=== PATIENT | female | born 1935 | race Caucasian/White ===

== ENCOUNTER 2018-08-30 15:20 | Inpatient (IN) ==
[2018-08-30] MEDS ORDERED: SODIUM CHLORIDE 0.9% 500 ML IV SCH (16:30)
[2018-08-30 17:10] LABS: Basophils # (auto) 0.03 K/uL (0-0.2); Basophils % (auto) 0.3 %; Eosinophils # (auto) 0.06 K/uL (0-0.5); Eosinophils % (auto) 0.6 %; Hematocrit (blood only) 37.3 % (37-47); Hemoglobin 12.2 g/dL (12.0-16.0); Immature Granulocytes # (auto) 0.03 K/uL (0.00-0.02); Immature Granulocytes % (auto) 0.3 %; Lymphocytes # (auto) 1.61 K/uL (1.2-3.4); Lymphocytes % (auto) 16.1 %; Mean Corpuscular Hgb Conc 32.7 g/dL (32-36); Mean Corpuscular Volume 91.2 fL (80-100); Mean Platelet Volume 9.8 fL (7.4-10.4); Neutrophils % (auto) 76.7 %; Platelet Count 283 K/uL (130-400); RDW Coefficient of Variation 15.5 % (11.5-14.5); RDW Standard Deviation 51.9 fL (36.4-46.3); Red Blood Count 4.09 M/uL (4.2-5.4); White Blood Count 10.03 K/uL (4.8-10.8)
--- NOTE | 2018-08-30 17:10 | XRay Report ---
XR chest 1V portable CLINICAL HISTORY: Atypical chest pain COMPARISON STUDY: No previous studies for comparison. FINDINGS: The heart is enlarged. There is no failure. There is no lobar consolidation. Increased basi lar markings, likely related to technical factors with overlying chest wall tissue. There are no sign ificant pleural effusions.[ IMPRESSION: Somewhat difficult study to interpret given the patient's body habitus and AP portable te chnique. No active disease in the chest. Electronically signed by: Yifan Low M.D. 08/30/2018 5:08 PM
[2018-08-30 17:19] LABS: Prothrombin Time 10.3 Seconds (9.0-12.0)
[2018-08-30 17:59] LABS: Alanine Aminotransferase 16 U/L (12-78); Albumin Globulin Ratio 0.9 (0.9-2); Albumin Level 3.4 gm/dl (3.4-5.0); Alkaline Phosphatase 59 U/L (45-117); BUN Creatinine Ratio 19.4 (10-20); Bilirubin,Total 0.5 mg/dl (0.2-1); Blood Urea Nitrogen 23 mg/dl (7-18); Calcium 9.5 mg/dl (8.5-10.1); Carbon Dioxide 25 mmol/L (21-32); Chloride 106 mmol/L (98-107); Creatinine Clr Calc Pharmacy 44.3 ml/min; Est GFR (African American) 50.1; Est GFR (Non-African American) 43.2; Globulin 3.9 gm/dl (2.5-4.0); Glucose 113 mg/dl (70-99); Sodium 140 mmol/L (136-145); Total Protein 7.3 gm/dl (6.4-8.2); Troponin I < 0.015 ng/ml (0-0.045)
[2018-08-30 19:07] LABS: Potassium 4.3 mmol/L (3.5-5.1)
[2018-08-30] MEDS ORDERED: OPTIRAY 320 125ml IV PRN (20:20)
--- NOTE | 2018-08-30 20:43 | CT Scan Report ---
CT OF THE HEAD WITHOUT CONTRAST CLINICAL HISTORY: aphasia, poor balance COMPARISON STUDY: No previous studies for comparison. CT DOSE: 1104.58 mGy.cm TECHNIQUE: Helical axial images of the head were obtained without IV contrast. Automated exposure con trol was utilized for the study. A dose lowering technique was utilized adhering to the principles o f ALARA. FINDINGS: No acute intracranial hemorrhage, midline shift or mass effect is present. The ventricular system is unremarkable. The basilar cisterns are patent. No extra-axial collections are present. Ther e are no findings to suggest acute dural sinus thrombosis or acute territorial infarct. No significan t calvarial abnormalities are present. Visualized portions of the sinuses and mastoid air cells are c lear. White matter hypodensity suggests small vessel disease. There is moderate atrophy. IMPRESSION: No acute intracranial findings. Electronically signed by: Dre Duckworth M.D. 08/30/2018 8:42 PM
--- NOTE | 2018-08-30 20:51 | CT Scan Report ---
CT ANGIOGRAPHY OF THE NECK WITH CONTRAST CLINICAL HISTORY: aphasia, poor balance COMPARISON STUDY: No previous studies for comparison. Technique: CT angiography of the carotid and vertebral arteries was obtained using naaptolraSano 320 IV and 3D reconstruction on an independent workstation. NASCET criteria was utilized. Automated exposure c ontrol was utilized for the study. A dose lowering technique was utilized adhering to the principles of ALARA. Findings: The bilateral common carotid and cervical internal carotid arteries are patent. There is mi ld plaque within the proximal left internal carotid artery without stenosis. There is no dissection w ithin these vessels. The right vertebral artery is dominant and patent. Please note that the CTA of t he head will be reported separately. The left vertebral artery is diminutive. No flow is identified w ithin portions of the cervical portion of the left vertebral artery with distal reconstitution. There is no lymphadenopathy within neck. Lung apices are unremarkable. A few thyroid nodules measure up to 1.9 cm. IMPRESSION: 1. No stenosis within the bilateral common carotid and cervical internal carotid arteries. 2. Dominant, patent right vertebral artery. Diminutive hypoplastic left vertebral artery. No flow candis ntified within portions of the left vertebral artery which may be due to occlusion versus stenosis wi th distal reconstitution. Electronically signed by: Dre Duckworth M.D. 08/30/2018 8:49 PM
--- NOTE | 2018-08-30 20:54 | CT Scan Report ---
CTA ANGIOGRAPHY OF THE HEAD CLINICAL HISTORY: aphasia, poor balance COMPARISON STUDY: No previous studies for comparison. TECHNIQUE: Helical axial images of the head were obtained following uneventful intravenous administr ation of 116 cc of Optiray 320. Automated exposure control was utilized for the study. A dose lower ing technique was utilized adhering to the principles of ALARA. FINDINGS: Please note that the CTA of the neck will be reported separately. No acute intracranial hem orrhage, midline shift or mass effect is present. Moderate atrophy is noted. There are postoperative findings within the sinuses. The bilateral M1, M2, A1 and A2 segments are patent. There is no intracr anial aneurysm. No abrupt vessel cut off is identified. There is severe stenosis of the distal left v ertebral artery and mild stenosis of the distal right vertebral artery. The basilar artery is patent. There is mild stenosis within the basilar artery. The bilateral posterior cerebral arteries are ley nt. IMPRESSION: 1. No intracranial aneurysm or abrupt vessel cut off. 2. 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 Electronically signed by: Dre Duckworth M.D. 08/30/2018 8:52 PM
[2018-08-30 21:01] LABS: Appearance Urine Clear (Clear); Bilirubin Urine Negative (Negative); Blood Urine Negative (Negative); Color Urine Yellow; Glucose Urine UA Negative (Negative); Ketones Urine Negative (Negative); Leukocyte Esterase Urine Negative (Negative); Nitrite Urine Negative (Negative); Protein Urine Negative (Negative); Specific Gravity Urine 1.035 (1.000-1.030); Urobilinogen Urine Negative (Negative)
--- NOTE | 2018-08-30 21:38 | Emergency Department Note ---
Entered by Jordan Fernandes acting as a scribe for Michael Olivares MD History of Present Illness General Chief complaint: Vertigo Stated complaint: SLURED SPEECH, OFF BALLANCE Time Seen by Provider: 08/30/18 16:20 Source: patient and family History of Present Illness Onset (ago): day(s) (past few) Location: mouth (speech) Pain Consistency: + intermittent Quality: + other (two episodes of speech difficulty) Associated symptoms: + other ("I just can't walk right" for past 2 weeks) The patient is an 83 year old female who presents to the Emergency Room with complaints of intermittent speech difficulties over the past few days. The patient reports 3 days ago she experienced a 5-minute episode of speech problems, stating that she was attempting to talk but words werent coming out right. She states that yesterday she had another similar episode of speech difficulties that again resolved. Today during her wound clinic appointment it was recommended that she come to the ER for evaluation due to her two episodes of speech difficulties. Adopted daughter at bedside states that the patient recently received a cortisone injection in her left knee. Over the past couple of weeks she has been falling, which she does not attribute to pain. She states I just cant walk right. She reports that she recently finished a course of antibiotics for UTI. The patient lives alone. Home Medications Home Medications Medication Instructions Recorded Confirmed Type alprazolam 0.5 mg PO DAILY 08/30/18 08/30/18 History cholecalciferol (vitamin D3) 1,000 unit PO DAILY 08/30/18 08/30/18 History [Vitamin D3] coenzyme Q10 [CoQ-10] 100 mg PO DAILY 08/30/18 08/30/18 History escitalopram oxalate 10 mg PO DAILY 08/30/18 08/30/18 History leflunomide 10 mg PO DAILY 08/30/18 08/30/18 History metoprolol succinate 50 mg PO DAILY 08/30/18 08/30/18 History olmesartan 40 mg PO DAILY 08/30/18 08/30/18 History omeprazole 20 mg PO DAILY 08/30/18 08/30/18 History rosuvastatin 20 mg PO DAILY 08/30/18 08/30/18 History spironolactone 25 mg PO Q2D 07/01/19 07/01/19 History Allergies Allergy/AdvReac Type Severity Reaction Status Date / Time clopidogrel Allergy Unknown ITCHING Verified 08/30/18 17:44 aspirin AdvReac Unknown GI ISSUES Verified 08/30/18 17:44 Past Med/Surg History Medical History GERD (gastroesophageal reflux disease) History of hysterectomy Hypertension Surgical History History of appendectomy History of cataract surgery History of cholecystectomy History of total knee replacement x2 Family History Other Family history non-contributory Social History Preferred Language: Vietnamese Communication Ability: Effective Houseperson Required: No Beliefs That Will Affect Care: None Current Living Situation: Alone Other Information That Helps Us Care for You: No Feels Safe at Home: Yes Safety Concerns: Feels Safe At This Time Smoking Status: Never smoker Do You Dip or Chew Tobacco: No Second Hand Exposure: No Tobacco Cessation Education Requested by Patient: No Hx Alcohol Use: Yes Hx Substance Use: No Review of Systems See HPI for pertinent positives & negatives. and A total of 10 systems reviewed and were otherwise negative Physical Exam Vital Signs Vital Signs - 24 hr 08/30/18 15:25 08/30/18 16:20 08/30/18 18:58 Temperature 36.9 C Temperature Source Oral Sepsis Recent Fever Within 48 Hours No Sepsis Action Taken by Nursing No Action Required Pulse Rate 71 67 Pulse Rate [Apical] 70 Pulse Strength Normal Respiratory Rate 20 20 24 Respiratory Effort / Characteristics Non-Labored Non-Labored Spontaneous Respiratory Depth Normal Normal Blood Pressure 147/69 H Blood Pressure [Right Arm] 165/56 H Blood Pressure Mean 95 Blood Pressure Mean [Right Arm] 92 Pulse Oximetry 94 95 95 Oxygen Delivery Method Room Air Room Air Room Air 08/30/18 20:44 Temperature Temperature Source Sepsis Recent Fever Within 48 Hours Sepsis Action Taken by Nursing Pulse Rate Pulse Rate [Apical] 91 H Pulse Strength Respiratory Rate 18 Respiratory Effort / Characteristics Non-Labored Spontaneous Respiratory Depth Normal Blood Pressure Blood Pressure [Right Arm] 203/98 H Blood Pressure Mean Blood Pressure Mean [Right Arm] 133 Pulse Oximetry 96 Oxygen Delivery Method Room Air GENERAL: Awake, alert, fatigued-appearing, in no distress HENT: Normocephalic, atraumatic. Mucous membranes dry. EYES: Normal conjunctiva. Sclera non-icteric. EOMI. No nystamgus. PEARRL. NECK: Supple. No nuchal rigidity. FROM. No JVD. RESPIRATORY: Clear to auscultation bilaterally. CARDIAC: Regular rate, normal rhythm. Extremities warm and well perfused. Pulses equal. ABDOMEN: Soft, non-distended. No tenderness to palpation. No rebound or guarding. No masses. RECTAL: Deferred. MUSCULOSKELETAL: Chest examination reveals no tenderness. The back is symmetrical on inspection without obvious abnormality. There is no CVA tenderness to palpation. No joint edema. LOWER EXTREMITIES: Calves are equal size bilaterally and non-tender. No edema. No discoloration. NEURO: Normal sensorium. No sensory or motor deficits noted. 5/5 strength and SILT x4 extremities. Cerebellar function intact, including finger to nose, alternating palms, heel to steven. SKIN: No rash or jaundice noted. Course 163: The patient was evaluated in room C10. A complete history and physical examination were performed. 2119: I consulted Dr. Barron [facility] Hospitalist. The patient will be reevaluated for hospitalization. Administered Medications Discontinued Medications Sodium Chloride (Nss) 500 mls @ 999 mls/hr IV .Q31M SASHA Stop: 08/30/18 17:00 Last Infusion: 08/30/18 17:44 Dose: 0 mls/hr Documented by: [id number] Admin: 08/30/18 17:04 Dose: 999 mls/hr Documented by: [id number] Ioversol (Optiray 320 125ml) 116 ml IV ONCE PRN PRN Reason: Interaction Checking Stop: 09/03/18 20:19 Last Admin: 08/30/18 20:21 Dose: 116 ml Documented by: [id number] Medical Decision Making Differential Diagnosis Differential diagnosis includes: metabolic, infection, hypo/hyperglycemia, electrolyte abnormalities, cardiac sources, intracerebral event, toxicologic, neurologic, as well as others were entertained. Medical Records Attestation: I reviewed the patient's medical records. Home Medications Current Medication List: was personally reviewed by me Laboratory Data Attestation: I reviewed the patient's lab results. Result diagrams: 08/30/18 16:50 08/30/18 18:42 Lab Results 08/30/18 08/30/18 08/30/18 Range/Units 16:50 16:50 16:50 WBC 10.03 (4.8-10.8) K/uL RBC 4.09 L (4.2-5.4) M/uL Hgb 12.2 (12.0-16.0) g/dL Hct 37.3 (37-47) % MCV 91.2 (80-100) fL MCH 29.8 (25-34) pg MCHC 32.7 (32-36) g/dL RDW Std Deviation 51.9 H (36.4-46.3) fL RDW Coeff of Lizy 15.5 H (11.5-14.5) % Plt Count 283 (130-400) K/uL MPV 9.8 (7.4-10.4) fL Immature Gran % (Auto) 0.3 % Neut % (Auto) 76.7 % Lymph % (Auto) 16.1 % [place] % (Auto) 6.0 % Eos % (Auto) 0.6 % Baso % (Auto) 0.3 % Immature Gran # (Auto) 0.03 H (0.00-0.02) K/uL Neut # (Auto) 7.70 H (1.4-6.5) K/uL Lymph # (Auto) 1.61 (1.2-3.4) K/uL [place] # (Auto) 0.60 H (0.11-0.59) K/uL Eos # (Auto) 0.06 (0-0.5) K/uL Baso # (Auto) 0.03 (0-0.2) K/uL PT 10.3 (9.0-12.0) Seconds INR 1.0 (0.9-1.1) Sodium 140 (136-145) mmol/L Potassium (3.5-5.1) mmol/L Chloride 106 (98-107) mmol/L Carbon Dioxide 25 (21-32) mmol/L Anion Gap 9.0 (3-11) BUN 23 H (7-18) mg/dl Creatinine 1.16 (0.6-1.2) mg/dl Est Cr Clr Drug Dosing 44.3 ml/min Est GFR ( Amer) 50.1 Est GFR (Non-Af Amer) 43.2 BUN/Creatinine Ratio 19.4 (10-20) Glucose 113 H (70-99) mg/dl Calcium 9.5 (8.5-10.1) mg/dl Phosphorus 3.0 (2.5-4.9) mg/dl Magnesium (1.8-2.4) mg/dl Total Bilirubin 0.5 (0.2-1) mg/dl AST (15-37) U/L ALT 16 (12-78) U/L Alkaline Phosphatase 59 (45-117) U/L Troponin I < 0.015 (0-0.045) ng/ml Total Protein 7.3 (6.4-8.2) gm/dl Albumin 3.4 (3.4-5.0) gm/dl Globulin 3.9 (2.5-4.0) gm/dl Albumin/Globulin Ratio 0.9 (0.9-2) Lipase 154 (73-393) U/L TSH 0.979 (0.300-4.500) uIu/ml Urine Color Urine Appearance (Clear) Urine pH (4.5-7.5) Ur Specific [place] (1.000-1.030) Urine Protein (Negative) Urine Glucose (UA) (Negative) Urine Ketones (Negative) Urine Blood (Negative) Urine Nitrite (Negative) Urine Bilirubin (Negative) Urine Urobilinogen (Negative) Ur Leukocyte Esterase (Negative) 08/30/18 08/30/18 Range/Units 18:42 20:47 WBC (4.8-10.8) K/uL RBC (4.2-5.4) M/uL Hgb (12.0-16.0) g/dL Hct (37-47) % MCV (80-100) fL MCH (25-34) pg MCHC (32-36) g/dL RDW Std Deviation (36.4-46.3) fL RDW Coeff of Lizy (11.5-14.5) % Plt Count (130-400) K/uL MPV (7.4-10.4) fL Immature Gran % (Auto) % Neut % (Auto) % Lymph % (Auto) % [place] % (Auto) % Eos % (Auto) % Baso % (Auto) % Immature Gran # (Auto) (0.00-0.02) K/uL Neut # (Auto) (1.4-6.5) K/uL Lymph # (Auto) (1.2-3.4) K/uL [place] # (Auto) (0.11-0.59) K/uL Eos # (Auto) (0-0.5) K/uL Baso # (Auto) (0-0.2) K/uL PT (9.0-12.0) Seconds INR (0.9-1.1) Sodium (136-145) mmol/L Potassium 4.3 (3.5-5.1) mmol/L Chloride (98-107) mmol/L Carbon Dioxide (21-32) mmol/L Anion Gap (3-11) BUN (7-18) mg/dl Creatinine (0.6-1.2) mg/dl Est Cr Clr Drug Dosing ml/min Est GFR ( Amer) Est GFR (Non-Af Amer) BUN/Creatinine Ratio (10-20) Glucose (70-99) mg/dl Calcium (8.5-10.1) mg/dl Phosphorus (2.5-4.9) mg/dl Magnesium 2.0 (1.8-2.4) mg/dl Total Bilirubin (0.2-1) mg/dl AST 10 L (15-37) U/L ALT (12-78) U/L Alkaline Phosphatase (45-117) U/L Troponin I (0-0.045) ng/ml Total Protein (6.4-8.2) gm/dl Albumin (3.4-5.0) gm/dl Globulin (2.5-4.0) gm/dl Albumin/Globulin Ratio (0.9-2) Lipase (73-393) U/L TSH (0.300-4.500) uIu/ml Urine Color Yellow Urine Appearance Clear (Clear) Urine pH 5.0 (4.5-7.5) Ur Specific [place] 1.035 H (1.000-1.030) Urine Protein Negative (Negative) Urine Glucose (UA) Negative (Negative) Urine Ketones Negative (Negative) Urine Blood Negative (Negative) Urine Nitrite Negative (Negative) Urine Bilirubin Negative (Negative) Urine Urobilinogen Negative (Negative) Ur Leukocyte Esterase Negative (Negative) Imaging Data Radiologist's Impression: Radiology results as stated below per my review and the radiologist's interpretation: XR chest 1V portable CLINICAL HISTORY: Atypical chest pain COMPARISON STUDY: No previous studies for comparison. FINDINGS: The heart is enlarged. There is no failure. There is no lobar consolidation. Increased basilar markings, likely related to technical factors with overlying chest wall tissue. There are no significant pleural effusions. IMPRESSION: Somewhat difficult study to interpret given the patient's body habitus and AP portable technique. No active disease in the chest. Electronically signed by: Yifan Low M.D. 08/30/2018 5:[address] OF THE HEAD WITHOUT CONTRAST CLINICAL HISTORY: aphasia, poor balance COMPARISON STUDY: No previous studies for comparison. CT DOSE: 1104.58 mGy.cm TECHNIQUE: Helical axial images of the head were obtained without IV contrast. Automated exposure control was utilized for the study. A dose lowering technique was utilized adhering to the principles of ALARA. FINDINGS: No acute intracranial hemorrhage, midline shift or mass effect is present. The ventricular system is unremarkable. The basilar cisterns are patent. No extra-axial collections are present. There are no findings to suggest acute dural sinus thrombosis or acute territorial infarct. No significant calvarial abnormalities are present. Visualized portions of the sinuses and mastoid air cells are clear. White matter hypodensity suggests small vessel disease. There is moderate atrophy. IMPRESSION: No acute intracranial findings. Electronically signed by: Dre Duckworth M.D. 08/30/2018 8:42 PM CTA ANGIOGRAPHY OF THE HEAD CLINICAL HISTORY: aphasia, poor balance COMPARISON STUDY: No previous studies for comparison. TECHNIQUE: Helical axial images of the head were obtained following uneventful intravenous administration of 116 cc of Optiray 320. Automated exposure control was utilized for the study. A dose lowering technique was utilized adhering to the principles of ALARA. FINDINGS: Please note that the CTA of the neck will be reported separately. No acute intracranial hemorrhage, midline shift or mass effect is present. Moderate atrophy is noted. There are postoperative findings within the sinuses. The bilateral M1, M2, A1 and A2 segments are patent. There is no intracranial aneurysm. No abrupt vessel cut off is identified. There is severe stenosis of the distal left vertebral artery and mild stenosis of the distal right vertebral artery. The basilar artery is patent. There is mild stenosis within the basilar artery. The bilateral posterior cerebral arteries are patent. IMPRESSION: 1. No intracranial aneurysm or abrupt vessel cut off. 2. 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 Electronically signed by: Dre Duckworth M.D. 08/30/2018 8:[address] ANGIOGRAPHY OF THE NECK WITH CONTRAST CLINICAL HISTORY: aphasia, poor balance COMPARISON STUDY: No previous studies for comparison. Technique: CT angiography of the carotid and vertebral arteries was obtained using Optiray 320 IV and 3D reconstruction on an independent workstation. NASCET criteria was utilized. Automated exposure control was utilized for the study. A dose lowering technique was utilized adhering to the principles of ALARA. Findings: The bilateral common carotid and cervical internal carotid arteries are patent. There is mild plaque within the proximal left internal carotid arter y without stenosis. There is no dissection within these vessels. The right vertebral artery is dominant and patent. Please note that the CTA of the head will be reported separately. The left vertebral artery is diminutive. No flow is identified within portions of the cervical portion of the left vertebral artery with distal reconstitution. There is no lymphadenopathy within neck. Lung apices are unremarkable. A few thyroid nodules measure up to 1.9 cm. IMPRESSION: 1. No stenosis within the bilateral common carotid and cervical internal carotid arteries. 2. Dominant, patent right vertebral artery. Diminutive hypoplastic left vertebral artery. No flow identified within portions of the left vertebral artery which may be due to occlusion versus stenosis with distal reconstitution. Electronically signed by: Dre Duckworth M.D. 08/30/2018 8:49 PM ECG Data Attestation: I personally reviewed and interpreted this ECG as follows: Indication: other (speech difficulties) Rate (beats per minute): 68 Rhythm: normal sinus Findings: + other (normal axis); no ST depression and no ST elevation Blood Pressure Blood Pressure Findings: Elevated blood pressure Blood Pressure Disposition: further management by hospitalist JOIE Narrative The patient is a pleasant 83 y/o woman with a pmhx of HTN, HLD, GERD who presents to the emergency department with accompanied by daughter for evaluation of episode of aphasia that occurred yesterday as well as imbalance, which they report is new/worse for the patient per HPI. Given sx now resolved and onset yesterday no indication for Stroke alert. On arrival the patient is in NAD, AFVSS. Patient is neuro intact at this time including cerebellar function intact including [id number], alternating palms, [id number]. 5/5 strength and SILT x 4 extremities. EKG without evidence of acute ischemia. CXR negative. WBC, H/H, platelets wnl. Chemistry without acidosis. LFTs and electrolytes unremarkable. Troponin negative. UA negative. CTA of head and neck demonstrates severe stenosis of the distal left vertebral artery and mild stenosis of the distal right vertebral artery. Given patient's prior sx, reasonable to admit for further stroke evaluation including likely MRi. Case was discussed with Dr. Barron, [facility] hospitalist, who will evaluate the patient for admission. Impression & Plan Stroke-like symptoms Discharge Plan Visit Data *Final* Discharge Date/Time: 08/30/18 22:57 Chief Complaint: Vertigo Stated Complaint: SLURED SPEECH, OFF BALLANCE ED Provider: Michael Olivares Discharge Problem: Stroke-like symptoms Patient Disposition: Admitted As Inpatient Discharge Instructions Interventions: ED Discharge Assessment Last Done: 08/30/18 22:57 The scribe's documentation has been prepared under my direction and personally reviewed by me in its entirety. I confirm that the note above accurately r eflects all work, treatment, procedures, and medical decision making performed by me.
[2018-08-30] MEDS ORDERED: ACETAMINOPHEN 325 MG TAB PO PRN (23:06)
[2018-08-30] MEDS ORDERED: NITROGLYCERIN SL 0.4 MG/TAB TAB SL PRN (23:06)
[2018-08-30] MEDS ORDERED: LABETALOL HCL IV 5 MG/ML 20ML IV PRN (23:06)
[2018-08-30] MEDS ORDERED: PHARMACIST DISCHARGE MED REC CONSULT PRN (23:06)
[2018-08-30] MEDS ORDERED: ONDANSETRON INJ 2 MG/ML 2 ML VIAL IV PRN (23:06)
--- NOTE | 2018-08-31 02:00 | History and Physical Report ---
DATE OF ADMISSION: 08/30/2018 CHIEF COMPLAINT: Stroke-like symptoms. HISTORY OF PRESENT ILLNESS: This is an 83-year-old female with past medical history significant for rheumatoid arthritis, hypertension, hyperlipidemia, depression, anxiety, GERD, who presents with transient aphasia and imbalance. The patient says she had an episode of transient aphasia about a year ago for a few minutes and again it happened last Thursday for 4-5 minutes she was not able to speak and when she spoke, she was not making sense. Then again it happened on Thursday and today she was going to her wound clinic for a small wound on her right thigh which is healing. She was taken to the wound clinic and people advised to come to the ER. Currently, resting comfortably and hemodynamically stable. Speech is clear, alert and oriented x3. Adopted daughter in the room. She lives alone. She just had steroid shot to her knees today. She follows with orthopedics for her arthritis, but lately since last 1-2 months she is having some gait imbalance while she is ambulating. She uses a cane to ambulate. She has some headaches. Denies any blurred vision. No earache, no runny nose, no sore throat, no difficulty swallowing. No chest pain, no shortness of breath, no cough, no nausea, no abdominal pain. Normal bowel and bladder movements. No blood in the stool, no black stools, no hematuria, no burning micturition. No swelling in the legs. No rash. The patient says the blood pressure usually runs high at home, yesterday was 148/102, but it usually runs higher than that. Blood pressure has been high in the ER. ALLERGIES: ASPIRIN CAUSES GI UPSET AND PLAVIX CAUSES ITCHING. PAST MEDICAL HISTORY: As mentioned above. PAST SURGICAL HISTORY: Cataract surgery. MEDICATIONS: The patient is on alprazolam 0.5 mg p.o. daily, vitamin D 1000 units p.o. daily, Coenzyme Q10 100 mg p.o. daily, Lexapro 10 mg p.o. daily, leflunomide 10 mg p.o. daily, Toprol-XL 50 mg p.o. daily, olmesartan 40 mg p.o. daily, omeprazole 20 mg p.o. daily, lovastatin 20 mg p.o. daily, spironolactone 25 mg every other day. FAMILY HISTORY: Noncontributory. SOCIAL HISTORY: Denies any smoking. No alcohol, no drug use. REVIEW OF SYMPTOMS: As per HPI. Rest of the review of symptoms negative. PHYSICAL EXAMINATION: GENERAL: The patient is obese, not in acute distress. VITAL SIGNS: Temperature 36.9, pulse 91, respiratory rate 18, blood pressure 203/98, oxygen 96% on room air. HEENT: No pallor, no icterus. Pupils equal, round, and reactive to light. Extraocular muscles intact. NECK: No JVD, no neck masses, no carotid bruits. CARDIOVASCULAR: S1, S2 heard, regular rate and rhythm, no murmur, no gallop. RESPIRATORY SYSTEM: Normal AP diameter. No accessory muscle use. No wheezing, no crackles. ABDOMEN: Soft, bowel sounds present. Nontender. No distention. CENTRAL NERVOUS SYSTEM: Cranial nerves II-XII grossly intact. Nonfocal. Power 5/5 in all extremities. No pronator drift. Coordination of movements normal. Hktloy-fz-sblj test normal. Vqqu-jn-uvfl test normal. Sensation intact. Position sense intact. EXTREMITIES: No edema, no erythema. LABORATORY DATA: WBC 10, hemoglobin 12.2, hematocrit 37.3, platelets 283. PT 10.3, INR 1. Sodium 140, potassium 4.3, chloride 106, bicarbonate 25, BUN 23, creatinine 1.16, serum glucose 113, calcium 9.5, magnesium 3.2, total bilirubin 0.5, AST 10, ALT 16, alkaline phosphatase 59, troponin I less than 0.015. Lipase 154. TSH 0.97. Urinalysis negative. IMAGING DATA: CTA of the neck, no stenosis within bilateral common carotid and cervical internal carotid arteries. Dominant patent right vertebral artery. Diminutive hypoplastic left vertebral artery. No flow identified within a portion of the left vertebral artery which may be due to occlusion of versus stenosis with distal reconstitution. CTA of the head, no intracranial aneurysm or abrupt visual cutoff. 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 CT of the head, no acute intracranial findings. Chest x-ray, no acute disease in the chest. EKG: Normal sinus rhythm, rate of 68, no significant change from previous EKG. ASSESSMENT AND PLAN: This is an 83-year-old female who presents with stroke-like symptoms. 1. Stroke-like symptoms. Has some transient aphasia, some imbalance going on for last [address] of the head is unremarkable, but CTA of the head and neck shows severe stenosis of the right vertebral artery, distal left vertebral artery and mild stenosis of the distal right vertebral artery. Currently, patient is asymptomatic on exam, ambulating okay in the ER room. We will do a stroke protocol with MRI of the head, echocardiogram, carotid Doppler, speech evaluation, and neurology consult in a.m. PT and OT. The patient is already on statin. We will follow fasting lipid profile. Patient is to be monitored in tele floor. The patient states aspirin caused severe GI upset in the past and Plavix caused itching. So we will have neuro input regarding it and closely monitor in the tele floor. 2. Hypertension, on olmesartan and Toprol-XL. The patient's blood pressure runs high at home. Currently, systolic blood pressure in 200s. We will allow permissive hypertension. We will place on IV labetalol p.r.n. for systolic blood pressure in 190. 3. Hyperlipidemia. Continue lovastatin 20 mg daily. Follow fasting lipid profile. 4. Gastroesophageal reflux disease, continue omeprazole. 5. Depression. Continue Lexapro . 6. Deep venous thrombosis prophylaxis, sequential compression devices for now. 7. Disposition: Closely monitor in the tele floor. Level 1 full code. Code status DNR as per my discussion with the patient. PARASD
[2018-08-31 07:05] LABS: Basophils # (auto) 0.01 K/uL (0-0.2); Basophils % (auto) 0.1 %; Hematocrit (blood only) 40.8 % (37-47); Hemoglobin 13.3 g/dL (12.0-16.0); Immature Granulocytes # (auto) 0.03 K/uL (0.00-0.02); Immature Granulocytes % (auto) 0.3 %; Lymphocytes # (auto) 1.27 K/uL (1.2-3.4); Mean Corpuscular Hgb Conc 32.6 g/dL (32-36); Mean Corpuscular Volume 89.5 fL (80-100); Mean Platelet Volume 9.8 fL (7.4-10.4); Monocytes # (auto) 0.34 K/uL (0.11-0.59); Monocytes % (auto) 3.2 %; Neutrophils # (auto) 8.97 K/uL (1.4-6.5); Neutrophils % (auto) 84.4 %; Platelet Count 315 K/uL (130-400); RDW Coefficient of Variation 15.3 % (11.5-14.5); RDW Standard Deviation 49.7 fL (36.4-46.3); Red Blood Count 4.56 M/uL (4.2-5.4); White Blood Count 10.62 K/uL (4.8-10.8)
[2018-08-31 07:40] LABS: BUN Creatinine Ratio 20.3 (10-20); Calcium 9.4 mg/dl (8.5-10.1); Creatinine Clr Calc Pharmacy 46.2 ml/min; Est GFR (African American) 53.4; Est GFR (Non-African American) 46.1; Potassium 4.1 mmol/L (3.5-5.1)
[2018-08-31 07:47] LABS: Estimated Average Glucose 134 mg/dl; Hemoglobin A1C 6.3 % (4.5-5.6)
[2018-08-31] MEDS: ESCITALOPRAM OXALATE 10 MG TAB PO SCH (07:53)
[2018-08-31] MEDS: CHOLECALCIFEROL 1,000 UNITS TAB PO SCH (07:53)
[2018-08-31] MEDS: ROSUVASTATIN CALCIUM 20 MG TAB PO SCH (07:53)
[2018-08-31] MEDS: PANTOprazole 40 MG TAB PO SCH (07:53)
[2018-08-31] MEDS: OLMESARTAN MEDOXOMIL 40 MG TAB PO SCH (07:53)
[2018-08-31] MEDS: LEFLUNOMIDE 10 MG TAB PO SCH (07:53)
[2018-08-31] MEDS ORDERED: METOPROLOL SUCC 50MG EXT REL TAB PO STA (08:24)
[2018-08-31] MEDS: ALPRAZolam 0.5 MG TABLET PO SCH (08:38)
[2018-08-31] MEDS ORDERED: NON-FORMULARY MEDICATION (Coenzyme Q10 [Coq-10] 100 MG) PO SCH (09:00)
[2018-08-31] MEDS ORDERED: PERFLUTREN LIPID MICROSPHERE (DEFINITY) IV ONE (09:38)
--- NOTE | 2018-08-31 10:37 | Ultrasound Report ---
ULTRASOUND OF THE CAROTID ARTERIES CLINICAL HISTORY: Throat COMPARISON STUDY: None. TECHNIQUE: Real-time, grayscale, and color Doppler sonography of the carotid arteries was performed. Imaging reviewed in the transverse and longitudinal planes. NASCET criteria was utilized for stenosis calcification. FINDINGS: There is minimal atherosclerotic plaque present . The peak systolic velocity within the right internal carotid artery is 72 cm/sec. The systolic velocity ratio of right internal to common carotid artery is 0.8. The peak systolic velocity within the left internal carotid artery is 72 cm/sec. The systolic velocity ratio left internal to common carotid artery is 0.9. No flow was visualized within the left vertebral. The external carotid arteries are patent. IMPRESSION: 1. No evidence of hemodynamic significant carotid stenosis 2. Nonvisualization of the left vertebral artery Electronically signed by: iYfan Low M.D. 08/31/2018 10:35 AM
[2018-08-31] MEDS ORDERED: GADOBUTROL 65ML VIAL IV PRN (13:47)
--- NOTE | 2018-08-31 14:00 | Magnetic Resonance Report ---
MRI OF THE BRAIN WITHOUT AND WITH IV CONTRAST CLINICAL HISTORY: Stroke. Hypertension. Abnormal gait. Headaches. Dizziness. COMPARISON STUDY: Head CT dated 08/30/2018 TECHNIQUE: MRI of the brain was performed from the vertex to the skull base utilizing various T1 and T2 weighted sequences. Following the IV administration of 10.5 mL of Gadavist contrast, additional en hanced images were obtained. FINDINGS: Sagittal T1, axial diffusion, proton density and T2 weighted axial, coronal FLAIR, and pre and post a xial T1-weighted images were acquired. These were supplemented with post gadolinium coronal T1 weight ed images. No intra or extra-axial mass lesions are visualized. Axial diffusion-weighted images reveal no evidence of acute or subacute infarction. There is mild ventricular prominence, finding likely secondary to volume loss Proton density T2-weighted and FLAIR images reveal scattered foci of increased T2 signal within the w irina matter, likely on a small vessel basis. There is abnormal signal within the distal left vertebral artery consistent with slow flow or occlusi on. There is no evidence of pathologic enhancement. IMPRESSION: 1. Abnormal signal within the distal left vertebral artery consistent with slow flow or occlusion 2. No evidence of acute or subacute infarction 3. No evidence of intracranial mass Electronically signed by: Yifan Low M.D. 08/31/2018 1:59 PM
--- NOTE | 2018-08-31 15:42 | Neurology Consultation ---
Date of Consultation August 31, 2018 Assessment & Plan (1) Aphasia: A 83 year old woman with Hx of RA and HTN admitted with intermittent language difficulty which resolved prior to admission. Also noted to have some possible confusion. Blood pressure elevated on admission and since improved. No aphasia or dysarthria on examine. Patient currently at baseline. Evaluation included an MRI which showed chronic microvascular ischemic changes and CTA head showed an incidentally occluded left vertebral artery. Differential diagnosis certainly includes TIA Vs HTN encephalopathy. Recommend starting PLavix 75 mg daily and continue home Crestor 20 mg daily. Patient intolerant to ASA but denies AE from Plavix. Agree with gradual reduction in blood pressures with goal SBP <140 mm Hg, DBP<90 mm Hg. Recommend outpatient PT for her unsteady gait and follow up in Neurology clinic in 8-weeks. Plan to discharge tomorrow with observation of blood pressures overnight. Please call with any further questions or concerns. (2) Hypertension: (3) Occlusion of left vertebral artery: History of Present Illness Attending Physician: Danyel Hutchinson MD History of Present Illness An 83 year old woman yesterday for complaint of intermittent speech difficulty 2-3 days ago. Episode lasted about 5 min per patient. SHe has a history of HTN, HLD< and RA. She is not on ASA or Plavix. Reports intolerance to ASA. Denies problems with Plavix. Denies history of stroke or TIA. On Admission blood pressures were eleavted with SBP> 200. Blood pressure improved with adjustment of BP meds. Patient reports feeling fine now. Friend at bedside concerned with unsteady gait and headaches. Patient had RA and is on immunotherapy. Denies DM. Allergies Allergy/AdvReac Type Severity Reaction Status Date / Time clopidogrel Allergy Unknown ITCHING Verified 08/30/18 17:44 aspirin AdvReac Unknown GI ISSUES Verified 08/30/18 17:44 Home Medications Home Medications Medication Instructions Recorded Confirmed Type alprazolam 0.5 mg PO DAILY 08/30/18 08/30/18 History cholecalciferol (vitamin D3) 1,000 unit PO DAILY 08/30/18 08/30/18 History [Vitamin D3] coenzyme Q10 [CoQ-10] 100 mg PO DAILY 08/30/18 08/30/18 History escitalopram oxalate 10 mg PO DAILY 08/30/18 08/30/18 History leflunomide 10 mg PO DAILY 08/30/18 08/30/18 History metoprolol succinate 50 mg PO DAILY 08/30/18 08/30/18 History olmesartan 40 mg PO DAILY 08/30/18 08/30/18 History omeprazole 20 mg PO DAILY 08/30/18 08/30/18 History rosuvastatin 20 mg PO DAILY 08/30/18 08/30/18 History spironolactone 25 mg PO Q2D 08/30/18 08/30/18 History Patient History Medical History GERD (gastroesophageal reflux disease) History of hysterectomy Hypertension Surgical History History of appendectomy History of cataract surgery History of cholecystectomy History of total knee replacement x2 Family History Other Family history non-contributory Social History Preferred Language: Croatian Communication Ability: Effective 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: No Beliefs That Will Affect Care: None marital status: / Current Living Situation: Alone Other Information That Helps Us Care for You: No Feels Safe at Home: Yes Safety Concerns: Feels Safe At This Time Smoking Status: Never smoker Do You Dip or Chew Tobacco: No Second Hand Exposure: No Tobacco Cessation Education Requested by Patient: No Hx Alcohol Use: Yes Hx Substance Use: No Physical Exam Physical Exam: EXAM: Constitutional: appearance normally developed, well nourished and non-obese Head and Face: normocephalic and atraumatic Eyes: normal lids, normal conjunctiva Neck: supple Respiratory: normal effort Cardiovascular: normal pulses Abdomen: non distended Skin: no rashes, lesions, or ulcers noted Psychiatric: normal judgement and insight, normal mood and normal affect NEUROLOGIC EXAMINATION: Appearance: no acute distress Orientation: awake, alert and oriented x 3 Mental Status: alert Memory: Good Attention: normal Knowledge: appropriate Language: no aphasia Speech: no dysarthria Cranial Nerves: CN 2 - no visual defect on confrontation and pupils round, equal, reactive to light CN 3, 4, 6 - extra-ocular movements intact and no nystagmus CN 5 - facial sensation intact CN 7 - no facial asymmetry CN 8 - intact hearing CN 9, 10 - palate symmetric CN 11 - good shoulder shrug CN 12 - tongue midline Gait: wide based gait, able to stand without assistance Coordination: no ataxia with finger to nose testing Sensory: position sense is intact in the feet, intact to touch Muscle Tone: normal Muscle exam: 5/5 throughout Reflexes: 2+ at the knees, no clonus Results & Data Vital Signs (Past 12 Hours) Vital Signs Temp Pulse Pulse Resp BP BP Pulse Ox 08/31/18 11:42 36.5 C 83 20 164/79 H 97 08/31/18 08:11 36.7 C 87 20 173/72 H 97 08/31/18 07:27 96 H 08/31/18 04:00 36.5 C 88 20 169/71 H 96 Laboratory Results UA Negative Diagnostic Findings MRI Brain: 1. Abnormal signal within the distal left vertebral artery consistent with slow flow or occlusion 2. No evidence of acute or subacute infarction 3. No evidence of intracranial mass CTA Neck: . No stenosis within the bilateral common carotid and cervical internal carotid arteries. 2. Dominant, patent right vertebral artery. Diminutive hypoplastic left vertebral artery. No flow identified within portions of the left vertebral artery which may be due to occlusion versus stenosis with distal reconstitution. CTA Head: . No intracranial aneurysm or abrupt vessel cut off. 2. 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 TTE: Preserved EF. No cardiac source of embolism.
--- NOTE | 2018-08-31 16:26 | Hospitalist Progress Note ---
Date of Service August 31, 2018 Assessment & Plan (1) Hypertension: This is an 83-year-old female with past medical history significant for rheumatoid arthritis, hypertension, hyperlipidemia, depression, anxiety, GERD, who presents with transient aphasia and imbalance. The patient says she had an episode of transient aphasia about a year ago for a few minutes and again it happened last Thursday for 4-5 minutes she was not able to speak and when she spoke, she was not making sense. Then again it happened on Thursday and today she was going to her wound clinic for a small wound on her right thigh which is healing. She was taken to the wound clinic and people advised to come to the ER. Currently, resting comfortably and hemodynamically stable. Initial concerns for stroke-like symptoms possible TIA versus Hypertensive Hypertensive encephalopathy as reasons for episodes of speech dysfunction Hypertension -no actual observed symptoms during hospital stay and patient does not have focal neurological deficits on medical silver -admission blood pressure remarkable for being systolic 203/98 and general blood pressures above 160s -Imaging studies studies with no acute brain infarcts (08/30/[address]: No acute intracranial findings 08/30/18 Head CTA: No intracranial aneurysm or abrupt vessel cut off. 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 08/30/18 Neck CTA: . No stenosis within the bilateral common carotid and cervical internal carotid arteries. Dominant, patent right vertebral artery. Diminutive hypoplastic left vertebral artery. No flow identified within portions of the left vertebral artery which may be due to occlusion versus stenosis with distal reconstitution. 08/31/18 Carotid ultrasound: No evidence of hemodynamic significant carotid stenosis. Nonvisualization of the left vertebral artery 08/31/18 Echocardiogram: Normal LV Chamber size and wall thickness. Normal LV systolic function, EF 60- 65%. No segmental left ventricular wall motion abnormalities are noted. Grade 1 diastolic dysfunction. No significant valvular pathology 08/31/18: Brain MRI without and with IV contrast: Abnormal signal within the distal left vertebral artery consistent with slow flow or occlusion. No evidence of acute or subacute infarction. No evidence of intracranial mass) -sinus rhythm on telemetry -patient has been started on amlodipine 5 mg daily on 08/31/18 and as per neurology Dr. Trotter recommends starting clopidogrel 75 mg daily (no allergies to clopidogrel when neurology discussed with patient and patient agreeable to try) and keep patient inpatient for now and continue to monitor the patient as inpatient -continue home dose olmesartan 40mg and Toprol-XL 50 mg daily -resume spirolactone 25 mg every other day -will need neurology clinic follow up in 8 weeks Dyslipidemia -Continue lovastatin 20 mg daily Rheumatoid Arthritis -no acute flare at this time -continue leflunomide Gastroesophageal reflux disease -continue omeprazole. Mood stable -on Lexapro as outpatient, continue Deep venous thrombosis prophylaxis: sequential compression devices for now and encourage ambulation Patient's friend Sol [phone] notes that patient has already outpatient therapy referrals Physical Exam Constitutional: WD/WN, vitals as above Eyes: PERRL, conjunctivae normal, anicteric sclerae EOM intact bilaterally ENMT: external ear and nose normal, oropharynx normal Neck: trachea midline, no thyromegaly Respiratory: normal respiratory effort, lungs clear to auscultation Cardiovascular: RRR, no murmur, no edema Gastrointestinal (Abdomen): normal bowel sounds, soft, nontender, no hepatosplenomegaly Musculoskeletal: no cyanosis or clubbing, extremities motor strength 5/5 Head/Neck/Chest: normocephalic and head atraumatic Neurologic: PERRL, EOMI, accommodation nl, no face palsy, no dysarthria CN's II-XI intact bilaterally Psychiatric: A+Ox3, euthymic affect Results & Data Vital Signs (Past 12 Hours) Vital Signs Temp Pulse Pulse Resp BP BP Pulse Ox 08/31/18 15:51 66 20 159/70 H 96 08/31/18 11:42 36.5 C 83 20 164/79 H 97 08/31/18 08:11 36.7 C 87 20 173/72 H 97 08/31/18 07:27 96 H
[2018-08-31] MEDS: AMLODIPINE BESYLATE 5 MG TAB PO SCH (16:49)
[2018-08-31] MEDS ORDERED: CLOPIDOGREL BISULFATE 75 MG TAB PO ONE (16:50)
[2018-09-01 07:20] LABS: Basophils # (auto) 0.01 K/uL (0-0.2); Basophils % (auto) 0.1 %; Eosinophils # (auto) 0.01 K/uL (0-0.5); Eosinophils % (auto) 0.1 %; Hematocrit (blood only) 37.1 % (37-47); Hemoglobin 12.2 g/dL (12.0-16.0); Immature Granulocytes # (auto) 0.02 K/uL (0.00-0.02); Immature Granulocytes % (auto) 0.2 %; Lymphocytes # (auto) 1.76 K/uL (1.2-3.4); Lymphocytes % (auto) 20.3 %; Mean Corpuscular Hgb Conc 32.9 g/dL (32-36); Mean Corpuscular Volume 88.3 fL (80-100); Mean Platelet Volume 10.1 fL (7.4-10.4); Monocytes # (auto) 0.86 K/uL (0.11-0.59); Monocytes % (auto) 9.9 %; Neutrophils # (auto) 6.01 K/uL (1.4-6.5); Neutrophils % (auto) 69.4 %; Platelet Count 274 K/uL (130-400); RDW Coefficient of Variation 15.4 % (11.5-14.5); RDW Standard Deviation 49.6 fL (36.4-46.3); White Blood Count 8.67 K/uL (4.8-10.8)
[2018-09-01] MEDS: CHOLECALCIFEROL 1,000 UNITS TAB PO SCH (07:41)
[2018-09-01] MEDS: ROSUVASTATIN CALCIUM 20 MG TAB PO SCH (07:42)
[2018-09-01] MEDS: ESCITALOPRAM OXALATE 10 MG TAB PO SCH (07:42)
[2018-09-01] MEDS: LEFLUNOMIDE 10 MG TAB PO SCH (07:42)
[2018-09-01] MEDS: PANTOprazole 40 MG TAB PO SCH (07:42)
[2018-09-01] MEDS: OLMESARTAN MEDOXOMIL 40 MG TAB PO SCH (07:42)
[2018-09-01] MEDS: AMLODIPINE BESYLATE 5 MG TAB PO SCH (07:43)
[2018-09-01] MEDS: ALPRAZolam 0.5 MG TABLET PO SCH (07:45)
[2018-09-01 07:59] LABS: Calcium 9.3 mg/dl (8.5-10.1); Est GFR (African American) 56.5; Est GFR (Non-African American) 48.7; Potassium 4.1 mmol/L (3.5-5.1)
[2018-09-01] MEDS ORDERED: SPIRONOLACTONE 25 MG TAB PO SCH (09:00)
[2018-09-01] MEDS ORDERED: METOPROLOL SUCC 50MG EXT REL TAB PO SCH (09:00)
[2018-09-01] MEDS ORDERED: CLOPIDOGREL BISULFATE 75 MG TAB PO SCH (09:00)
--- NOTE | 2018-09-01 16:35 | Discharge Summary ---
Date of Service September 01, 2018 Admission HPI Per Admitting Provider HISTORY OF PRESENT ILLNESS: This is an 83-year-old female with past medical history significant for rheumatoid arthritis, hypertension, hyperlipidemia, depression, anxiety, GERD, who presents with transient aphasia and imbalance. The patient says she had an episode of transient aphasia about a year ago for a few minutes and again it happened last Thursday for 4-5 minutes she was not able to speak and when she spoke, she was not making sense. Then again it happened on Thursday and today she was going to her wound clinic for a small wound on her right thigh which is healing. She was taken to the wound clinic and people advised to come to the ER. Currently, resting comfortably and hemodynamically stable. Speech is clear, alert and oriented x3. Adopted daughter in the room. She lives alone. She just had steroid shot to her knees today. She follows with orthopedics for her arthritis, but lately since last 1-2 months she is having some gait imbalance while she is ambulating. She uses a cane to ambulate. She has some headaches. Denies any blurred vision. No earache, no runny nose, no sore throat, no difficulty swallowing. No chest pain, no shortness of breath, no cough, no nausea, no abdominal pain. Normal bowel and bladder movements. No blood in the stool, no black stools, no hematuria, no burning micturition. No swelling in the legs. No rash. The patient says the blood pressure usually runs high at home, yesterday was 148/102, but it usually runs higher than that. Blood pressure has been high in the ER. Admission Exam Per Admitting Provider PHYSICAL EXAMINATION: GENERAL: The patient is obese, not in acute distress. VITAL SIGNS: Temperature 36.9, pulse 91, respiratory rate 18, blood pressure 203/98, oxygen 96% on room air. HEENT: No pallor, no icterus. Pupils equal, round, and reactive to light. Extraocular muscles intact. NECK: No JVD, no neck masses, no carotid bruits. CARDIOVASCULAR: S1, S2 heard, regular rate and rhythm, no murmur, no gallop. RESPIRATORY SYSTEM: Normal AP diameter. No accessory muscle use. No wheezing, no crackles. ABDOMEN: Soft, bowel sounds present. Nontender. No distention. CENTRAL NERVOUS SYSTEM: Cranial nerves II-XII grossly intact. Nonfocal. Power 5/5 in all extremities. No pronator drift. Coordination of movements normal. [id number] test normal. Zrvn-gf-[id number] test normal. Sensation intact. Position sense intact. EXTREMITIES: No edema, no erythema. Principal Diagnosis TIA Hypertensive encephalopathy-resolved Discharge Data Allergies Allergy/AdvReac Type Severity Reaction Status Date / Time clopidogrel Allergy Unknown ITCHING Verified 08/30/18 17:44 aspirin AdvReac Unknown GI ISSUES Verified 08/30/18 17:44 Consultations 08/30/18 21:23 ED Decision to Admit Stat 08/30/18 23:06 Consult Case Management - Discharge Planning Routine Consult Case Management - Discharge Planning Routine 08/31/18 08:00 Consult Neurology Routine Ordered Studies 08/30/18 17:36 CT angio head w con Stat CT angio neck with con Stat CT head/brain wo con Stat 08/31/18 00:00 US carotid doppler BI Routine 08/31/18 00:36 MR brain wo/w con Urgent Hospital Course (1) Hypertensive encephalopathy: (2) TIA (transient ischemic attack): 83-year-old female with rheumatoid arthritis presented with transient a aphasia and imbalance. Although symptoms improved by the time she came to the ER they had recurred twice in the last week. On arrival to the ER blood pressure was elevated over [address] revealed no acute intracranial findings. 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 A neck CTA revealed no stenosis within the bilateral common carotid and cervical internal carotid arteries. There was a diminutive hypoplastic left vertebral artery noted with no flow identified within portions of the left vertebral artery. An echocardiogram re vealed normal LV systolic function with an EF 60 to 65% and no segmental left ventricular wall motion abnormalities noted. There was grade 1 diastolic dysfunction and no significant valvular pathology. A brain MRI with and without IV contrast revealed an abnormal signal within the distal left vertebral artery consistent with slow flow or occlusion but no evidence of acute or subacute infarction. There was also no evidence of intracranial mass. She remained in sinus rhythm on telemetry throughout her hospitalization. For blood pressure control she was started on amlodipine in addition to her home medications. Neurology was consulted and recommended starting clopidogrel 75 mg daily as the patient was intolerant to aspirin at baseline. It is uncertain whether her symptoms were related to TIA versus hypertensive encephalopathy, and close outpatient follow-up with [facility] neurology was recommended in 8 weeks. At time of discharge she had no focal neurologic deficits on physical exam and physical exam was otherwise unremarkable. She was oriented and ambulating at baseline. She was formally evaluated by see PT and OT and cleared for discharge home. She was tolerating p.o. and asymptomatic. She was hemodynamically stable and afebrile. She was discharged in stable condition with close primary care follow-up recommended. Total Time Total Time Spent Total Time Spent (In Minutes): 60 Total Time Includes: Examination of the Patient, Discharge Planning, Medication Reconciliation and Communication With Other Providers Discharge Plan Discharge Items Patient Disposition: Home - Self-Care Reason For Visit: TRANSIENT APHASIA,IMBALANCE Discharge Diagnosis: TIA Hypertensive encephalopathy-resolved Condition: Good Discharge Goals: Improve disease control Activity: Resume your previous activity Non-emergency contact: Primary Care Provider and Neurologist Call non-emergency contact if: you have any medication questions Follow-up/Referrals: Ronan Maher [Primary Care Provider] - Diet: Heart Healthy Diet Texture: Dental soft (bite-sized) Addtl Provider Instructions: Please take all medications as instructed on discharge list below. It is recommended that you follow-up with Dr. Maher within 1 week of discharge for reevaluation of your blood pressure and to ensure you are doing well on Plavix. Please follow-up with Dr. Donato Monroy at [facility] Neurology in 8 weeks time. It was a pleasure taking care of you! Please call if you have any questions or problems. You can reach a [facility] hospitalist on duty at [facility] 24 hours a day by calling [phone]. Take care of yourself. Loren Cardozo, DO [facility] Prescriptions: New clopidogrel 75 mg Tablet 75 mg PO QAM Qty: 30 RF: 1 amlodipine 10 mg tablet 10 mg PO DAILY Qty: 30 RF: 1 pantoprazole 40 mg Tablet,Delayed Release (Dr/Ec) 40 mg PO DAILY Qty: 30 RF: 1 Continued metoprolol succinate 50 mg tablet extended release 24 hr 50 mg PO DAILY RF: 0 leflunomide 10 mg tablet 10 mg PO DAILY RF: 0 spironolactone 25 mg tablet 25 mg PO Q2D RF: 0 alprazolam 0.5 mg tablet 0.5 mg PO DAILY RF: 0 olmesartan 40 mg tablet 40 mg PO DAILY RF: 0 escitalopram oxalate 10 mg tablet 10 mg PO DAILY RF: 0 coenzyme Q10 [CoQ-10] 100 mg Capsule 100 mg PO DAILY RF: 0 rosuvastatin 20 mg tablet 20 mg PO DAILY RF: 0 cholecalciferol (vitamin D3) [Vitamin D3] 1,000 unit tablet 1,000 unit PO DAILY RF: 0 Discontinued omeprazole 20 mg capsule,delayed release(DR/EC) 20 mg PO DAILY RF: 0 Stand-Alone Forms: [facility]/Other Patient Handouts: Prediabetes, Diabetes Meal Planning Discharge Orders: Discharge Order (Routine); Ordered 09/01/18 Ordered By: Loren Cardozo Admission Data Admit Date/Time: 08/30/18 22:05 Attending Provider: Loren Cardozo Admit Provider: Henok Barron Primary Care Provider: Ronan Maher Other Providers: Henok Barron ; Kristine Pritchett ; Edward Cobb ; Kristine Rea ; Donato Trotter Service: Telemetry Medical
[2018-09-01] MEDS ORDERED: PHARMACIST DISCHARGE MED REC CONSULT PRN (16:44)
--- NOTE | 2018-09-01 17:46 | Pharmacy Report ---
Pharmacist Stroke Counseling - Date of Service September 01, 2018 - Scope: Pharmacy has been consulted to provide medication discharge counseling for this patient admitted with transient ischemic attack as per the Pharmacist Discharge Counseling for Stroke Patients Protocol. - Medications on Discharge: Home Medications Medication Instructions Recorded Confirmed alprazolam 0.5 mg PO DAILY 08/30/18 08/30/18 cholecalciferol (vitamin D3) 1,000 unit PO DAILY 08/30/18 08/30/18 [Vitamin D3] coenzyme Q10 [CoQ-10] 100 mg PO DAILY 08/30/18 08/30/18 escitalopram oxalate 10 mg PO DAILY 08/30/18 08/30/18 leflunomide 10 mg PO DAILY 08/30/18 08/30/18 metoprolol succinate 50 mg PO DAILY 08/30/18 08/30/18 olmesartan 40 mg PO DAILY 08/30/18 08/30/18 rosuvastatin 20 mg PO DAILY 08/30/18 08/30/18 spironolactone 25 mg PO Q2D 08/30/18 08/30/18 New Rx's Medication Instructions Recorded amlodipine 10 mg PO DAILY #30 tab 09/01/18 clopidogrel 75 mg PO QAM #30 tab 09/01/18 pantoprazole 40 mg PO DAILY #30 tab 09/01/18 - Action: The above medications, specifically ones for stroke treatment/prophylaxis, have been reviewed in detail with the patient and patient community health program representative(s) prior to discharge. This includes indication, common adverse reactions, drug interactions, and medication administration. Medication counseling has been employed using the teach-back method to ensure understanding. - Outcome: The patient and/or patient community health program representative(s) have demonstrated understanding of the medications. Please note, they are aware that the pharmacist will call them within 72 hours post-discharge to confirm that the appropriate medications are being taken and answer any further medication related questions the patient might have at that time. Contact information Individual to be contacted: Suzette Phone number: (cell). OK to also call Best time to call: anytime on Thursday Additional comments: - Discussed discontinuation of omeprazole and initiation of pantoprazole 2nd avoidance of drug interaction with clopidogrel - Discussed initiation of clopidogrel for prevention of TIA/stroke. Counseled on bleeding risk. - Discussed initiation of amlodipine for possible hypertensive crisis contributing to admission symptoms. Counseled on adverse reaction of peripheral edema, which may be delayed/gradual in onset, and counseled to contact provider if she experiences symptoms. Thank you for allowing pharmacy to be involved in the care of this patient. Please call [phone] or [phone] with any additional questions
--- NOTE | 2018-09-03 10:29 | Pharmacy Report ---
Pharmacist Post D/C Phone Note - Phone Note: Date of phone call: September 03, 2018. Individual with whom pharmacist spoke to: LIZBETH B FOX The following questions were reviewed during the phone call with responses listed below each: Can you tell me the medications that you are currently taking as well as when and how you take each medication? -See Table Below (confirmed that patient stopped omeprazole) When have you missed any doses of your medications? - No missed doses What side effects are you having from your medications, specifically, the new medications you were started on? - When I asked about the Plavix allergy on her med list, she doesn't remember what happened before and reported no allergies to it when she was in the hospital. She reported her hands being a little itchy but this is nothing new and links it to "I'm on so many meds that it could be anything". I verified with her that I could remove the Plavix allergy from her profile. - No bruising/bleeding - Swelling in feet has gone down What questions do you have about your medications? - None What problems are you having obtaining your medications? - None, I verified each of her new Rx's by her reading the bottle label over the phone When is your next appointment with your primary care doctor? - Thursday with Dr. Maher As per the Pharmacist Discharge Counseling for Stroke Patients Protocol, this phone call has been completed within 72 hours of discharge. Thank you for allowing us to be involved in the care of this patient. - Home Medications: Home Medications Medication Instructions Recorded Confirmed alprazolam 0.5 mg PO DAILY 08/30/18 08/30/18 cholecalciferol (vitamin D3) 1,000 unit PO DAILY 08/30/18 08/30/18 [Vitamin D3] coenzyme Q10 [CoQ-10] 100 mg PO DAILY 08/30/18 08/30/18 escitalopram oxalate 10 mg PO DAILY 08/30/18 08/30/18 leflunomide 10 mg PO DAILY 08/30/18 08/30/18 metoprolol succinate 50 mg PO DAILY 08/30/18 08/30/18 olmesartan 40 mg PO DAILY 08/30/18 08/30/18 rosuvastatin 20 mg PO DAILY 08/30/18 08/30/18 spironolactone 25 mg PO Q2D 07/01/19 07/01/19 New Rx's Medication Instructions Recorded amlodipine 10 mg PO DAILY #30 tab 09/01/18 clopidogrel 75 mg PO QAM #30 tab 09/01/18 pantoprazole 40 mg PO DAILY #30 tab 09/01/18
== END 2018-09-01 19:10 | disposition home or self-care (01) | DRG 78 ==
LOC: ED 15:20 → 2W 22:05 → SUATTDRO 22:05 → 2W 22:57

== ENCOUNTER 2022-08-19 15:24 | Inpatient (IN) ==
[2022-08-19] MEDS ORDERED: oxyCODONE HCL IR 5 MG TAB (IMMEDIATE RELEASE) PO STA (15:35)
--- NOTE | 2022-08-19 15:45 | Emergency Department Note ---
Impression & Plan Bimalleolar fracture of right ankle ED Provider Note NAME: LIZBETH LANDAVERDE AGE: 86 SEX: F : 1935 ARRIVES VIA: Ambulance INFORMANT: Patient, EMS ED PROVIDER(S): Nicolas Larkin DO CHIEF COMPLAINT: Ankle pain HPI: The patient is an 86-year-old female who presented to the emergency department for an evaluation of injury to her right leg. The patient states that she has been having problems with dysesthesia of her right leg because of shingles over the last 2 weeks. She denies having any headache or weakness anywhere else in the body. She states it feels more like a numbness and tingling. She states that she went to put her left leg into the car and then she fell backward onto her numb leg. She injured the right ankle and could not bear weight. She denies having any head injury. She denies having any headache nausea or vomiting. She denies having any hip or back pain. She arrived via BLS. ROS: See above HPI for pertinent positives & negatives. A total of 10 systems reviewed and were otherwise negative. PAST MEDICAL HISTORY: See Below PAST SURGICAL HISTORY: See Below FAMILY HISTORY: See Below SOCIAL HISTORY: See Below HOME MEDICATIONS: See Below ALLERGIES: See Below VITALS: See Below PHYSICAL EXAMINATION: GENERAL: Patient is awake alert in no acute distress patient is resting comfortably and showing no signs of anxiety EYES: The conjunctivae are clear. The pupils are round and reactive. EARS, NOSE, MOUTH AND THROAT: The nose is without any evidence of any deformity. Mucous membranes are moist. NECK: The neck is nontender and supple. RESPIRATORY: Normal respiratory effort is noted there is no evidence of wheezing rhonchi or rales CARDIOVASCULAR: Regular rate and rhythm noted there no murmurs rubs or gallops normal S1 normal S2. GASTROINTESTINAL: The abdomen is soft. Abdomen is nontender. MUSCULOSKELETAL/EXTREMITIES: There is no evidence of gross deformity full range of motion is noted in the hips and shoulders. There is significant swelling and deformity noted to the right ankle. There is also pain over the proximal fibular head on the right. SKIN: There is no obvious evidence of any rash. Skin was warm and dry. Pulses are symmetric in both feet. NEUROLOGIC: Patient is awake alert and oriented x3 strength was symmetric. There was no facial droop. Speech was clear. Drift was absent. MEDICAL DECISION MAKING: The patient is an 86-year-old female who presented to the emergency department for an evaluation after an injury to her right leg. The patient had a bimalleolar equivalent fracture of the right lower extremity. The patient was placed into a splint. She was unable to tolerate ambulation with a walker. The patient's age and comorbidities make her very high risk. For this reason I discussed her condition with the emergency department watch caser. After they discussed the patient's condition with her and her family she was felt to be a better candidate for inpatient management and then referral to orthopedics as well as possible inpatient rehab. The patient was treated with pain medication the emergency department. She was reevaluated multiple times. Triage Nursing notes reviewed. Prior medical records reviewed Vital Signs: reviewed and remarkable for no significant abnormalities Differential diagnosis: Fracture, subluxation, dislocation, contusion, ligamentous injury, neurovascular, compartment syndrome, rhabdomyolysis, as well as other pathologies. ER treatment provided: See below Diagnostics interpreted by me: ECG: none Cardiac Monitoring: An order was placed for continuous cardiac monitoring. The monitor shows a rate of 58 bpm with sinus bradycardia. Laboratory studies: As stated above and show below. Imaging studies: See below. Radiographic imaging was reviewed by myself Consultation(s): I discussed this case with Marisa who is on-call for the [facility] hospitalist group. Past Med/Surg History Medical History CHF (congestive heart failure) GERD (gastroesophageal reflux disease) Hypertension Hypertension Occlusion of left vertebral artery Paroxysmal atrial fibrillation TIA (transient ischemic attack) Surgical History History of appendectomy History of cataract surgery History of cholecystectomy History of hysterectomy History of total knee replacement x2 Family History Other Cancer Social History Smoking Status: Unknown if ever smoked Second Hand Exposure: No; Do You Dip or Chew Tobacco: No; Hx Alcohol Use: Yes Hx Substance Use: No Preferred Language: Bulgarian Communication Ability: Effective Cotton Agent Required: No Beliefs That Will Affect Care: None marital status: / Current Living Situation: Alone Feels Safe at Home: Yes Assistive Devices: Glasses Allergies Allergies Allergy/AdvReac Type Severity Reaction Status Date / Time aspirin AdvReac Unknown GI ISSUES Verified 08/30/18 17:44 Home Meds Home Medications Medication Instructions Recorded Confirmed alprazolam 0.5 mg tablet 0.5 mg PO BID PRN Anxiety 08/30/18 08/19/22 cholecalciferol (vitamin D3) 25 1,000 unit PO DAILY 08/30/18 08/19/22 mcg (1,000 unit) tablet (Vitamin D3) coenzyme Q10 100 mg capsule 100 mg PO DAILY 08/30/18 08/19/22 (CoQ-10) metoprolol succinate 50 mg 50 mg PO DAILY 08/30/18 08/19/22 tablet,extended release 24 hr rosuvastatin 20 mg tablet 20 mg PO DAILY 08/30/18 08/19/22 apixaban 5 mg tablet (Eliquis) 5 mg PO BID 08/19/22 08/19/22 aspirin 81 mg capsule 81 mg PO DAILY 08/19/22 08/19/22 dorzolamide 2 % eye drops 1 drp ophthalmic (eye) BID 08/19/22 08/19/22 furosemide 40 mg tablet 40 mg PO Q2D 08/19/22 08/19/22 omeprazole 20 mg capsule,delayed 20 mg PO DAILY 08/19/22 08/19/22 release Results & Data (ED) Vital Signs Vital Signs - 24 hr 08/19/22 15:15 08/19/22 15:44 08/19/22 16:32 Temperature 37.0 C Temperature Source Oral Pulse Rate 70 Pulse Rate [Apical] 80 68 Respiratory Rate 20 22 20 Blood Pressure 152/110 H Blood Pressure [Right Arm] 167/86 H Blood Pressure Mean 124 Blood Pressure Mean [Right Arm] 113 Pulse Oximetry 98 99 Oxygen Delivery Method Room Air Room Air Sepsis Recent Fever Within 48 Hours No Sepsis New/Unexplained Change in Mental Status N/A Sepsis Action Taken by Nursing No Action Required 08/19/22 18:02 Temperature Temperature Source Pulse Rate Pulse Rate [Apical] Respiratory Rate Blood Pressure Blood Pressure [Right Arm] Blood Pressure Mean Blood Pressure Mean [Right Arm] Pulse Oximetry 98 Oxygen Delivery Method Room Air Sepsis Recent Fever Within 48 Hours Sepsis New/Unexplained Change in Mental Status Sepsis Action Taken by Retirement Medications Current Medication List: was personally reviewed by me Laboratory Data Attestation: I reviewed the patient's lab results. 08/19/22 18:04 08/19/22 18:04 Lab Results 08/19/22 08/19/22 08/19/22 Range/Units 18:00 18:04 18:04 WBC 12.48 H (4.8-10.8) K/ul RBC 4.27 (4.20-5.40) M/uL Hgb 12.7 (12.0-16.0) g/dl Hct 38.6 (37.0-47.0) % MCV 90.4 (80.0-100.0) fL MCH 29.7 (25.0-34.0) pg MCHC 32.9 (32.0-36.0) g/dL RDW Std Deviation 48.8 H (36.4-46.3) fL RDW Coeff of Lizy 15.1 H (11.5-14.5) % Plt Count 310 (130-400) K/uL MPV 9.5 (9.4-12.4) fL Immature Gran % (Auto) 0.4 % Neut % (Auto) 74.0 % Lymph % (Auto) 17.7 % [place] % (Auto) 7.2 % Eos % (Auto) 0.4 % Baso % (Auto) 0.3 % Neut # (Auto) 9.23 H (1.40-6.50) K/uL Lymph # (Auto) 2.21 (1.2-3.4) K/uL [place] # (Auto) 0.90 H (0.11-0.59) K/uL Eos # (Auto) 0.05 (0-0.50) K/uL Baso # (Auto) 0.04 (0-0.2) K/uL Immature Gran # (Auto) 0.05 (0.01-0.20) K/uL Sodium 137 (136-145) mmol/L Potassium 3.5 (3.5-5.1) mmol/L Chloride 102 (98-107) mmol/L Carbon Dioxide 28 (21-32) mmol/L Anion Gap 7 (3-11) BUN 18 (6-23) mg/dl Creatinine 1.07 (0.6-1.2) mg/dl Est Cr Clr Drug Dosing Not Reportable Est GFR ( Amer) 54.1 ml/min Est GFR (Non-Af Amer) 46.6 ml/min BUN/Creatinine Ratio 16.8 (10-20) Glucose 134 H (70-99(Fasting)) mg/dl Calcium 9.4 (8.6-10.3) mg/dl Total Bilirubin 0.9 (0.2-1.0) mg/dl AST 12 L (13-39) U/L ALT 10 (7-52) U/L Alkaline Phosphatase 45 (34-104) U/L Total Protein 6.6 (6.0-8.3) gm/dl Albumin 3.8 (3.4-5.0) gm/dl Globulin 2.8 (2.5-4.0) gm/dl Albumin/Globulin Ratio 1.4 (0.9-2) Lipase 25 (11-82) U/L SARS-CoV-2, RNA, NAAT NEGATIVE (NEGATIVE) Administered Medications Acetaminophen (Acetaminophen 500 Mg Tab) 1,000 mg PO Q8H [facility] Stop: 09/18/22 20:15 Last Admin: 08/19/22 21:00 Dose: 1,000 mg Documented By: TREY Alprazolam (Alprazolam 0.5 Mg Tablet) 0.5 mg PO BID PRN PRN Reason: Anxiety Stop: 09/18/22 18:28 Last Admin: 08/19/22 21:22 Dose: 0.5 mg Documented By: TREY Dorzolamide HCl (Dorzolamide Hcl 2% Oph Soln 10 Ml Btl) 1 drops OP BID SASHA Stop: 09/18/22 20:59 Last Admin: 08/19/22 21:01 Dose: 1 drops Documented By: TREY Heparin Sodium/Dextrose (Heparin Sodium/Dextrose) 25,000 units in 500 mls @ 18 mls/hr IV .Q24H SASHA; Protocol Stop: 09/18/22 20:59 Last Admin: 08/19/22 21:16 Dose: 900 units/hr, 18 mls/hr Documented By: TREY Co-signed By: RADHA Discontinued Medications Heparin Sodium (Porcine) 4,000 (units/ Syringe) 4 mls @ 10 mls/min IV NOW ONE Stop: 08/19/22 21:01 Last Admin: 08/19/22 21:15 Dose: 10 mls/min Documented By: TREY Co-signed By: SLB Oxycodone HCl (Oxycodone Hcl Ir 5 Mg Tab (Immediate Release)) 5 mg PO NOW STA Stop: 08/19/22 15:36 Last Admin: 08/19/22 15:47 Dose: 5 mg Documented By: Imaging Data Attestation: I personally reviewed and interpreted this imaging study as follows: My Impression: X-ray of the right tib-fib and right ankle were obtained in the emergency department. My interpretation is distal fibular fracture with widening of the medial malleolus. This could be consistent with a bimalleolar equivalent fracture. Final report below. Radiologist's Impression: Ankle X-Ray 08/19/22 15:35 XR ankle RT min 3V routine CLINICAL HISTORY: Right ankle pain following fall. COMPARISON: None FINDINGS: Tibial component of the right knee arthroplasty is partially imaged on this exam. There is no acute distal right tibial fracture. Note is made of an acute oblique mildly displaced fracture of the distal diaphysis of the right fibula. This fracture is displaced 4 mm. There is mild medial ankle mortise widening. Ankle soft tissue swelling is present. There is moderate plantar calcaneal spurring. IMPRESSION: 1. Acute oblique mildly displaced distal diaphyseal fracture of the right fibula. 2. Mild medial ankle mortise widening. 3. Ankle soft tissue swelling. ACT 112: Negative or not required by law. Electronically signed by: Dre Duckworth M.D. 08/19/2022 4:02 PM Tibia/Fibula X-Ray 08/19/22 15:35 RIGHT TIBIA AND FIBULA 2 VIEWS CLINICAL HISTORY: Fall. Right leg injury. FINDINGS: AP and lateral views of the right tibia and fibula are correlated with radiographs of the right knee dated 08/11/2008. The skeletal structures are osteopenic. There is a mildly displaced spiral fracture of the distal fibular shaft. The fragments are offset by up to 5 mm. Overlying soft tissue edema is noted. There is an age-indeterminate reverse Segond avulsion injury along the medial tibial plateau. No additional findings are suspicious for acute tibial or fibular fracture. A right knee arthroplasty is in near anatomic alignment. No periprosthetic lucency is seen. There is mild widening of the medial joint space at the ankle. There is a large plantar heel spur. IMPRESSION: 1. Mildly displaced spiral fracture of the distal fibula with overlying soft tissue edema. 2. There is widening of the medial joint space of the ankle. 3. Age indeterminant reverse Segond avulsion injury along the medial tibial plateau Electronically signed by: Pablito Greenberg M.D. 08/19/2022 4:07 PM Discharge Plan Visit Data Chief Complaint: Fall ED Provider: Nicolas Larkin Discharge Problem: Bimalleolar fracture of right ankle Patient Disposition: Admitted As Inpatient Discharge Instructions Interventions: ED Discharge Assessment Last Done: 08/19/22 19:34
--- NOTE | 2022-08-19 16:03 | XRay Report ---
XR ankle RT min 3V routine CLINICAL HISTORY: Right ankle pain following fall. COMPARISON: None FINDINGS: Tibial component of the right knee arthroplasty is partially imaged on this exam. There is no acute distal right tibial fracture. Note is made of an acute oblique mildly displaced fracture of the distal diaphysis of the right fibula. This fracture is displaced 4 mm. There is mild medial ankl e mortise widening. Ankle soft tissue swelling is present. There is moderate plantar calcaneal spurri ng. IMPRESSION: 1. Acute oblique mildly displaced distal diaphyseal fracture of the right fibula. 2. Mild medial ankle mortise widening. 3. Ankle soft tissue swelling. ACT 112: Negative or not required by law. Electronically signed by: Dre Duckworth M.D. 08/19/2022 4:02 PM
--- NOTE | 2022-08-19 16:08 | XRay Report ---
RIGHT TIBIA AND FIBULA 2 VIEWS CLINICAL HISTORY: Fall. Right leg injury. FINDINGS: AP and lateral views of the right tibia and fibula are correlated with radiographs of the r ight knee dated 08/11/2008. The skeletal structures are osteopenic. There is a mildly displaced spiral fracture of the distal fibular shaft. The fragments are offset by up to 5 mm. Overlying soft tissue edema is noted. There is an age-indeterminate reverse Segond avulsion injury along the medial tibial plateau. No additional findings are suspicious for acute tibial or fibular fracture. A right knee art hroplasty is in near anatomic alignment. No periprosthetic lucency is seen. There is mild widening of the medial joint space at the ankle. There is a large plantar heel spur. IMPRESSION: 1. Mildly displaced spiral fracture of the distal fibula with overlying soft tissue edema. 2. There is widening of the medial joint space of the ankle. 3. Age indeterminant reverse Segond avulsion injury along the medial tibial plateau Electronically signed by: Pablito Greenberg M.D. 08/19/2022 4:07 PM
--- NOTE | 2022-08-19 18:04 | History & Physical Report ---
Date of Service August 19, 2022 Assessment & Plan (1) Closed right ankle fracture: (2) Fall: (3) Paroxysmal atrial fibrillation: (4) CHF (congestive heart failure): (5) Hypertension: (6) Anxiety: Plan This is an 86yo F with a PMH of paroxysmal atrial fibrillation, hypertension, hyperlipidemia, depression, anxiety, GERD, who presents with ankle pain after a fall and found to have ankle fracture. 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 Mild medial ankle mortise widening. Ankle soft tissue swelling Ortho surgery consulted to evaluate for possible surgical intervention. Pain control, NPO after midnight, fall precautions Obtaining ECG, chest XR and 2D echo for pre-operative evaluation Patient with h/o a fib on eliquis and CHF although unsure when most recent echo was Will hold Eliquis and bridge with IV heparin given patient was in A fib during exam NPO after midnight Likely to need short term rehab as patient lives alone Paroxysmal atrial fibrillation Unsure of access director but he comes to [place]. Continue Toprol, holding Eliquis as above Currently in rate controlled a fib CHF Examines euvolemic, CXR and 2D echo pending. Holding AM dose of Lasix in case of OR Anxiety Home alprazolam PRN DVT Ppx: IV heparin Code status: DNR/DNI as confirmed with patient PCP: Jc Del Rio PA-C Dispo: Admit to [facility] Patient seen in collaboration with Dr. Orozco. Please see addendum. I spent a total of 75 minutes coordinating, documenting, and providing care for this patient excluding time spent in the performance of separately billed services. History of Present Illness Chief Complaint: fall Primary Care Provider: Jc Del Rio This is an 86yo F with a PMH of paroxysmal atrial fibrillation, hypertension, hyperlipidemia, depression, anxiety, GERD, who presents with ankle pain after a fall. Was getting into car to go to an appointment when she lost her balance and fell backwards onto right leg before falling. History of recent shingles and has been having numbness and tingling for 2 weeks after completing antiviral treatment. History of R knee replacement. Patient lives alone and neighbors provide assistance. Was brought into ED by EMS. Denies any fever, chills, lightheadedness, chest pain, shortness of breath, nausea, vomiting, abdominal pain, dysuria, diarrhea or constipation. Does have history of atrial fibrillation and is on Eliquis. States she has been told she has heart failure, but is unclear of when she would have last had an echocardiogram or what her EF would be. Lives in [place]. Allergies Allergy/AdvReac Type Severity Reaction Status Date / Time aspirin AdvReac Unknown GI ISSUES Verified 08/30/18 17:44 Home Medications Medication Instructions Recorded Confirmed Type alprazolam 0.5 mg tablet 0.5 mg PO BID PRN Anxiety 08/30/18 08/19/22 History cholecalciferol (vitamin D3) 25 1,000 unit PO DAILY 08/30/18 08/19/22 History mcg (1,000 unit) tablet (Vitamin D3) coenzyme Q10 100 mg capsule 100 mg PO DAILY 08/30/18 08/19/22 History (CoQ-10) metoprolol succinate 50 mg 50 mg PO DAILY 08/30/18 08/19/22 History tablet,extended release 24 hr rosuvastatin 20 mg tablet 20 mg PO DAILY 08/30/18 08/19/22 History apixaban 5 mg tablet (Eliquis) 5 mg PO BID 08/19/22 08/19/22 History aspirin 81 mg capsule 81 mg PO DAILY 08/19/22 08/19/22 History dorzolamide 2 % eye drops 1 drp ophthalmic (eye) BID 08/19/22 08/19/22 History furosemide 40 mg tablet 40 mg PO Q2D 08/19/22 08/19/22 History omeprazole 20 mg capsule,delayed 20 mg PO DAILY 08/19/22 08/19/22 History release Past Med/Surg History Medical History CHF (congestive heart failure) GERD (gastroesophageal reflux disease) Hypertension Hypertension Occlusion of left vertebral artery Paroxysmal atrial fibrillation TIA (transient ischemic attack) Surgical History History of appendectomy History of cataract surgery History of cholecystectomy History of hysterectomy History of total knee replacement x2 Family History Other Cancer Social History Smoking Status: Unknown if ever smoked Second Hand Exposure: No; Do You Dip or Chew Tobacco: No; Hx Alcohol Use: Yes Hx Substance Use: No Preferred Language: Macedonian Communication Ability: Effective Senior Business Analyst Required: No Beliefs That Will Affect Care: None marital status: / Current Living Situation: Alone Feels Safe at Home: Yes Assistive Devices: Glasses Review of Systems Review of Systems: At least ten systems reviewed and negative except as noted in the HPI. Physical Exam Physical Exam: Please see Dr. Orozco's addendum for physical exam. Results & Data Results & Data Vital Signs (Past 12 Hours) Vital Signs Temp Pulse Pulse Resp BP BP Pulse Ox 08/19/22 18:02 98 08/19/22 16:32 68 20 167/86 H 99 08/19/22 15:44 80 22 08/19/22 15:15 37.0 C 70 20 152/110 H 98 O2 Del Method 08/19/22 18:02 Room Air 08/19/22 16:32 Room Air 08/19/22 15:44 08/19/22 15:15 Room Air Laboratory Results Short CBC 08/19/22 Range/Units 18:04 WBC 12.48 H (4.8-10.8) K/ul Hgb 12.7 (12.0-16.0) g/dl Hct 38.6 (37.0-47.0) % Plt Count 310 (130-400) K/uL BMP 08/19/22 18:04 Sodium 137 Potassium 3.5 Chloride 102 Carbon Dioxide 28 BUN 18 Creatinine 1.07 Glucose 134 H Calcium 9.4 Liver Function 08/19/22 Range/Units 18:04 Total Bilirubin 0.9 (0.2-1.0) mg/dl AST 12 L (13-39) U/L ALT 10 (7-52) U/L Alkaline Phosphatase 45 (34-104) U/L Albumin 3.8 (3.4-5.0) gm/dl Diagnostic Findings Ankle X-Ray 08/19/22 15:35 XR ankle RT min 3V routine CLINICAL HISTORY: Right ankle pain following fall. COMPARISON: None FINDINGS: Tibial component of the right knee arthroplasty is partially imaged on this exam. There is no acute distal right tibial fracture. Note is made of an acute oblique mildly displaced fracture of the distal diaphysis of the right fibula. This fracture is displaced 4 mm. There is mild medial ankle mortise widening. Ankle soft tissue swelling is present. There is moderate plantar calcaneal spurring. IMPRESSION: 1. Acute oblique mildly displaced distal diaphyseal fracture of the right fibula. 2. Mild medial ankle mortise widening. 3. Ankle soft tissue swelling. ACT 112: Negative or not required by law. Electronically signed by: Dre Duckworth M.D. 08/19/2022 4:02 PM Tibia/Fibula X-Ray 08/19/22 15:35 RIGHT TIBIA AND FIBULA 2 VIEWS CLINICAL HISTORY: Fall. Right leg injury. FINDINGS: AP and lateral views of the right tibia and fibula are correlated with radiographs of the right knee dated 08/11/2008. The skeletal structures are osteopenic. There is a mildly displaced spiral fracture of the distal fibular shaft. The fragments are offset by up to 5 mm. Overlying soft tissue edema is noted. There is an age-indeterminate reverse Segond avulsion injury along the medial tibial plateau. No additional findings are suspicious for acute tibial or fibular fracture. A right knee arthroplasty is in near anatomic alignment. No periprosthetic lucency is seen. There is mild widening of the medial joint space at the ankle. There is a large plantar heel spur. IMPRESSION: 1. Mildly displaced spiral fracture of the distal fibula with overlying soft tissue edema. 2. There is widening of the medial joint space of the ankle. 3. Age indeterminant reverse Segond avulsion injury along the medial tibial plateau Electronically signed by: Pablito Greenberg M.D. 08/19/2022 4:07 PM Supervising Physician Co-Signing Physician Notes Pt is a 86 y/o F with hx of CHF (unknown EF), Afib on eliquis, HTN, RA on Trusopt, HLD, TIA, GERD, recent R leg shingles (treated) admitted for R distal fibula fracture (traumatic). PE: NAD, well developed Lungs: CTA, no wheezing or crackles Cardiac: in afib, no murmur Abd: ND, soft and NT MSK: no LE edema, R leg is wrapped in bandage, shingles lesions on the R distal thigh and leg healing well Psych: AAOx3, normal affect A/P: Fall complicated with R distal fibula fracture: -Xray: Mildly displaced spiral fracture of the distal fibula with overlying soft tissue edema and Age indeterminant reverse Segond avulsion injury along the medial tibial plateau - hgb and Cr wnl -VSS except slight increase in BP - due to hx of CHF and Afib will get EKG and echo - pt appeared euvolemic on exam - tolerated general anesthesia in the past - Revised cardiac index of 2 --- pts chronic conditions are appeared to be stable --- pt is acceptable risk for surgery -NPO after MN -hold eliquis and start low dose heparin drip ----stop 6 hrs prior to surgery -ortho consult Other chronic conditions: plan as above Agree with A/P by Marisa Dumont PA-C
[2022-08-19 18:28] LABS: Basophils # (auto) 0.04 K/uL (0-0.2); Basophils % (auto) 0.3 %; Eosinophils # (auto) 0.05 K/uL (0-0.50); Eosinophils % (auto) 0.4 %; Hematocrit (blood only) 38.6 % (37.0-47.0); Hemoglobin 12.7 g/dl (12.0-16.0); Immature Granulocytes # (auto) 0.05 K/uL (0.01-0.20); Immature Granulocytes % (auto) 0.4 %; Lymphocytes # (auto) 2.21 K/uL (1.2-3.4); Lymphocytes % (auto) 17.7 %; Mean Corpuscular Hemoglobin 29.7 pg (25.0-34.0); Mean Corpuscular Hgb Conc 32.9 g/dL (32.0-36.0); Mean Corpuscular Volume 90.4 fL (80.0-100.0); Mean Platelet Volume 9.5 fL (9.4-12.4); Monocytes % (auto) 7.2 %; Neutrophils # (auto) 9.23 K/uL (1.40-6.50); Platelet Count 310 K/uL (130-400); RDW Coefficient of Variation 15.1 % (11.5-14.5); RDW Standard Deviation 48.8 fL (36.4-46.3); Red Blood Count 4.27 M/uL (4.20-5.40); White Blood Count 12.48 K/ul (4.8-10.8)
[2022-08-19 18:37] LABS: Alanine Aminotransferase 10 U/L (7-52); Albumin Globulin Ratio 1.4 (0.9-2); Albumin Level 3.8 gm/dl (3.4-5.0); Alkaline Phosphatase 45 U/L (34-104); Anion Gap 7 (3-11); Aspartate Aminotransferase 12 U/L (13-39); BUN Creatinine Ratio 16.8 (10-20); Bilirubin,Total 0.9 mg/dl (0.2-1.0); Blood Urea Nitrogen 18 mg/dl (6-23); Calcium 9.4 mg/dl (8.6-10.3); Carbon Dioxide 28 mmol/L (21-32); Chloride 102 mmol/L (98-107); Est GFR (African American) 54.1 ml/min; Est GFR (Non-African American) 46.6 ml/min; Globulin 2.8 gm/dl (2.5-4.0); Glucose 134 mg/dl (70-99(Fasting)); Lipase 25 U/L (11-82); Potassium 3.5 mmol/L (3.5-5.1); Sodium 137 mmol/L (136-145); Total Protein 6.6 gm/dl (6.0-8.3)
[2022-08-19] MEDS ORDERED: ONDANSETRON INJ 2 MG/ML 2 ML VIAL IV PRN (20:16)
[2022-08-19] MEDS ORDERED: POLYETHYLENE (MIRALAX) 17 GM PACK PO PRN (20:16)
[2022-08-19] MEDS: ACETAMINOPHEN 500 MG TAB PO SCH (21:00)
[2022-08-19] MEDS ORDERED: HEPARIN IV BOLUS 4,000 UNITS in SYRINGE 0 ML IV ONE (21:00)
[2022-08-19] MEDS ORDERED: Heparin IV Adult Wt-Based Low-Dose *NO* Bolus Protocol IV SCH (21:00)
[2022-08-19] MEDS: DORZOLAMIDE HCL 2% OPH SOLN 10 ML BTL OP SCH (21:01)
[2022-08-19] MEDS: Heparin Adult LOW DOSE Wt-Based Dextrose 5% 25,000 units/500 mL IV SCH (21:16)
[2022-08-19] MEDS: ALPRAZolam 0.5 MG TABLET PO PRN (21:22)
[2022-08-20 03:20] LABS: Hematocrit (blood only) 36.3 % (37.0-47.0); Hemoglobin 12.1 g/dl (12.0-16.0); Mean Corpuscular Hemoglobin 29.9 pg (25.0-34.0); Mean Corpuscular Hgb Conc 33.3 g/dL (32.0-36.0); Mean Corpuscular Volume 89.6 fL (80.0-100.0); Mean Platelet Volume 9.5 fL (9.4-12.4); Platelet Count 251 K/uL (130-400); RDW Standard Deviation 47.9 fL (36.4-46.3); Red Blood Count 4.05 M/uL (4.20-5.40); White Blood Count 12.25 K/ul (4.8-10.8)
[2022-08-20 03:36] LABS: BUN Creatinine Ratio 16.4 (10-20); Calcium 9.1 mg/dl (8.6-10.3); Creatinine Clr Calc Pharmacy 41.2 ml/min; Est GFR (African American) 52.3 ml/min; Est GFR (Non-African American) 45.1 ml/min; Potassium 3.4 mmol/L (3.5-5.1)
[2022-08-20 03:43] LABS: Appearance Urine Cloudy (Clear); Bacteria Urine Automated 1+ (Negative); Bilirubin Urine Negative (Negative); Blood Urine Negative (Negative); Color Urine Dark Yellow; Epithelial Cell Urine Auto >30 /lpf (0-5); Glucose Urine UA Negative (Negative); Ketones Urine Trace (Negative); Leukocyte Esterase Urine Negative (Negative); Nitrite Urine Negative (Negative); Protein Urine Trace (Negative); Specific Gravity Urine 1.034 (1.000-1.030); Urobilinogen Urine Negative (Negative); pH Urine 5.5 (4.5-7.5)
[2022-08-20 03:59] LABS: Partial Thromboplastin Ratio 1.9
[2022-08-20 04:00] LABS: Partial Thromboplastin Time 52.7 Seconds (21.0-31.0)
[2022-08-20 04:02] LABS: RBC Urine Automated 0-4 /hpf (0-4)
[2022-08-20 04:03] LABS: Mucus Urine Present (None Prsent)
[2022-08-20] MEDS: ACETAMINOPHEN 500 MG TAB PO SCH ×3 (05:03→21:14)
--- NOTE | 2022-08-20 07:41 | XRay Report ---
XR chest 1V portable HISTORY: 86 years-old Female admission acute shortness of breath COMPARISON: 08/30/2018 TECHNIQUE: AP view of the chest FINDINGS: Cardiac silhouette is enlarged. Right lower costophrenic angle is excluded from the [id number]. No pneumothorax, pleural effusion, airspace consolidation or overt pulmonary edema. Degenerative change s of the shoulders and spine. Chronic interstitial coarsening of the lung bases. IMPRESSION: Cardiomegaly without acute process. ACT 112: Negative or not required by law. The above report was generated using voice recognition software. It may contain grammatical, syntax o r spelling errors. Electronically signed by: Saqib Shore M.D. 08/20/2022 7:40 AM
[2022-08-20] MEDS: MoRPHine SULFATE 2 MG/ML CARP IV PRN ×2 (07:58→13:08)
[2022-08-20] MEDS: CHOLECALCIFEROL 1,000 UNITS 25 MCG TAB PO SCH (09:00)
[2022-08-20] MEDS: METOPROLOL SUCC 50MG EXT REL TAB PO SCH (09:00)
[2022-08-20] MEDS: ASPIRIN 81 MG ECTAB PO SCH (09:00)
[2022-08-20] MEDS: PANTOprazole 40 MG TAB PO SCH (09:00)
[2022-08-20] MEDS: ROSUVASTATIN CALCIUM 20 MG TAB PO SCH (09:01)
[2022-08-20] MEDS: FUROSEMIDE 40 MG TAB PO SCH (09:01)
[2022-08-20] MEDS: DORZOLAMIDE HCL 2% OPH SOLN 10 ML BTL OP SCH ×2 (09:05→21:13)
[2022-08-20] MEDS: cefTRIAXone SODIUM 2,000 MG in DEXTROSE 5% AD-VAN 50 ML IV SCH (10:41)
--- NOTE | 2022-08-20 13:32 | Hospitalist Progress Note ---
Date of Service August 20, 2022 Assessment & Plan (1) Closed right ankle fracture: (2) UTI (urinary tract infection): (3) Fall: (4) Paroxysmal atrial fibrillation: (5) CHF (congestive heart failure): (6) Hypertension: (7) Anxiety: (8) Hypokalemia: Plan This is an 86yo F with a PMH of paroxysmal atrial fibrillation, hypertension, hyperlipidemia, depression, anxiety, GERD, who presents with ankle pain after a fall and found to have right ankle fracture. Xray right tibia/fibula 1. Mildly displaced spiral fracture of the distal fibula with overlying soft tissue edema. 2. There is widening of the medial joint space of the ankle. 3. 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 We will keep n.p.o. after midnight -Continue pain management, bowel regimen -Reviewed prior echocardiogram, EKG and labs UTI-continue ceftriaxone D1 pending urine culture results. Patient complains of dysuria. Paroxysmal atrial fibrillation-rate controlled, continue Toprol. holding Eliquis until after surgery-heparin drip in the meantime Chronic CHF- euvolemic, hold lasix tomorrow am for surgery. Resume as appropriated Anxiety- On home alprazolam PRN DVT ppx: IV heparin Disposition: Pending OR tomorrow. Will need PT OT evaluation and rehab afterwards Admission and Anticipated Discharge Date Admission Date: August 19, 2022 Subjective Patient was seen and examined at bedside. She is complaining of pain-pain medicines have not been helping much. No fever, chills, chest pain, shortness of breath, nausea or vomiting. Discussed that surgery cannot be on until tomorrow because of her home Eliquis. Review of Systems Review of Systems: All systems reviewed & are unremarkable except as noted in Subjective Physical Exam Physical Exam: General: Lying comfortably in bed, not in distress, on room air HEENT: EOMI, ISIDRA, MMM Chest: Clear breath sounds bilaterally, no wheezes or crackles CVS: Irregular, normal heart sounds, no murmur Abdomen: Soft, non tender, not distended, normal bowel sounds Neuro: Awake, alert, oriented, conversing well, non focal Extremities: No cyanosis, clubbing or edema MSK: Right lower extremity covered with dressing. Rash noted above the dressing-pictures also reviewed on her phone-does not look like shingles. Results & Data Results & Data Vital Signs (Past 12 Hours) Vital Signs Temp Pulse Pulse Resp BP BP Pulse Ox 08/20/22 11:11 37.1 C 67 16 133/62 95 08/20/22 07:39 58 L 08/20/22 07:13 37.0 C 64 18 158/74 H 95 08/20/22 03:23 37.0 C 68 18 154/70 H 95 O2 Del Method 08/20/22 11:11 Room Air 08/20/22 07:39 08/20/22 07:13 Room Air 08/20/22 03:23 Room Air Laboratory Results Short CBC 08/19/22 08/20/22 Range/Units 18:04 02:56 WBC 12.48 H 12.25 H (4.8-10.8) K/ul Hgb 12.7 12.1 (12.0-16.0) g/dl Hct 38.6 36.3 L (37.0-47.0) % Plt Count 310 251 (130-400) K/uL [facility] 08/19/22 08/20/22 18:04 02:56 Sodium 137 137 Potassium 3.5 3.4 L Chloride 102 102 Carbon Dioxide 28 27 BUN 18 18 Creatinine 1.07 1.10 Glucose 134 H 110 H Calcium 9.4 9.1 Liver Function 08/19/22 Range/Units 18:04 Total Bilirubin 0.9 (0.2-1.0) mg/dl AST 12 L (13-39) U/L ALT 10 (7-52) U/L Alkaline Phosphatase 45 (34-104) U/L Albumin 3.8 (3.4-5.0) gm/dl Urine 08/20/22 Range/Units 03:30 Urine Color Dark Yellow Urine Appearance Cloudy A (Clear) Urine pH 5.5 (4.5-7.5) Ur Specific [place] 1.034 H (1.000-1.030) Urine Protein Trace H (Negative) Urine Glucose (UA) Negative (Negative) Diagnostic Findings Chest X-Ray 08/19/22 18:27 XR chest 1V portable HISTORY: 86 years-old Female admission acute shortness of breath COMPARISON: 08/30/2018 TECHNIQUE: AP view of the chest FINDINGS: Cardiac silhouette is enlarged. Right lower costophrenic angle is excluded from the [id number]. No pneumothorax, pleural effusion, airspace consolidation or overt pulmonary edema. Degenerative changes of the shoulders and spine. Chronic interstitial coarsening of the lung bases. IMPRESSION: Cardiomegaly without acute process. ACT 112: Negative or not required by law. The above report was generated using voice recognition software. It may contain grammatical, syntax or spelling errors. Electronically signed by: Saqib Shore M.D. 08/20/2022 7:40 AM Medications Administered Current Inpatient Medications Acetaminophen (Acetaminophen 500 Mg Tab) 1,000 mg PO Q8H [facility]HA Stop: 09/18/22 20:15 Last Admin: 08/20/22 05:03 Dose: 1,000 mg Alprazolam (Alprazolam 0.5 Mg Tablet) 0.5 mg PO BID PRN PRN Reason: Anxiety Stop: 09/18/22 18:28 Last Admin: 08/19/22 21:22 Dose: 0.5 mg Aspirin (Aspirin 81 Mg Ectab) 81 mg PO DAILY [facility]HA Stop: 09/19/22 08:59 Last Admin: 08/20/22 09:00 Dose: 81 mg Dorzolamide HCl (Dorzolamide Hcl 2% Oph Soln 10 Ml Btl) 1 drops OP BID [facility]HA Stop: 09/18/22 20:59 Last Admin: 08/20/22 09:05 Dose: 1 drops Furosemide (Furosemide 40 Mg Tab) 40 mg PO Q2D [facility] Stop: 09/19/22 08:59 Last Admin: 08/20/22 09:01 Dose: Not Given Heparin Sodium/Dextrose (Heparin Sodium/Dextrose) 25,000 units in 500 mls @ 18 mls/hr IV .Q24H [facility]; Protocol Stop: 09/18/22 20:59 Last Titration: 08/20/22 06:56 Dose: 900 units/hr, 18 mls/hr Ceftriaxone Sodium 2,000 mg/ (Dextrose) 70 mls @ 100 mls/hr IV Q24H [facility]; Protocol Stop: 08/25/22 07:29 Last Infusion: 08/20/22 11:34 Dose: Infused Metoprolol Succinate (Metoprolol Succ 50mg Ext Rel Tab) 50 mg PO DAILY [facility]HA Stop: 09/19/22 08:59 Last Admin: 08/20/22 09:00 Dose: 50 mg Morphine Sulfate (Morphine Sulfate 2 Mg/Ml Carp) 2 mg IV Q4H PRN PRN Reason: sev pain Stop: 09/03/22 07:39 Last Admin: 08/20/22 13:08 Dose: 2 mg Ondansetron HCl (Ondansetron Inj 2 Mg/Ml 2 Ml Vial) 4 mg IV Q6H PRN PRN Reason: Nausea Stop: 09/18/22 20:15 Pantoprazole Sodium (Pantoprazole 40 Mg Tab) 40 mg PO DAILY [facility]HA Stop: 09/19/22 08:59 Last Admin: 08/20/22 09:00 Dose: 40 mg Polyethylene Glycol (Polyethylene (Miralax) 17 Gm Pack) 17 gm PO DAILY PRN PRN Reason: Constipation Stop: 09/18/22 20:15 Rosuvastatin Calcium (Rosuvastatin Calcium 20 Mg Tab) 20 mg PO DAILY [facility]HA Stop: 09/19/22 08:59 Last Admin: 08/20/22 09:01 Dose: 20 mg Vitamin D (Cholecalciferol 1,000 Units 25 Mcg Tab) 1,000 units PO DAILY [facility]HA Stop: 09/19/22 08:59 Last Admin: 08/20/22 09:00 Dose: 1,000 units
--- NOTE | 2022-08-20 13:58 | Orthopedic Consultation ---
Agree with below, plan for ankle ORIF w/ syndesmotic repair 08/21 PM. Date of Consultation August 20, 2022 Assessment & Plan (1) Closed right ankle fracture: Right displaced distal fibular fracture with ankle mortise widening I have discussed this case with Dr. Hines. Patient will require ORIF of the right distal fibula. Patient was currently on Eliquis prior to admission and will need to be at least 24 hours off of her Eliquis before surgery can be done. Eliquis has been discontinued and she is currently on heparin drip which will need to be stopped around 10 AM tomorrow morning. We will plan for ORIF of right distal fibular fracture around 4 PM tomorrow. History of Present Illness Reason for Consultation: Right distal fibular fracture Attending Physician: Anastacio Florentino MD History of Present Illness This is an 86yo F with a PMH of paroxysmal atrial fibrillation, hypertension, hyperlipidemia, depression, anxiety, GERD,was brought to the emergency room last night after a fall. Patient states that she was on her way to he assisted living care facility to look at their apartments. She states that she was selling her home soon and wanted to move in to one of their apartments. The patient states that she ended up getting into the car. She was able to get her left leg into the car but as she was leaning back to put to her leg in, her right leg gave way and she ended up falling in the parking lot next to the car. She states that the leg went underneath her. She had immediate pain in her right ankle and was unable to ambulate on it. She was brought to the emergency room and seen by the staff. X-rays were taken and was found that she had a displaced right fibular fracture with widening of the ankle mortise. Patient lives alone and was unable to ambulate and was admitted for further care. We have been asked to see her for her right fibular fracture. Currently she is awake and alert and eating her lunch. She states that she has been having her knee buckle from time to time which she feels may have been part of the cause of her injury. She also states that she was questionably diagnosed with shingles over the right knee on the medial aspect. She states that this was been going on for about 3 weeks and was seen by the physician in the [place] [facility] who did not feel it was shingles. She saw her primary care physician who felt it was shingles. She states that she has had numbness in her foot since the start of the question of shingles. No other complaints at this time. Allergies Allergy/AdvReac Type Severity Reaction Status Date / Time aspirin AdvReac Unknown GI ISSUES Verified 08/30/18 17:44 Home Medications Medication Instructions Recorded Confirmed Type alprazolam 0.5 mg tablet 0.5 mg PO BID PRN Anxiety 08/30/18 08/19/22 History cholecalciferol (vitamin D3) 25 1,000 unit PO DAILY 08/30/18 08/19/22 History mcg (1,000 unit) tablet (Vitamin D3) coenzyme Q10 100 mg capsule 100 mg PO DAILY 08/30/18 08/19/22 History (CoQ-10) metoprolol succinate 50 mg 50 mg PO DAILY 08/30/18 08/19/22 History tablet,extended release 24 hr rosuvastatin 20 mg tablet 20 mg PO DAILY 08/30/18 08/19/22 History apixaban 5 mg tablet (Eliquis) 5 mg PO BID 08/19/22 08/19/22 History aspirin 81 mg capsule 81 mg PO DAILY 08/19/22 08/19/22 History dorzolamide 2 % eye drops 1 drp ophthalmic (eye) BID 08/19/22 08/19/22 History furosemide 40 mg tablet 40 mg PO Q2D 08/19/22 08/19/22 History omeprazole 20 mg capsule,delayed 20 mg PO DAILY 08/19/22 08/19/22 History release Patient History Medical History CHF (congestive heart failure) GERD (gastroesophageal reflux disease) Hypertension Hypertension Occlusion of left vertebral artery Paroxysmal atrial fibrillation TIA (transient ischemic attack) Surgical History History of appendectomy History of cataract surgery History of cholecystectomy History of hysterectomy History of total knee replacement x2 Family History Other Cancer Social History Smoking Status: Never smoker Second Hand Exposure: No; Do You Dip or Chew Tobacco: No; Hx Alcohol Use: No Hx Substance Use: No Preferred Language: Korean Communication Ability: Effective Signal Worker Helper Required: No Beliefs That Will Affect Care: None marital status: / Current Living Situation: Alone Current Living Situation Comment: Lives alone w/ family friend that performs chores/runs errands Other Information That Helps Us Care for You: No Feels Safe at Home: Yes Safety Concerns: Feels Safe At This Time Assistive Devices: Cane and Wheelchair Assistive Devices Comment: Pt. walker at bedside Physical Exam Physical Exam: Patient is an 86-year-old obese white female who appears her stated age. She is alert and oriented x3. No acute distress. Pleasant cooperative. On examination of her right lower extremity, she has a splint on the foot and ankle which is posterior and medial lateral gutter splint. Toes are pink and warm and she is moving them well. She states that they are numb on palpation which is noted has been going on since 3 weeks prior to admission. Splint is left on at this time. She has a well-healed scar of her right knee from previous TKA and also revision surgery. She states Dr. Sifuentes was the physician who did her right knee revision surgery. She does have a noted mild rash over the medial aspect of her distal thigh which she states is tender. She states that has been looking better he denies any injury to the left lower extremity at this time is nontender at the left hip, knee, and ankle. She does states that she does have some pain in the left knee secondary to osteoarthritis. This has not worsened. She denies any upper extremity injury at this time and is nontender at the shoulders, elbows, and wrist. She denies any new cervical, thoracic, low back pain at this time. Other than patient noting decrease sensation in her right foot x3 weeks secondary to onset of shingles rash, she has no other gross motor or sensory loss seen at this time. Results & Data Vital Signs (Past 12 Hours) Vital Signs Temp Pulse Pulse Resp BP BP Pulse Ox 08/20/22 11:11 37.1 C 67 16 133/62 95 08/20/22 07:39 58 L 08/20/22 07:13 37.0 C 64 18 158/74 H 95 08/20/22 03:23 37.0 C 68 18 154/70 H 95 O2 Del Method 08/20/22 11:11 Room Air 08/20/22 07:39 08/20/22 07:13 Room Air 08/20/22 03:23 Room Air Laboratory Results Laboratory Results WBC 12.25 K/ul (4.8-10.8) H 08/20/22 02:56 RBC 4.05 M/uL (4.20-5.40) L 08/20/22 02:56 Hgb 12.1 g/dl (12.0-16.0) 08/20/22 02:56 Hct 36.3 % (37.0-47.0) L 08/20/22 02:56 MCV 89.6 fL (80.0-100.0) 08/20/22 02:56 MCH 29.9 pg (25.0-34.0) 08/20/22 02:56 MCHC 33.3 g/dL (32.0-36.0) 08/20/22 02:56 RDW Std Deviation 47.9 fL (36.4-46.3) H 08/20/22 02:56 RDW Coeff of Lizy 15.0 % (11.5-14.5) H 08/20/22 02:56 Plt Count 251 K/uL (130-400) 08/20/22 02:56 MPV 9.5 fL (9.4-12.4) 08/20/22 02:56 Immature Gran % (Auto) 0.4 % 08/19/22 18:04 Neut % (Auto) 74.0 % 08/19/22 18:04 Lymph % (Auto) 17.7 % 08/19/22 18:04 [place] % (Auto) 7.2 % 08/19/22 18:04 Eos % (Auto) 0.4 % 08/19/22 18:04 Baso % (Auto) 0.3 % 08/19/22 18:04 Neut # (Auto) 9.23 K/uL (1.40-6.50) H 08/19/22 18:04 Lymph # (Auto) 2.21 K/uL (1.2-3.4) 08/19/22 18:04 [place] # (Auto) 0.90 K/uL (0.11-0.59) H 08/19/22 18:04 Eos # (Auto) 0.05 K/uL (0-0.50) 08/19/22 18:04 Baso # (Auto) 0.04 K/uL (0-0.2) 08/19/22 18:04 Immature Gran # (Auto) 0.05 K/uL (0.01-0.20) 08/19/22 18:04 APTT 52.7 Seconds (21.0-31.0) H* 08/20/22 02:56 PTT Ratio 1.9 08/20/22 02:56 Sodium 137 mmol/L (136-145) 08/20/22 02:56 Potassium 3.4 mmol/L (3.5-5.1) L 08/20/22 02:56 Chloride 102 mmol/L (98-107) 08/20/22 02:56 Carbon Dioxide 27 mmol/L (21-32) 08/20/22 02:56 Anion Gap 8 (3-11) 08/20/22 02:56 BUN 18 mg/dl (6-23) 08/20/22 02:56 Creatinine 1.10 mg/dl (0.6-1.2) 08/20/22 02:56 Est Cr Clr Drug Dosing 41.2 ml/min 08/20/22 02:56 Est GFR ( Amer) 52.3 ml/min 08/20/22 02:56 Est GFR (Non-Af Amer) 45.1 ml/min 08/20/22 02:56 BUN/Creatinine Ratio 16.4 (10-20) 08/20/22 02:56 Glucose 110 mg/dl (70-99(Fasting)) H 08/20/22 02:56 Calcium 9.1 mg/dl (8.6-10.3) 08/20/22 02:56 Total Bilirubin 0.9 mg/dl (0.2-1.0) 08/19/22 18:04 AST 12 U/L (13-39) L 08/19/22 18:04 ALT 10 U/L (7-52) 08/19/22 18:04 Alkaline Phosphatase 45 U/L (34-104) 08/19/22 18:04 Total Protein 6.6 gm/dl (6.0-8.3) 08/19/22 18:04 Albumin 3.8 gm/dl (3.4-5.0) 08/19/22 18:04 Globulin 2.8 gm/dl (2.5-4.0) 08/19/22 18:04 Albumin/Globulin Ratio 1.4 (0.9-2) 08/19/22 18:04 Lipase 25 U/L (11-82) 08/19/22 18:04 Urine Color Dark Yellow 08/20/22 03:30 Urine Appearance Cloudy (Clear) A 08/20/22 03:30 Urine pH 5.5 (4.5-7.5) 08/20/22 03:30 Ur Specific [place] 1.034 (1.000-1.030) H 08/20/22 03:30 Urine Protein Trace (Negative) H 08/20/22 03:30 Urine Glucose (UA) Negative (Negative) 08/20/22 03:30 Urine Ketones Trace (Negative) H 08/20/22 03:30 Urine Blood Negative (Negative) 08/20/22 03:30 Urine Nitrite Negative (Negative) 08/20/22 03:30 Urine Bilirubin Negative (Negative) 08/20/22 03:30 Urine Urobilinogen Negative (Negative) 08/20/22 03:30 Ur Leukocyte Esterase Negative (Negative) 08/20/22 03:30 Urine WBC (Auto) 10-30 /hpf (0-5) H 08/20/22 03:30 Urine RBC (Auto) 0-4 /hpf (0-4) 08/20/22 03:30 U Hyaline Cast (Auto) 1-5 /lpf (0-5) 08/20/22 03:30 U Epithel Cells (Auto) >30 /lpf (0-5) H 08/20/22 03:30 Urine Bacteria (Auto) 1+ (Negative) H 08/20/22 03:30 Ur Renal Epithelial Cell Not Reportable 08/20/22 03:30 Urine Mucus Present (None Prsent) A 08/20/22 03:30 SARS-CoV-2, RNA, NAAT NEGATIVE (NEGATIVE) 08/19/22 18:00 Impressions Ankle X-Ray 08/19/22 15:35 XR ankle RT min 3V routine CLINICAL HISTORY: Right ankle pain following fall. COMPARISON: None FINDINGS: Tibial component of the right knee arthroplasty is partially imaged on this exam. There is no acute distal right tibial fracture. Note is made of an acute oblique mildly displaced fracture of the distal diaphysis of the right fibula. This fracture is displaced 4 mm. There is mild medial ankle mortise widening. Ankle soft tissue swelling is present. There is moderate plantar calcaneal spurring. IMPRESSION: 1. Acute oblique mildly displaced distal diaphyseal fracture of the right fibula. 2. Mild medial ankle mortise widening. 3. Ankle soft tissue swelling. ACT 112: Negative or not required by law. Electronically signed by: Dre Duckworth M.D. 08/19/2022 4:02 PM Tibia/Fibula X-Ray 08/19/22 15:35 RIGHT TIBIA AND FIBULA 2 VIEWS CLINICAL HISTORY: Fall. Right leg injury. FINDINGS: AP and lateral views of the right tibia and fibula are correlated with radiographs of the right knee dated 08/11/2008. The skeletal structures are osteopenic. There is a mildly displaced spiral fracture of the distal fibular shaft. The fragments are offset by up to 5 mm. Overlying soft tissue edema is noted. There is an age-indeterminate reverse Segond avulsion injury along the medial tibial plateau. No additional findings are suspicious for acute tibial or fibular fracture. A right knee arthroplasty is in near anatomic alignment. No periprosthetic lucency is seen. There is mild widening of the medial joint space at the ankle. There is a large plantar heel spur. IMPRESSION: 1. Mildly displaced spiral fracture of the distal fibula with overlying soft tissue edema. 2. There is widening of the medial joint space of the ankle. 3. Age indeterminant reverse Segond avulsion injury along the medial tibial plateau Electronically signed by: Pablito Greenberg M.D. 08/19/2022 4:07 PM
[2022-08-20] MEDS: DOCUSATE SODIUM/SENNA 50/8.6MG TAB PO SCH (15:43)
--- NOTE | 2022-08-20 15:53 | Electrocardiogram Report ---
Test Reason : Blood Pressure : / mmHG Vent. Rate : 068 BPM Atrial Rate : 068 BPM P-R Int : 164 ms QRS Dur : 086 ms QT Int : 390 ms P-R-T Axes : 065 039 -35 degrees QTc Int : 414 ms Normal sinus rhythm Poor R wave progression, consider anterior NM vs. lead placement vs. LVH Abnormal ECG When compared with ECG of 30-AUG-2018 16:31, Nonspecific T wave abnormality now evident in Lateral leads Confirmed by Nicolas Erazo ([id number]) on 08/20/2022 3:53:17 PM Referred By: REFERRED SELF Confirmed By:Nicolas Erazo
[2022-08-20] MEDS ORDERED: POTASSIUM CHLORIDE CRTAB 20 MEQ TABCR PO ONE (17:34)
[2022-08-20] MEDS: oxyCODONE HCL IR 5 MG TAB (IMMEDIATE RELEASE) PO PRN (18:58)
[2022-08-20] MEDS: Heparin Adult LOW DOSE Wt-Based Dextrose 5% 25,000 units/500 mL IV SCH (21:41)
[2022-08-21] MEDS: ACETAMINOPHEN 500 MG TAB PO SCH ×3 (06:00→21:00)
[2022-08-21 06:42] LABS: Hematocrit (blood only) 33.1 % (37.0-47.0); Hemoglobin 10.9 g/dl (12.0-16.0); Mean Corpuscular Hemoglobin 29.8 pg (25.0-34.0); Mean Corpuscular Hgb Conc 32.9 g/dL (32.0-36.0); Mean Corpuscular Volume 90.4 fL (80.0-100.0); Mean Platelet Volume 9.9 fL (9.4-12.4); Platelet Count 246 K/uL (130-400); RDW Coefficient of Variation 14.9 % (11.5-14.5); RDW Standard Deviation 48.7 fL (36.4-46.3); Red Blood Count 3.66 M/uL (4.20-5.40); White Blood Count 11.35 K/ul (4.8-10.8)
[2022-08-21 06:55] LABS: BUN Creatinine Ratio 14.5 (10-20); Calcium 8.7 mg/dl (8.6-10.3); Creatinine Clr Calc Pharmacy 41.6 ml/min; Est GFR (African American) 52.3 ml/min; Est GFR (Non-African American) 45.1 ml/min; Magnesium 1.8 mg/dl (1.7-2.4); Potassium 3.5 mmol/L (3.5-5.1)
[2022-08-21 07:15] LABS: Partial Thromboplastin Ratio 1.7
[2022-08-21 07:21] LABS: Partial Thromboplastin Time 49.2 Seconds (21.0-31.0)
[2022-08-21] MEDS: PANTOprazole 40 MG TAB PO SCH (08:29)
[2022-08-21] MEDS: CHOLECALCIFEROL 1,000 UNITS 25 MCG TAB PO SCH (08:29)
[2022-08-21] MEDS: ASPIRIN 81 MG ECTAB PO SCH (08:29)
[2022-08-21] MEDS: ROSUVASTATIN CALCIUM 20 MG TAB PO SCH (08:29)
[2022-08-21] MEDS: cefTRIAXone SODIUM 2,000 MG in DEXTROSE 5% AD-VAN 50 ML IV SCH (08:30)
[2022-08-21] MEDS: DORZOLAMIDE HCL 2% OPH SOLN 10 ML BTL OP SCH ×2 (08:30→20:59)
[2022-08-21] MEDS: METOPROLOL SUCC 50MG EXT REL TAB PO SCH (08:30)
[2022-08-21] MEDS: DOCUSATE SODIUM/SENNA 50/8.6MG TAB PO SCH (08:30)
[2022-08-21] MEDS ORDERED: [UNRECOGNIZED DRUG - REMARK] ONE (09:00)
--- NOTE | 2022-08-21 13:10 | Hospitalist Progress Note ---
Date of Service August 21, 2022 Assessment & Plan (1) Closed right ankle fracture: (2) UTI (urinary tract infection): (3) Fall: (4) Paroxysmal atrial fibrillation: (5) CHF (congestive heart failure): (6) Hypertension: (7) Anxiety: (8) Hypokalemia: Plan This is an 86yo F with a PMH of paroxysmal atrial fibrillation, hypertension, hyperlipidemia, depression, anxiety, GERD, who presents with ankle pain after a fall and found to have right ankle fracture. Xray right tibia/fibula 1. Mildly displaced spiral fracture of the distal fibula with overlying soft tissue edema. 2. There is widening of the medial joint space of the ankle. 3. Age indeterminant reverse Segond avulsion injury along the medial tibial plateau Right ankle fracture 2/2 fall -Fell backwards getting into her car, h/o neuropathy in R leg following recent rash -R Ankle xray reviewed personally -Plan for surgery today after 4 PM per orthopedics, awaiting washout of home Eliquis. N.p.o. for the same. Heparin drip discontinued this morning -Continue pain management, bowel regimen -Reviewed prior echocardiogram, EKG and labs UTI-urine culture not definitive, however will complete ceftriaxone course given dysuria on presentation. Continue ceftriaxone D2/3. Paroxysmal atrial fibrillation-rate controlled, continue Toprol. holding Eliquis until after surgery-heparin drip in the meantime Chronic CHF- euvolemic, hold Lasix for surgery. Resume as appropriate Anxiety- On home alprazolam PRN DVT ppx: On hold for surgery today, resume home Eliquis likely from tomorrow Disposition: Pending OR today. Will need PT OT evaluation and rehab afterwards Admission and Anticipated Discharge Date Admission Date: August 19, 2022 Subjective Patient was seen and examined at bedside. Still with pain at fracture site. Continues with some numbness in foot for past 3 weeks after the rash in right leg. No fever, chills, chest pain or shortness of breath nausea or vomiting. She is looking forward to the surgery today. Review of Systems Review of Systems: All systems reviewed & are unremarkable except as noted in Subjective Physical Exam Physical Exam: General: Lying comfortably in bed, not in distress, on room air HEENT: EOMI, ISIDRA, MMM Chest: Clear breath sounds bilaterally, no wheezes or crackles CVS: Irregular, normal heart sounds, no murmur Abdomen: Soft, non tender, not distended, normal bowel sounds Neuro: Awake, alert, oriented, conversing well, non focal Extremities: No cyanosis, clubbing or edema MSK: Right lower extremity covered with dressing. some rash noted above the dressing Results & Data Results & Data Vital Signs (Past 12 Hours) Vital Signs Temp Pulse Pulse Resp BP BP Pulse Ox 08/21/22 10:54 36.8 C 68 18 150/80 H 96 08/21/22 07:48 72 08/21/22 07:18 37.2 C 59 L 1 L 120/77 95 08/21/22 03:50 36.8 C 66 16 162/79 H 96 O2 Del Method 08/21/22 10:54 Room Air 08/21/22 07:48 08/21/22 07:18 Room Air 08/21/22 03:50 Room Air Laboratory Results Short CBC 08/21/22 Range/Units 05:53 WBC 11.35 H (4.8-10.8) K/ul Hgb 10.9 L (12.0-16.0) g/dl Hct 33.1 L (37.0-47.0) % Plt Count 246 (130-400) K/uL BMP 08/21/22 05:53 Sodium 134 L Potassium 3.5 Chloride 101 Carbon Dioxide 25 BUN 16 Creatinine 1.10 Glucose 119 H Calcium 8.7 Medications Administered Current Inpatient Medications Acetaminophen (Acetaminophen 500 Mg Tab) 1,000 mg PO Q8H SASHA Stop: 09/18/22 20:15 Last Admin: 08/21/22 06:00 Dose: 1,000 mg Alprazolam (Alprazolam 0.5 Mg Tablet) 0.5 mg PO BID PRN PRN Reason: Anxiety Stop: 09/18/22 18:28 Last Admin: 08/19/22 21:22 Dose: 0.5 mg Aspirin (Aspirin 81 Mg Ectab) 81 mg PO DAILY SASHA Stop: 09/19/22 08:59 Last Admin: 08/21/22 08:29 Dose: 81 mg Dorzolamide HCl (Dorzolamide Hcl 2% Oph Soln 10 Ml Btl) 1 drops OP BID [facility]HA Stop: 09/18/22 20:59 Last Admin: 08/21/22 08:30 Dose: 1 drops Furosemide (Furosemide 40 Mg Tab) 40 mg PO Q2D [facility] Stop: 09/19/22 08:59 Last Admin: 08/20/22 09:01 Dose: Not Given Heparin Sodium/Dextrose (Heparin Sodium/Dextrose) 25,000 units in 500 mls @ 0 mls/hr IV .Q0M [facility]; Protocol Stop: 09/18/22 20:59 Last Titration: 08/21/22 09:38 Dose: 0 units/hr, 0 mls/hr Ceftriaxone Sodium 2,000 mg/ (Dextrose) 70 mls @ 100 mls/hr IV Q24H [facility]; Protocol Stop: 08/25/22 07:29 Last Infusion: 08/21/22 09:31 Dose: Infused Metoprolol Succinate (Metoprolol Succ 50mg Ext Rel Tab) 50 mg PO DAILY [facility] Stop: 09/19/22 08:59 Last Admin: 08/21/22 08:30 Dose: 50 mg Morphine Sulfate (Morphine Sulfate 2 Mg/Ml Carp) 3 mg IV Q4H PRN PRN Reason: severe pain Stop: 09/03/22 07:39 Ondansetron HCl (Ondansetron Inj 2 Mg/Ml 2 Ml Vial) 4 mg IV Q6H PRN PRN Reason: Nausea Stop: 09/18/22 20:15 Oxycodone HCl (Oxycodone Hcl Ir 5 Mg Tab (Immediate Release)) 5 mg PO Q4H PRN PRN Reason: Mod-Sev Pain (Scale 4-10) Stop: 09/03/22 13:29 Last Admin: 08/20/22 18:58 Dose: 5 mg Pantoprazole Sodium (Pantoprazole 40 Mg Tab) 40 mg PO DAILY [facility] Stop: 09/19/22 08:59 Last Admin: 08/21/22 08:29 Dose: 40 mg Polyethylene Glycol (Polyethylene (Miralax) 17 Gm Pack) 17 gm PO DAILY PRN PRN Reason: Constipation Stop: 09/18/22 20:15 Rosuvastatin Calcium (Rosuvastatin Calcium 20 Mg Tab) 20 mg PO DAILY [facility] Stop: 09/19/22 08:59 Last Admin: 08/21/22 08:29 Dose: 20 mg Senna/Docusate Sodium (Docusate Sodium/Senna 50/8.6mg Tab) 1 tab PO QAM [facility] Stop: 09/19/22 13:59 Last Admin: 08/21/22 08:30 Dose: 1 tab Vitamin D (Cholecalciferol 1,000 Units 25 Mcg Tab) 1,000 units PO DAILY [facility] Stop: 09/19/22 08:59 Last Admin: 08/21/22 08:29 Dose: 1,000 units
--- NOTE | 2022-08-21 13:39 | Anesthesiology Consultation ---
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 initiated History Surgery Operation Date: 08/21/22 07:00 Proposed Procedures p Right Ankle Open Reduction Internal Fixation Distal Fibula, Possible Syndesmotic Screw - Saqib Hines DO Height/Weight Height: 5 ft 5 in Weight: 97.3 kg Allergies Allergy/AdvReac Type Severity Reaction Status Date / Time aspirin AdvReac Unknown GI ISSUES Verified 08/30/18 17:44 Medications Home Medications Medication Instructions Recorded Confirmed Last Taken alprazolam 0.5 mg tablet 0.5 mg PO BID PRN Anxiety 08/30/18 08/19/22 08/29/18 cholecalciferol (vitamin D3) 25 1,000 unit PO DAILY 08/30/18 08/19/22 08/29/18 mcg (1,000 unit) tablet (Vitamin D3) coenzyme Q10 100 mg capsule 100 mg PO DAILY 08/30/18 08/19/22 08/29/18 (CoQ-10) metoprolol succinate 50 mg 50 mg PO DAILY 08/30/18 08/19/22 08/30/18 tablet,extended release 24 hr rosuvastatin 20 mg tablet 20 mg PO DAILY 08/30/18 08/19/22 08/29/18 apixaban 5 mg tablet (Eliquis) 5 mg PO BID 08/19/22 08/19/22 Unknown aspirin 81 mg capsule 81 mg PO DAILY 08/19/22 08/19/22 Unknown dorzolamide 2 % eye drops 1 drp ophthalmic (eye) BID 08/19/22 08/19/22 Unknown furosemide 40 mg tablet 40 mg PO Q2D 08/19/22 08/19/22 Unknown omeprazole 20 mg capsule,delayed 20 mg PO DAILY 08/19/22 08/19/22 Unknown release Active Medications Generic Name Dose Route Start Last Admin Trade Name Freq PRN Reason Stop Dose Admin Acetaminophen 1,000 mg 08/19/22 22:00 08/21/22 13:20 Acetaminophen 500 Mg Tab PO 09/18/22 20:15 Not Given Q8H SASHA Alprazolam 0.5 mg 08/19/22 18:29 08/19/22 21:22 Alprazolam 0.5 Mg Tablet PO 09/18/22 18:28 0.5 mg BID PRN Administration Anxiety Aspirin 81 mg 08/20/22 09:00 08/21/22 08:29 Aspirin 81 Mg Ectab PO 09/19/22 08:59 81 mg DAILY SASHA Administration Dorzolamide HCl 1 drops 08/19/22 21:00 08/21/22 08:30 Dorzolamide Hcl 2% Oph Soln 10 Ml Btl OP 09/18/22 20:59 1 drops BID SASHA Administration Furosemide 40 mg 08/20/22 09:00 08/20/22 09:01 Furosemide 40 Mg Tab PO 09/19/22 08:59 Not Given Q2D SASHA Heparin Sodium/Dextrose 25,000 units in 500 mls @ 0 mls/hr 08/19/22 21:00 08/21/22 09:38 Heparin Sodium/Dextrose IV 09/18/22 20:59 0 units/hr .Q0M SASHA 0 mls/hr Titration Protocol 0 UNITS/HR Ceftriaxone Sodium 2,000 mg/ 70 mls @ 100 mls/hr 08/20/22 09:00 08/21/22 09:31 Dextrose IV 08/25/22 07:29 Infused Q24H [facility] Infusion Protocol Metoprolol Succinate 50 mg 08/20/22 09:00 08/21/22 08:30 Metoprolol Succ 50mg Ext Rel Tab PO 09/19/22 08:59 50 mg DAILY SASHA Administration Oxycodone HCl 5 mg 08/20/22 13:30 08/20/22 18:58 Oxycodone Hcl Ir 5 Mg Tab (Immediate Release) PO 09/03/22 13:29 5 mg Q4H PRN Administration Mod-Sev Pain (Scale 4-10) Pantoprazole Sodium 40 mg 08/20/22 09:00 08/21/22 08:29 Pantoprazole 40 Mg Tab PO 09/19/22 08:59 40 mg DAILY SASHA Administration Rosuvastatin Calcium 20 mg 08/20/22 09:00 08/21/22 08:29 Rosuvastatin Calcium 20 Mg Tab PO 09/19/22 08:59 20 mg DAILY SASHA Administration Senna/Docusate Sodium 1 tab 08/20/22 14:00 08/21/22 08:30 Docusate Sodium/Senna 50/8.6mg Tab PO 09/19/22 13:59 1 tab QAM SASHA Administration Vitamin D 1,000 units 08/20/22 09:00 08/21/22 08:29 Cholecalciferol 1,000 Units 25 Mcg Tab PO 09/19/22 08:59 1,000 units DAILY SASHA Administration Past Medical History Medical History CHF (congestive heart failure) GERD (gastroesophageal reflux disease) Hypertension Hypertension Occlusion of left vertebral artery Paroxysmal atrial fibrillation TIA (transient ischemic attack) Past Family History Family History Other Cancer Past Surgical History Surgical History History of appendectomy History of cataract surgery History of cholecystectomy History of hysterectomy History of total knee replacement x2 Social History Smoking Status: Never smoker Do You Dip or Chew Tobacco: No Hx Alcohol Use: No alcohol intake frequency: holidays/special occasions only Hx Substance Use: No substance use type: does not use Physical Exam Vital Signs Last Vital Signs Temp 98.2 F 08/21/22 10:54 Pulse 68 08/21/22 10:54 Resp 18 08/21/22 10:54 BP 150/80 H 08/21/22 10:54 Pulse Ox 96 08/21/22 10:54 O2 Del Method Room Air 08/21/22 10:54 Testing Laboratory Results 08/21/22 05:53 08/21/22 05:53 APTT 49.2 Seconds (21.0-31.0) H* 08/21/22 05:53 Urine Color Dark Yellow 08/20/22 03:30 Urine Appearance Cloudy (Clear) A 08/20/22 03:30 Urine pH 5.5 (4.5-7.5) 08/20/22 03:30 Ur Specific [place] 1.034 (1.000-1.030) H 08/20/22 03:30 Urine Protein Trace (Negative) H 08/20/22 03:30 Urine Glucose (UA) Negative (Negative) 08/20/22 03:30 Urine Ketones Trace (Negative) H 08/20/22 03:30 Urine Nitrite Negative (Negative) 08/20/22 03:30 Ur Leukocyte Esterase Negative (Negative) 08/20/22 03:30 Urine WBC (Auto) 10-30 /hpf (0-5) H 08/20/22 03:30 Urine RBC (Auto) 0-4 /hpf (0-4) 08/20/22 03:30 U Hyaline Cast (Auto) 1-5 /lpf (0-5) 08/20/22 03:30 U Epithel Cells (Auto) >30 /lpf (0-5) H 08/20/22 03:30 Urine Bacteria (Auto) 1+ (Negative) H 08/20/22 03:30 08/20/22 03:30 Urine Culture - Final Urine,Clean Catch More than three types of organisms present, all high counts mixed probable skin deirdre - No further identifications or sensitivities to follow. Electrocardiogram Date: 08/20/22 Normal sinus rhythm, rate 68 bpm Poor R wave progression, consider anterior NC vs. lead placement vs. LVH Abnormal ECG When compared with ECG of 30-AUG-2018 16:31, Nonspecific T wave abnormality now evident in Lateral leads Confirmed by Nicolas Erazo ([id number]) on 08/20/2022 3:53:17 PM Chest X-Ray Date: 08/19/22 IMPRESSION: Cardiomegaly without acute process. Echocardiogram Date: 08/20/22 EF 65-70% There is mild concentric LVH Grade 1 diastolic dysfunction Poorly visualized valvular anatomy without significant stenosis or regurgitation
[2022-08-21] MEDS ORDERED: ePHEDrine sulfate 50 MG/ML AMP IV PRN (15:25)
[2022-08-21] MEDS ORDERED: fentaNYL citrate PF 100 MCG/2 ML VIAL IV PRN (15:25)
[2022-08-21] MEDS ORDERED: ATROPINE SULFATE 0.1 MG/ML 10ML SYR IV PRN (15:25)
[2022-08-21] MEDS ORDERED: ONDANSETRON INJ 2 MG/ML 2 ML VIAL IV PRN (15:25)
[2022-08-21] MEDS ORDERED: fentaNYL citrate PF 100 MCG/2 ML VIAL ONE ×2 (15:39→18:23)
[2022-08-21] MEDS ORDERED: ROPIVACAINE 0.5% 5 MG/ML 30 ML VIAL ONE (15:41)
[2022-08-21] MEDS ORDERED: ceFAZolin 330 MG/ML 1 GM VIAL IM STA (16:29)
[2022-08-21] MEDS ORDERED: ceFAZolin 2,000 MG/15 ML IV PUSH IV ONE (16:30)
--- NOTE | 2022-08-21 16:35 | History & Physical Bridge Note ---
Date of Service August 21, 2022 History & Physical Bridge Note I have examined the patient, reviewed the History & Physical and in the interval since the performance of the History & Physical I have noted the following changes of clinical significance: no changes noted.Had a lengthy discussion with the patient regarding risk benefits potential complications of her right ankle open reduction internal fixation. These include but are not limited to infection, neurovascular injury, DVT, nonunion, malunion, hardware failure and need for future surgery. After reviewing these she has elected to proceed with surgical intervention and written consent was obtained
[2022-08-21] MEDS ORDERED: ceFAZolin 2000MG 2,000 MG/15 ML SYR IV ONE (16:45)
[2022-08-21] MEDS ORDERED: BUPIVACAINE/EPINEPHRINE 0.25% 1:200,000 30 ML VIAL ONE (16:56)
[2022-08-21] MEDS ORDERED: PROPOFOL IV EMULSION 10 MG/ML 20 ML VIAL IV ONE ×2 (17:25→17:45)
--- NOTE | 2022-08-21 18:31 | Post Operative Brief Note ---
Immediate Post Op Note v1 Date of Surgery August 21, 2022 Pre & Post Diagnosis Operation Date: 08/21/22 07:00 Pre-Op Diagnosis: Closed right ankle fracture Post-Op Diagnosis: Closed right ankle fracture I identified the patient and participated in the time-out.: Yes Procedure Operation Date: 08/21/22 07:00 Actual Procedures p Right Ankle Open Reduction Internal Fixation Distal Fibula(Right) - Saqib Hines DO Surgeon Saqib Hines DO Field Marketing Team Leader none Estimated Blood Loss 5 Findings Consistent with Post-Op Diagnosis see dictation Complications none
[2022-08-21] MEDS ORDERED: NALOXONE HCL 0.4 MG/1 ML VIAL/CARP IV PRN (18:34)
--- NOTE | 2022-08-21 18:43 | Operative Report ---
Post Operative Report Pre & Post Diagnosis Operation Date: 08/21/22 07:00 Pre-Op Diagnosis: Closed right ankle fracture Post-Op Diagnosis: Closed right ankle fracture I identified the patient and participated in the time-out.: Yes Procedure Operation Date: 08/21/22 07:00 Actual Procedures p Right Ankle Open Reduction Internal Fixation Distal Fibula(Right) - Saqib Hines DO Surgeon Saqib Hines DO Hearing Aid Repair Technician none Estimated Blood Loss 5 Findings Consistent with Post-Op Diagnosis See dictation Specimens none Complications none Indications 86-year-old female presenting after sustaining a fall with a chief complaint of right ankle pain and deformity. Radiographs were obtained in the emergency department demonstrating a displaced right distal fibula fracture with syndesmotic widening. Patient was admitted to medical service and orthopedics was consulted for operative management. I met with the patient preoperatively and we had a lengthy discussion regarding risk benefits potential complications of right ankle open reduction internal fixation. After reviewing these she elected to proceed with surgical intervention and written consent was obtained. Description of Procedure Implants: Synthes one third tubular plate 8 hole, 3.5 mm cortical screw (3), 3.5 mm cancellous screw (3). Arthrex syndesmotic tight rope XP Patient was appropriately marked and identified in the preoperative holding area. She was then taken back to the operative suite where she received regional anesthesia. She received antibiotics per protocol. Nonsterile right thigh tourniquet was placed. Patient was then prepped and draped in the standard orthopedic fashion and timeout was then performed. Esmarch was used to exsanguinate the right lower extremity and the tourniquet was inflated to 250 mmHg. A 6 cm incision overlying the lateral aspect of the distal fibula was then made with a scalpel. Dissection was carried out down to the lateral aspect of the fibula. Retractors were then placed any residual fracture hematoma was then removed using a curette and was copiously irrigated. The tenaculum was used to reduce the fracture and an 8 hole plate was then selected. This was a drill was then used to drill bicortically proximal to the fracture and a single bicortical screw was placed. Attention was then turned to the distal aspect of the plate and a single cancellous screw was then placed. 2 more cancellous screws were then placed distally followed by 2 cortical screws proximally. This provided excellent reduction of the fracture. Patient plate was assessed on AP and lateral radiographs. Attention was then turned to syndesmotic fixation. Arthrex tight rope was then placed. Drilled and placed Quadra cortically. Was then tensioned down to the lateral distal tibial plate. Provided excellent reduction of the syndesmosis. Suture tails were then cut. Wound was then copiously irrigated and final radiographs were obtained demonstrating excellent reduction of the fracture and position of the syndesmotic tight rope. Wounds were then copiously irrigated and 2-0 Vicryl was used to close subcutaneous tissues followed by 3-0 nylon in a running horizontal mattress fashion as well as several vertical mattress sutures were used to close the skin. A sterile dressing of Xeroform 4 x 4 gauze web roll was then applied. Patient a well- padded 3 sided splint was then applied followed by an Jason wrap and molded into position. Tourniquet was then deflated. The patient tolerated the procedure well and was taken the recovery room in hemodynamically stable condition. I attest to the content of the Intraoperative Record and any orders documented therein. Any exceptions are noted below.
--- NOTE | 2022-08-21 19:04 | Anesthesiology Progress Note ---
Date of Service August 21, 2022 Anesthesia Post Procedure Vital Signs Vital Signs: Temp Pulse Pulse Pulse Pulse Resp BP 08/21/22 19:00 98.4 F 75 17 08/21/22 18:51 78 14 08/21/22 18:41 66 12 08/21/22 18:31 97.3 F L 75 21 08/21/22 15:58 99.0 F 74 20 08/21/22 15:01 98.8 F 60 18 08/21/22 15:27 63 08/21/22 10:54 98.2 F 68 18 150/80 H 08/21/22 07:48 72 08/21/22 07:18 99.0 F 59 L 18 08/21/22 03:50 98.2 F 66 16 162/79 H 08/20/22 23:05 98.8 F 72 16 136/82 08/20/22 22:46 77 08/20/22 19:07 98.8 F 79 18 133/71 BP Pulse Ox O2 Del Method O2 Flow Rate 08/21/22 19:00 150/59 H 94 Room Air 08/21/22 18:51 141/57 H 93 Room Air 08/21/22 18:41 164/61 H 98 Oxymask 5 08/21/22 18:31 162/68 H 97 Oxymask 5 08/21/22 15:58 182/58 H 95 Room Air 08/21/22 15:01 148/77 H 95 Room Air 08/21/22 15:27 08/21/22 10:54 96 Room Air 08/21/22 07:48 08/21/22 07:18 120/77 95 Room Air 08/21/22 03:50 96 Room Air 08/20/22 23:05 93 Room Air 08/20/22 22:46 08/20/22 19:07 95 Room Air Pain Intensity Right Ankle: Pain Intensity: 3 Transfer of Care Handoff Completed per policy Notes Mental Status: alert / awake / arousable and participated in evaluation Patient Amnestic to Procedure: Yes Nausea / Vomiting: adequately controlled Pain: adequately controlled Airway Patency, RR, SpO2: stable & adequate BP & HR: stable & adequate Hydration State: stable & adequate Anesthetic Complications: no major complications apparent and Pt Satisfied with anesthetic care
--- NOTE | 2022-08-21 19:09 | Fluoroscopy Report ---
FL ankle RT min 3V RTN CLINICAL HISTORY: RT ORIF DISTAL TECHNIQUE: 4 views were obtained with the C-arm in the OR with the above procedure. Total fluoroscopy time was 11.0 seconds. Radiation dose was 0.29 mGy. Comparison: Comparison is made to ankle radiograph 08/19/2022 FINDINGS/IMPRESSION: Intraoperative images were obtained of right ankle plate and screw fixation. Please correlate with intraoperative fluoroscopy and operative report. ACT 112: Negative or not required by law. Electronically signed by: Ricki Leonard M.D. 08/21/2022 7:08 PM
[2022-08-21] MEDS: SODIUM CHLORIDE 0.9% 1000ML 1,000 ML IV SCH (19:58)
[2022-08-22] MEDS: ceFAZolin 2000MG 2,000 MG/15 ML SYR IV SCH ×2 (01:04→08:18)
[2022-08-22] MEDS: SODIUM CHLORIDE 0.9% 1000ML 1,000 ML IV SCH (05:59)
[2022-08-22] MEDS: oxyCODONE HCL IR 5 MG TAB (IMMEDIATE RELEASE) PO PRN (06:13)
[2022-08-22 06:30] LABS: Basophils # (auto) 0.03 K/uL (0-0.2); Basophils % (auto) 0.3 %; Eosinophils # (auto) 0.09 K/uL (0-0.50); Hematocrit (blood only) 30.2 % (37.0-47.0); Hemoglobin 10.1 g/dl (12.0-16.0); Immature Granulocytes # (auto) 0.04 K/uL (0.01-0.20); Immature Granulocytes % (auto) 0.4 %; Lymphocytes # (auto) 1.73 K/uL (1.2-3.4); Lymphocytes % (auto) 19.1 %; Mean Corpuscular Hemoglobin 29.7 pg (25.0-34.0); Mean Corpuscular Hgb Conc 33.4 g/dL (32.0-36.0); Mean Corpuscular Volume 88.8 fL (80.0-100.0); Mean Platelet Volume 9.8 fL (9.4-12.4); Monocytes # (auto) 0.97 K/uL (0.11-0.59); Monocytes % (auto) 10.7 %; Neutrophils % (auto) 68.5 %; Platelet Count 222 K/uL (130-400); RDW Standard Deviation 48.3 fL (36.4-46.3); White Blood Count 9.06 K/ul (4.8-10.8)
[2022-08-22] MEDS: ACETAMINOPHEN 500 MG TAB PO SCH ×3 (06:33→20:10)
[2022-08-22 06:57] LABS: BUN Creatinine Ratio 15.8 (10-20); Calcium 8.3 mg/dl (8.6-10.3); Creatinine Clr Calc Pharmacy 47.2 ml/min; Est GFR (Non-African American) 53.5 ml/min; Potassium 3.6 mmol/L (3.5-5.1)
[2022-08-22] MEDS: cefTRIAXone SODIUM 2,000 MG in DEXTROSE 5% AD-VAN 50 ML IV SCH (08:18)
[2022-08-22] MEDS: MULTIVITAMIN TAB PO SCH (08:24)
[2022-08-22] MEDS: DOCUSATE SODIUM/SENNA 50/8.6MG TAB PO SCH (08:25)
[2022-08-22] MEDS: CHOLECALCIFEROL 1,000 UNITS 25 MCG TAB PO SCH (08:25)
[2022-08-22] MEDS: FUROSEMIDE 40 MG TAB PO SCH (08:26)
[2022-08-22] MEDS: PANTOprazole 40 MG TAB PO SCH (08:26)
[2022-08-22] MEDS: ROSUVASTATIN CALCIUM 20 MG TAB PO SCH (08:26)
[2022-08-22] MEDS: METOPROLOL SUCC 50MG EXT REL TAB PO SCH (08:26)
[2022-08-22] MEDS: ASPIRIN 81 MG ECTAB PO SCH (08:27)
[2022-08-22] MEDS: DORZOLAMIDE HCL 2% OPH SOLN 10 ML BTL OP SCH ×2 (08:27→20:09)
--- NOTE | 2022-08-22 09:32 | Orthopedic Progress Note ---
Date of Service August 22, 2022 Assessment & Plan (1) Closed right ankle fracture: Plan: postop day 1 status post ORIF right distal fibula PT/OT protocols. Nonweightbearing right lower extremity. DVT prophylaxis-heparin drip is on hold. Okay to restart Eliquis with tonight's dose versus tomorrow morning. As per medicine service. Pain management as written. Continue splint for the next 2 weeks until seen in the office. Orthopedics will sign off at this time. Discharge instructions placed in the DC section. Please call with any questions. Admission and Anticipated Discharge Date Admission Date: August 19, 2022 Subjective Postop day 1 Patient is sitting up in her bed awake and alert. No complaints this morning. Overall feeling well. Physical Exam Physical Exam: Right lower extremity splint/dressing is clean, dry, and intact. toes are mobile. She has decreased sensation of which she has had for the last 3 to 4 weeks secondary to her likely shingles on her distal right thigh. Denies any low back pain at this time Results & Data Vital Signs (Past 12 Hours) Vital Signs Temp Pulse Pulse Resp BP Pulse Ox O2 Del Method 08/22/22 06:00 36.8 C 73 18 148/76 H 95 Room Air 08/22/22 07:05 73 08/22/22 02:00 37.4 C 77 18 158/73 H 96 Room Air 08/22/22 00:13 68 08/21/22 22:29 36.8 C 69 18 115/66 96 Room Air
--- NOTE | 2022-08-22 15:52 | Hospitalist Progress Note ---
Date of Service August 22, 2022 Assessment & Plan (1) Closed right ankle fracture: (2) UTI (urinary tract infection): (3) Fall: (4) Paroxysmal atrial fibrillation: (5) CHF (congestive heart failure): (6) Hypertension: (7) Anxiety: (8) Hypokalemia: Plan This is an 86yo F with a PMH of paroxysmal atrial fibrillation, hypertension, hyperlipidemia, depression, anxiety, GERD, who presents with ankle pain after a fall and found to have right ankle fracture. Xray right tibia/fibula 1. Mildly displaced spiral fracture of the distal fibula with overlying soft tissue edema. 2. There is widening of the medial joint space of the ankle. 3. 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 -S/p ORIF distal fibula by Dr Hines on 08/21- ok to start eliquis from [employer]. Discharge instructions provided by ortho. -Continue pain management, bowel regimen, PT/OT, eliquis UTI-urine culture not definitive, however will complete ceftriaxone course given dysuria on presentation. Continue ceftriaxone D3/3. Paroxysmal atrial fibrillation- on NSR since admission on tele. Continue Toprol. Resume eliquis Chronic CHF- euvolemic, resume home Lasix q2d. Anxiety- On home alprazolam PRN RLE rash with neuropathy- for past 3 weeks. Stated to be shingles per PCP. ? consider trial of gabapentin if persistent neuropathy. DVT ppx: Eliquis Disposition: Needs rehab per PT OT but unable to complete today due to dizziness and PT will see again tomorrow. Has a bed ready at [facility] whenever medically ready, can discharge anytime over the weekend. CM to arrange transportation. Admission and Anticipated Discharge Date Admission Date: August 19, 2022 Subjective Patient was seen and examined at bedside. No new issues. Still continues with numbness in bilateral toes, the same, for the past 3 weeks. Pain controlled. She did not do well with physical therapy today. Her biggest concern is if the numbness will go away. No fever, chills, chest pain, shortness of breath, nausea or vomiting. Review of Systems Review of Systems: All systems reviewed & are unremarkable except as noted in Subjective Physical Exam Physical Exam: General: Lying comfortably in bed, not in distress, on room air HEENT: EOMI, ISAEL, MMM Chest: Clear breath sounds bilaterally, no wheezes or crackles CVS: Regular, normal heart sounds, no murmur Abdomen: Soft, non tender, not distended, normal bowel sounds Neuro: Awake, alert, oriented, conversing well, non focal Extremities: No cyanosis, clubbing or edema MSK: Right lower extremity covered with dressing. some rash noted above the dressing Results & Data Results & Data Vital Signs (Past 12 Hours) Vital Signs Temp Pulse Pulse Resp BP Pulse Ox O2 Del Method 08/22/22 15:40 74 08/22/22 14:00 37.0 C 72 18 169/84 H 97 Room Air 08/22/22 10:00 37.0 C 73 18 134/72 96 Room Air 08/22/22 06:00 36.8 C 73 18 148/76 H 95 Room Air 08/22/22 07:05 73 Laboratory Results Short CBC 08/22/22 Range/Units 05:45 WBC 9.06 (4.8-10.8) K/ul Hgb 10.1 L (12.0-16.0) g/dl Hct 30.2 L (37.0-47.0) % Plt Count 222 (130-400) K/uL BMP 08/22/22 05:45 Sodium 137 Potassium 3.6 Chloride 105 Carbon Dioxide 24 BUN 15 Creatinine 0.95 Glucose 110 H Calcium 8.3 L Medications Administered Current Inpatient Medications Acetaminophen (Acetaminophen 500 Mg Tab) 1,000 mg PO Q8H SASHA Stop: 09/18/22 20:15 Last Admin: 08/22/22 15:29 Dose: Not Given Alprazolam (Alprazolam 0.5 Mg Tablet) 0.5 mg PO BID PRN PRN Reason: Anxiety Stop: 09/18/22 18:28 Last Admin: 08/19/22 21:22 Dose: 0.5 mg Apixaban (Apixaban 5 Mg Tablet) 5 mg PO BID SASHA Stop: 09/21/22 20:59 Aspirin (Aspirin 81 Mg Ectab) 81 mg PO DAILY SASHA Stop: 09/19/22 08:59 Last Admin: 08/22/22 08:27 Dose: 81 mg Dorzolamide HCl (Dorzolamide Hcl 2% Oph Soln 10 Ml Btl) 1 drops OP BID [facility] Stop: 09/18/22 20:59 Last Admin: 08/22/22 08:27 Dose: 1 drops Furosemide (Furosemide 40 Mg Tab) 40 mg PO Q2D [facility] Stop: 09/19/22 08:59 Last Admin: 08/22/22 08:26 Dose: 40 mg Ceftriaxone Sodium 2,000 mg/ (Dextrose) 70 mls @ 100 mls/hr IV Q24H [facility]; Protocol Stop: 08/25/22 07:29 Last Infusion: 08/22/22 09:01 Dose: Infused Metoprolol Succinate (Metoprolol Succ 50mg Ext Rel Tab) 50 mg PO DAILY [facility] Stop: 09/19/22 08:59 Last Admin: 08/22/22 08:26 Dose: 50 mg Morphine Sulfate (Morphine Sulfate 2 Mg/Ml Carp) 3 mg IV Q4H PRN PRN Reason: severe pain Stop: 09/03/22 07:39 Multivitamins (Multivitamin Tab) 1 tab PO QAM [facility] Stop: 09/21/22 08:59 Last Admin: 08/22/22 08:24 Dose: 1 tab Naloxone HCl (Naloxone Hcl 0.4 Mg/1 Ml Vial/Carp) 0.1 mg IV Q5M PRN PRN Reason: Oversedation/Resp Depression Stop: 09/20/22 18:33 Ondansetron HCl (Ondansetron Inj 2 Mg/Ml 2 Ml Vial) 4 mg IV Q6H PRN PRN Reason: Nausea Stop: 09/18/22 20:15 Oxycodone HCl (Oxycodone Hcl Ir 5 Mg Tab (Immediate Release)) 5 mg PO Q4H PRN PRN Reason: Mod-Sev Pain (Scale 4-10) Stop: 09/03/22 13:29 Last Admin: 08/22/22 06:13 Dose: 5 mg Pantoprazole Sodium (Pantoprazole 40 Mg Tab) 40 mg PO DAILY [facility] Stop: 09/19/22 08:59 Last Admin: 08/22/22 08:26 Dose: 40 mg Polyethylene Glycol (Polyethylene (Miralax) 17 Gm Pack) 17 gm PO DAILY PRN PRN Reason: Constipation Stop: 09/18/22 20:15 Rosuvastatin Calcium (Rosuvastatin Calcium 20 Mg Tab) 20 mg PO DAILY [facility] Stop: 09/19/22 08:59 Last Admin: 08/22/22 08:26 Dose: 20 mg Senna/Docusate Sodium (Docusate Sodium/Senna 50/8.6mg Tab) 1 tab PO QAM [facility] Stop: 09/19/22 13:59 Last Admin: 08/22/22 08:25 Dose: 1 tab Vitamin D (Cholecalciferol 1,000 Units 25 Mcg Tab) 1,000 units PO DAILY [facility] Stop: 09/19/22 08:59 Last Admin: 08/22/22 08:25 Dose: 1,000 units
[2022-08-22] MEDS: APIXABAN 5 MG TABLET PO SCH (20:09)
[2022-08-22] MEDS: ALPRAZolam 0.5 MG TABLET PO PRN (20:09)
[2022-08-23 07:39] LABS: Hematocrit (blood only) 30.8 % (37.0-47.0); Hemoglobin 10.2 g/dl (12.0-16.0); Mean Corpuscular Hemoglobin 29.8 pg (25.0-34.0); Mean Corpuscular Hgb Conc 33.1 g/dL (32.0-36.0); Mean Corpuscular Volume 90.1 fL (80.0-100.0); Mean Platelet Volume 9.7 fL (9.4-12.4); Platelet Count 241 K/uL (130-400); RDW Coefficient of Variation 14.9 % (11.5-14.5); RDW Standard Deviation 48.2 fL (36.4-46.3); Red Blood Count 3.42 M/uL (4.20-5.40); White Blood Count 8.78 K/ul (4.8-10.8)
[2022-08-23 07:49] LABS: BUN Creatinine Ratio 16.3 (10-20); Calcium 8.6 mg/dl (8.6-10.3); Creatinine Clr Calc Pharmacy 46.2 ml/min; Est GFR (African American) 59.7 ml/min; Est GFR (Non-African American) 51.5 ml/min; Magnesium 1.8 mg/dl (1.7-2.4); Phosphorus 2.7 mg/dl (2.5-4.9); Potassium 3.4 mmol/L (3.5-5.1)
[2022-08-23] MEDS: APIXABAN 5 MG TABLET PO SCH ×2 (07:49→20:21)
[2022-08-23] MEDS: ACETAMINOPHEN 500 MG TAB PO PRN ×2 (07:50→22:59)
[2022-08-23] MEDS: PANTOprazole 40 MG TAB PO SCH (07:53)
[2022-08-23] MEDS: ROSUVASTATIN CALCIUM 20 MG TAB PO SCH (07:53)
[2022-08-23] MEDS: CHOLECALCIFEROL 1,000 UNITS 25 MCG TAB PO SCH (07:53)
[2022-08-23] MEDS: METOPROLOL SUCC 50MG EXT REL TAB PO SCH (07:53)
[2022-08-23] MEDS: ASPIRIN 81 MG ECTAB PO SCH (07:53)
[2022-08-23] MEDS: DOCUSATE SODIUM/SENNA 50/8.6MG TAB PO SCH (07:53)
[2022-08-23] MEDS: MULTIVITAMIN TAB PO SCH (07:55)
[2022-08-23] MEDS: DORZOLAMIDE HCL 2% OPH SOLN 10 ML BTL OP SCH ×2 (07:55→20:21)
[2022-08-23] MEDS: cefTRIAXone SODIUM 2,000 MG in DEXTROSE 5% AD-VAN 50 ML IV SCH (07:56)
[2022-08-23] MEDS ORDERED: MAGNESIUM HYDROXIDE SUSP 30 ML UDC PO ONE (10:20)
[2022-08-23] MEDS: oxyCODONE HCL IR 5 MG TAB (IMMEDIATE RELEASE) PO PRN (11:16)
[2022-08-23] MEDS: POLYETHYLENE (MIRALAX) 17 GM PACK PO SCH (11:40)
--- NOTE | 2022-08-23 12:24 | Hospitalist Progress Note ---
Date of Service August 23, 2022 Assessment & Plan (1) Closed right ankle fracture: (2) UTI (urinary tract infection): (3) Fall: (4) Paroxysmal atrial fibrillation: (5) CHF (congestive heart failure): (6) Hypertension: (7) Anxiety: (8) Hypokalemia: Plan This is an 86yo F with a PMH of paroxysmal atrial fibrillation, hypertension, hyperlipidemia, depression, anxiety, GERD, who presents with ankle pain after a fall and found to have right ankle fracture. Xray right tibia/fibula 1. Mildly displaced spiral fracture of the distal fibula with overlying soft tissue edema. 2. There is widening of the medial joint space of the ankle. 3. 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 -S/p ORIF distal fibula by Dr Hines on 08/21 Discharge instructions provided by ortho. -Continue pain management, bowel regimen, PT/OT, eliquis UTI-urine culture not definitive, however will complete ceftriaxone course given dysuria on presentation. Continue ceftriaxone D4/5. Paroxysmal atrial fibrillation- on NSR since admission on tele. Continue Toprol. Resume eliquis Chronic CHF- euvolemic, resume home Lasix q2d. Anxiety- On home alprazolam PRN RLE rash with neuropathy- for past 3 weeks. Stated to be shingles per PCP. ? consider trial of gabapentin if persistent neuropathy. DVT ppx: Eliquis Disposition: Needs rehab per PT OT but unable to complete yesterday due to dizziness and PT will see again today. Has a bed ready at [facility] medically ready. CM to arrange transportation. Admission and Anticipated Discharge Date Admission Date: August 19, 2022 Subjective Patient seen and examined at bedside. She is lying in the bed comfortably; denies pain or discomfort. Reports that she has not had a bowel movement yet. Review of Systems Review of Systems: All systems reviewed & are unremarkable except as noted in Subjective Physical Exam Physical Exam: General: Lying comfortably in bed, not in distress, on room air HEENT: EOMI, ISAEL, MMM Chest: Clear breath sounds bilaterally, no wheezes or crackles CVS: Regular, normal heart sounds, no murmur Abdomen: Soft, non tender, not distended, normal bowel sounds Neuro: Awake, alert, oriented, conversing well, non focal Extremities: No cyanosis, clubbing or edema MSK: Right lower extremity covered with dressing. some rash noted above the dressing Results & Data Results & Data Vital Signs (Past 12 Hours) Vital Signs Temp Pulse Pulse Resp BP BP Pulse Ox 08/23/22 11:00 37.0 C 57 L 18 145/76 H 95 08/23/22 07:29 56 L 08/23/22 07:23 37.2 C 69 16 171/76 H 94 08/23/22 02:48 37.4 C 78 18 132/74 95 O2 Del Method 08/23/22 11:00 Room Air 08/23/22 07:29 08/23/22 07:23 Room Air 08/23/22 02:48 Room Air Laboratory Results Laboratory Results WBC 8.78 K/ul (4.8-10.8) 08/23/22 06:43 RBC 3.42 M/uL (4.20-5.40) L 08/23/22 06:43 Hgb 10.2 g/dl (12.0-16.0) L 08/23/22 06:43 Hct 30.8 % (37.0-47.0) L 08/23/22 06:43 MCV 90.1 fL (80.0-100.0) 08/23/22 06:43 MCH 29.8 pg (25.0-34.0) 08/23/22 06:43 MCHC 33.1 g/dL (32.0-36.0) 08/23/22 06:43 RDW Std Deviation 48.2 fL (36.4-46.3) H 08/23/22 06:43 RDW Coeff of Lizy 14.9 % (11.5-14.5) H 08/23/22 06:43 Plt Count 241 K/uL (130-400) 08/23/22 06:43 MPV 9.7 fL (9.4-12.4) 08/23/22 06:43 Immature Gran % (Auto) 0.4 % 08/22/22 05:45 Neut % (Auto) 68.5 % 08/22/22 05:45 Lymph % (Auto) 19.1 % 08/22/22 05:45 [place] % (Auto) 10.7 % 08/22/22 05:45 Eos % (Auto) 1.0 % 08/22/22 05:45 Baso % (Auto) 0.3 % 08/22/22 05:45 Neut # (Auto) 6.20 K/uL (1.40-6.50) 08/22/22 05:45 Lymph # (Auto) 1.73 K/uL (1.2-3.4) 08/22/22 05:45 [place] # (Auto) 0.97 K/uL (0.11-0.59) H 08/22/22 05:45 Eos # (Auto) 0.09 K/uL (0-0.50) 08/22/22 05:45 Baso # (Auto) 0.03 K/uL (0-0.2) 08/22/22 05:45 Immature Gran # (Auto) 0.04 K/uL (0.01-0.20) 08/22/22 05:45 APTT 49.2 Seconds (21.0-31.0) H* 08/21/22 05:53 PTT Ratio 1.7 08/21/22 05:53 Sodium 136 mmol/L (136-145) 08/23/22 06:43 Potassium 3.4 mmol/L (3.5-5.1) L 08/23/22 06:43 Chloride 102 mmol/L (98-107) 08/23/22 06:43 Carbon Dioxide 26 mmol/L (21-32) 08/23/22 06:43 Anion Gap 8 (3-11) 08/23/22 06:43 BUN 16 mg/dl (6-23) 08/23/22 06:43 Creatinine 0.98 mg/dl (0.6-1.2) 08/23/22 06:43 Est Cr Clr Drug Dosing 46.2 ml/min 08/23/22 06:43 Est GFR ( Amer) 59.7 ml/min 08/23/22 06:43 Est GFR (Non-Af Amer) 51.5 ml/min 08/23/22 06:43 BUN/Creatinine Ratio 16.3 (10-20) 08/23/22 06:43 Glucose 104 mg/dl (70-99(Fasting)) H 08/23/22 06:43 Calcium 8.6 mg/dl (8.6-10.3) 08/23/22 06:43 Phosphorus 2.7 mg/dl (2.5-4.9) 08/23/22 06:43 Magnesium 1.8 mg/dl (1.7-2.4) 08/23/22 06:43 Total Bilirubin 0.9 mg/dl (0.2-1.0) 08/19/22 18:04 AST 12 U/L (13-39) L 08/19/22 18:04 ALT 10 U/L (7-52) 08/19/22 18:04 Alkaline Phosphatase 45 U/L (34-104) 08/19/22 18:04 Total Protein 6.6 gm/dl (6.0-8.3) 08/19/22 18:04 Albumin 3.8 gm/dl (3.4-5.0) 08/19/22 18:04 Globulin 2.8 gm/dl (2.5-4.0) 08/19/22 18:04 Albumin/Globulin Ratio 1.4 (0.9-2) 08/19/22 18:04 Lipase 25 U/L (11-82) 08/19/22 18:04 Urine Color Dark Yellow 08/20/22 03:30 Urine Appearance Cloudy (Clear) A 08/20/22 03:30 Urine pH 5.5 (4.5-7.5) 08/20/22 03:30 Ur Specific [place] 1.034 (1.000-1.030) H 08/20/22 03:30 Urine Protein Trace (Negative) H 08/20/22 03:30 Urine Glucose (UA) Negative (Negative) 08/20/22 03:30 Urine Ketones Trace (Negative) H 08/20/22 03:30 Urine Blood Negative (Negative) 08/20/22 03:30 Urine Nitrite Negative (Negative) 08/20/22 03:30 Urine Bilirubin Negative (Negative) 08/20/22 03:30 Urine Urobilinogen Negative (Negative) 08/20/22 03:30 Ur Leukocyte Esterase Negative (Negative) 08/20/22 03:30 Urine WBC (Auto) 10-30 /hpf (0-5) H 08/20/22 03:30 Urine RBC (Auto) 0-4 /hpf (0-4) 08/20/22 03:30 U Hyaline Cast (Auto) 1-5 /lpf (0-5) 08/20/22 03:30 U Epithel Cells (Auto) >30 /lpf (0-5) H 08/20/22 03:30 Urine Bacteria (Auto) 1+ (Negative) H 08/20/22 03:30 Ur Renal Epithelial Cell Not Reportable 08/20/22 03:30 Urine Mucus Present (None Prsent) A 08/20/22 03:30 SARS-CoV-2, RNA, NAAT NEGATIVE (NEGATIVE) 08/19/22 18:00 Impressions Tibia/Fibula X-Ray 08/19/22 15:35 RIGHT TIBIA AND FIBULA 2 VIEWS CLINICAL HISTORY: Fall. Right leg injury. FINDINGS: AP and lateral views of the right tibia and fibula are correlated with radiographs of the right knee dated 08/11/2008. The skeletal structures are osteopenic. There is a mildly displaced spiral fracture of the distal fibular shaft. The fragments are offset by up to 5 mm. Overlying soft tissue edema is noted. There is an age-indeterminate reverse Segond avulsion injury along the medial tibial plateau. No additional findings are suspicious for acute tibial or fibular fracture. A right knee arthroplasty is in near anatomic alignment. No periprosthetic lucency is seen. There is mild widening of the medial joint space at the ankle. There is a large plantar heel spur. IMPRESSION: 1. Mildly displaced spiral fracture of the distal fibula with overlying soft tissue edema. 2. There is widening of the medial joint space of the ankle. 3. Age indeterminant reverse Segond avulsion injury along the medial tibial plateau Electronically signed by: Pablito Greenberg M.D. 08/19/2022 4:07 PM Chest X-Ray 08/19/22 18:27 XR chest 1V portable HISTORY: 86 years-old Female admission acute shortness of breath COMPARISON: 08/30/2018 TECHNIQUE: AP view of the chest FINDINGS: Cardiac silhouette is enlarged. Right lower costophrenic angle is excluded from the [id number]. No pneumothorax, pleural effusion, airspace consolidation or overt pulmonary edema. Degenerative changes of the shoulders and spine. Chronic interstitial coarsening of the lung bases. IMPRESSION: Cardiomegaly without acute process. ACT 112: Negative or not required by law. The above report was generated using voice recognition software. It may contain grammatical, syntax or spelling errors. Electronically signed by: Saqib Shore M.D. 08/20/2022 7:40 AM Ankle X-Ray 08/21/22 16:00 FL ankle RT min 3V RTN CLINICAL HISTORY: RT ORIF DISTAL TECHNIQUE: 4 views were obtained with the C-arm in the OR with the above procedure. Total fluoroscopy time was 11.0 seconds. Radiation dose was 0.29 mGy. Comparison: Comparison is made to ankle radiograph 08/19/2022 FINDINGS/IMPRESSION: Intraoperative images were obtained of right ankle plate and screw fixation. Please correlate with intraoperative fluoroscopy and operative report. ACT 112: Negative or not required by law. Electronically signed by: Ricki Leonard M.D. 08/21/2022 7:08 PM
[2022-08-23] MEDS ORDERED: MECLIZINE 12.5 MG TAB PO PRN (15:06)
[2022-08-23] MEDS: ALPRAZolam 0.5 MG TABLET PO PRN (20:23)
[2022-08-24 06:00] LABS: Basophils # (auto) 0.03 K/uL (0-0.2); Basophils % (auto) 0.4 %; Eosinophils # (auto) 0.16 K/uL (0-0.50); Eosinophils % (auto) 1.9 %; Hematocrit (blood only) 31.3 % (37.0-47.0); Hemoglobin 10.5 g/dl (12.0-16.0); Immature Granulocytes # (auto) 0.03 K/uL (0.01-0.20); Immature Granulocytes % (auto) 0.4 %; Lymphocytes # (auto) 2.16 K/uL (1.2-3.4); Lymphocytes % (auto) 25.4 %; Mean Corpuscular Hgb Conc 33.5 g/dL (32.0-36.0); Mean Corpuscular Volume 89.4 fL (80.0-100.0); Mean Platelet Volume 9.3 fL (9.4-12.4); Monocytes # (auto) 0.82 K/uL (0.11-0.59); Monocytes % (auto) 9.7 %; Neutrophils # (auto) 5.29 K/uL (1.40-6.50); Neutrophils % (auto) 62.2 %; Platelet Count 254 K/uL (130-400); RDW Coefficient of Variation 14.9 % (11.5-14.5); RDW Standard Deviation 48.3 fL (36.4-46.3); White Blood Count 8.49 K/ul (4.8-10.8)
[2022-08-24 06:33] LABS: BUN Creatinine Ratio 18.8 (10-20); Calcium 8.6 mg/dl (8.6-10.3); Creatinine Clr Calc Pharmacy 47.1 ml/min; Est GFR (African American) 61.2 ml/min; Est GFR (Non-African American) 52.8 ml/min; Magnesium 2.1 mg/dl (1.7-2.4); Potassium 3.9 mmol/L (3.5-5.1)
[2022-08-24] MEDS: DORZOLAMIDE HCL 2% OPH SOLN 10 ML BTL OP SCH ×2 (10:13→21:46)
[2022-08-24] MEDS: POLYETHYLENE (MIRALAX) 17 GM PACK PO SCH (10:13)
[2022-08-24] MEDS: oxyCODONE HCL IR 5 MG TAB (IMMEDIATE RELEASE) PO PRN (10:13)
[2022-08-24] MEDS: ROSUVASTATIN CALCIUM 20 MG TAB PO SCH (10:14)
[2022-08-24] MEDS: PANTOprazole 40 MG TAB PO SCH (10:14)
[2022-08-24] MEDS: METOPROLOL SUCC 50MG EXT REL TAB PO SCH (10:15)
[2022-08-24] MEDS: FUROSEMIDE 40 MG TAB PO SCH (10:15)
[2022-08-24] MEDS: MULTIVITAMIN TAB PO SCH (10:15)
[2022-08-24] MEDS: CHOLECALCIFEROL 1,000 UNITS 25 MCG TAB PO SCH (10:16)
[2022-08-24] MEDS: DOCUSATE SODIUM/SENNA 50/8.6MG TAB PO SCH (10:16)
[2022-08-24] MEDS: APIXABAN 5 MG TABLET PO SCH ×2 (10:17→21:45)
[2022-08-24] MEDS: ASPIRIN 81 MG ECTAB PO SCH (10:17)
[2022-08-24] MEDS: cefTRIAXone SODIUM 2,000 MG in DEXTROSE 5% AD-VAN 50 ML IV SCH (10:27)
--- NOTE | 2022-08-24 11:34 | Hospitalist Progress Note ---
Date of Service August 24, 2022 Assessment & Plan (1) Closed right ankle fracture: (2) UTI (urinary tract infection): (3) Fall: (4) Paroxysmal atrial fibrillation: (5) CHF (congestive heart failure): (6) Hypertension: (7) Anxiety: (8) Hypokalemia: Plan This is an 86yo F with a PMH of paroxysmal atrial fibrillation, hypertension, hyperlipidemia, depression, anxiety, GERD, who presents with ankle pain after a fall and found to have right ankle fracture. Xray right tibia/fibula 1. Mildly displaced spiral fracture of the distal fibula with overlying soft tissue edema. 2. There is widening of the medial joint space of the ankle. 3. 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 -S/p ORIF distal fibula by Dr Hines on 08/21 Discharge instructions provided by ortho. -Continue pain management, bowel regimen, PT/OT, eliquis Dizziness; patient reports dizziness on movement. We will start IV hydration with normal saline. Continue PT OT evaluation. UTI-urine culture not definitive, however will complete ceftriaxone course given dysuria on presentation. Continue ceftriaxone D455. Paroxysmal atrial fibrillation- on NSR since admission on tele. Continue Toprol. Resume eliquis Chronic CHF- euvolemic, resume home Lasix q2d. Anxiety- On home alprazolam PRN RLE rash with neuropathy- for past 3 weeks. Stated to be shingles per PCP. Rash resolved. DVT ppx: Eliquis Disposition: Needs rehab per PT OT but unable to work with PT OT due to dizziness. Has a bed ready at [facility] whenever medically ready. CM to arrange transportation. Admission and Anticipated Discharge Date Admission Date: August 19, 2022 Subjective Patient seen and examined at bedside. Reports feeling dizzy on movement. Reports that she had a bowel movement. Denies any fever, chills, chest pain or shortness of breath. Review of Systems Review of Systems: All systems reviewed & are unremarkable except as noted in Subjective Physical Exam Physical Exam: General: Lying comfortably in bed, not in distress, on room air HEENT: EOMI, ISAEL, MMM Chest: Clear breath sounds bilaterally, no wheezes or crackles CVS: Regular, normal heart sounds, no murmur Abdomen: Soft, non tender, not distended, normal bowel sounds Neuro: Awake, alert, oriented, conversing well, non focal Extremities: No cyanosis, clubbing or edema MSK: Right lower extremity covered with dressing. some rash noted above the dressing Results & Data Results & Data Vital Signs (Past 12 Hours) Vital Signs Temp Pulse Pulse Resp BP BP Pulse Ox 08/24/22 08:12 36.8 C 58 L 18 179/68 H 94 08/24/22 06:00 54 L 08/24/22 03:34 67 20 150/80 H 97 O2 Del Method 08/24/22 08:12 Room Air 08/24/22 06:00 08/24/22 03:34 Room Air Laboratory Results Laboratory Results WBC 8.49 K/ul (4.8-10.8) 08/24/22 05:37 RBC 3.50 M/uL (4.20-5.40) L 08/24/22 05:37 Hgb 10.5 g/dl (12.0-16.0) L 08/24/22 05:37 Hct 31.3 % (37.0-47.0) L 08/24/22 05:37 MCV 89.4 fL (80.0-100.0) 08/24/22 05:37 MCH 30.0 pg (25.0-34.0) 08/24/22 05:37 MCHC 33.5 g/dL (32.0-36.0) 08/24/22 05:37 RDW Std Deviation 48.3 fL (36.4-46.3) H 08/24/22 05:37 RDW Coeff of Lizy 14.9 % (11.5-14.5) H 08/24/22 05:37 Plt Count 254 K/uL (130-400) 08/24/22 05:37 MPV 9.3 fL (9.4-12.4) L 08/24/22 05:37 Immature Gran % (Auto) 0.4 % 08/24/22 05:37 Neut % (Auto) 62.2 % 08/24/22 05:37 Lymph % (Auto) 25.4 % 08/24/22 05:37 [place] % (Auto) 9.7 % 08/24/22 05:37 Eos % (Auto) 1.9 % 08/24/22 05:37 Baso % (Auto) 0.4 % 08/24/22 05:37 Neut # (Auto) 5.29 K/uL (1.40-6.50) 08/24/22 05:37 Lymph # (Auto) 2.16 K/uL (1.2-3.4) 08/24/22 05:37 [place] # (Auto) 0.82 K/uL (0.11-0.59) H 08/24/22 05:37 Eos # (Auto) 0.16 K/uL (0-0.50) 08/24/22 05:37 Baso # (Auto) 0.03 K/uL (0-0.2) 08/24/22 05:37 Immature Gran # (Auto) 0.03 K/uL (0.01-0.20) 08/24/22 05:37 APTT 49.2 Seconds (21.0-31.0) H* 08/21/22 05:53 PTT Ratio 1.7 08/21/22 05:53 Sodium 136 mmol/L (136-145) 08/24/22 05:37 Potassium 3.9 mmol/L (3.5-5.1) 08/24/22 05:37 Chloride 102 mmol/L (98-107) 08/24/22 05:37 Carbon Dioxide 27 mmol/L (21-32) 08/24/22 05:37 Anion Gap 7 (3-11) 08/24/22 05:37 BUN 18 mg/dl (6-23) 08/24/22 05:37 Creatinine 0.96 mg/dl (0.6-1.2) 08/24/22 05:37 Est Cr Clr Drug Dosing 47.1 ml/min 08/24/22 05:37 Est GFR ( Amer) 61.2 ml/min 08/24/22 05:37 Est GFR (Non-Af Amer) 52.8 ml/min 08/24/22 05:37 BUN/Creatinine Ratio 18.8 (10-20) 08/24/22 05:37 Glucose 107 mg/dl (70-99(Fasting)) H 08/24/22 05:37 Calcium 8.6 mg/dl (8.6-10.3) 08/24/22 05:37 Phosphorus 2.7 mg/dl (2.5-4.9) 08/23/22 06:43 Magnesium 2.1 mg/dl (1.7-2.4) 08/24/22 05:37 Total Bilirubin 0.9 mg/dl (0.2-1.0) 08/19/22 18:04 AST 12 U/L (13-39) L 08/19/22 18:04 ALT 10 U/L (7-52) 08/19/22 18:04 Alkaline Phosphatase 45 U/L (34-104) 08/19/22 18:04 Total Protein 6.6 gm/dl (6.0-8.3) 08/19/22 18:04 Albumin 3.8 gm/dl (3.4-5.0) 08/19/22 18:04 Globulin 2.8 gm/dl (2.5-4.0) 08/19/22 18:04 Albumin/Globulin Ratio 1.4 (0.9-2) 08/19/22 18:04 Lipase 25 U/L (11-82) 08/19/22 18:04 Urine Color Dark Yellow 08/20/22 03:30 Urine Appearance Cloudy (Clear) A 08/20/22 03:30 Urine pH 5.5 (4.5-7.5) 08/20/22 03:30 Ur Specific [place] 1.034 (1.000-1.030) H 08/20/22 03:30 Urine Protein Trace (Negative) H 08/20/22 03:30 Urine Glucose (UA) Negative (Negative) 08/20/22 03:30 Urine Ketones Trace (Negative) H 08/20/22 03:30 Urine Blood Negative (Negative) 08/20/22 03:30 Urine Nitrite Negative (Negative) 08/20/22 03:30 Urine Bilirubin Negative (Negative) 08/20/22 03:30 Urine Urobilinogen Negative (Negative) 08/20/22 03:30 Ur Leukocyte Esterase Negative (Negative) 08/20/22 03:30 Urine WBC (Auto) 10-30 /hpf (0-5) H 08/20/22 03:30 Urine RBC (Auto) 0-4 /hpf (0-4) 08/20/22 03:30 U Hyaline Cast (Auto) 1-5 /lpf (0-5) 08/20/22 03:30 U Epithel Cells (Auto) >30 /lpf (0-5) H 08/20/22 03:30 Urine Bacteria (Auto) 1+ (Negative) H 08/20/22 03:30 Ur Renal Epithelial Cell Not Reportable 08/20/22 03:30 Urine Mucus Present (None Prsent) A 08/20/22 03:30 SARS-CoV-2, RNA, NAAT NEGATIVE (NEGATIVE) 08/19/22 18:00 Impressions Tibia/Fibula X-Ray 08/19/22 15:35 RIGHT TIBIA AND FIBULA 2 VIEWS CLINICAL HISTORY: Fall. Right leg injury. FINDINGS: AP and lateral views of the right tibia and fibula are correlated with radiographs of the right knee dated 08/11/2008. The skeletal structures are osteopenic. There is a mildly displaced spiral fracture of the distal fibular shaft. The fragments are offset by up to 5 mm. Overlying soft tissue edema is noted. There is an age-indeterminate reverse Segond avulsion injury along the medial tibial plateau. No additional findings are suspicious for acute tibial or fibular fracture. A right knee arthroplasty is in near anatomic alignment. No periprosthetic lucency is seen. There is mild widening of the medial joint space at the ankle. There is a large plantar heel spur. IMPRESSION: 1. Mildly displaced spiral fracture of the distal fibula with overlying soft tissue edema. 2. There is widening of the medial joint space of the ankle. 3. Age indeterminant reverse Segond avulsion injury along the medial tibial plateau Electronically signed by: Pablito Greenberg M.D. 08/19/2022 4:07 PM Chest X-Ray 08/19/22 18:27 XR chest 1V portable HISTORY: 86 years-old Female admission acute shortness of breath COMPARISON: 08/30/2018 TECHNIQUE: AP view of the chest FINDINGS: Cardiac silhouette is enlarged. Right lower costophrenic angle is excluded from the [id number]. No pneumothorax, pleural effusion, airspace consolidation or overt pulmonary edema. Degenerative changes of the shoulders and spine. Chronic interstitial coarsening of the lung bases. IMPRESSION: Cardiomegaly without acute process. ACT 112: Negative or not required by law. The above report was generated using voice recognition software. It may contain grammatical, syntax or spelling errors. Electronically signed by: Saqib Shore M.D. 08/20/2022 7:40 AM Ankle X-Ray 08/21/22 16:00 FL ankle RT min 3V RTN CLINICAL HISTORY: RT ORIF DISTAL TECHNIQUE: 4 views were obtained with the C-arm in the OR with the above procedure. Total fluoroscopy time was 11.0 seconds. Radiation dose was 0.29 mGy. Comparison: Comparison is made to ankle radiograph 08/19/2022 FINDINGS/IMPRESSION: Intraoperative images were obtained of right ankle plate and screw fixation. Please correlate with intraoperative fluoroscopy and operative report. ACT 112: Negative or not required by law. Electronically signed by: Ricki Leonard M.D. 08/21/2022 7:08 PM
[2022-08-24] MEDS: MoRPHine SULFATE 2 MG/ML CARP IV PRN ×3 (11:35→21:45)
[2022-08-24] MEDS: LACTATED RINGER'S 1,000 ML IV SCH ×2 (11:35→23:37)
[2022-08-24] MEDS: ALPRAZolam 0.5 MG TABLET PO PRN (21:57)
[2022-08-25 06:55] LABS: Basophils # (auto) 0.04 K/uL (0-0.2); Basophils % (auto) 0.5 %; Eosinophils # (auto) 0.21 K/uL (0-0.50); Eosinophils % (auto) 2.7 %; Hematocrit (blood only) 30.9 % (37.0-47.0); Hemoglobin 10.2 g/dl (12.0-16.0); Immature Granulocytes # (auto) 0.03 K/uL (0.01-0.20); Immature Granulocytes % (auto) 0.4 %; Lymphocytes % (auto) 28.2 %; Mean Corpuscular Hemoglobin 30.1 pg (25.0-34.0); Mean Corpuscular Volume 91.2 fL (80.0-100.0); Mean Platelet Volume 9.2 fL (9.4-12.4); Monocytes # (auto) 0.79 K/uL (0.11-0.59); Monocytes % (auto) 10.1 %; Neutrophils # (auto) 4.52 K/uL (1.40-6.50); Neutrophils % (auto) 58.1 %; Platelet Count 274 K/uL (130-400); RDW Coefficient of Variation 15.1 % (11.5-14.5); RDW Standard Deviation 49.8 fL (36.4-46.3); Red Blood Count 3.39 M/uL (4.20-5.40); White Blood Count 7.79 K/ul (4.8-10.8)
[2022-08-25 07:13] LABS: Albumin Globulin Ratio 1.1 (0.9-2); Albumin Level 3.1 gm/dl (3.4-5.0); BUN Creatinine Ratio 16.5 (10-20); Bilirubin,Total 0.6 mg/dl (0.2-1.0); Calcium 8.4 mg/dl (8.6-10.3); Creatinine Clr Calc Pharmacy 44.8 ml/min; Est GFR (African American) 56.2 ml/min; Est GFR (Non-African American) 48.5 ml/min; Globulin 2.9 gm/dl (2.5-4.0)
[2022-08-25] MEDS: APIXABAN 5 MG TABLET PO SCH (08:03)
[2022-08-25] MEDS: CHOLECALCIFEROL 1,000 UNITS 25 MCG TAB PO SCH (08:04)
[2022-08-25] MEDS: DOCUSATE SODIUM/SENNA 50/8.6MG TAB PO SCH (08:04)
[2022-08-25] MEDS: ASPIRIN 81 MG ECTAB PO SCH (08:04)
[2022-08-25] MEDS: METOPROLOL SUCC 50MG EXT REL TAB PO SCH (08:05)
[2022-08-25] MEDS: MULTIVITAMIN TAB PO SCH (08:05)
[2022-08-25] MEDS: POLYETHYLENE (MIRALAX) 17 GM PACK PO SCH (08:06)
[2022-08-25] MEDS: ROSUVASTATIN CALCIUM 20 MG TAB PO SCH (08:06)
[2022-08-25] MEDS: PANTOprazole 40 MG TAB PO SCH (08:06)
[2022-08-25] MEDS: MoRPHine SULFATE 2 MG/ML CARP IV PRN (08:17)
[2022-08-25] MEDS: DORZOLAMIDE HCL 2% OPH SOLN 10 ML BTL OP SCH (08:28)
[2022-08-25] MEDS: LACTATED RINGER'S 1,000 ML IV SCH (12:13)
--- NOTE | 2022-08-25 12:37 | Discharge Summary ---
Date of Service August 25, 2022 Admission HPI Per Admitting Provider This is an 86yo F with a PMH of paroxysmal atrial fibrillation, hypertension, hyperlipidemia, depression, anxiety, GERD, who presents with ankle pain after a fall. Was getting into car to go to an appointment when she lost her balance and fell backwards onto right leg before falling. History of recent shingles and has been having numbness and tingling for 2 weeks after completing antiviral treatment. History of R knee replacement. Patient lives alone and neighbors provide assistance. Was brought into ED by EMS. Denies any fever, chills, lightheadedness, chest pain, shortness of breath, nausea, vomiting, abdominal pain, dysuria, diarrhea or constipation. Does have history of atrial fibrillation and is on Eliquis. States she has been told she has heart failure, but is unclear of when she would have last had an echocardiogram or what her EF would be. Lives in [place]. Admission Exam Per Admitting Provider NAD, well developed Lungs: CTA, no wheezing or crackles Cardiac: in afib, no murmur Abd: ND, soft and NT MSK: no LE edema, R leg is wrapped in bandage, shingles lesions on the R distal thigh and leg healing well Psych: AAOx3, normal affect Principal Diagnosis Right ankle fracture s/p ORIF 08/21 Discharge Exam General: Lying comfortably in bed, not in distress, on room air HEENT: EOMI, ISAEL, MMM Chest: Clear breath sounds bilaterally, no wheezes or crackles CVS: Regular, normal heart sounds, no murmur Abdomen: Soft, non tender, not distended, normal bowel sounds Neuro: Awake, alert, oriented, conversing well, non focal Extremities: No cyanosis, clubbing or edema MSK: Right lower extremity covered with dressing. some rash noted above the dressing Discharge Data Allergies Allergy/AdvReac Type Severity Reaction Status Date / Time aspirin AdvReac Unknown GI ISSUES Verified 08/30/18 17:44 Consultations 08/19/22 17:50 ED Decision to Admit Stat 08/19/22 18:18 Consult Orthopedic Surgery Routine Procedures Performed Operation Date: 08/21/22 07:00 Actual Procedures p Right Ankle Open Reduction Internal Fixation Distal Fibula(Right) - Saqib Hines DO Ordered Studies 08/21/22 15:32 US - OR guided needle placemen Routine 08/21/22 16:00 FL ankle RT min 3V RTN Routine Hospital Course (1) Closed right ankle fracture: (2) UTI (urinary tract infection): (3) Fall: (4) Paroxysmal atrial fibrillation: (5) CHF (congestive heart failure): (6) Hypertension: (7) Anxiety: (8) Hypokalemia: Plan This is an 86yo F with a PMH of paroxysmal atrial fibrillation, hypertension, hyperlipidemia, depression, anxiety, GERD, who presents with ankle pain after a fall and found to have right ankle fracture. Xray right tibia/fibula 1. Mildly displaced spiral fracture of the distal fibula with overlying soft tissue edema. 2. There is widening of the medial joint space of the ankle. 3. 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 -S/p ORIF distal fibula by Dr Hines on 08/21 Discharge instructions provided by ortho. PT OT evaluation was done; patient was recommended to go to rehab. Patient was discharged to SNF Dizziness; reported dizziness after surgery. Received IV hydration and meclizine. UTI-urine culture not definitive, however will completed ceftriaxone course Paroxysmal atrial fibrillation- on NSR since admission on tele. Continue Toprol. Resume eliquis Chronic CHF- euvolemic, resume home Lasix q2d. Anxiety- On home alprazolam PRN RLE rash with neuropathy- for past 3 weeks. Stated to be shingles per PCP. Rash resolved. Total Time Total Time Spent Total Time Spent (In Minutes): 40 Total Time Includes: Examination of the Patient, Discharge Planning, Medication Reconciliation, Communication With Other Providers and Other Discharge Plan Discharge Items Patient Disposition: Transfer [facility] Reason For Visit: FALL, ANKLE FX Discharge Diagnosis: Right displaced distal fibular fracture Activity: Resume your previous activity Weightbearing: Right non-weightbearing Weightbearing Comment: Use walker for ambulation Non-emergency contact: Surgeon Call non-emergency contact if: you have any medication questions, your pain is not controlled, your temperature is above 101.5, your wound has increased redness and your wound has increased drainage Follow-up/Referrals: Jc Del Rio, MICHAEL [Primary Care Provider] - Saqib Hines DO [Surgeon] - ( follow-up with Dr. Hines in 2 weeks from the day of your surgery for your first postoperative visit.) Diet: Regular Addtl Attending Provider Instructions: You were admitted to the hospital with right ankle fracture for which you underwent surgery on August 21, 2022. Please follow-up with Dr. Hines in 2 weeks as instructed below. Addtl Broom Stitcher Provider Instructions: ACTIVITY RECOMMENDATIONS: * You are to be non weightbearing on your right lower extremity at this time. SPECIAL CARE INSTRUCTIONS: * Some drainage onto the dressing is normal and is no cause for alarm. * Some swelling is natural especially after walking. When resting, keep your foot elevated above the level of your heart. * Call the doctor's office at if you notice increased drainage, fever over 101 degrees F. or severe constant pain. BANDAGE: * Leave bandage/cast in place unless otherwise directed. * Keep bandage/cast dry at all times. FOLLOW UP VISIT: If appointment is not already scheduled: Please call [facility] ( Dr Hines) to make a follow-up appointment in 2 weeks from the day of your surgery at . Pending Studies at Discharge: No Stand-Alone Forms: My [facility] Skilled Items Patient informed of condition?: Yes DNR: Yes Discharge Level of Care: Skilled Communicable Disease: No Discharge Prognosis: Stable Lines: None Urinary Catheter: No Medications and DC Order Prescriptions: New acetaminophen [Tylenol Extra Strength] 500 mg Tablet 1,000 mg PO Q8H PRN (Reason: fever or pain) Qty: 90 0RF meclizine 12.5 mg Tablet 12.5 mg PO Q8H PRN (Reason: dizziness) Qty: 20 0RF oxycodone 5 mg Tablet 5 mg PO Q8H PRN (Reason: pain) Qty: 10 0RF polyethylene glycol 3350 [Miralax] 17 gram Powder In Packet 17 g PO DAILY Qty: 30 0RF sennosides-docusate sodium [Senokot-S] 8.6-50 mg Tablet 1 tab PO QAM Qty: 30 0RF Continued furosemide 40 mg tablet 40 mg PO Q2D Qty: 30 0RF metoprolol succinate 50 mg tablet extended release 24 hr 50 mg PO DAILY Qty: 30 0RF alprazolam 0.5 mg tablet 0.5 mg PO BID PRN (Reason: Anxiety) Qty: 10 0RF omeprazole 20 mg Capsule,Delayed Release(Dr/Ec) 20 mg PO DAILY Qty: 30 0RF dorzolamide 2 % Drops 1 drp OPHTHALMIC (EYE) BID Qty: 10 0RF coenzyme Q10 [CoQ-10] 100 mg Capsule 100 mg PO DAILY Qty: 30 0RF rosuvastatin 20 mg tablet 20 mg PO DAILY Qty: 30 0RF cholecalciferol (vitamin D3) [Vitamin D3] 1,000 unit tablet 1,000 unit PO DAILY Qty: 30 0RF Eliquis 5 mg Tablet 5 mg PO BID Qty: 60 0RF aspirin 81 mg Capsule 81 mg PO DAILY Qty: 30 0RF Discharge Orders: Discharge Order (Routine); Ordered 08/25/22 Ordered By: Gary Solares Admission Data Admit Date/Time: 08/19/22 18:06 Attending Provider: Gary Solares Admit Provider: Kelvin Orozco Primary Care Provider: Jc Del Rio Other Providers: Kelvin Orozco ; Saqib Hines ; Anastacio Florentino Other Interventions: Discharge Summary Assessment (RN) Last Done: 08/25/22 12:20
== END 2022-08-25 13:08 | DRG 493 ==
LOC: ED 15:24 → 2N 18:06 → SUATTDRO 18:06 → 2N 19:34

== ENCOUNTER 2023-05-08 11:52 | Inpatient (IN) ==
--- NOTE | 2023-05-08 12:18 | Emergency Department Note ---
Impression & Plan Dyspnea, URI (upper respiratory infection), Pulmonary edema, Confusion ED Provider Note ED Provider Note NAME: LIZBETH LANDAVERDE AGE:87 SEX: Female : 1935 ARRIVES VIA: EMS INFORMANT: Patient ED PROVIDER(s): Neisha Cheng DO CHIEF COMPLAINT: Shortness of breath HPI: This is an 87-year-old female who presents emergency department due to concern for increased shortness of breath which began this morning. Patient states she has had a cough for several days, although she states she was not able to expectorate much sputum. She states she has occasionally had fits of coughing, is uncertain if this contributed to her shortness of breath this morning. She denies fevers or chills. She states she has had intermittent chest heaviness additionally. No recent worsening leg swelling, she states she does have intermittent lower extremity edema and does take a diuretic every other day. No recent known sick contacts, no recent medication changes. She denies any vomiting, dizziness, diarrhea, change in urine. Patient denies any history of asthma or COPD, denies any tobacco abuse. No prior history of pneumonia. She states she does have a history of congestive heart failure. PAST MEDICAL HISTORY:See Below PAST SURGICAL HISTORY:See Below FAMILY HISTORY:See Below SOCIAL HISTORY:See Below HOME MEDICATIONS:See Below ALLERGIES:See Below VITALS:See Below PHYSICAL EXAMINATION: GENERAL: alert, well appearing, well nourished, no distress, non-toxic EYE EXAM: normal conjunctiva, PERRL and EOM's grossly intact OROPHARYNX: no exudate, no erythema, lips, buccal mucosa, and tongue normal and mucous membranes are moist NECK: supple, no nuchal rigidity, no adenopathy, non-tender LUNGS: Coarse bilaterally to auscultation. Normal chest wall mechanics, no w/r/r, coarse cough noted during exam HEART: no murmurs, S1 normal and S2 normal ABDOMEN: abdomen soft, non-tender, normo-active bowel sounds, no masses, no rebound or guarding. BACK: Back is symmetrical on inspection and there is no deformity, no midline tenderness, no CVA tenderness. SKIN: no rashes, petechiae, orbruising UPPER EXTREMITIES: upper extremities are grossly normal. FROM, nml pulses b/l. LOWER EXTREMITIES: No pitting edema. FROM, nml pulses b/l. NEURO EXAM: Normal sensorium, cranial nerves II-XII grossly intact, normal speech, no facial droop,nogross weakness of arms, no gross weakness of legs. Gross sensation intact. No ataxia. Vital Signs: reviewed and remarkable Differential Diagnosis: pneumonia, bronchitis, COPD/Asthma exacerbation, pneumothorax, pulmonary embolism, congestive heart failure, acute coronary syndrome, as well as others were considered MEDICAL DECISION MAKING: This is an 87-year-old female who presents emergency department due to concern for worsening shortness of breath after several days of cough as well as accompanying chest heaviness. Patient was afebrile vital signs stable on arrival. She had a coarse cough although no increased work of breathing and no overt hypoxia. Labs drawn and sent, IV established, EKG and chest x-ray performed bedside interpreted by me and patient monitor on telemetry. Nasal swab was collected for the respiratory panel and showed to be positive for human metapneumovirus. Upon additional discussion I suspect patient had been symptomatic from this for longer than the last couple days of cough and this likely contributed to the evolving pulmonary edema pushing her towards CHF which she does have a history of previously. Patient was given a dose of Lasix today as she typically takes it every other day, and did begin to diurese. Patient was noted to have slightly increased work of breathing and tachypnea and so RT contacted to initiate BiPAP additionally. Patient did appear improved and more comfortable on this. Patient began having episodes of intermittent confusion/hallucinations. CT head added as a precaution as was VBG. Case discussed with the hospitalist team for additional evaluation and management. I do not suspect occult PE given patient's chronic anticoagulation on Eliquis due to history of A-fib. Consultation(s): 1705: Discussed with Cherise Ruiz hospitalist team, for additional evaluation and management. ER Treatment Provided: See below 1602: Patient not diuresing following administration of Lasix. Nursing staff also notes patient intermittently confused/hallucinating. Diagnostics Interpreted By Me: -ECG: Normal sinus at 65, normal axis, normal intervals, no acute ST/T wave change -Cardiac Monitoring: An order was placed for continuous cardiac monitoring. The monitor shows a rate of 98 with nsr rhythm. -Laboratory studies: As stated above and show below. -Imaging studies: X-ray Chest: A single view study of the chest was reviewed and was negative for focal infiltrate, effusion, pulmonary edema, or wide mediastinum. CM noted, slightly increased interstitial markings bilaterally compared to prior Triage Nursing Note Reviewed Prior/Outside Records Reviewed Critical Care: Critical care of 39 min performed to assess and manage high likelihood of life- threatening pulmonary edema, involving labs and imaging performed with assessment to evaluate dyspnea and pulmonary edema diagnosis with frequent reassessment. This time includes bedside time, treatment discussions with patient/family/consultants, documentation time and excludes procedure time. Past Med/Surg History Medical History Hypokalemia Paroxysmal atrial fibrillation CHF (congestive heart failure) TIA (transient ischemic attack) Occlusion of left vertebral artery Hypertension GERD (gastroesophageal reflux disease) Hypertension Surgical History History of appendectomy History of cholecystectomy History of cataract surgery History of hysterectomy History of total knee replacement x2 Family History Other Cancer Social History Smoking Status: Never smoker Second Hand Exposure: No; Do You Dip or Chew Tobacco: No; Hx Alcohol Use: No Hx Substance Use: No Preferred Language: Turkmen Communication Ability: Effective Portfolio Lead Required: No Beliefs That Will Affect Care: None marital status: / Current Living Situation: Alone Current Living Situation Comment: Lives alone w/ family friend that performs chores/runs errands Feels Safe at Home: Yes Assistive Devices: Cane and Wheelchair Allergies Allergies Allergy/AdvReac Type Severity Reaction Status Date / Time aspirin AdvReac Unknown GI ISSUES Verified 05/08/23 17:01 Home Meds Home Medications Medication Instructions Recorded Confirmed aspirin 81 mg tablet,delayed 81 mg PO DAILY 05/08/23 05/08/23 release calcium carbonate 600 mg-vitamin 1 tab PO BID 05/08/23 05/08/23 D3 10 mcg (400 unit) tablet (Calcium 600 + D(3)) citalopram 20 mg tablet 20 mg PO DAILY 05/08/23 05/08/23 clonidine HCl 0.1 mg tablet 0.1 mg PO DAILY PRN SBP>170 or 05/08/23 05/08/23 DBP>100 dextromethorphan HBr 30 mg/5 mL 60 mg PO Q12 PRN Cough 05/08/23 05/08/23 oral liquid ferrous sulfate 325 mg (65 mg 325 mg PO DAILY 05/08/23 05/08/23 iron) tablet guaifenesin 600 mg tablet, 600 mg PO Q12H PRN Congestion 05/08/23 05/08/23 extended release 12 hr (Mucinex) ibuprofen 200 mg tablet 200 - 400 mg PO Q6H PRN Fever Or 05/08/23 05/08/23 Pain losartan 100 mg tablet 100 mg PO DAILY 05/08/23 05/08/23 nystatin 100,000 unit/gram topical 1 applic topical TID PRN 05/08/23 05/08/23 powder (Nystop) rash/irritation polyethylene glycol 3350 17 gram 17 g PO QAM PRN Constipation 05/08/23 05/08/23 oral powder packet (Miralax) pregabalin 50 mg capsule 50 mg PO BID 05/08/23 05/08/23 rosuvastatin 20 mg tablet 20 mg PO HS 05/08/23 05/08/23 Previous Rx's Medication Instructions Recorded acetaminophen 500 mg tablet 1,000 mg (2 x 500 mg) PO Q8H PRN 08/25/22 (Tylenol Extra Strength) fever or pain #90 tabs alprazolam 0.5 mg tablet 0.5 mg PO BID PRN Anxiety #10 tabs 08/25/22 apixaban 5 mg tablet (Eliquis) 5 mg PO BID #60 tabs 08/25/22 coenzyme Q10 100 mg capsule 100 mg PO DAILY #30 caps 08/25/22 (CoQ-10) furosemide 40 mg tablet 40 mg PO Q2D #30 tabs 08/25/22 metoprolol succinate 50 mg 50 mg PO DAILY #30 tabs 08/25/22 tablet,extended release 24 hr omeprazole 20 mg capsule,delayed 20 mg PO DAILY #30 caps 08/25/22 release sennosides 8.6 mg-docusate sodium 1 tab PO QAM #30 tabs 08/25/22 50 mg tablet (Senokot-S) Results & Data (ED) Vital Signs Vital Signs - 24 hr 05/08/23 11:59 05/08/23 12:07 05/08/23 12:08 Pulse Rate 67 65 65 Pulse Rate [Apical] Pulse Rate from SpO2 Sensor 65 Respiratory Rate 18 19 Respiratory Effort / Characteristics Respiratory Depth Respiratory Pattern Blood Pressure 133/75 Blood Pressure [Left Arm] Blood Pressure Mean 94 Blood Pressure Mean [Left Arm] Pulse Oximetry 92 94 Oxygen Delivery Method Room Air Fraction of Inspired Oxygen Sepsis Recent Fever Within 48 Hours No Sepsis New/Unexplained Change in Mental Status No Sepsis Action Taken by Nursing No Action Required 05/08/23 12:10 05/08/23 12:20 05/08/23 12:30 Pulse Rate 64 65 63 Pulse Rate [Apical] Pulse Rate from SpO2 Sensor 64 65 63 Respiratory Rate 21 Respiratory Effort / Characteristics Respiratory Depth Respiratory Pattern Blood Pressure Blood Pressure [Left Arm] Blood Pressure Mean Blood Pressure Mean [Left Arm] Pulse Oximetry 93 93 92 Oxygen Delivery Method Fraction of Inspired Oxygen Sepsis Recent Fever Within 48 Hours Sepsis New/Unexplained Change in Mental Status Sepsis Action Taken by Nursing 05/08/23 12:40 05/08/23 12:50 05/08/23 12:52 Pulse Rate 63 63 Pulse Rate [Apical] Pulse Rate from SpO2 Sensor 64 63 Respiratory Rate 18 20 Respiratory Effort / Characteristics Non-Labored Respiratory Depth Respiratory Pattern Blood Pressure Blood Pressure [Left Arm] Blood Pressure Mean Blood Pressure Mean [Left Arm] Pulse Oximetry 92 92 Oxygen Delivery Method Room Air Fraction of Inspired Oxygen Sepsis Recent Fever Within 48 Hours Sepsis New/Unexplained Change in Mental Status Sepsis Action Taken by Nursing 05/08/23 12:52 05/08/23 13:00 05/08/23 13:10 Pulse Rate 64 67 Pulse Rate [Apical] Pulse Rate from SpO2 Sensor 64 67 Respiratory Rate 23 Respiratory Effort / Characteristics Respiratory Depth Respiratory Pattern Blood Pressure Blood Pressure [Left Arm] Blood Pressure Mean Blood Pressure Mean [Left Arm] Pulse Oximetry 93 93 92 Oxygen Delivery Method Room Air Fraction of Inspired Oxygen Sepsis Recent Fever Within 48 Hours Sepsis New/Unexplained Change in Mental Status Sepsis Action Taken by Nursing 05/08/23 13:20 05/08/23 13:30 05/08/23 13:40 Pulse Rate 63 64 66 Pulse Rate [Apical] Pulse Rate from SpO2 Sensor 63 64 66 Respiratory Rate 22 23 19 Respiratory Effort / Characteristics Respiratory Depth Respiratory Pattern Blood Pressure Blood Pressure [Left Arm] Blood Pressure Mean Blood Pressure Mean [Left Arm] Pulse Oximetry 93 93 94 Oxygen Delivery Method Fraction of Inspired Oxygen Sepsis Recent Fever Within 48 Hours Sepsis New/Unexplained Change in Mental Status Sepsis Action Taken by Nursing 05/08/23 13:50 05/08/23 14:00 05/08/23 14:10 Pulse Rate 66 66 67 Pulse Rate [Apical] Pulse Rate from SpO2 Sensor 67 66 68 Respiratory Rate 22 24 21 Respiratory Effort / Characteristics Respiratory Depth Respiratory Pattern Blood Pressure Blood Pressure [Left Arm] Blood Pressure Mean Blood Pressure Mean [Left Arm] Pulse Oximetry 94 93 94 Oxygen Delivery Method Fraction of Inspired Oxygen Sepsis Recent Fever Within 48 Hours Sepsis New/Unexplained Change in Mental Status Sepsis Action Taken by Nursing 05/08/23 14:20 05/08/23 14:30 05/08/23 14:36 Pulse Rate 67 67 Pulse Rate [Apical] 69 Pulse Rate from SpO2 Sensor 67 67 Respiratory Rate 23 23 17 Respiratory Effort / Characteristics Respiratory Depth Respiratory Pattern Blood Pressure Blood Pressure [Left Arm] 135/75 Blood Pressure Mean Blood Pressure Mean [Left Arm] 95 Pulse Oximetry 93 94 93 Oxygen Delivery Method Room Air Fraction of Inspired Oxygen Sepsis Recent Fever Within 48 Hours Sepsis New/Unexplained Change in Mental Status Sepsis Action Taken by Nursing 05/08/23 14:40 05/08/23 14:50 05/08/23 15:00 Pulse Rate 72 70 68 Pulse Rate [Apical] Pulse Rate from SpO2 Sensor 72 70 68 Respiratory Rate 20 Respiratory Effort / Characteristics Respiratory Depth Respiratory Pattern Blood Pressure Blood Pressure [Left Arm] Blood Pressure Mean Blood Pressure Mean [Left Arm] Pulse Oximetry 93 94 95 Oxygen Delivery Method Fraction of Inspired Oxygen Sepsis Recent Fever Within 48 Hours Sepsis New/Unexplained Change in Mental Status Sepsis Action Taken by Nursing 05/08/23 15:10 05/08/23 15:11 05/08/23 15:11 Pulse Rate 62 68 Pulse Rate [Apical] Pulse Rate from SpO2 Sensor 62 67 Respiratory Rate 24 Respiratory Effort / Characteristics Respiratory Depth Respiratory Pattern Blood Pressure 155/71 H Blood Pressure [Left Arm] Blood Pressure Mean 92 Blood Pressure Mean [Left Arm] Pulse Oximetry 94 95 Oxygen Delivery Method Fraction of Inspired Oxygen Sepsis Recent Fever Within 48 Hours Sepsis New/Unexplained Change in Mental Status Sepsis Action Taken by Nursing 05/08/23 15:20 05/08/23 15:30 05/08/23 15:30 Pulse Rate 73 67 Pulse Rate [Apical] Pulse Rate from SpO2 Sensor 73 68 Respiratory Rate 19 Respiratory Effort / Characteristics Respiratory Depth Respiratory Pattern Blood Pressure 175/106 H Blood Pressure [Left Arm] Blood Pressure Mean 139 Blood Pressure Mean [Left Arm] Pulse Oximetry 92 94 Oxygen Delivery Method Fraction of Inspired Oxygen Sepsis Recent Fever Within 48 Hours Sepsis New/Unexplained Change in Mental Status Sepsis Action Taken by Nursing 05/08/23 15:40 05/08/23 15:50 05/08/23 16:00 Pulse Rate 67 73 75 Pulse Rate [Apical] Pulse Rate from SpO2 Sensor 67 Respiratory Rate 20 Respiratory Effort / Characteristics Respiratory Depth Respiratory Pattern Blood Pressure Blood Pressure [Left Arm] Blood Pressure Mean Blood Pressure Mean [Left Arm] Pulse Oximetry Oxygen Delivery Method Fraction of Inspired Oxygen Sepsis Recent Fever Within 48 Hours Sepsis New/Unexplained Change in Mental Status Sepsis Action Taken by Nursing 05/08/23 16:01 05/08/23 16:01 05/08/23 16:10 Pulse Rate 74 72 Pulse Rate [Apical] Pulse Rate from SpO2 Sensor Respiratory Rate 22 Respiratory Effort / Characteristics Respiratory Depth Respiratory Pattern Blood Pressure 166/77 H Blood Pressure [Left Arm] Blood Pressure Mean 95 Blood Pressure Mean [Left Arm] Pulse Oximetry Oxygen Delivery Method Fraction of Inspired Oxygen Sepsis Recent Fever Within 48 Hours Sepsis New/Unexplained Change in Mental Status Sepsis Action Taken by Nursing 05/08/23 16:20 05/08/23 16:30 05/08/23 16:30 Pulse Rate 74 74 72 Pulse Rate [Apical] Pulse Rate from SpO2 Sensor Respiratory Rate 17 24 Respiratory Effort / Characteristics Respiratory Depth Respiratory Pattern Blood Pressure Blood Pressure [Left Arm] Blood Pressure Mean Blood Pressure Mean [Left Arm] Pulse Oximetry Oxygen Delivery Method Fraction of Inspired Oxygen Sepsis Recent Fever Within 48 Hours Sepsis New/Unexplained Change in Mental Status Sepsis Action Taken by Nursing 05/08/23 16:32 05/08/23 16:32 05/08/23 16:40 Pulse Rate 74 74 Pulse Rate [Apical] Pulse Rate from SpO2 Sensor Respiratory Rate 21 22 Respiratory Effort / Characteristics Respiratory Depth Respiratory Pattern Blood Pressure 206/83 H Blood Pressure [Left Arm] Blood Pressure Mean 114 Blood Pressure Mean [Left Arm] Pulse Oximetry Oxygen Delivery Method Fraction of Inspired Oxygen Sepsis Recent Fever Within 48 Hours Sepsis New/Unexplained Change in Mental Status Sepsis Action Taken by Nursing 05/08/23 16:50 05/08/23 17:00 05/08/23 17:16 Pulse Rate 70 75 Pulse Rate [Apical] Pulse Rate from SpO2 Sensor 92 H Respiratory Rate 23 Respiratory Effort / Characteristics Respiratory Depth Respiratory Pattern Blood Pressure Blood Pressure [Left Arm] Blood Pressure Mean Blood Pressure Mean [Left Arm] Pulse Oximetry 84 L 88 L Oxygen Delivery Method Fraction of Inspired Oxygen Sepsis Recent Fever Within 48 Hours Sepsis New/Unexplained Change in Mental Status Sepsis Action Taken by Nursing 05/08/23 17:18 05/08/23 17:18 05/08/23 17:20 Pulse Rate 74 72 Pulse Rate [Apical] Pulse Rate from SpO2 Sensor 73 71 Respiratory Rate 22 21 Respiratory Effort / Characteristics Respiratory Depth Respiratory Pattern Blood Pressure 134/89 Blood Pressure [Left Arm] Blood Pressure Mean 98 Blood Pressure Mean [Left Arm] Pulse Oximetry 90 94 Oxygen Delivery Method Fraction of Inspired Oxygen Sepsis Recent Fever Within 48 Hours Sepsis New/Unexplained Change in Mental Status Sepsis Action Taken by Nursing 05/08/23 17:21 05/08/23 17:30 05/08/23 17:32 Pulse Rate 71 73 74 Pulse Rate [Apical] Pulse Rate from SpO2 Sensor 73 74 Respiratory Rate 22 23 Respiratory Effort / Characteristics Non-Labored Spontaneous Respiratory Depth Normal Respiratory Pattern Regular Blood Pressure Blood Pressure [Left Arm] Blood Pressure Mean Blood Pressure Mean [Left Arm] Pulse Oximetry 95 97 97 Oxygen Delivery Method Fraction of Inspired Oxygen 30 Sepsis Recent Fever Within 48 Hours Sepsis New/Unexplained Change in Mental Status Sepsis Action Taken by Nursing 05/08/23 17:32 05/08/23 17:38 05/08/23 17:38 Pulse Rate 74 Pulse Rate [Apical] Pulse Rate from SpO2 Sensor 74 Respiratory Rate 22 Respiratory Effort / Characteristics Respiratory Depth Respiratory Pattern Blood Pressure 171/82 H 158/86 H Blood Pressure [Left Arm] Blood Pressure Mean 116 116 Blood Pressure Mean [Left Arm] Pulse Oximetry 97 Oxygen Delivery Method Fraction of Inspired Oxygen Sepsis Recent Fever Within 48 Hours Sepsis New/Unexplained Change in Mental Status Sepsis Action Taken by Nursing 05/08/23 17:40 05/08/23 17:50 05/08/23 18:00 Pulse Rate 75 72 Pulse Rate [Apical] Pulse Rate from SpO2 Sensor 74 72 Respiratory Rate 21 20 Respiratory Effort / Characteristics Respiratory Depth Respiratory Pattern Blood Pressure 167/90 H Blood Pressure [Left Arm] Blood Pressure Mean 116 Blood Pressure Mean [Left Arm] Pulse Oximetry 97 96 Oxygen Delivery Method Fraction of Inspired Oxygen Sepsis Recent Fever Within 48 Hours Sepsis New/Unexplained Change in Mental Status Sepsis Action Taken by Nursing 05/08/23 18:00 05/08/23 18:10 05/08/23 18:20 Pulse Rate 72 69 71 Pulse Rate [Apical] Pulse Rate from SpO2 Sensor 71 69 70 Respiratory Rate 24 21 20 Respiratory Effort / Characteristics Respiratory Depth Respiratory Pattern Blood Pressure Blood Pressure [Left Arm] Blood Pressure Mean Blood Pressure Mean [Left Arm] Pulse Oximetry 96 97 96 Oxygen Delivery Method Fraction of Inspired Oxygen Sepsis Recent Fever Within 48 Hours Sepsis New/Unexplained Change in Mental Status Sepsis Action Taken by Nursing 05/08/23 18:30 05/08/23 18:40 05/08/23 18:41 Pulse Rate 70 71 73 Pulse Rate [Apical] Pulse Rate from SpO2 Sensor 70 71 72 Respiratory Rate 18 23 22 Respiratory Effort / Characteristics Respiratory Depth Respiratory Pattern Blood Pressure Blood Pressure [Left Arm] Blood Pressure Mean Blood Pressure Mean [Left Arm] Pulse Oximetry 96 96 96 Oxygen Delivery Method Fraction of Inspired Oxygen Sepsis Recent Fever Within 48 Hours Sepsis New/Unexplained Change in Mental Status Sepsis Action Taken by Nursing 05/08/23 18:41 Pulse Rate Pulse Rate [Apical] Pulse Rate from SpO2 Sensor Respiratory Rate Respiratory Effort / Characteristics Respiratory Depth Respiratory Pattern Blood Pressure 126/80 Blood Pressure [Left Arm] Blood Pressure Mean 105 Blood Pressure Mean [Left Arm] Pulse Oximetry Oxygen Delivery Method Fraction of Inspired Oxygen Sepsis Recent Fever Within 48 Hours Sepsis New/Unexplained Change in Mental Status Sepsis Action Taken by Nursing Laboratory Data 05/08/23 12:17 05/08/23 12:17 Lab Results 05/08/23 05/08/23 05/08/23 Range/Units 12:17 12:39 16:31 WBC 7.58 (4.8-10.8) K/ul RBC 4.05 L (4.20-5.40) M/uL Hgb 11.3 L (12.0-16.0) g/dl Hct 34.9 L (37.0-47.0) % MCV 86.2 (80.0-100.0) fL MCH 27.9 (25.0-34.0) pg MCHC 32.4 (32.0-36.0) g/dL RDW Std Deviation 50.8 H (36.4-46.3) fL RDW Coeff of Lizy 15.9 H (11.5-14.5) % Plt Count 228 (130-400) K/uL MPV 9.4 (9.4-12.4) fL Immature Gran % (Auto) 0.4 % Neut % (Auto) 67.9 % Lymph % (Auto) 18.5 % [place] % (Auto) 12.3 % Eos % (Auto) 0.5 % Baso % (Auto) 0.4 % Neut # (Auto) 5.15 (1.40-6.50) K/uL Lymph # (Auto) 1.40 (1.20-3.40) K/uL [place] # (Auto) 0.93 H (0.11-0.59) K/uL Eos # (Auto) 0.04 (0.00-0.50) K/uL Baso # (Auto) 0.03 (0.00-0.20) K/uL Immature Gran # (Auto) 0.03 (0.01-0.20) K/uL PT 12.2 H (9.0-12.0) Seconds INR 1.1 (0.9-1.1) VBG pH 7.35 L (7.36-7.41) VBG pCO2 61 H (38-50) mmHg VBG pO2 38 mmHg VBG HCO3 34 mmol/L VBG O2 Saturation 63.8 % VBG Base Excess 6.3 mEq/L Sodium 137 (136-145) mmol/L Potassium 3.8 (3.5-5.1) mmol/L Chloride 102 (98-107) mmol/L Carbon Dioxide 28 (21-32) mmol/L Anion Gap 7 (3-11) BUN 19 (6-23) mg/dl Creatinine 0.90 (0.6-1.2) mg/dl Est Cr Clr Drug Dosing 50.3 ml/min Est GFR ( Amer) 66.2 ml/min Est GFR (Non-Af Amer) 57.1 ml/min BUN/Creatinine Ratio 21.1 H (10-20) Glucose 114 H (70-99(Fasting)) mg/dl Calcium 8.5 L (8.6-10.3) mg/dl Magnesium 1.8 (1.7-2.4) mg/dl Total Bilirubin 1.2 H (0.2-1.0) mg/dl AST 13 (13-39) U/L ALT 6 L (7-52) U/L Alkaline Phosphatase 51 (34-104) U/L Troponin I High Sens 10.8 (0-14) pg/ml B-Natriuretic Peptide 327 H (0-100) pg/ml Total Protein 6.9 (6.0-8.3) gm/dl Albumin 3.7 (3.4-5.0) gm/dl Globulin 3.2 (2.5-4.0) gm/dl Albumin/Globulin Ratio 1.2 (0.9-2) Lipase 8 L (11-82) U/L TSH 2.722 (0.300-4.500) uIu/ml Adenovirus (PCR) Not Detected (NotDetected) B. pertussis DNA (PCR) Not Detected (NotDetected) B.parapertussis DNA PCR Not Detected (NotDetected) C. pneumoniae DNA (PCR) Not Detected (NotDetected) Coronavirus OC43 (PCR) Not Detected (NotDetected) Coronavirus HKU1 (PCR) Not Detected (NotDetected) Coronavirus 229E (PCR) Not Detected (NotDetected) SARS-CoV-2 (PCR) Not Detected (NotDetected) Coronavirus NL63 (PCR) Not Detected (NotDetected) Human Metapneumovir PCR DETECTED A (NotDetected) Influenza Type A (PCR) Not Detected (NotDetected) Influenza Type B (PCR) Not Detected (NotDetected) M. pneumoniae (PCR) Not Detected (NotDetected) Parainfluenza 1 (PCR) Not Detected (NotDetected) Parainfluenza 2 (PCR) Not Detected (NotDetected) Parainfluenza 3 (PCR) Not Detected (NotDetected) Parainfluenza 4 (PCR) Not Detected (NotDetected) RSV (PCR) Not Detected (NotDetected) Entero/Rhino (PCR) Not Detected (NotDetected) Administered Medications Discontinued Medications Furosemide (Furosemide 40 Mg/4 Ml Vial) 40 mg IV ONE ONE Stop: 05/08/23 14:12 Last Admin: 05/08/23 14:34 Dose: 40 mg Documented By: OSBALDO Nitroglycerin (Nitroglycerin 2% Ointment 30gm Tube) 1 inch EXT NOW STA Stop: 05/08/23 17:08 Last Admin: 05/08/23 17:38 Dose: 1 inch Documented By: BCN Imaging Data Radiologist's Impression: Chest X-Ray 05/08/23 12:10 XR chest 1V portable HISTORY: 87 years-old Female sob acute shortness of breath COMPARISON: 08/19/2022 TECHNIQUE: AP view of the chest FINDINGS: Cardiac silhouette is enlarged. Atherosclerosis of the aorta. Mild chronic interstitial coarsening. No pneumothorax, pleural effusion, airspace consolidation or pulmonary edema. Bones appear grossly intact. IMPRESSION: Cardiomegaly without acute process. ACT 112: Negative or not required by law. The above report was generated using voice recognition software. It may contain grammatical, syntax or spelling errors. Electronically signed by: Saqib Shore M.D. 05/08/2023 12:[address] 05/08/23 16:14 CT head/brain wo con CLINICAL HISTORY: ams Technique: Contiguous axial CT images of the head were acquired from the base of the skull to the vertex without intravenous contrast administration. Images were viewed in brain, subdural and bone windows. Automated dose lowering techniques and/or adjustment according to patient size were utilized for this exam. Comparison: None available at the time of this dictation. Findings: Areas of decreased attenuation are present in the periventricular and subcortical white matter bilaterally consistent with small vessel ischemic disease. Generalized cerebral atrophy with commensurate enlargement of the ventricles, sulci, and cisterns is also present. There is no acute intracranial hemorrhage or evidence of acute territorial infarction. No shift of the midline structures, mass effect, or extra-axial abnormalities are shown. Atherosclerotic calcifications are present in the intracranial segments of the internal carotid arteries. Imaged portions of the paranasal sinuses and mastoid air cells are clear. The orbits appear normal. There are no acute fractures of the calvaria or scalp swelling. Impression: No acute intracranial hemorrhage, no evidence of acute territorial infarction or other acute intracranial disease process. ACT 112: Negative or not required by law. Electronically signed by: Ricki Leonard M.D. 05/08/2023 5:13 PM Discharge Plan Visit Data Chief Complaint: Shortness of Breath/Dyspnea Stated Complaint: SOB ED Provider: Neisha Cheng Discharge Problem: Dyspnea, URI (upper respiratory infection), Pulmonary edema, Confusion Forms Stand Alone Forms: [facility] [employer] Prescriptions Prescriptions: No Action acetaminophen [Tylenol Extra Strength] 500 mg Tablet 1,000 mg PO Q8H PRN (Reason: fever or pain) Qty: 90 0RF sennosides-docusate sodium [Senokot-S] 8.6-50 mg Tablet 1 tab PO QAM Qty: 30 0RF furosemide 40 mg tablet 40 mg PO Q2D Qty: 30 0RF metoprolol succinate 50 mg tablet extended release 24 hr 50 mg PO DAILY Qty: 30 0RF Rx Instructions: hold for SBP<100 or HR<60 alprazolam 0.5 mg tablet 0.5 mg PO BID PRN (Reason: Anxiety) Qty: 10 0RF omeprazole 20 mg Capsule,Delayed Release(Dr/Ec) 20 mg PO DAILY Qty: 30 0RF coenzyme Q10 [CoQ-10] 100 mg Capsule 100 mg PO DAILY Qty: 30 0RF Eliquis 5 mg Tablet 5 mg PO BID Qty: 60 0RF aspirin [Aspirin Low-Strength] 81 mg Tablet,Delayed Release (Dr/Ec) 81 mg PO DAILY ferrous sulfate 325 mg (65 mg iron) Tablet 325 mg PO DAILY rosuvastatin 20 mg tablet 20 mg PO HS citalopram 20 mg tablet 20 mg PO DAILY losartan 100 mg tablet 100 mg PO DAILY pregabalin 50 mg capsule 50 mg PO BID calcium carbonate-vitamin D3 [Calcium 600 + D(3)] 600 mg-10 mcg (400 unit) Tablet 1 tab PO BID polyethylene glycol 3350 [Miralax] 17 gram powder in packet 17 g PO QAM PRN (Reason: Constipation) clonidine HCl 0.1 mg tablet 0.1 mg PO DAILY PRN (Reason: SBP>170 or DBP>100) nystatin [Nystop] 100,000 unit/gram powder 1 applic TOPICAL TID PRN (Reason: rash/irritation) ibuprofen 200 mg Tablet 200 - 400 mg PO Q6H PRN (Reason: Fever Or Pain) guaifenesin [Mucinex] 600 mg Tablet Extended Release 12hr 600 mg PO Q12H PRN (Reason: Congestion) Delsym 30 mg/5 mL Liquid 60 mg PO Q12 PRN (Reason: Cough) Referrals Referrals: Jc Del Rio, [facility] [Primary Care Provider] -
--- NOTE | 2023-05-08 12:31 | XRay Report ---
XR chest 1V portable HISTORY: 87 years-old Female sob acute shortness of breath COMPARISON: 08/19/2022 TECHNIQUE: AP view of the chest FINDINGS: Cardiac silhouette is enlarged. Atherosclerosis of the aorta. Mild chronic interstitial coarsening. N o pneumothorax, pleural effusion, airspace consolidation or pulmonary edema. Bones appear grossly int act. IMPRESSION: Cardiomegaly without acute process. ACT 112: Negative or not required by law. The above report was generated using voice recognition software. It may contain grammatical, syntax o r spelling errors. Electronically signed by: Saqib Shore M.D. 05/08/2023 12:30 PM
[2023-05-08 12:39] LABS: Basophils # (auto) 0.03 K/uL (0.00-0.20); Basophils % (auto) 0.4 %; Eosinophils # (auto) 0.04 K/uL (0.00-0.50); Eosinophils % (auto) 0.5 %; Hematocrit (blood only) 34.9 % (37.0-47.0); Hemoglobin 11.3 g/dl (12.0-16.0); Immature Granulocytes # (auto) 0.03 K/uL (0.01-0.20); Immature Granulocytes % (auto) 0.4 %; Lymphocytes % (auto) 18.5 %; Mean Corpuscular Hemoglobin 27.9 pg (25.0-34.0); Mean Corpuscular Hgb Conc 32.4 g/dL (32.0-36.0); Mean Corpuscular Volume 86.2 fL (80.0-100.0); Mean Platelet Volume 9.4 fL (9.4-12.4); Monocytes # (auto) 0.93 K/uL (0.11-0.59); Monocytes % (auto) 12.3 %; Neutrophils # (auto) 5.15 K/uL (1.40-6.50); Neutrophils % (auto) 67.9 %; Platelet Count 228 K/uL (130-400); RDW Coefficient of Variation 15.9 % (11.5-14.5); RDW Standard Deviation 50.8 fL (36.4-46.3); Red Blood Count 4.05 M/uL (4.20-5.40); White Blood Count 7.58 K/ul (4.8-10.8)
[2023-05-08 12:59] LABS: Albumin Globulin Ratio 1.2 (0.9-2); Albumin Level 3.7 gm/dl (3.4-5.0); BUN Creatinine Ratio 21.1 (10-20); Bilirubin,Total 1.2 mg/dl (0.2-1.0); Calcium 8.5 mg/dl (8.6-10.3); Creatinine Clr Calc Pharmacy 50.3 ml/min; Est GFR (African American) 66.2 ml/min; Est GFR (Non-African American) 57.1 ml/min; Globulin 3.2 gm/dl (2.5-4.0); Magnesium 1.8 mg/dl (1.7-2.4); Potassium 3.8 mmol/L (3.5-5.1); Total Protein 6.9 gm/dl (6.0-8.3)
[2023-05-08 13:01] LABS: Troponin I High Sensitivity 10.8 pg/ml (0-14)
[2023-05-08 13:09] LABS: INR 1.1 (0.9-1.1); Prothrombin Time 12.2 Seconds (9.0-12.0)
[2023-05-08 13:11] LABS: Thyroid Stimulating Hormone 2.722 uIu/ml (0.300-4.500)
[2023-05-08 13:39] LABS: Adenovirus PCR Not Detected (NotDetected); Bordetella parapertussis PCR Not Detected (NotDetected); Bordetella pertussis PCR Not Detected (NotDetected); Chlamydia pneumoniae PCR Not Detected (NotDetected); Coronavirus 229E PCR Not Detected (NotDetected); Coronavirus CoV-2 (COVID19)PCR Not Detected (NotDetected); Coronavirus HKU1 PCR Not Detected (NotDetected); Coronavirus NL63 PCR Not Detected (NotDetected); Coronavirus OC43PCR Not Detected (NotDetected); Human Metapneumovirus PCR DETECTED (NotDetected); Influenza A PCR Not Detected (NotDetected); Influenza B PCR Not Detected (NotDetected); Mycoplasma pneumoniae PCR Not Detected (NotDetected); Parainfluenza Virus 1 PCR Not Detected (NotDetected); Parainfluenza Virus 2 PCR Not Detected (NotDetected); Parainfluenza Virus 3 PCR Not Detected (NotDetected); Parainfluenza Virus 4 PCR Not Detected (NotDetected); Respiratory Syncytial VirusPCR Not Detected (NotDetected); Rhinovirus/Enterovirus PCR Not Detected (NotDetected)
[2023-05-08] MEDS: FUROSEMIDE 40 MG/4 ML VIAL IV ONE (14:34)
--- NOTE | 2023-05-08 16:33 | Electrocardiogram Report ---
Test Reason : Blood Pressure : / mmHG Vent. Rate : 065 BPM Atrial Rate : 065 BPM P-R Int : 170 ms QRS Dur : 086 ms QT Int : 386 ms P-R-T Axes : 074 028 020 degrees QTc Int : 401 ms Poor data quality, interpretation may be adversely affected Normal sinus rhythm Poor R wave progression, consider anterior DE vs. lead placement vs. LVH Abnormal ECG When compared with ECG of 20-AUG-2022 09:16, Nonspecific T wave abnormality no longer evident in Lateral leads Confirmed by Jude Lowery ([id number]) on 05/08/2023 4:32:57 PM Referred By: Confirmed By:Jude Lowery
[2023-05-08 16:49] LABS: Base Excess VBG 6.3 mEq/L; HCO3 VBG 34 mmol/L; Oxygen Saturation VBG 63.8 %; PCO2 VBG 61 mmHg (38-50); PO2 VBG 38 mmHg; pH VBG 7.35 (7.36-7.41)
--- NOTE | 2023-05-08 17:14 | History & Physical Report ---
Date of Service May 08, 2023 Assessment & Plan (1) Acute respiratory failure with hypoxia and hypercapnia: (2) Acute on chronic heart failure with preserved ejection fraction (HFpEF): (3) URI (upper respiratory infection): (4) Metabolic encephalopathy: Plan: ?Underlying obesity hypoventilation syndrome Patient is 87 year old female with PMH HTN, HLD, PAF, anticoagulated on Eliquis, anxiety, depression, GERD presented to ER with c/o cough x several days and SOB today. No leukocytosis, BNP: 327, troponin WNL CXR: Cardiomegaly without acute process CT head: No acute intracranial abnormality + Human metapneumovirus on respiratory [employer] panel Initially in ER pt A&O. During ER course patient given lasix 40mg IV and nitropaste as hypertensive. During ER course patient became confused and somnolent, had noted tachypnea, hypoxia. VBG: pH: 7.35, pCO2: 61, pO2: 38, HCO3: 34 patient started on bipap. Hold on further Nitropaste as BPs improving to 126/80 Continue BiPAP N.p.o. for now on BiPAP Repeat VBG tonight Lasix 40 mg IV daily Monitor I's and O's, daily weights Procalcitonin pending UA pending Blood cultures pending Start Rocephin, doxycycline to cover possible urinary, respiratory source DuoNebs Patient anticoagulated on Eliquis and lower suspicion for PE Echo Consider cardiology consult Holding on sedating agents. Will hold alprazolam, pregabalin CBC, CMP in a.m. (5) Paroxysmal atrial fibrillation: Plan: Chronically anticoagulated on Eliquis Current sinus rhythm Plan to resume metoprolol succinate and Eliquis when patient able to take p.o. (6) Hypertension: Plan: Hypertensive in ER with improvement of BPs Would plan to resume metoprolol succinate, losartan 1 patient able to take p.o. (7) Anxiety: Plan: On citalopram at home. Would plan to resume when able to take p.o. Hold Xanax with AMS (8) GERD (gastroesophageal reflux disease): Plan: On omeprazole at home. Would plan to resume home oral when able. DVT Prophylaxis Lovenox SQ for now until able to take oral and then would plan to resume Eliquis DNR/DNI as per prior admissions and per discussion with patient's emergency contact Sol Cloud Follows with Jc Del Rio PA-C for routine care Pt was seen and care coordinated with Dr Chacon. See addendum I spent a total of 80 minutes reviewing notes, outpatient records, labs, medication, coordinating, documenting and providing care for this patient excluding time spent in the performance of separately billed services. History of Present Illness Chief Complaint: SOB Primary Care Provider: Jc Del Rio Patient is 87 year old female with PMH HTN, HLD, PAF, anticoagulated on Eliquis, anxiety, depression, GERD presented to ER with c/o cough and SOB. Patient lives at [facility] in [place], [place]. History obtained from inpatient chart review and ER staff as currently patient with mental status changes and unable to provide history. ER physician reports that patient was awake alert and oriented upon ER arrival and had reported cough for several days and shortness of breath starting this morning without any noted fever or chills. Patient had noted intermittent chest heaviness occasionally and had reported BLE edema on chronic Lasix every 2 days without any noted acute worsening lower extremity edema. During ER course patient given lasix 40mg IV and nitropaste as hypertensive. During ER course patient became confused and somnolent, had noted tachypnea. VBG obtained patient started on bipap. CT head without acute intracranial findings. Spoke with patient's friend Sol Pedro Luis who is her emergency contact. Sol is friend of patient as she states patient does not have any family. She was updated on patient's status. Sol is currently in [place] but would like updates via phone call. Sol confirms patient is DNI/DNR. Allergies Allergy/AdvReac Type Severity Reaction Status Date / Time aspirin AdvReac Unknown GI ISSUES Verified 05/08/23 17:01 Home Medications Medication Instructions Recorded Confirmed Type acetaminophen 500 mg tablet 1,000 mg (2 x 500 mg) PO Q8H PRN 08/25/22 05/08/23 Rx (Tylenol Extra Strength) fever or pain #90 tabs alprazolam 0.5 mg tablet 0.5 mg PO BID PRN Anxiety #10 tabs 08/25/22 05/08/23 Rx apixaban 5 mg tablet (Eliquis) 5 mg PO BID #60 tabs 06/26/23 03/08/24 Rx coenzyme Q10 100 mg capsule 100 mg PO DAILY #30 caps 08/25/22 05/08/23 Rx (CoQ-10) furosemide 40 mg tablet 40 mg PO Q2D #30 tabs 08/25/22 05/08/23 Rx metoprolol succinate 50 mg 50 mg PO DAILY #30 tabs 08/25/22 05/08/23 Rx tablet,extended release 24 hr omeprazole 20 mg capsule,delayed 20 mg PO DAILY #30 caps 08/25/22 05/08/23 Rx release sennosides 8.6 mg-docusate sodium 1 tab PO QAM #30 tabs 08/25/22 05/08/23 Rx 50 mg tablet (Senokot-S) aspirin 81 mg tablet,delayed 81 mg PO DAILY 05/08/23 05/08/23 History release calcium carbonate 600 mg-vitamin 1 tab PO BID 05/08/23 05/08/23 History D3 10 mcg (400 unit) tablet (Calcium 600 + D(3)) citalopram 20 mg tablet 20 mg PO DAILY 05/08/23 05/08/23 History clonidine HCl 0.1 mg tablet 0.1 mg PO DAILY PRN SBP>170 or 05/08/23 05/08/23 History DBP>100 dextromethorphan HBr 30 mg/5 mL 60 mg PO Q12 PRN Cough 05/08/23 05/08/23 History oral liquid ferrous sulfate 325 mg (65 mg 325 mg PO DAILY 05/08/23 05/08/23 History iron) tablet guaifenesin 600 mg tablet, 600 mg PO Q12H PRN Congestion 05/08/23 05/08/23 History extended release 12 hr (Mucinex) ibuprofen 200 mg tablet 200 - 400 mg PO Q6H PRN Fever Or 05/08/23 05/08/23 History Pain losartan 100 mg tablet 100 mg PO DAILY 05/08/23 05/08/23 History nystatin 100,000 unit/gram topical 1 applic topical TID PRN 05/08/23 05/08/23 History powder (Nystop) rash/irritation polyethylene glycol 3350 17 gram 17 g PO QAM PRN Constipation 05/08/23 05/08/23 History oral powder packet (Miralax) pregabalin 50 mg capsule 50 mg PO BID 05/08/23 05/08/23 History rosuvastatin 20 mg tablet 20 mg PO HS 05/08/23 05/08/23 History Past Med/Surg History Medical History (Updated 05/08/23 @ 19:19 by Elizabeth Marie PA-C) Hypokalemia Paroxysmal atrial fibrillation CHF (congestive heart failure) TIA (transient ischemic attack) Occlusion of left vertebral artery Hypertension GERD (gastroesophageal reflux disease) Hypertension Surgical History History of appendectomy History of cholecystectomy History of cataract surgery History of hysterectomy History of total knee replacement x2 Family History Other Cancer Social History Smoking Status: Never smoker Second Hand Exposure: No; Do You Dip or Chew Tobacco: No; Hx Alcohol Use: No Hx Substance Use: No Preferred Language: Turkmen Communication Ability: Effective Bench Lathe Operator Required: No Beliefs That Will Affect Care: None marital status: / Current Living Situation: Custodial Current Living Situation Comment: Lives alone w/ family friend that performs chores/runs errands Other Information That Helps Us Care for You: No Feels Safe at Home: Yes Safety Concerns: Feels Safe At This Time Assistive Devices: Wheelchair Review of Systems Review of Systems: Unobtainable due to cognitive status Physical Exam Physical Exam: General: +somnolent, +arouses to light touch and voice and when asked questions answers "no" to everything. Currently on bipap in no distress, Obese elderly female Head: normocephalic, atraumatic Eyes: PERRL, EOM's intact, conjunctiva non-injected, anicteric ENT: normal inspection external ears, nose, mucous membranes appear moist Neck: supple, trachea midline Lungs: currently on bipap and appears comfortable with O2 sat 95% and Respirations 22, Difficult to fully auscultate secondary to bipap sounds but appears to have rhonchi throughout CV: RRR, 1+ pretibial edema Abd: normal BS, soft, no apparent tenderness to palpation Ext: no cyanosis, no calf tenderness Neuro: Somnolent, arouses with light touch Skin: warm, dry Results & Data Results & Data Vital Signs (Past 12 Hours) Vital Signs Pulse Pulse Resp BP BP Pulse Ox O2 Del Method 05/08/23 17:00 88 L 05/08/23 16:50 70 23 84 L 05/08/23 16:40 74 22 05/08/23 16:32 206/83 H 05/08/23 16:32 74 21 05/08/23 16:30 74 24 05/08/23 16:20 74 17 05/08/23 16:10 72 22 05/08/23 16:01 74 05/08/23 16:01 166/77 H 05/08/23 16:00 75 05/08/23 15:50 73 20 05/08/23 15:40 67 05/08/23 15:30 67 19 94 05/08/23 15:30 175/106 H 05/08/23 15:20 73 92 05/08/23 15:11 68 95 05/08/23 15:11 155/71 H 05/08/23 15:10 62 24 94 05/08/23 15:00 68 20 95 05/08/23 14:50 70 94 05/08/23 14:40 72 93 05/08/23 14:36 69 17 135/75 93 Room Air 05/08/23 14:30 67 23 94 05/08/23 14:20 67 23 93 05/08/23 14:10 67 21 94 05/08/23 14:00 66 24 93 05/08/23 13:50 66 22 94 05/08/23 13:40 66 19 94 05/08/23 13:30 64 23 93 05/08/23 13:20 63 22 93 05/08/23 13:10 67 92 05/08/23 13:00 64 23 93 05/08/23 12:52 93 Room Air 05/08/23 12:52 Room Air 05/08/23 12:50 63 20 92 05/08/23 12:40 63 18 92 05/08/23 12:30 63 92 05/08/23 12:20 65 21 93 05/08/23 12:10 64 93 05/08/23 12:08 65 05/08/23 12:07 65 19 94 05/08/23 11:59 67 18 133/75 92 Room Air Laboratory Results Short CBC 05/08/23 Range/Units 12:17 WBC 7.58 (4.8-10.8) K/ul Hgb 11.3 L (12.0-16.0) g/dl Hct 34.9 L (37.0-47.0) % Plt Count 228 (130-400) K/uL BMP 05/08/23 12:17 Sodium 137 Potassium 3.8 Chloride 102 Carbon Dioxide 28 BUN 19 Creatinine 0.90 Glucose 114 H Calcium 8.5 L Liver Function 05/08/23 Range/Units 12:17 Total Bilirubin 1.2 H (0.2-1.0) mg/dl AST 13 (13-39) U/L ALT 6 L (7-52) U/L Alkaline Phosphatase 51 (34-104) U/L Albumin 3.7 (3.4-5.0) gm/dl Urine 05/08/23 Range/Units Unknown Urine Color Cancelled Urine Appearance Cancelled Urine pH Cancelled Ur Specific [place] Cancelled Urine Protein Cancelled Urine Glucose (UA) Cancelled Diagnostic Findings Chest X-Ray 05/08/23 12:10 XR chest 1V portable HISTORY: 87 years-old Female sob acute shortness of breath COMPARISON: 08/19/2022 TECHNIQUE: AP view of the chest FINDINGS: Cardiac silhouette is enlarged. Atherosclerosis of the aorta. Mild chronic interstitial coarsening. No pneumothorax, pleural effusion, airspace consolidati on or pulmonary edema. Bones appear grossly intact. IMPRESSION: Cardiomegaly without acute process. ACT 112: Negative or not required by law. The above report was generated using voice recognition software. It may contain grammatical, syntax or spelling errors. Electronically signed by: Saqib Shore M.D. 05/08/2023 12:[address] 05/08/23 16:14 CT head/brain wo con CLINICAL HISTORY: ams Technique: Contiguous axial CT images of the head were acquired from the base of the skull to the vertex without intravenous contrast administration. Images were viewed in brain, subdural and bone windows. Automated dose lowering techniques and/or adjustment according to patient size were utilized for this exam. Comparison: None available at the time of this dictation. Findings: Areas of decreased attenuation are present in the periventricular and subcortical white matter bilaterally consistent with small vessel ischemic disease. Generalized cerebral atrophy with commensurate enlargement of the ventricles, sulci, and cisterns is also present. There is no acute intracranial hemorrhage or evidence of acute territorial infarction. No shift of the midline structures, mass effect, or extra-axial abnormalities are shown. Atherosclerotic calcifications are present in the intracranial segments of the internal carotid arteries. Imaged portions of the paranasal sinuses and mastoid air cells are clear. The orbits appear normal. There are no acute fractures of the calvaria or scalp swelling. Impression: No acute intracranial hemorrhage, no evidence of acute territorial infarction or other acute intracranial disease process. ACT 112: Negative or not required by law. Electronically signed by: Ricki Leonard M.D. 05/08/2023 5:13 PM ECG Additional Comments: Poor data quality, interpretation may be adversely affected Normal sinus rhythm Poor R wave progression, consider anterior [place] vs. lead placement vs. LVH Abnormal ECG When compared with ECG of 20-AUG-2022 09:16, Nonspecific T wave abnormality no longer evident in Lateral leads Confirmed by Jude Lowery ([id number]) on 05/08/2023 4:32:57 PM I reviewed EKG and sinus rhythm, rate 65, T wave flattening septal, anterior leads. No ST elevations noted Supervising Physician Co-Signing Physician Notes Pt was seen and examined by myself, Roxana Chacon MD on the day of service. Care was coordinated with Elizabeth Marie PA-C. 87yoF presenting with SOB. Became acutely altered in the ED. Acute hypoxic and hypercapnic respiratory failure in setting of human metapneumovirus infection and CHF exacerbation. VBG noting hypercapnia in the ED, pt started on bipap. Started on IV Lasix. Holding home sedating medications. Otherwise as above. I spent a total [id number] coordinating, documenting, and providing care for this patient excluding time spent in the performance of separately billed services
--- NOTE | 2023-05-08 17:15 | CT Scan Report ---
CT head/brain wo con CLINICAL HISTORY: ams Technique: Contiguous axial CT images of the head were acquired from the base of the skull to the tim miriam without intravenous contrast administration. Images were viewed in brain, subdural and [facility]. Automated dose lowering techniques and/or adjustment according to patient size were utilized for this exam. Comparison: None available at the time of this dictation. Findings: Areas of decreased attenuation are present in the periventricular and subcortical white matter bilate rally consistent with small vessel ischemic disease. Generalized cerebral atrophy with commensurate e nlargement of the ventricles, sulci, and cisterns is also present. There is no acute intracranial hem orrhage or evidence of acute territorial infarction. No shift of the midline structures, mass effect, or extra-axial abnormalities are shown. Atherosclerotic calcifications are present in the intracran ial segments of the internal carotid arteries. Imaged portions of the paranasal sinuses and mastoid air cells are clear. The orbits appear normal. There are no acute fractures of the calvaria or scalp swelling. Impression: No acute intracranial hemorrhage, no evidence of acute territorial infarction or other acute intracra nial disease process. ACT 112: Negative or not required by law. Electronically signed by: Ricki Leonard M.D. 05/08/2023 5:13 PM
[2023-05-08] MEDS: NITROGLYCERIN 2% OINTMENT 30GM TUBE EXT STA (17:38)
[2023-05-08] MEDS ORDERED: POLYETHYLENE (MIRALAX) 17 GM PACK PO PRN (20:01)
[2023-05-08] MEDS ORDERED: ONDANSETRON INJ 2 MG/ML 2 ML VIAL IV PRN (20:01)
[2023-05-08] MEDS: cefTRIAXone SODIUM 2,000 MG in DEXTROSE 5 % MINI-B 50 ML IV STA (20:28)
[2023-05-08] MEDS: ENOXAPARIN INJ 40 MG/0.4 ML SYR SQ SCH (20:31)
[2023-05-08 20:33] LABS: Base Excess VBG 6.5 mEq/L; HCO3 VBG 32 mmol/L; Oxygen Saturation VBG 83.6 %; PCO2 VBG 48 mmHg (38-50); PO2 VBG 48 mmHg; pH VBG 7.43 (7.36-7.41)
[2023-05-08] MEDS: ALBUT/IPRATROP 3MG/0.5MG NEB 3 ML VIAL NEB SCH (20:37)
[2023-05-08] MEDS: DOXYCYCLINE HYCLATE 100 MG in DEXTROSE 5% MINI-B 100 ML IV SCH (21:01)
[2023-05-08 23:39] LABS: Appearance Urine Clear (Clear); Bacteria Urine Automated Negative (Negative); Bilirubin Urine Negative (Negative); Blood Urine Negative (Negative); Color Urine Yellow; Glucose Urine UA Negative (Negative); Ketones Urine Negative (Negative); Leukocyte Esterase Urine Negative (Negative); Nitrite Urine Negative (Negative); Protein Urine 1+ (Negative); RBC Urine Automated 0-4 /hpf (0-4); Specific Gravity Urine 1.016 (1.000-1.030); Urobilinogen Urine Negative (Negative)
[2023-05-09] MEDS: ACETAMINOPHEN 1,000 MG/100 ML VIAL IV PRN (04:22)
[2023-05-09 05:03] LABS: Hematocrit (blood only) 33.2 % (37.0-47.0); Hemoglobin 10.8 g/dl (12.0-16.0); Mean Corpuscular Hemoglobin 28.1 pg (25.0-34.0); Mean Corpuscular Hgb Conc 32.5 g/dL (32.0-36.0); Mean Corpuscular Volume 86.2 fL (80.0-100.0); Mean Platelet Volume 9.5 fL (9.4-12.4); Platelet Count 211 K/uL (130-400); RDW Coefficient of Variation 15.7 % (11.5-14.5); RDW Standard Deviation 49.6 fL (36.4-46.3); Red Blood Count 3.85 M/uL (4.20-5.40); White Blood Count 7.57 K/ul (4.8-10.8)
[2023-05-09 05:20] LABS: Albumin Globulin Ratio 1.2 (0.9-2); Albumin Level 3.6 gm/dl (3.4-5.0); BUN Creatinine Ratio 20.2 (10-20); Bilirubin,Total 1.2 mg/dl (0.2-1.0); Calcium 8.2 mg/dl (8.6-10.3); Creatinine Clr Calc Pharmacy 43.5 ml/min; Est GFR (African American) 55.6 ml/min; Est GFR (Non-African American) 47.9 ml/min; Globulin 3.1 gm/dl (2.5-4.0); Potassium 3.6 mmol/L (3.5-5.1); Total Protein 6.7 gm/dl (6.0-8.3)
[2023-05-09] MEDS: FUROSEMIDE 40 MG/4 ML VIAL IV SCH (09:29)
--- NOTE | 2023-05-09 10:48 | Hospitalist Progress Note ---
Date of Service May 09, 2023 Assessment & Plan (1) Acute respiratory failure with hypoxia and hypercapnia: (2) Acute on chronic heart failure with preserved ejection fraction (HFpEF): (3) URI (upper respiratory infection): (4) Metabolic encephalopathy: (5) Paroxysmal atrial fibrillation: (6) Hypertension: (7) Anxiety: (8) GERD (gastroesophageal reflux disease): Plan Patient is 87 year old female with PMH HTN, HLD, PAF, anticoagulated on Eliquis, anxiety, depression, GERD who presented to ER with c/o cough x several days and SOB. Acute respiratory failure with hypoxia and hypercapnia Pt presenting to the ED with an increased oxygen requirement, requiring bipap Likely in setting of human metapneumovirus Also underlying CHF Possible obesity hypoventilation syndrome Bipap/oxygen supplementation as needed, wean as tolerated Duonebs Continue to monitor URI Viral Infection, Human Metapneumovirus Biofire positive for human metapneumovirus Chest XRAY with no noted pneumonia Procalcitonin negative Was started on empiric doxycycline and rocephin Duonebs Supportive care Acute on chronic heart failure with preserved ejection fraction (HFpEF) BNP elevated at 327 Chest xray noting cardiomegaly EKG with NSR Echo noting Grade II diastolic failure, EF 55-60%, LVH IV Lasix 40mg daily Ulrich for accurate ins and outs, daily weights Weight improving Consider cardiiology consult Underlying obesity hypoventilation syndrome Uncertain diagnosis Outpt pulmonary testing Acute Metabolic Encephalopathy Pt became confused in the ED VBG with noted pH 7.35, CO2 elevated at 61, HCO3 of [address] with no acute abnormality UA suggestive of infection, urine cx pending Blood Cx with NGTD Likely in setting of hypercapnia, UTI Pt started on bipap, wean as tolerated Treated with Rocephin as above Held home sedating agents-alprazolam, pregabalin Pt's mentation currently improving, meds above resumed Continue to monitor UTI UA suggestive of infection Urine cx pending On rocephin above, po abx based on cx results Hypertensive Urgency BP significantly elevated on admission Had nitropaste and BP improved signifcantly Continue home metoprolol and losartan Continue to monitor BP Anemia Hgb baseline of 10-11 Anemia workup with iron panel, ferritin, b12 and folate levels Continue to monitor Elevated liver enzymes T bili elevated at 1.2 Pt currently with RLQ pain Consider imaging with liver US Monitor LFTs with AM labs Hyperglycemia Noted elevated glucose levels AM [id number] pending Consider ISS based on levels Paroxysmal atrial fibrillation On metoprolol Chronically anticoagulated on Eliquis Current sinus rhythm Continue to monitor Anxiety On citalopram at home, continue Held Xanax with AMS, has since been resumed GERD (gastroesophageal reflux disease) On ppi, continue CODE STATUS: DNR/DNI Diet: HH DVT Prophylaxis: Eliquis Dispo: PT/OT ordered DNR/DNI as per prior admissions and per discussion with patient's emergency contact Sol Cloud Follows with Jc Del Rio PA-C for routine care Admission and Anticipated Discharge Date Admission Date: May 08, 2023 Subjective Pt was seen with nursing in the room. Was being changed and cleaned up. She denied acute concerns. Noting that she was no longer having chest pain or SOB. Alert and oriented. Review of Systems Review of Systems: All systems reviewed & are unremarkable except as noted in Subjective Physical Exam Physical Exam: General: Alert, oriented. No acute distress Skin: No noted rashes or bruises Psych: Appropriate mood and affect Neuro:difficulty with movements in the bed HEENT: NC/AT Chest: Nontender to palpation. CV: RRR Resp: Breath sounds coarse bilaterally, no increased effort of breathing. Abdomen: Soft, nontender, nondistended. Extremities: edema in lower extremities bilaterally. Results & Data Results & Data Vital Signs (Past 12 Hours) Vital Signs Temp Pulse Pulse Resp BP BP Pulse Ox 05/09/23 08:00 05/09/23 07:58 37.2 C 71 20 164/75 H 94 05/09/23 07:35 59 L 20 97 05/09/23 03:38 38.3 C H 75 18 157/68 H 97 05/09/23 00:39 74 26 H 94 05/08/23 23:10 38.1 C H 71 20 148/72 H 98 O2 Del Method O2 Flow Rate FiO2 05/09/23 08:00 Nasal Cannula 4 05/09/23 07:58 Nasal Cannula 3 05/09/23 07:35 Nasal Cannula 4 05/09/23 03:38 Nasal Cannula 4.0 05/09/23 00:39 4 05/08/23 23:10 Nasal Cannula 4.0 Diagnostic Findings Chest X-Ray 05/08/23 12:10 XR chest 1V portable HISTORY: 87 years-old Female sob acute shortness of breath COMPARISON: 08/19/2022 TECHNIQUE: AP view of the chest FINDINGS: Cardiac silhouette is enlarged. Atherosclerosis of the aorta. Mild chronic interstitial coarsening. No pneumothorax, pleural effusion, airspace consolidation or pulmonary edema. Bones appear grossly intact. IMPRESSION: Cardiomegaly without acute process. ACT 112: Negative or not required by law. The above report was generated using voice recognition software. It may contain grammatical, syntax or spelling errors. Electronically signed by: Saqib Shore M.D. 05/08/2023 12:[address] 05/08/23 16:14 CT head/brain wo con CLINICAL HISTORY: ams Technique: Contiguous axial CT images of the head were acquired from the base of the skull to the vertex without intravenous contrast administration. Images were viewed in brain, subdural and bone windows. Automated dose lowering techniques and/or adjustment according to patient size were utilized for this exam. Comparison: None available at the time of this dictation. Findings: Areas of decreased attenuation are present in the periventricular and subcortical white matter bilaterally consistent with small vessel ischemic disease. Generalized cerebral atrophy with commensurate enlargement of the ventricles, sulci, and cisterns is also present. There is no acute intracranial hemorrhage or evidence of acute territorial infarction. No shift of the midline structures, mass effect, or extra-axial abnormalities are shown. Atherosclerotic calcifications are present in the intracranial segments of the internal carotid arteries. Imaged portions of the paranasal sinuses and mastoid air cells are clear. The orbits appear normal. There are no acute fractures of the calvaria or scalp swelling. Impression: No acute intracranial hemorrhage, no evidence of acute territorial infarction or other acute intracranial disease process. ACT 112: Negative or not required by law. Electronically signed by: Ricki Leonard M.D. 05/08/2023 5:13 PM
[2023-05-09] MEDS: PANTOprazole 40 MG TAB PO SCH (13:53)
[2023-05-09] MEDS: ASPIRIN 81 MG ECTAB PO SCH (13:53)
[2023-05-09] MEDS: CITALOPRAM 20 MG TAB PO SCH (13:54)
[2023-05-09] MEDS: METOPROLOL SUCC 50MG EXT REL TAB PO SCH (13:54)
[2023-05-09] MEDS: APIXABAN 5 MG TABLET PO SCH (13:54)
[2023-05-09] MEDS: DOCUSATE SODIUM/SENNA 50/8.6MG TAB PO SCH (13:55)
[2023-05-09] MEDS: LOSARTAN POTASSIUM 50 MG TAB PO SCH (13:55)
[2023-05-09] MEDS: PREGABALIN 50 MG CAP PO SCH (13:57)
[2023-05-09] MEDS: CALCIUM 600MG + VIT D 400 IU TAB PO SCH (21:56)
[2023-05-09] MEDS: ROSUVASTATIN CALCIUM 20 MG TAB PO SCH (21:57)
[2023-05-10 01:09] LABS: Basophils # (auto) 0.03 K/uL (0.00-0.20); Basophils % (auto) 0.3 %; Eosinophils # (auto) 0.01 K/uL (0.00-0.50); Eosinophils % (auto) 0.1 %; Hemoglobin 11.1 g/dl (12.0-16.0); Immature Granulocytes # (auto) 0.05 K/uL (0.01-0.20); Immature Granulocytes % (auto) 0.6 %; Lymphocytes # (auto) 1.55 K/uL (1.20-3.40); Lymphocytes % (auto) 17.9 %; Mean Corpuscular Hemoglobin 27.3 pg (25.0-34.0); Mean Corpuscular Hgb Conc 31.7 g/dL (32.0-36.0); Mean Corpuscular Volume 86.2 fL (80.0-100.0); Mean Platelet Volume 9.3 fL (9.4-12.4); Monocytes # (auto) 1.04 K/uL (0.11-0.59); Neutrophils % (auto) 69.1 %; Platelet Count 237 K/uL (130-400); RDW Coefficient of Variation 15.9 % (11.5-14.5); RDW Standard Deviation 49.8 fL (36.4-46.3); Red Blood Count 4.06 M/uL (4.20-5.40); White Blood Count 8.68 K/ul (4.8-10.8)
[2023-05-10 01:19] LABS: Calcium 8.2 mg/dl (8.6-10.3); Creatinine Clr Calc Pharmacy 39.1 ml/min; Est GFR (African American) 50.3 ml/min; Est GFR (Non-African American) 43.4 ml/min; Magnesium 1.7 mg/dl (1.7-2.4); Phosphorus 3.3 mg/dl (2.5-4.9); Potassium 3.4 mmol/L (3.5-5.1)
[2023-05-10] MEDS: ACETAMINOPHEN 325 MG TAB PO PRN (01:31)
[2023-05-10] MEDS: ALBUMIN 25% 25 GM/100 ML VIAL IV ONE ×2 (01:31→06:15)
--- NOTE | 2023-05-10 06:08 | Communication Note ---
Date of Service: May 10, 2023 Fever last night of 30.3 as per RN. No new cough symptoms; no UTI, or diarrhea symptoms as per RN. Serum creatinine 1.13 from 1.04 from 0.9. AP Fever Possible dehydration with increasing creatinine IV albumin Hold diuretic for now
[2023-05-10] MEDS: POTASSIUM CHLORIDE CRTAB 20 MEQ TABCR PO STA (06:10)
[2023-05-10] MEDS: FERROUS SULFATE 325 MG TAB PO SCH (09:26)
[2023-05-10] MEDS: CEFDINIR 300 MG CAP PO SCH (12:33)
--- NOTE | 2023-05-10 20:33 | Hospitalist Progress Note ---
Date of Service May 10, 2023 Assessment & Plan (1) Acute respiratory failure with hypoxia and hypercapnia: (2) Acute on chronic heart failure with preserved ejection fraction (HFpEF): (3) URI (upper respiratory infection): (4) Metabolic encephalopathy: (5) Paroxysmal atrial fibrillation: (6) Hypertension: (7) Anxiety: (8) GERD (gastroesophageal reflux disease): Plan Patient is 87 year old female with PMH HTN, HLD, PAF, anticoagulated on Eliquis, anxiety, depression, GERD who presented to ER with c/o cough x several days and SOB. Acute respiratory failure with hypoxia and hypercapnia Pt presenting to the ED with an increased oxygen requirement, requiring bipap Likely in setting of human metapneumovirus Also underlying CHF Possible obesity hypoventilation syndrome Bipap/oxygen supplementation as needed, wean as tolerated Duonebs Continue to monitor URI Viral Infection, Human Metapneumovirus Biofire positive for human metapneumovirus Chest XRAY with no noted pneumonia Procalcitonin negative Was started on empiric doxycycline and rocephin Duonebs Supportive care Acute on chronic heart failure with preserved ejection fraction (HFpEF) BNP elevated at 327 Chest xray noting cardiomegaly EKG with NSR Echo noting Grade II diastolic failure, EF 55-60%, LVH IV Lasix 40mg daily (held overnight on 05/08), will resume on 05/09 Ulrich for accurate ins and outs, daily weights Weight improving Cardiology consult in the AM for further outpatient recs Underlying obesity hypoventilation syndrome Uncertain diagnosis Outpt pulmonary testing Acute Metabolic Encephalopathy Pt became confused in the ED VBG with noted pH 7.35, CO2 elevated at 61, HCO3 of [address] with no acute abnormality UA suggestive of infection, urine cx with no significant growth Blood Cx with NGTD Likely in setting of hypercapnia, UTI Pt started on bipap, wean as tolerated Treated with Rocephin as above, currently on cefdinir and doxycycline Held home sedating agents-alprazolam, pregabalin Pt's mentation currently improving, meds above resumed Continue to monitor UTI UA suggestive of infection Urine cx with no significant growth On rocephin above (day 3), transitioned to po cefdinir Hypertensive Urgency BP significantly elevated on admission Had nitropaste and BP improved significantly Continue home metoprolol and losartan Continue to monitor BP Anemia Hgb baseline of 10-11 Anemia workup with iron panel, ferritin, b12 and folate levels Continue to monitor Elevated liver enzymes T bili elevated at 1.2 Pt currently with RLQ pain Consider imaging with liver US Monitor LFTs with AM labs Fever Pt with fever overnight on 05/08 Infectious workup as above No noted diarrhea Has been on rocephin and doxycycline Continue with po cefdinir and doxycycline Continue to monitor fever curve Hyperglycemia Noted elevated glucose levels AM hgba1c pending Consider ISS based on levels Paroxysmal atrial fibrillation On metoprolol Chronically anticoagulated on Eliquis Current sinus rhythm Continue to monitor Anxiety On citalopram at home, continue Held Xanax with AMS, has since been resumed GERD (gastroesophageal reflux disease) On ppi, continue CODE STATUS: DNR/DNI Diet: HH DVT Prophylaxis: Eliquis Dispo: PT/OT ordered DNR/DNI as per prior admissions and per discussion with patient's emergency contact Sol Cloud Follows with Jc Del Rio PA-C for routine care Admission and Anticipated Discharge Date Admission Date: May 08, 2023 Subjective Pt was seen laying in bed today. Much more alert and interactive Denies acute concerns Asking about going home. Pt with fever overnight. Physical Exam Physical Exam: General: Alert, oriented. No acute distress Skin: No noted rashes or bruises Psych: Appropriate mood and affect Neuro:difficulty with movements in the bed HEENT: NC/AT Chest: Nontender to palpation. CV: RRR Resp: Breath sounds coarse bilaterally, no increased effort of breathing. Abdomen: Soft, nontender, nondistended. Extremities: edema in lower extremities bilaterally. Results & Data Results & Data Vital Signs (Past 12 Hours) Vital Signs Temp Pulse Resp BP Pulse Ox O2 Del Method O2 Flow Rate 05/10/23 14:58 77 20 94 Nasal Cannula 2 05/10/23 14:51 37.2 C 83 17 143/74 H 95 Nasal Cannula 2.0 05/10/23 11:45 79 20 95 Nasal Cannula 2 05/10/23 10:53 36.9 C 85 18 152/72 H 94 Nasal Cannula 05/10/23 08:00 Nasal Cannula 4 05/10/23 07:46 78 20 98 Nasal Cannula 3 05/10/23 07:26 37.0 C 72 20 171/79 H 96 Nasal Cannula 05/10/23 04:08 37.0 C 72 20 117/69 94 Nasal Cannula 3
[2023-05-10] MEDS: ALPRAZolam 0.5 MG TABLET PO PRN (21:06)
[2023-05-11 06:29] LABS: Hematocrit (blood only) 34.1 % (37.0-47.0); Hemoglobin 10.7 g/dl (12.0-16.0); Mean Corpuscular Hemoglobin 27.3 pg (25.0-34.0); Mean Corpuscular Hgb Conc 31.4 g/dL (32.0-36.0); Mean Platelet Volume 9.3 fL (9.4-12.4); Platelet Count 227 K/uL (130-400); RDW Coefficient of Variation 15.9 % (11.5-14.5); RDW Standard Deviation 50.3 fL (36.4-46.3); Red Blood Count 3.92 M/uL (4.20-5.40); White Blood Count 11.06 K/ul (4.8-10.8)
[2023-05-11 06:35] LABS: Albumin Globulin Ratio 1.4 (0.9-2); BUN Creatinine Ratio 24.2 (10-20); Bilirubin,Total 1.1 mg/dl (0.2-1.0); Calcium 8.4 mg/dl (8.6-10.3); Creatinine Clr Calc Pharmacy 44.8 ml/min; Est GFR (Non-African American) 50.9 ml/min; Globulin 2.8 gm/dl (2.5-4.0); Magnesium 1.9 mg/dl (1.7-2.4); Phosphorus 2.4 mg/dl (2.5-4.9); Potassium 3.5 mmol/L (3.5-5.1); Total Protein 6.8 gm/dl (6.0-8.3)
[2023-05-11 06:54] LABS: Ferritin 208.4 ng/ml (8-388)
[2023-05-11 07:04] LABS: Folate (Folic Acid),Ser orPlas 15.47 ng/ml (>5.38)
[2023-05-11 07:11] LABS: Estimated Average Glucose 128 mg/dl; Hemoglobin A1C 6.1 % (4.5-5.6)
[2023-05-11] MEDS ORDERED: POTASSIUM PHOS 3 MMOL/1 ML INFUSION IV STA (09:11)
[2023-05-11] MEDS: POTASSIUM PHOSPHATE 15 MMOL in SODIUM CHLORIDE 0.9% 250 ML IV ONE (09:54)
[2023-05-11] MEDS: IRON SUCROSE 200 MG in 0.9 % SODIUM CHLORIDE 100 ML IV ONE (09:54)
--- NOTE | 2023-05-11 13:46 | Cardiology Consultation ---
Date of Consultation May 11, 2023 Assessment & Plan (1) Acute on chronic heart failure with preserved ejection fraction (HFpEF): Telemetry reveals sinus rhythm in the 80s. Would consider transition from furosemide 40 mg IV daily to 40 mg by mouth daily on 05/12/23. Continue Eliquis 5 mg BID for stroke prophylaxis. Continue losartan 100 mg daily, metoprolol succinate 50 mg daily. Continue rosuvastatin 20 mg daily. History of Present Illness Attending Physician: Roxana Chacon MD History of Present Illness Suzette Patricia in an 87 year old female seen in cardiology consultation per the request of Dr Chacon for the evaluation of congestive heart failure. Patient is a resident of [facility] in [place], [place]. She was admitted via the ED on 05/08/23 with several days of worsening shortness of breath. Patient unable to provide additional subjective history due to cognitive impairment but states her shortness of breath is improved at present. She tested positive for human metapneumovirus on 05/08/2023. She has been treated with supportive care as well as a course of doxycycline which has been transitioned to oral cefdinir as of 05/10/2023. Patient had been felt to have superimposed volume overload on admission and has been receiving furosemide 40 mg IV daily. Past medical history is notable for hypertension, dyslipidemia, and paroxysmal a trial fibrillation for which patient is on Eliquis as an outpatient. Allergies Allergy/AdvReac Type Severity Reaction Status Date / Time aspirin AdvReac Unknown GI ISSUES Verified 05/08/23 17:01 Home Medications Medication Instructions Recorded Confirmed Type acetaminophen 500 mg tablet 1,000 mg (2 x 500 mg) PO Q8H PRN 08/25/22 05/08/23 Rx (Tylenol Extra Strength) fever or pain #90 tabs alprazolam 0.5 mg tablet 0.5 mg PO BID PRN Anxiety #10 tabs 08/25/22 05/08/23 Rx apixaban 5 mg tablet (Eliquis) 5 mg PO BID #60 tabs 08/25/22 05/08/23 Rx coenzyme Q10 100 mg capsule 100 mg PO DAILY #30 caps 08/25/22 05/08/23 Rx (CoQ-10) furosemide 40 mg tablet 40 mg PO Q2D #30 tabs 08/25/22 05/08/23 Rx metoprolol succinate 50 mg 50 mg PO DAILY #30 tabs 08/25/22 05/08/23 Rx tablet,extended release 24 hr omeprazole 20 mg capsule,delayed 20 mg PO DAILY #30 caps 08/25/22 05/08/23 Rx release sennosides 8.6 mg-docusate sodium 1 tab PO QAM #30 tabs 08/25/22 05/08/23 Rx 50 mg tablet (Senokot-S) aspirin 81 mg tablet,delayed 81 mg PO DAILY 05/08/23 05/08/23 History release calcium carbonate 600 mg-vitamin 1 tab PO BID 05/08/23 05/08/23 History D3 10 mcg (400 unit) tablet (Calcium 600 + D(3)) citalopram 20 mg tablet 20 mg PO DAILY 05/08/23 05/08/23 History clonidine HCl 0.1 mg tablet 0.1 mg PO DAILY PRN SBP>170 or 05/08/23 05/08/23 History DBP>100 dextromethorphan HBr 30 mg/5 mL 60 mg PO Q12 PRN Cough 05/08/23 05/08/23 History oral liquid ferrous sulfate 325 mg (65 mg 325 mg PO DAILY 05/08/23 05/08/23 History iron) tablet guaifenesin 600 mg tablet, 600 mg PO Q12H PRN Congestion 05/08/23 05/08/23 History extended release 12 hr (Mucinex) ibuprofen 200 mg tablet 200 - 400 mg PO Q6H PRN Fever Or 05/08/23 05/08/23 History Pain losartan 100 mg tablet 100 mg PO DAILY 05/08/23 05/08/23 History nystatin 100,000 unit/gram topical 1 applic topical TID PRN 05/08/23 05/08/23 History powder (Nystop) rash/irritation polyethylene glycol 3350 17 gram 17 g PO QAM PRN Constipation 05/08/23 05/08/23 History oral powder packet (Miralax) pregabalin 50 mg capsule 50 mg PO BID 05/08/23 05/08/23 History rosuvastatin 20 mg tablet 20 mg PO HS 05/08/23 05/08/23 History Patient History Medical History Hypokalemia Paroxysmal atrial fibrillation CHF (congestive heart failure) TIA (transient ischemic attack) Occlusion of left vertebral artery Hypertension GERD (gastroesophageal reflux disease) Hypertension Surgical History History of appendectomy History of cholecystectomy History of cataract surgery History of hysterectomy History of total knee replacement x2 Family History Other Cancer Social History Smoking Status: Never smoker Second Hand Exposure: No; Do You Dip or Chew Tobacco: No; Hx Alcohol Use: No Hx Substance Use: No Preferred Language: Cypriot Communication Ability: Effective Chemical Preparer Required: No Beliefs That Will Affect Care: None marital status: / Current Living Situation: Long Term Current Living Situation Comment: Lives alone w/ family friend that performs chores/runs errands Other Information That Helps Us Care for You: No Feels Safe at Home: Yes Safety Concerns: Feels Safe At This Time Assistive Devices: Wheelchair Review of Systems Review of Systems: Unobtainable due to cognitive status Physical Exam Constitutional: no acute distress Respiratory: + retractions; no respiratory distress, no cough and not tachypneic Auscultation: + diminished lung sounds; no crackles, no rales and no wheezes Gastrointestinal (Abdomen): normal bowel sounds, soft, nontender, no hepatosplenomegaly Neurologic: PERRL, EOMI, accommodation nl, no face palsy, no dysarthria Results & Data Vital Signs (Past 12 Hours) Vital Signs Temp Pulse Pulse Resp BP Pulse Ox O2 Del Method 05/11/23 11:00 36.6 C 76 16 133/68 97 Nasal Cannula 05/11/23 10:58 22 94 Nasal Cannula 05/11/23 10:37 Nasal Cannula 05/11/23 08:02 78 20 96 Nasal Cannula 05/11/23 08:00 72 18 145/77 H 97 Nasal Cannula 05/11/23 07:51 72 05/11/23 02:40 37.0 C 74 16 151/71 H 94 Nasal Cannula O2 Flow Rate 05/11/23 11:00 2 05/11/23 10:58 2 05/11/23 10:37 2 05/11/23 08:02 2 05/11/23 08:00 05/11/23 07:51 05/11/23 02:40 2 Laboratory Results Cardiac Enzymes 05/11/23 Range/Units 05:55 AST 15 (13-39) U/L CBC 05/11/23 Range/Units 05:55 WBC 11.06 H (4.8-10.8) K/ul RBC 3.92 L (4.20-5.40) M/uL Hgb 10.7 L (12.0-16.0) g/dl Hct 34.1 L (37.0-47.0) % Plt Count 227 (130-400) K/uL Comprehensive Metabolic Panel 05/11/23 Range/Units 05:55 Sodium 138 (136-145) mmol/L Potassium 3.5 (3.5-5.1) mmol/L Chloride 100 (98-107) mmol/L Carbon Dioxide 29 (21-32) mmol/L BUN 24 H (6-23) mg/dl Creatinine 0.99 (0.6-1.2) mg/dl Glucose 103 H (70-99(Fasting)) mg/dl Calcium 8.4 L (8.6-10.3) mg/dl AST 15 (13-39) U/L ALT 6 L (7-52) U/L Alkaline Phosphatase 51 (34-104) U/L Total Protein 6.8 (6.0-8.3) gm/dl Albumin 4.0 (3.4-5.0) gm/dl Diagnostic Findings EKG performed 05/08/2023 and interpret independently: Sinus rhythm at 65 bpm with poor R wave progression in anterior precordial leads. No significant repolarization abnormalities. Transthoracic echocardiogram performed 05/09/2023: Mild concentric left ventricular hypertrophy, normal left ventricular wall motion, LVEF normal in the range of 55-60% Grade II diastolic dysfunction Poorly visualized valvular anatomy without significant stenosis or regurgitation. Relatively unchanged compared to July,. Chest x-ray on presentation without significant residual edema per radiology report and per my personal interpretation.
[2023-05-11 15:11] LABS: INR 1.2 (0.9-1.1); Prothrombin Time 12.5 Seconds (9.0-12.0)
--- NOTE | 2023-05-11 18:03 | Hospitalist Progress Note ---
Date of Service May 11, 2023 Assessment & Plan (1) Acute respiratory failure with hypoxia and hypercapnia: (2) Acute on chronic heart failure with preserved ejection fraction (HFpEF): (3) URI (upper respiratory infection): (4) Metabolic encephalopathy: (5) Paroxysmal atrial fibrillation: (6) Hypertension: (7) Anxiety: (8) GERD (gastroesophageal reflux disease): Plan Patient is 87 year old female with PMH HTN, HLD, PAF, anticoagulated on Eliquis, anxiety, depression, GERD who presented to ER with c/o cough x several days and SOB. Acute respiratory failure with hypoxia and hypercapnia Pt presenting to the ED with an increased oxygen requirement, requiring bipap Likely in setting of human metapneumovirus Also underlying CHF Possible obesity hypoventilation syndrome Bipap/oxygen supplementation as needed, wean as tolerated Duonebs Continue to monitor URI Viral Infection, Human Metapneumovirus Biofire positive for human metapneumovirus Chest XRAY with no noted pneumonia Procalcitonin negative Was started on empiric doxycycline and rocephin Duonebs Supportive care Acute on chronic heart failure with preserved ejection fraction (HFpEF) BNP elevated at 327 Chest xray noting cardiomegaly EKG with NSR Echo noting Grade II diastolic failure, EF 55-60%, LVH IV Lasix 40mg daily (held overnight on 05/08), will resume on 05/09 Ulrich for accurate ins and outs, daily weights Weight improving Cardiology consult in the AM for further outpatient recs -transition to po lasix 40mg in AM -cont met succ 50mg BID -cont losartan 100mg Underlying obesity hypoventilation syndrome Uncertain diagnosis Outpt pulmonary testing Acute Metabolic Encephalopathy Pt became confused in the ED VBG with noted pH 7.35, CO2 elevated at 61, HCO3 of [address] with no acute abnormality UA suggestive of infection, urine cx with no significant growth Blood Cx with NGTD Likely in setting of hypercapnia, UTI Pt started on bipap, wean as tolerated Treated with Rocephin as above, currently on cefdinir and doxycycline Held home sedating agents-alprazolam, pregabalin Pt's mentation currently improving, meds above resumed Continue to monitor UTI UA suggestive of infection Urine cx with no significant growth On rocephin above (day 3), transitioned to po cefdinir Hypertensive Urgency BP significantly elevated on admission Had nitropaste and BP improved significantly Continue home metoprolol and losartan Continue to monitor BP Anemia Hgb baseline of 10-11 Anemia workup with iron panel, ferritin, b12 and folate levels Continue to monitor Elevated liver enzymes T bili elevated at 1.2 Pt currently with RLQ pain Consider imaging with liver US Monitor LFTs with AM labs Fever Pt with fever overnight on 05/08 Infectious workup as above No noted diarrhea Has been on rocephin and doxycycline Continue with po cefdinir and doxycycline Continue to monitor fever curve Hyperglycemia Noted elevated glucose levels AM [id number] pending Consider ISS based on levels Paroxysmal atrial fibrillation On metoprolol Chronically anticoagulated on Eliquis Current sinus rhythm Continue to monitor Anxiety On citalopram at home, continue Held Xanax with AMS, has since been resumed GERD (gastroesophageal reflux disease) On ppi, continue CODE STATUS: DNR/DNI Diet: HH DVT Prophylaxis: Eliquis Dispo: PT/OT ordered DNR/DNI as per prior admissions and per discussion with patient's emergency contact Sol Cloud Follows with cJ Del Rio PA-C for routine care Admission and Anticipated Discharge Date Admission Date: May 08, 2023 Subjective Pt was seen laying in bed today. Much more alert and interactive Denies acute concerns, AAOx3 states that she lost her wallet and phone Pt with fever overnight. Review of Systems Review of Systems: All systems reviewed & are unremarkable except as noted in Subjective Physical Exam Physical Exam: General: Alert, oriented. No acute distress Skin: No noted rashes or bruises Psych: Appropriate mood and affect Neuro:difficulty with movements in the bed HEENT: NC/AT Chest: Nontender to palpation. CV: RRR Resp: Breath sounds coarse bilaterally, no increased effort of breathing. Abdomen: Soft, nontender, nondistended. Extremities: edema in lower extremities bilaterally. Results & Data Results & Data Vital Signs (Past 12 Hours) Vital Signs Temp Pulse Pulse Resp BP Pulse Ox Pulse Ox 05/11/23 15:45 36.7 C 83 18 145/75 H 98 05/11/23 15:40 82 05/11/23 15:36 73 20 92 05/11/23 14:34 94 05/11/23 11:00 36.6 C 76 16 133/68 97 05/11/23 10:58 22 94 05/11/23 10:37 05/11/23 08:02 78 20 96 05/11/23 08:00 72 18 145/77 H 97 05/11/23 07:51 72 Pulse Ox O2 Del Method O2 Flow Rate O2 Flow Rate O2 Flow Rate 05/11/23 15:45 Nasal Cannula 2 05/11/23 15:40 05/11/23 15:36 Nasal Cannula 2 05/11/23 14:34 94 2 2 05/11/23 11:00 Nasal Cannula 2 05/11/23 10:58 Nasal Cannula 2 05/11/23 10:37 Nasal Cannula 2 05/11/23 08:02 Nasal Cannula 2 05/11/23 08:00 Nasal Cannula 05/11/23 07:51
[2023-05-12 06:25] LABS: Hematocrit (blood only) 32.9 % (37.0-47.0); Hemoglobin 10.7 g/dl (12.0-16.0); Mean Corpuscular Hemoglobin 27.9 pg (25.0-34.0); Mean Corpuscular Hgb Conc 32.5 g/dL (32.0-36.0); Mean Corpuscular Volume 85.7 fL (80.0-100.0); Mean Platelet Volume 9.3 fL (9.4-12.4); Platelet Count 247 K/uL (130-400); RDW Standard Deviation 50.2 fL (36.4-46.3); Red Blood Count 3.84 M/uL (4.20-5.40); White Blood Count 10.33 K/ul (4.8-10.8)
[2023-05-12 06:39] LABS: Albumin Globulin Ratio 1.4 (0.9-2); Albumin Level 3.9 gm/dl (3.4-5.0); BUN Creatinine Ratio 28.1 (10-20); Bilirubin,Total 0.9 mg/dl (0.2-1.0); Calcium 8.4 mg/dl (8.6-10.3); Creatinine Clr Calc Pharmacy 36.7 ml/min; Est GFR (African American) 46.3 ml/min; Est GFR (Non-African American) 39.9 ml/min; Globulin 2.8 gm/dl (2.5-4.0); Magnesium 1.9 mg/dl (1.7-2.4); Phosphorus 3.6 mg/dl (2.5-4.9); Potassium 3.3 mmol/L (3.5-5.1); Total Protein 6.7 gm/dl (6.0-8.3)
[2023-05-12] MEDS: FUROSEMIDE 40 MG TAB PO SCH (08:46)
[2023-05-12] MEDS: POTASSIUM CHLORIDE CRTAB 20 MEQ TABCR PO STA (09:25)
[2023-05-12] MEDS: POTASSIUM CHLORIDE CRTAB 20 MEQ TABCR PO SCH (20:45)
[2023-05-13 03:51] LABS: Hematocrit (blood only) 34.1 % (37.0-47.0); Hemoglobin 10.6 g/dl (12.0-16.0); Mean Corpuscular Hemoglobin 27.2 pg (25.0-34.0); Mean Corpuscular Hgb Conc 31.1 g/dL (32.0-36.0); Mean Corpuscular Volume 87.7 fL (80.0-100.0); Mean Platelet Volume 9.4 fL (9.4-12.4); Platelet Count 258 K/uL (130-400); RDW Standard Deviation 51.6 fL (36.4-46.3); Red Blood Count 3.89 M/uL (4.20-5.40); White Blood Count 12.08 K/ul (4.8-10.8)
[2023-05-13 03:59] LABS: Albumin Globulin Ratio 1.3 (0.9-2); Albumin Level 3.7 gm/dl (3.4-5.0); BUN Creatinine Ratio 28.3 (10-20); Bilirubin,Total 0.8 mg/dl (0.2-1.0); Calcium 8.5 mg/dl (8.6-10.3); Creatinine Clr Calc Pharmacy 30.6 ml/min; Est GFR (African American) 37.2 ml/min; Est GFR (Non-African American) 32.1 ml/min; Globulin 2.9 gm/dl (2.5-4.0); Phosphorus 3.4 mg/dl (2.5-4.9); Potassium 4.1 mmol/L (3.5-5.1); Total Protein 6.6 gm/dl (6.0-8.3)
--- NOTE | 2023-05-13 05:07 | Hospitalist Progress Note ---
Date of Service May 12, 2023 Assessment & Plan (1) Acute respiratory failure with hypoxia and hypercapnia: (2) Acute on chronic heart failure with preserved ejection fraction (HFpEF): (3) URI (upper respiratory infection): (4) Metabolic encephalopathy: (5) Paroxysmal atrial fibrillation: (6) Hypertension: (7) Anxiety: (8) GERD (gastroesophageal reflux disease): Plan Patient is 87 year old female with PMH HTN, HLD, PAF, anticoagulated on Eliquis, anxiety, depression, GERD who presented to ER with c/o cough x several days and SOB. Acute respiratory failure with hypoxia and hypercapnia Pt presenting to the ED with an increased oxygen requirement, requiring bipap Likely in setting of human metapneumovirus Also underlying CHF Possible obesity hypoventilation syndrome Bipap/oxygen supplementation as needed, wean as tolerated Duonebs Continue to monitor Currently on NC 2L URI Viral Infection, Human Metapneumovirus Biofire positive for human metapneumovirus Chest XRAY with no noted pneumonia Procalcitonin negative Was started on empiric doxycycline and rocephin Duonebs Supportive care Acute on chronic heart failure with preserved ejection fraction (HFpEF) BNP elevated at 327 Chest xray noting cardiomegaly EKG with NSR Echo noting Grade II diastolic failure, EF 55-60%, LVH IV Lasix 40mg daily (held overnight on 05/08), will resume on 05/09 Ulrich for accurate ins and outs, daily weights Weight improving Cardiology consult in the AM for further outpatient recs -transition to po lasix 40mg -cont met succ 50mg BID -cont losartan 100mg Underlying obesity hypoventilation syndrome Uncertain diagnosis Outpt pulmonary testing Acute Metabolic Encephalopathy Pt became confused in the ED VBG with noted pH 7.35, CO2 elevated at 61, HCO3 of [address] with no acute abnormality UA suggestive of infection, urine cx with no significant growth Blood Cx with NGTD Likely in setting of hypercapnia, UTI Pt started on bipap, wean as tolerated Treated with Rocephin as above, currently on cefdinir and doxycycline Held home sedating agents-alprazolam, pregabalin Pt's mentation currently improving, meds above resumed Continue to monitor UTI UA suggestive of infection Urine cx with no significant growth On rocephin above (for 3 days), transitioned to po cefdinir for 4 more days of rx Hypertensive Urgency BP significantly elevated on admission Had nitropaste and BP improved significantly Continue home metoprolol and losartan Continue to monitor BP Anemia Hgb baseline of 10-11 Anemia workup with iron panel, ferritin, b12 and folate levels Continue to monitor Elevated liver enzymes T bili elevated at 1.2 Pt currently with RLQ pain Consider imaging with liver US Monitor LFTs with AM labs Fever Pt with fever overnight on 05/08 Infectious workup as above No noted diarrhea Has been on rocephin and doxycycline Continue with po cefdinir and doxycycline Continue to monitor fever curve Hyperglycemia Noted elevated glucose levels AM hgba1c pending Consider ISS based on levels Paroxysmal atrial fibrillation On metoprolol Chronically anticoagulated on Eliquis Current sinus rhythm Continue to monitor Anxiety On citalopram at home, continue Held Xanax with AMS, has since been resumed GERD (gastroesophageal reflux disease) On ppi, continue CODE STATUS: DNR/DNI Diet: HH DVT Prophylaxis: Eliquis Dispo: PT/OT ordered DNR/DNI as per prior admissions and per discussion with patient's emergency contact Sol Cloud Follows with Jc Del Rio PA-C for routine care Admission and Anticipated Discharge Date Admission Date: May 08, 2023 Subjective Pt was seen laying in bed on the fourth floor. Denied acute concerns. Discussion of getting back to her residence. Downgraded to med/surg with tele Review of Systems Review of Systems: All systems reviewed & are unremarkable except as noted in Subjective Physical Exam Physical Exam: General: Alert, oriented. No acute distress Skin: No noted rashes or bruises Psych: Appropriate mood and affect Neuro:difficulty with movements in the bed HEENT: NC/AT Chest: Nontender to palpation. CV: RRR Resp: Breath sounds coarse bilaterally, no increased effort of breathing. Abdomen: Soft, nontender, nondistended. Extremities: edema in lower extremities bilaterally. Results & Data Results & Data Vital Signs (Past 12 Hours) Vital Signs Temp Pulse Pulse Pulse Resp BP Pulse Ox 05/13/23 03:36 37.0 C 66 18 137/63 94 05/13/23 02:15 67 05/12/23 23:29 38.2 C H 68 18 149/69 H 96 05/12/23 19:55 05/12/23 19:34 37.6 C H 73 20 138/75 97 05/12/23 19:15 72 17 92 05/12/23 18:27 77 O2 Del Method O2 Flow Rate 05/13/23 03:36 Nasal Cannula 2 05/13/23 02:15 05/12/23 23:29 Nasal Cannula 2 05/12/23 19:55 Nasal Cannula 2 05/12/23 19:34 Nasal Cannula 2 05/12/23 19:15 Nasal Cannula 2 05/12/23 18:27
--- NOTE | 2023-05-13 10:01 | Hospitalist Progress Note ---
Date of Service May 13, 2023 Assessment & Plan (1) Acute respiratory failure with hypoxia and hypercapnia: (2) Acute on chronic heart failure with preserved ejection fraction (HFpEF): (3) URI (upper respiratory infection): (4) Metabolic encephalopathy: (5) Paroxysmal atrial fibrillation: (6) Hypertension: (7) Anxiety: (8) GERD (gastroesophageal reflux disease): Plan Patient is 87 year old female with PMH HTN, HLD, PAF, anticoagulated on Eliquis, anxiety, depression, GERD who presented to ER with c/o cough x several days and SOB. Acute respiratory failure with hypoxia and hypercapnia Pt presenting to the ED with an increased oxygen requirement, requiring bipap + human metapneumovirus Also underlying CHF Possible obesity hypoventilation syndrome Bipap/oxygen supplementation as needed, wean as tolerated Duonebs Continue to monitor Currently on NC 2L Obtain sputum cultx URI Viral Infection, Human Metapneumovirus Biofire positive for human metapneumovirus Chest XRAY with no noted pneumonia Procalcitonin negative Sputum cultx Was started on empiric doxycycline and rocephin -> cefdinir + doxy Duonebs Supportive care, guaifenesin, flutter valve, IS Acute on chronic heart failure with preserved ejection fraction (HFpEF) BNP elevated at 327 Chest xray noting cardiomegaly EKG with NSR Echo noting Grade II diastolic failure, EF 55-60%, LVH IV Lasix 40mg daily (held overnight on 05/08), resumed on 05/09 Ulrich for accurate ins and outs, daily weights Weight improving Cardiology consulted for further outpatient recs -transition to po lasix 40mg -cont met succ 50mg BID -cont losartan 100mg Underlying obesity hypoventilation syndrome Uncertain diagnosis Outpt pulmonary testing Acute Metabolic Encephalopathy Pt became confused in the ED VBG with noted pH 7.35, CO2 elevated at 61, HCO3 of [address] with no acute abnormality UA obtained, urine cx with no significant growth Blood Cx with NGTD Likely in setting of hypercapnia, ? UTI Pt started on bipap, wean as tolerated Treated with Rocephin as above, currently on cefdinir and doxycycline Held home sedating agents-alprazolam, pregabalin Pt's mentation currently improving, meds above resumed Continue to monitor ? UTI Urine cx with no significant growth On rocephin above (for 3 days), transitioned to po cefdinir, abx as above Hypertensive Urgency BP significantly elevated on admission Had nitropaste and BP improved significantly Continue home metoprolol and losartan Continue to monitor BP Anemia Hgb baseline of 10-11 Anemia workup with iron panel, ferritin, b12 and folate levels Continue to monitor Elevated liver enzymes T bili elevated at 1.2 Pt reported RLQ pain Considered imaging with liver US Monitor LFTs with AM labs Currently denies any abd. pain Fever Pt with fever overnight on 05/08 Infectious workup as above No noted diarrhea Has been on rocephin and doxycycline Continue with po cefdinir and doxycycline Continue to monitor fever curve Hyperglycemia Noted elevated glucose levels Current Hgba1c 6.1% Consider ISS based on levels Paroxysmal atrial fibrillation On metoprolol Chronically anticoagulated on Eliquis Current sinus rhythm Continue to monitor Anxiety On citalopram at home, continue Held Xanax with AMS, has since been resumed GERD (gastroesophageal reflux disease) On ppi, continue CODE STATUS: DNR/DNI Diet: HH DVT Prophylaxis: Eliquis Dispo: PT/OT ordered DNR/DNI as per prior admissions and per discussion with patient's emergency contact Sol Cloud Follows with Jc Del Rio PA-C for routine care Admission and Anticipated Discharge Date Admission Date: May 08, 2023 Subjective Pt seen in follow up of CHF , + human metapneumovirus Currently sitting up in bed , in NAD, receiving breathing treatment Says she feels better overall + cough Also reports constipation no chest pain, abd. pain, n/v Review of Systems Review of Systems: All systems reviewed & are unremarkable except as noted in Subjective Physical Exam Physical Exam: General: WD/WN elderly F in NAD HEENT: NC/AT Chest: Nontender to palpation. CV: RRR Resp: + rhonchi bilaterally, no wheezing noted, no increased effort of breathing. Abdomen: Soft, nontender, nondistended. Extremities: trace edema in lower extremities b/l. Skin: warm, dry Psych: Appropriate mood and affect Neuro: awake, alert, answers appropriately, speech fluent, no facial asymmetry, appears generally weak Results & Data Results & Data Vital Signs (Past 12 Hours) Vital Signs Temp Pulse Pulse Resp BP Pulse Ox O2 Del Method 05/13/23 08:21 37.0 C 75 19 173/77 H 94 Nasal Cannula 05/13/23 07:29 61 18 96 Nasal Cannula 05/13/23 07:17 59 L 05/13/23 03:36 37.0 C 66 18 137/63 94 Nasal Cannula 05/13/23 02:15 67 05/12/23 23:29 38.2 C H 68 18 149/69 H 96 Nasal Cannula O2 Flow Rate 05/13/23 08:21 2 05/13/23 07:29 2 05/13/23 07:17 05/13/23 03:36 2 05/13/23 02:15 05/12/23 23:29 2 Laboratory Results 05/13/23 Range/Units 02:50 WBC 12.08 H (4.8-10.8) K/ul RBC 3.89 L (4.20-5.40) M/uL Hgb 10.6 L (12.0-16.0) g/dl Hct 34.1 L (37.0-47.0) % MCV 87.7 (80.0-100.0) fL MCH 27.2 (25.0-34.0) pg MCHC 31.1 L (32.0-36.0) g/dL RDW Std Deviation 51.6 H (36.4-46.3) fL RDW Coeff of Lizy 16.0 H (11.5-14.5) % Plt Count 258 (130-400) K/uL MPV 9.4 (9.4-12.4) fL Sodium 139 (136-145) mmol/L Potassium 4.1 D (3.5-5.1) mmol/L Chloride 101 (98-107) mmol/L Carbon Dioxide 29 (21-32) mmol/L Anion Gap 9 (3-11) BUN 41 H (6-23) mg/dl Creatinine 1.45 H (0.6-1.2) mg/dl Est Cr Clr Drug Dosing 30.6 ml/min Est GFR ( Amer) 37.2 ml/min Est GFR (Non-Af Amer) 32.1 ml/min BUN/Creatinine Ratio 28.3 H (10-20) Glucose 104 H (70-99(Fasting)) mg/dl Calcium 8.5 L (8.6-10.3) mg/dl Phosphorus 3.4 (2.5-4.9) mg/dl Magnesium 2.0 (1.7-2.4) mg/dl Total Bilirubin 0.8 (0.2-1.0) mg/dl AST 15 (13-39) U/L ALT 8 (7-52) U/L Alkaline Phosphatase 48 (34-104) U/L Total Protein 6.6 (6.0-8.3) gm/dl Albumin 3.7 (3.4-5.0) gm/dl Globulin 2.9 (2.5-4.0) gm/dl Albumin/Globulin Ratio 1.3 (0.9-2) Medications Administered Current Inpatient Medications Acetaminophen (Acetaminophen 325 Mg Tab) 650 mg PO QID PRN PRN Reason: pain/fever Stop: 06/09/23 00:37 Last Admin: 05/10/23 21:06 Dose: 650 mg Albuterol (Albut/Ipratrop 3mg/0.5mg Neb 3 Ml Vial) 3 ml NEB QIDR COUNTS INCLUDE 234 BEDS AT THE [facility]; Protocol Stop: 06/07/23 20:00 Last Admin: 05/13/23 07:28 Dose: 3 ml Alprazolam (Alprazolam 0.5 Mg Tablet) 0.5 mg PO BID PRN PRN Reason: Anxiety Stop: 06/08/23 12:57 Last Admin: 05/11/23 20:57 Dose: 0.5 mg Apixaban (Apixaban 5 Mg Tablet) 5 mg PO BID COUNTS INCLUDE 234 BEDS AT THE [facility] Stop: 06/08/23 12:59 Last Admin: 05/13/23 07:52 Dose: 5 mg Aspirin (Aspirin 81 Mg Ectab) 81 mg PO DAILY COUNTS INCLUDE 234 BEDS AT THE [facility] Stop: 06/08/23 12:59 Last Admin: 05/13/23 07:51 Dose: 81 mg Calcium/Vitamin D (Calcium 600mg + Vit D 400 Iu Tab) 1 tab PO BID COUNTS INCLUDE 234 BEDS AT THE [facility] Stop: 06/08/23 20:59 Last Admin: 05/13/23 07:51 Dose: 1 tab Cefdinir (Cefdinir 300 Mg Cap) 300 mg PO BID COUNTS INCLUDE 234 BEDS AT THE [facility]; Protocol Stop: 05/17/23 11:44 Last Admin: 05/13/23 07:52 Dose: 300 mg Citalopram Hydrobromide (Citalopram 20 Mg Tab) 20 mg PO DAILY COUNTS INCLUDE 234 BEDS AT THE [facility] Stop: 06/08/23 12:59 Last Admin: 05/13/23 07:51 Dose: 20 mg Ferrous Sulfate (Ferrous Sulfate 325 Mg Tab) 325 mg PO DAILY SASHA Stop: 06/09/23 08:59 Last Admin: 05/13/23 07:52 Dose: 325 mg Furosemide (Furosemide 40 Mg Tab) 40 mg PO QAM SASHA Stop: 06/11/23 08:59 Last Admin: 05/13/23 07:52 Dose: 40 mg Doxycycline Hyclate 100 mg/ (Dextrose) 100 mls @ 50 mls/hr IV Q12H SASHA Stop: 05/20/23 09:59 Losartan Potassium (Losartan Potassium 50 Mg Tab) 100 mg PO DAILY SASHA Stop: 06/08/23 12:59 Last Admin: 05/13/23 07:51 Dose: 100 mg Metoprolol Succinate (Metoprolol Succ 50mg Ext Rel Tab) 50 mg PO DAILY SASHA Stop: 06/08/23 12:59 Last Admin: 05/13/23 07:52 Dose: 50 mg Ondansetron HCl (Ondansetron Inj 2 Mg/Ml 2 Ml Vial) 4 mg IV Q6H PRN PRN Reason: Nausea Stop: 06/07/23 20:00 Pantoprazole Sodium (Pantoprazole 40 Mg Tab) 40 mg PO DAILY SASHA Stop: 06/08/23 12:59 Last Admin: 05/13/23 07:52 Dose: 40 mg Polyethylene Glycol (Polyethylene (Miralax) 17 Gm Pack) 17 gm PO DAILY PRN PRN Reason: Constipation Stop: 06/07/23 20:00 Potassium Chloride (Potassium Chloride Crtab 20 Meq Tabcr) 20 meq PO BID SASHA Stop: 06/11/23 20:59 Last Admin: 05/13/23 07:56 Dose: 20 meq Pregabalin (Pregabalin 50 Mg Cap) 50 mg PO BID SASHA Stop: 06/08/23 12:59 Last Admin: 05/13/23 07:56 Dose: 50 mg Rosuvastatin Calcium (Rosuvastatin Calcium 20 Mg Tab) 20 mg PO HS COUNTS INCLUDE 234 BEDS AT THE [facility] Stop: 06/08/23 20:59 Last Admin: 05/12/23 20:43 Dose: 20 mg Senna/Docusate Sodium (Docusate Sodium/Senna 50/8.6mg Tab) 1 tab PO QAM SASHA Stop: 06/08/23 12:59 Last Admin: 05/13/23 07:52 Dose: 1 tab
[2023-05-13] MEDS: DOXYCYCLINE HYCLATE 100 MG in DEXTROSE 5% MINI-B 100 ML IV SCH (10:37)
[2023-05-13] MEDS: guaiFENesin 600 MG TABCR PO SCH (10:37)
[2023-05-13] MEDS: POLYETHYLENE (MIRALAX) 17 GM PACK PO SCH (11:54)
[2023-05-13] MEDS: SENNA 8.6 MG TAB PO SCH (11:54)
[2023-05-14 05:15] LABS: Hematocrit (blood only) 33.9 % (37.0-47.0); Hemoglobin 10.6 g/dl (12.0-16.0); Mean Corpuscular Hemoglobin 27.8 pg (25.0-34.0); Mean Corpuscular Hgb Conc 31.3 g/dL (32.0-36.0); Mean Platelet Volume 9.4 fL (9.4-12.4); Platelet Count 279 K/uL (130-400); RDW Standard Deviation 52.1 fL (36.4-46.3); Red Blood Count 3.81 M/uL (4.20-5.40); White Blood Count 11.15 K/ul (4.8-10.8)
[2023-05-14 05:39] LABS: Creatinine Clr Calc Pharmacy 31.7 ml/min; Est GFR (African American) 38.8 ml/min; Est GFR (Non-African American) 33.5 ml/min; Phosphorus 3.6 mg/dl (2.5-4.9); Potassium 4.1 mmol/L (3.5-5.1)
--- NOTE | 2023-05-14 05:44 | Hospitalist Progress Note ---
Date of Service May 14, 2023 Assessment & Plan (1) Acute respiratory failure with hypoxia and hypercapnia: (2) Acute on chronic heart failure with preserved ejection fraction (HFpEF): (3) URI (upper respiratory infection): (4) Metabolic encephalopathy: (5) Paroxysmal atrial fibrillation: (6) Hypertension: (7) Anxiety: (8) GERD (gastroesophageal reflux disease): Plan Patient is 87 year old female with PMH HTN, HLD, PAF, anticoagulated on Eliquis, anxiety, depression, GERD who presented to ER with c/o cough x several days and SOB. Acute respiratory failure with hypoxia and hypercapnia Pt presenting to the ED with an increased oxygen requirement, requiring bipap + human metapneumovirus Also underlying CHF Possible obesity hypoventilation syndrome Bipap/oxygen supplementation as needed, wean as tolerated Duonebs Continue to monitor Currently on NC 2L Obtain sputum cultx URI Viral Infection, Human Metapneumovirus Biofire positive for human metapneumovirus Chest XRAY with no noted pneumonia Procalcitonin negative Sputum cultx Was started on empiric doxycycline and rocephin -> cefdinir + doxy Duonebs Supportive care, guaifenesin, flutter valve, IS Acute on chronic heart failure with preserved ejection fraction (HFpEF) BNP elevated at 327 Chest xray noting cardiomegaly EKG with NSR Echo noting Grade II diastolic failure, EF 55-60%, LVH IV Lasix 40mg daily (held overnight on 05/08), resumed on 05/09 Ulrich for accurate ins and outs, daily weights Weight improving Cardiology consulted for further outpatient recs -transition to po lasix 40mg -cont met succ 50mg BID -cont losartan 100mg Underlying obesity hypoventilation syndrome Uncertain diagnosis Outpt pulmonary testing Acute Metabolic Encephalopathy Pt became confused in the ED VBG with noted pH 7.35, CO2 elevated at 61, HCO3 of [address] with no acute abnormality UA obtained, urine cx with no significant growth Blood Cx with NGTD Likely in setting of hypercapnia, ? UTI Pt started on bipap, wean as tolerated Treated with Rocephin as above, currently on cefdinir and doxycycline Held home sedating agents-alprazolam, pregabalin Pt's mentation currently improving, meds above resumed Continue to monitor ? UTI Urine cx with no significant growth On rocephin above (for 3 days), transitioned to po cefdinir, abx as above Hypertensive Urgency BP significantly elevated on admission Had nitropaste and BP improved significantly Continue home metoprolol and losartan Continue to monitor BP Anemia Hgb baseline of 10-11 Anemia workup with iron panel, ferritin, b12 and folate levels Continue to monitor Elevated liver enzymes T bili elevated at 1.2 -> down to normal Pt reported RLQ pain Considered imaging with liver US Currently denies any abd. pain Fever Pt with fever overnight on 05/08 Infectious workup as above No noted diarrhea Has been on rocephin and doxycycline Continue with po cefdinir and doxycycline Continue to monitor fever curve Hyperglycemia Noted elevated glucose levels Current Hgba1c 6.1% Consider ISS based on levels Paroxysmal atrial fibrillation On metoprolol Chronically anticoagulated on Eliquis Current sinus rhythm Continue to monitor Anxiety On citalopram at home, continue Held Xanax with AMS, has since been resumed GERD (gastroesophageal reflux disease) On ppi, continue CODE STATUS: DNR/DNI Diet: HH DVT Prophylaxis: Eliquis Dispo: PT/OT ordered DNR/DNI as per prior admissions and per discussion with patient's emergency contact Sol Cloud Follows with Jc Del Rio PA-C for routine care Admission and Anticipated Discharge Date Admission Date: May 08, 2023 Subjective Pt seen in follow up of CHF , + human metapneumovirus Currently sitting up in bed , in NAD Says she feels better overall + cough +constipation no chest pain, abd. pain, n/v Discussed w/ RN at the bedside - pt very weak has not been out of bed, will try to get her to chair Review of Systems Review of Systems: All systems reviewed & are unremarkable except as noted in Subjective Physical Exam Physical Exam: General: WD/WN elderly F in NAD HEENT: NC/AT Chest: Nontender to palpation. CV: RRR Resp: + rhonchi bilaterally, no increased effort of breathing. + cough Abdomen: Soft, nontender, nondistended. Extremities: trace edema in lower extremities b/l. Skin: warm, dry Psych: Appropriate mood and affect Neuro: awake, alert, answers appropriately, speech fluent, no facial asymmetry, appears generally weak Results & Data Results & Data Vital Signs (Past 12 Hours) Vital Signs Temp Pulse Resp BP Pulse Ox Pulse Ox O2 Del Method 05/14/23 03:44 37.1 C 64 16 142/70 H 93 Nasal Cannula 05/13/23 23:07 37.1 C 63 16 149/76 H 93 Nasal Cannula 05/13/23 22:52 Nasal Cannula 05/13/23 20:00 97 05/13/23 19:45 61 18 96 Nasal Cannula 05/13/23 19:36 37.3 C 61 18 149/72 H 91 Nasal Cannula O2 Del Method O2 Flow Rate O2 Flow Rate 05/14/23 03:44 2 05/13/23 23:07 2 05/13/23 22:52 2 05/13/23 20:00 Nasal Cannula 2 05/13/23 19:45 2 05/13/23 19:36 2 Laboratory Results 05/14/23 Range/Units 04:33 WBC 11.15 H (4.8-10.8) K/ul RBC 3.81 L (4.20-5.40) M/uL Hgb 10.6 L (12.0-16.0) g/dl Hct 33.9 L (37.0-47.0) % MCV 89.0 (80.0-100.0) fL MCH 27.8 (25.0-34.0) pg MCHC 31.3 L (32.0-36.0) g/dL RDW Std Deviation 52.1 H (36.4-46.3) fL RDW Coeff of Lizy 16.0 H (11.5-14.5) % Plt Count 279 (130-400) K/uL MPV 9.4 (9.4-12.4) fL Sodium 139 (136-145) mmol/L Potassium 4.1 (3.5-5.1) mmol/L Chloride 103 (98-107) mmol/L Carbon Dioxide 29 (21-32) mmol/L Anion Gap 7 (3-11) BUN 42 H (6-23) mg/dl Creatinine 1.40 H (0.6-1.2) mg/dl Est Cr Clr Drug Dosing 31.7 ml/min Est GFR ( Amer) 38.8 ml/min Est GFR (Non-Af Amer) 33.5 ml/min BUN/Creatinine Ratio 30.0 H (10-20) Glucose 92 (70-99(Fasting)) mg/dl Calcium 9.0 (8.6-10.3) mg/dl Phosphorus 3.6 (2.5-4.9) mg/dl Magnesium 2.0 (1.7-2.4) mg/dl Medications Administered Current Inpatient Medications Acetaminophen (Acetaminophen 325 Mg Tab) 650 mg PO QID PRN PRN Reason: pain/fever Stop: 06/09/23 00:37 Last Admin: 05/10/23 21:06 Dose: 650 mg Albuterol (Albut/Ipratrop 3mg/0.5mg Neb 3 Ml Vial) 3 ml NEB QIDR [facility]; Protocol Stop: 06/07/23 20:00 Last Admin: 05/14/23 07:22 Dose: 3 ml Alprazolam (Alprazolam 0.5 Mg Tablet) 0.5 mg PO BID PRN PRN Reason: Anxiety Stop: 06/08/23 12:57 Last Admin: 05/11/23 20:57 Dose: 0.5 mg Apixaban (Apixaban 5 Mg Tablet) 5 mg PO BID [facility] Stop: 06/08/23 12:59 Last Admin: 05/13/23 20:11 Dose: 5 mg Aspirin (Aspirin 81 Mg Ectab) 81 mg PO DAILY [facility] Stop: 06/08/23 12:59 Last Admin: 05/13/23 07:51 Dose: 81 mg Calcium/Vitamin D (Calcium 600mg + Vit D 400 Iu Tab) 1 tab PO BID [facility] Stop: 06/08/23 20:59 Last Admin: 05/13/23 20:12 Dose: 1 tab Cefdinir (Cefdinir 300 Mg Cap) 300 mg PO BID [facility]; Protocol Stop: 05/17/23 11:44 Last Admin: 05/13/23 20:12 Dose: 300 mg Citalopram Hydrobromide (Citalopram 20 Mg Tab) 20 mg PO DAILY [facility] Stop: 06/08/23 12:59 Last Admin: 05/13/23 07:51 Dose: 20 mg Ferrous Sulfate (Ferrous Sulfate 325 Mg Tab) 325 mg PO DAILY [facility] Stop: 06/09/23 08:59 Last Admin: 05/13/23 07:52 Dose: 325 mg Furosemide (Furosemide 40 Mg Tab) 40 mg PO QAM [facility] Stop: 06/11/23 08:59 Last Admin: 05/13/23 07:52 Dose: 40 mg Guaifenesin (Guaifenesin 600 Mg Tabcr) 600 mg PO Q12 [facility]HA Stop: 06/12/23 09:59 Last Admin: 05/13/23 20:12 Dose: 600 mg Doxycycline Hyclate 100 mg/ (Dextrose) 100 mls @ 50 mls/hr IV Q12H SASHA Stop: 05/20/23 09:59 Last Infusion: 05/13/23 23:48 Dose: Infused Losartan Potassium (Losartan Potassium 50 Mg Tab) 100 mg PO DAILY SASHA Stop: 06/08/23 12:59 Last Admin: 05/13/23 07:51 Dose: 100 mg Metoprolol Succinate (Metoprolol Succ 50mg Ext Rel Tab) 50 mg PO DAILY SASHA Stop: 06/08/23 12:59 Last Admin: 05/13/23 07:52 Dose: 50 mg Ondansetron HCl (Ondansetron Inj 2 Mg/Ml 2 Ml Vial) 4 mg IV Q6H PRN PRN Reason: Nausea Stop: 06/07/23 20:00 Pantoprazole Sodium (Pantoprazole 40 Mg Tab) 40 mg PO DAILY SASHA Stop: 06/08/23 12:59 Last Admin: 05/13/23 07:52 Dose: 40 mg Polyethylene Glycol (Polyethylene (Miralax) 17 Gm Pack) 17 gm PO DAILY [facility]HA Stop: 06/12/23 11:14 Last Admin: 05/13/23 11:54 Dose: 17 gm Potassium Chloride (Potassium Chloride Crtab 20 Meq Tabcr) 20 meq PO BID [facility]HA Stop: 06/11/23 20:59 Last Admin: 05/13/23 20:13 Dose: 20 meq Pregabalin (Pregabalin 50 Mg Cap) 50 mg PO BID SASHA Stop: 06/08/23 12:59 Last Admin: 05/13/23 20:10 Dose: 50 mg Rosuvastatin Calcium (Rosuvastatin Calcium 20 Mg Tab) 20 mg PO HS [facility]HA Stop: 06/08/23 20:59 Last Admin: 05/13/23 20:13 Dose: 20 mg Senna/Docusate Sodium (Docusate Sodium/Senna 50/8.6mg Tab) 1 tab PO QAM SASHA Stop: 06/08/23 12:59 Last Admin: 05/13/23 07:52 Dose: 1 tab Sennosides (Senna 8.6 Mg Tab) 8.6 mg PO QAM SASHA Stop: 06/12/23 11:14 Last Admin: 05/13/23 11:54 Dose: 8.6 mg
[2023-05-15 06:32] LABS: Hematocrit (blood only) 33.5 % (37.0-47.0); Hemoglobin 10.5 g/dl (12.0-16.0); Mean Corpuscular Hemoglobin 27.6 pg (25.0-34.0); Mean Corpuscular Hgb Conc 31.3 g/dL (32.0-36.0); Mean Corpuscular Volume 87.9 fL (80.0-100.0); Mean Platelet Volume 9.5 fL (9.4-12.4); Platelet Count 312 K/uL (130-400); RDW Coefficient of Variation 15.9 % (11.5-14.5); RDW Standard Deviation 51.2 fL (36.4-46.3); Red Blood Count 3.81 M/uL (4.20-5.40)
[2023-05-15 06:53] LABS: Calcium 9.1 mg/dl (8.6-10.3); Magnesium 2.1 mg/dl (1.7-2.4); Potassium 4.2 mmol/L (3.5-5.1)
[2023-05-15 06:59] LABS: BUN Creatinine Ratio 29.1 (10-20); Creatinine Clr Calc Pharmacy 28.7 ml/min; Est GFR (African American) 35.4 ml/min; Est GFR (Non-African American) 30.5 ml/min; Phosphorus 4.4 mg/dl (2.5-4.9)
[2023-05-15] MEDS ORDERED: ALBUT/IPRATROP 3MG/0.5MG NEB 3 ML VIAL NEB PRN (13:58)
--- NOTE | 2023-05-15 16:48 | Hospitalist Progress Note ---
Date of Service May 15, 2023 Assessment & Plan (1) Acute respiratory failure with hypoxia and hypercapnia: (2) Acute on chronic heart failure with preserved ejection fraction (HFpEF): (3) URI (upper respiratory infection): (4) Metabolic encephalopathy: (5) Paroxysmal atrial fibrillation: (6) Hypertension: (7) Anxiety: (8) GERD (gastroesophageal reflux disease): Plan Patient is 87 year old female with PMH HTN, HLD, PAF, anticoagulated on Eliquis, anxiety, depression, GERD who presented to ER with c/o cough x several days and SOB. Acute respiratory failure with hypoxia and hypercapnia Pt presenting to the ED with an increased oxygen requirement, requiring bipap + human metapneumovirus Also underlying CHF Possible obesity hypoventilation syndrome Bipap/oxygen supplementation as needed, wean as tolerated Duonebs prn Continue to monitor on NC 2L -> currently on RA Obtain sputum cultx URI Viral Infection, Human Metapneumovirus Biofire positive for human metapneumovirus Chest XRAY with no noted pneumonia Procalcitonin negative Sputum cultx Was started on empiric doxycycline and rocephin -> cefdinir + doxy Duonebs Supportive care, guaifenesin, flutter valve, IS Acute on chronic heart failure with preserved ejection fraction (HFpEF) BNP elevated at 327 Chest xray noting cardiomegaly EKG with NSR Echo noting Grade II diastolic failure, EF 55-60%, LVH IV Lasix 40mg daily (held overnight on 05/08), resumed on 05/09 Ulrich for accurate ins and outs, daily weights Weight improving Cardiology consulted for further outpatient recs -transition to po lasix 40mg -cont met succ 50mg BID -cont losartan 100mg Underlying obesity hypoventilation syndrome Uncertain diagnosis Outpt pulmonary testing Acute Metabolic Encephalopathy Pt became confused in the ED VBG with noted pH 7.35, CO2 elevated at 61, HCO3 of [address] with no acute abnormality UA obtained, urine cx with no significant growth Blood Cx with NGTD Likely in setting of hypercapnia, ? UTI Pt started on bipap, wean as tolerated Treated with Rocephin as above, currently on cefdinir and doxycycline Held home sedating agents-alprazolam, pregabalin Pt's mentation currently improving, meds above resumed Continue to monitor ? UTI Urine cx with no significant growth On rocephin above (for 3 days), transitioned to po cefdinir, abx as above Hypertensive Urgency BP significantly elevated on admission Had nitropaste and BP improved significantly Continue home metoprolol and losartan Continue to monitor BP Anemia Hgb baseline of 10-11 Anemia workup with iron panel, ferritin, b12 and folate levels Continue to monitor Elevated liver enzymes T bili elevated at 1.2 -> down to normal Pt reported RLQ pain Considered imaging with liver US Currently denies any abd. pain Fever Pt with fever overnight on 05/08 Infectious workup as above No noted diarrhea Has been on rocephin and doxycycline Continue with po cefdinir and doxycycline Continue to monitor fever curve Hyperglycemia Noted elevated glucose levels Current Hgba1c 6.1% Consider ISS based on levels Paroxysmal atrial fibrillation On metoprolol Chronically anticoagulated on Eliquis Current sinus rhythm Continue to monitor Anxiety On citalopram at home, continue Held Xanax with AMS, has since been resumed GERD (gastroesophageal reflux disease) On ppi, continue CODE STATUS: DNR/DNI Diet: HH DVT Prophylaxis: Eliquis Dispo: PT/OT ordered DNR/DNI as per prior admissions and per discussion with patient's emergency contact Sol Pedro Luis Follows with Jc Del Rio PA-C for routine care Admission and Anticipated Discharge Date Admission Date: May 08, 2023 Subjective Pt seen in follow up of CHF , + human metapneumovirus Currently sitting up in bed , in NAD Says she feels better overall + cough +constipation no chest pain, abd. pain, n/v Discussed w/ RN at the bedside - pt very weak has not been out of bed, will try to get her to chair Discussed with CM, possibly will discharge over the weekend Review of Systems Review of Systems: All systems reviewed & are unremarkable except as noted in Subjective Physical Exam Physical Exam: General: WD/WN elderly F in NAD HEENT: NC/AT Chest: Nontender to palpation. CV: RRR Resp: + rhonchi bilaterally, no increased effort of breathing. + cough Abdomen: Soft, nontender, nondistended. Extremities: trace edema in lower extremities b/l. Skin: warm, dry Psych: Appropriate mood and affect Neuro: awake, alert, answers appropriately, speech fluent, no facial asymmetry, appears generally weak Results & Data Results & Data Vital Signs (Past 12 Hours) Vital Signs Temp Pulse Pulse Resp BP Pulse Ox O2 Del Method 05/15/23 15:44 37 C 56 L 17 150/83 H 96 Room Air 05/15/23 11:38 36.6 C 69 18 135/64 92 Room Air 05/15/23 10:44 66 18 96 Room Air 05/15/23 10:35 Room Air 05/15/23 09:38 93 Room Air 05/15/23 09:00 67 05/15/23 07:32 36.9 C 52 L 18 151/63 H 99 Other 05/15/23 07:22 70 16 95 Nasal Cannula 05/15/23 07:00 51 L O2 Flow Rate 05/15/23 15:44 05/15/23 11:38 05/15/23 10:44 05/15/23 10:35 05/15/23 09:38 05/15/23 09:00 05/15/23 07:32 05/15/23 07:22 2 05/15/23 07:00 Laboratory Results 05/15/23 Range/Units 04:56 WBC 9.90 (4.8-10.8) K/ul RBC 3.81 L (4.20-5.40) M/uL Hgb 10.5 L (12.0-16.0) g/dl Hct 33.5 L (37.0-47.0) % MCV 87.9 (80.0-100.0) fL MCH 27.6 (25.0-34.0) pg MCHC 31.3 L (32.0-36.0) g/dL RDW Std Deviation 51.2 H (36.4-46.3) fL RDW Coeff of Lizy 15.9 H (11.5-14.5) % Plt Count 312 (130-400) K/uL MPV 9.5 (9.4-12.4) fL Sodium 138 (136-145) mmol/L Potassium 4.2 (3.5-5.1) mmol/L Chloride 102 (98-107) mmol/L Carbon Dioxide 29 (21-32) mmol/L Anion Gap 7 (3-11) BUN 44 H (6-23) mg/dl Creatinine 1.51 H (0.6-1.2) mg/dl Est Cr Clr Drug Dosing 28.7 ml/min Est GFR ( Amer) 35.4 ml/min Est GFR (Non-Af Amer) 30.5 ml/min BUN/Creatinine Ratio 29.1 H (10-20) Glucose 95 (70-99(Fasting)) mg/dl Calcium 9.1 (8.6-10.3) mg/dl Phosphorus 4.4 (2.5-4.9) mg/dl Magnesium 2.1 (1.7-2.4) mg/dl Medications Administered Current Inpatient Medications Acetaminophen (Acetaminophen 325 Mg Tab) 650 mg PO QID PRN PRN Reason: pain/fever Stop: 06/09/23 00:37 Last Admin: 05/14/23 20:14 Dose: 650 mg Albuterol (Albut/Ipratrop 3mg/0.5mg Neb 3 Ml Vial) 3 ml NEB QIDR PRN; Protocol PRN Reason: Shortness Of Breath Or Wheezing Stop: 06/07/23 20:00 Alprazolam (Alprazolam 0.5 Mg Tablet) 0.5 mg PO BID PRN PRN Reason: Anxiety Stop: 06/08/23 12:57 Last Admin: 05/11/23 20:57 Dose: 0.5 mg Apixaban (Apixaban 5 Mg Tablet) 5 mg PO BID [facility] Stop: 06/08/23 12:59 Last Admin: 05/15/23 09:03 Dose: 5 mg Aspirin (Aspirin 81 Mg Ectab) 81 mg PO DAILY [facility] Stop: 06/08/23 12:59 Last Admin: 05/15/23 09:04 Dose: 81 mg Calcium/Vitamin D (Calcium 600mg + Vit D 400 Iu Tab) 1 tab PO BID [facility] Stop: 06/08/23 20:59 Last Admin: 05/15/23 09:04 Dose: 1 tab Cefdinir (Cefdinir 300 Mg Cap) 300 mg PO BID [facility]; Protocol Stop: 05/17/23 11:44 Last Admin: 05/15/23 09:03 Dose: 300 mg Citalopram Hydrobromide (Citalopram 20 Mg Tab) 20 mg PO DAILY [facility] Stop: 06/08/23 12:59 Last Admin: 05/15/23 09:04 Dose: 20 mg Ferrous Sulfate (Ferrous Sulfate 325 Mg Tab) 325 mg PO DAILY [facility] Stop: 06/09/23 08:59 Last Admin: 05/15/23 09:03 Dose: 325 mg Furosemide (Furosemide 40 Mg Tab) 40 mg PO QAM [facility] Stop: 06/11/23 08:59 Last Admin: 05/15/23 09:04 Dose: 40 mg Guaifenesin (Guaifenesin 600 Mg Tabcr) 600 mg PO Q12 [facility] Stop: 06/12/23 09:59 Last Admin: 05/15/23 09:04 Dose: 600 mg Doxycycline Hyclate 100 mg/ (Dextrose) 100 mls @ 50 mls/hr IV Q12H [facility] Stop: 05/20/23 09:59 Last Infusion: 05/15/23 12:12 Dose: Infused Losartan Potassium (Losartan Potassium 50 Mg Tab) 100 mg PO DAILY [facility] Stop: 06/08/23 12:59 Last Admin: 05/15/23 09:04 Dose: 100 mg Metoprolol Succinate (Metoprolol Succ 50mg Ext Rel Tab) 50 mg PO DAILY [facility] Stop: 06/08/23 12:59 Last Admin: 05/15/23 09:04 Dose: 50 mg Ondansetron HCl (Ondansetron Inj 2 Mg/Ml 2 Ml Vial) 4 mg IV Q6H PRN PRN Reason: Nausea Stop: 06/07/23 20:00 Pantoprazole Sodium (Pantoprazole 40 Mg Tab) 40 mg PO DAILY [facility] Stop: 06/08/23 12:59 Last Admin: 05/15/23 09:04 Dose: 40 mg Polyethylene Glycol (Polyethylene (Miralax) 17 Gm Pack) 17 gm PO DAILY [facility] Stop: 06/12/23 11:14 Last Admin: 05/15/23 09:05 Dose: 17 gm Potassium Chloride (Potassium Chloride Crtab 20 Meq Tabcr) 20 meq PO BID [facility] Stop: 06/11/23 20:59 Last Admin: 05/15/23 09:09 Dose: 20 meq Pregabalin (Pregabalin 50 Mg Cap) 50 mg PO BID [facility] Stop: 06/08/23 12:59 Last Admin: 05/15/23 09:09 Dose: 50 mg Rosuvastatin Calcium (Rosuvastatin Calcium 20 Mg Tab) 20 mg PO HS [facility] Stop: 06/08/23 20:59 Last Admin: 05/14/23 20:14 Dose: 20 mg Senna/Docusate Sodium (Docusate Sodium/Senna 50/8.6mg Tab) 1 tab PO QAM [facility] Stop: 06/08/23 12:59 Last Admin: 05/15/23 14:14 Dose: 1 tab Sennosides (Senna 8.6 Mg Tab) [facility] [place] [facility]: 06/12/23 11:14 Last Admin: 05/15/23 09:04 Dose: 8.6 mg
[2023-05-16 07:19] LABS: Hematocrit (blood only) 36.2 % (37.0-47.0); Hemoglobin 11.4 g/dl (12.0-16.0); Mean Corpuscular Hemoglobin 27.1 pg (25.0-34.0); Mean Corpuscular Hgb Conc 31.5 g/dL (32.0-36.0); Mean Corpuscular Volume 86.2 fL (80.0-100.0); Mean Platelet Volume 9.3 fL (9.4-12.4); Platelet Count 326 K/uL (130-400); RDW Coefficient of Variation 15.9 % (11.5-14.5); RDW Standard Deviation 49.8 fL (36.4-46.3); White Blood Count 12.84 K/ul (4.8-10.8)
[2023-05-16 07:41] LABS: BUN Creatinine Ratio 32.9 (10-20); Creatinine Clr Calc Pharmacy 29.4 ml/min; Magnesium 2.1 mg/dl (1.7-2.4); Phosphorus 4.4 mg/dl (2.5-4.9); Potassium 4.7 mmol/L (3.5-5.1)
--- NOTE | 2023-05-16 08:04 | Hospitalist Progress Note ---
Date of Service May 16, 2023 Assessment & Plan (1) Acute respiratory failure with hypoxia and hypercapnia: (2) Acute on chronic heart failure with preserved ejection fraction (HFpEF): (3) URI (upper respiratory infection): (4) Metabolic encephalopathy: (5) Paroxysmal atrial fibrillation: (6) Hypertension: (7) Anxiety: (8) GERD (gastroesophageal reflux disease): Plan Patient is 87 year old female with PMH HTN, HLD, PAF, anticoagulated on Eliquis, anxiety, depression, GERD who presented to ER with c/o cough x several days and SOB. Acute respiratory failure with hypoxia and hypercapnia Pt presenting to the ED with an increased oxygen requirement, requiring bipap + human metapneumovirus Also underlying CHF Possible obesity hypoventilation syndrome Bipap/oxygen supplementation as needed, wean as tolerated Duonebs prn Continue to monitor on NC 2L -> currently on RA Obtain sputum cultx URI Viral Infection, Human Metapneumovirus Biofire positive for human metapneumovirus Chest XRAY with no noted pneumonia Procalcitonin negative Sputum cultx Was started on empiric doxycycline and rocephin -> cefdinir + doxy Duonebs Supportive care, guaifenesin, flutter valve, IS Acute on chronic heart failure with preserved ejection fraction (HFpEF) BNP elevated at 327 Chest xray noting cardiomegaly EKG with NSR Echo noting Grade II diastolic failure, EF 55-60%, LVH IV Lasix 40mg daily (held overnight on 05/08), resumed on 05/09 Ulrich for accurate ins and outs, daily weights Weight improving Cardiology consulted for further outpatient recs -transition to po lasix 40mg -cont met succ 50mg BID -cont losartan 100mg Underlying obesity hypoventilation syndrome Uncertain diagnosis Outpt pulmonary testing Acute Metabolic Encephalopathy Pt became confused in the ED VBG with noted pH 7.35, CO2 elevated at 61, HCO3 of [address] with no acute abnormality UA obtained, urine cx with no significant growth Blood Cx with NGTD Likely in setting of hypercapnia, ? UTI Pt started on bipap on admission Treated with Rocephin as above, currently on cefdinir and doxycycline Held home sedating agents-alprazolam, pregabalin Pt's mentation currently improved/ back to baseline, meds above resumed Continue to monitor ? UTI Urine cx with no significant growth On rocephin above (for 3 days), transitioned to po cefdinir, abx as above Hypertensive Urgency BP significantly elevated on admission Had nitropaste and BP improved significantly Continue home metoprolol and losartan Continue to monitor BP Anemia Hgb baseline of 10-11 Anemia workup with iron panel, ferritin, b12 and folate levels Continue to monitor Elevated liver enzymes T bili elevated at 1.2 -> down to normal Pt reported RLQ pain Considered imaging with liver US Currently denies any abd. pain Fever Pt with fever overnight on 05/08 Infectious workup as above No noted diarrhea Has been on rocephin and doxycycline Continue with po cefdinir and doxycycline Continue to monitor fever curve Hyperglycemia Noted elevated glucose levels Current Hgba1c 6.1% Consider ISS based on levels Paroxysmal atrial fibrillation On metoprolol Chronically anticoagulated on Eliquis Current sinus rhythm Continue to monitor Anxiety On citalopram at home, continue Held Xanax with AMS, has since been resumed GERD (gastroesophageal reflux disease) On ppi, continue CODE STATUS: DNR/DNI Diet: HH DVT Prophylaxis: Eliquis Dispo: PT/OT ordered DNR/DNI as per prior admissions and per discussion with patient's emergency contact Sol Cloud Follows with Jc Del Rio PA-C for routine care Admission and Anticipated Discharge Date Admission Date: May 08, 2023 Subjective Pt seen in follow up of CHF , + human metapneumovirus Currently sitting up in bed , in NAD Says she feels better overall + cough +constipation no chest pain, abd. pain, n/v pt is very weak continues with cough but has difficult time coughing anything up, + rhonchi on exam -> will repeat CXR Review of Systems Review of Systems: All systems reviewed & are unremarkable except as noted in Subjective Physical Exam Physical Exam: General: WD/WN elderly F in NAD HEENT: NC/AT Chest: Nontender to palpation. CV: RRR Resp: + rhonchi bilaterally, no increased effort of breathing. + cough Abdomen: Soft, nontender, nondistended. Extremities: trace edema in lower extremities b/l. Skin: warm, dry Psych: Appropriate mood and affect Neuro: awake, alert, answers appropriately, speech fluent, no facial asymmetry, appears generally weak Results & Data Results & Data Vital Signs (Past 12 Hours) Vital Signs Temp Pulse Pulse Resp BP Pulse Ox O2 Del Method 05/16/23 07:39 50 L 05/16/23 07:30 36.9 C 50 L 18 171/81 H 93 Room Air 05/16/23 04:36 37.1 C 54 L 18 186/71 H 95 Room Air 05/16/23 03:17 54 L 05/15/23 23:34 37.3 C 55 L 18 153/76 H 94 Room Air 05/15/23 20:47 Room Air 05/15/23 20:06 37.4 C 63 18 164/69 H 94 Room Air Laboratory Results 05/16/23 Range/Units 06:47 WBC 12.84 H (4.8-10.8) K/ul RBC 4.20 (4.20-5.40) M/uL Hgb 11.4 L (12.0-16.0) g/dl Hct 36.2 L (37.0-47.0) % MCV 86.2 (80.0-100.0) fL MCH 27.1 (25.0-34.0) pg MCHC 31.5 L (32.0-36.0) g/dL RDW Std Deviation 49.8 H (36.4-46.3) fL RDW Coeff of Lizy 15.9 H (11.5-14.5) % Plt Count 326 (130-400) K/uL MPV 9.3 L (9.4-12.4) fL Sodium 137 (136-145) mmol/L Potassium 4.7 (3.5-5.1) mmol/L Chloride 104 (98-107) mmol/L Carbon Dioxide 25 (21-32) mmol/L Anion Gap 8 (3-11) BUN 49 H (6-23) mg/dl Creatinine 1.49 H (0.6-1.2) mg/dl Est Cr Clr Drug Dosing 29.4 ml/min Est GFR ( Amer) 36.0 ml/min Est GFR (Non-Af Amer) 31.0 ml/min BUN/Creatinine Ratio 32.9 H (10-20) Glucose 109 H (70-99(Fasting)) mg/dl Calcium 10.0 (8.6-10.3) mg/dl Phosphorus 4.4 (2.5-4.9) mg/dl Magnesium 2.1 (1.7-2.4) mg/dl Medications Administered Current Inpatient Medications Acetaminophen (Acetaminophen 325 Mg Tab) 650 mg PO QID PRN PRN Reason: pain/fever Stop: 06/09/23 00:37 Last Admin: 05/14/23 20:14 Dose: 650 mg Albuterol (Albut/Ipratrop 3mg/0.5mg Neb 3 Ml Vial) 3 ml NEB QIDR PRN; Protocol PRN Reason: Shortness Of Breath Or Wheezing Stop: 06/07/23 20:00 Alprazolam (Alprazolam 0.5 Mg Tablet) 0.5 mg PO BID PRN PRN Reason: Anxiety Stop: 06/08/23 12:57 Last Admin: 05/11/23 20:57 Dose: 0.5 mg Apixaban (Apixaban 5 Mg Tablet) 5 mg PO BID [facility] Stop: 06/08/23 12:59 Last Admin: 05/15/23 20:21 Dose: 5 mg Aspirin (Aspirin 81 Mg Ectab) 81 mg PO DAILY [facility] Stop: 06/08/23 12:59 Last Admin: 05/15/23 09:04 Dose: 81 mg Calcium/Vitamin D (Calcium 600mg + Vit D 400 Iu Tab) 1 tab PO BID [facility] Stop: 06/08/23 20:59 Last Admin: 05/15/23 20:21 Dose: 1 tab Cefdinir (Cefdinir 300 Mg Cap) 300 mg PO BID [facility]; Protocol Stop: 05/17/23 11:44 Last Admin: 05/15/23 20:21 Dose: 300 mg Citalopram Hydrobromide (Citalopram 20 Mg Tab) 20 mg PO DAILY [facility] Stop: 06/08/23 12:59 Last Admin: 05/15/23 09:04 Dose: 20 mg Ferrous Sulfate (Ferrous Sulfate 325 Mg Tab) 325 mg PO DAILY [facility] Stop: 06/09/23 08:59 Last Admin: 05/15/23 09:03 Dose: 325 mg Furosemide (Furosemide 40 Mg Tab) 40 mg PO QAM [facility] Stop: 06/11/23 08:59 Last Admin: 05/15/23 09:04 Dose: 40 mg Guaifenesin (Guaifenesin 600 Mg Tabcr) 600 mg PO Q12 [facility] Stop: 06/12/23 09:59 Last Admin: 05/15/23 20:21 Dose: 600 mg Doxycycline Hyclate 100 mg/ (Dextrose) 100 mls @ 50 mls/hr IV Q12H [facility] Stop: 05/20/23 09:59 Last Infusion: 05/15/23 23:12 Dose: Infused Losartan Potassium (Losartan Potassium 50 Mg Tab) 100 mg PO DAILY [facility] Stop: 06/08/23 12:59 Last Admin: 05/15/23 09:04 Dose: 100 mg Metoprolol Succinate (Metoprolol Succ 50mg Ext Rel Tab) 50 mg PO DAILY [facility] Stop: 06/08/23 12:59 Last Admin: 05/15/23 09:04 Dose: 50 mg Ondansetron HCl (Ondansetron Inj 2 Mg/Ml 2 Ml Vial) 4 mg IV Q6H PRN PRN Reason: Nausea Stop: 06/07/23 20:00 Pantoprazole Sodium (Pantoprazole 40 Mg Tab) 40 mg PO DAILY [facility] Stop: 06/08/23 12:59 Last Admin: 05/15/23 09:04 Dose: 40 mg Polyethylene Glycol (Polyethylene (Miralax) 17 Gm Pack) 17 gm PO DAILY [facility] Stop: 06/12/23 11:14 Last Admin: 05/15/23 09:05 Dose: 17 gm Potassium Chloride (Potassium Chloride Crtab 20 Meq Tabcr) 20 meq PO BID [facility] Stop: 06/11/23 20:59 Last Admin: 05/15/23 20:21 Dose: 20 meq Pregabalin (Pregabalin 50 Mg Cap) 50 mg PO BID [facility] Stop: 06/08/23 12:59 Last Admin: 05/15/23 20:21 Dose: 50 mg Rosuvastatin Calcium (Rosuvastatin Calcium 20 Mg Tab) 20 mg PO HS [facility] Stop: 06/08/23 20:59 Last Admin: 05/15/23 20:21 Dose: 20 mg Senna/Docusate Sodium (Docusate Sodium/Senna 50/8.6mg Tab) 1 tab PO QAM [facility] Stop: 06/08/23 12:59 Last Admin: 05/15/23 14:14 Dose: 1 tab Sennosides (Senna 8.6 Mg Tab) 8.6 mg PO QAM [facility] Stop: 06/12/23 11:14 Last Admin: 05/15/23 09:04 Dose: 8.6 mg
--- NOTE | 2023-05-16 09:36 | XRay Report ---
XR chest 1V portable CLINICAL HISTORY: follow up COMPARISON STUDY: Chest radiograph May 08, 2023. FINDINGS: Lung volumes are normal. Lungs are clear. There is no pneumothorax or pleural effusion. Sta ble cardiomegaly. Mediastinal contours are normal. There is no evidence for pulmonary edema. IMPRESSION: No acute cardiopulmonary findings. ACT 112: Negative or not required by law. Electronically signed by: Dre Duckworth M.D. 05/16/2023 9:35 AM
[2023-05-16] MEDS: FUROSEMIDE INJ 20 MG/2 ML VIAL IV ONE (09:47)
[2023-05-16] MEDS: bisacodyL 10 MG SUPP PR STA (09:51)
[2023-05-16] MEDS: SODIUM CHLORIDE 0.65% NA SOLN 45 ML (OCEAN) SCH (09:58)
[2023-05-17 06:34] LABS: Hematocrit (blood only) 38.3 % (37.0-47.0); Hemoglobin 12.1 g/dl (12.0-16.0); Mean Corpuscular Hemoglobin 27.8 pg (25.0-34.0); Mean Corpuscular Hgb Conc 31.6 g/dL (32.0-36.0); Mean Platelet Volume 9.4 fL (9.4-12.4); Platelet Count 340 K/uL (130-400); RDW Coefficient of Variation 15.8 % (11.5-14.5); RDW Standard Deviation 50.5 fL (36.4-46.3); Red Blood Count 4.35 M/uL (4.20-5.40); White Blood Count 11.56 K/ul (4.8-10.8)
[2023-05-17 06:48] LABS: BUN Creatinine Ratio 34.7 (10-20); Creatinine Clr Calc Pharmacy 30.5 ml/min; Est GFR (African American) 37.5 ml/min; Est GFR (Non-African American) 32.3 ml/min; Magnesium 1.9 mg/dl (1.7-2.4); Phosphorus 4.9 mg/dl (2.5-4.9); Potassium 4.6 mmol/L (3.5-5.1)
[2023-05-17] MEDS: CEFDINIR 300 MG CAP PO SCH (07:54)
--- NOTE | 2023-05-17 08:15 | Hospitalist Progress Note ---
Date of Service May 17, 2023 Assessment & Plan (1) Acute respiratory failure with hypoxia and hypercapnia: (2) Acute on chronic heart failure with preserved ejection fraction (HFpEF): (3) URI (upper respiratory infection): (4) Metabolic encephalopathy: (5) Paroxysmal atrial fibrillation: (6) Hypertension: (7) Anxiety: (8) GERD (gastroesophageal reflux disease): Plan Patient is 87 year old female with PMH HTN, HLD, PAF, anticoagulated on Eliquis, anxiety, depression, GERD who presented to ER with c/o cough x several days and SOB. Acute respiratory failure with hypoxia and hypercapnia Pt presenting to the ED with an increased oxygen requirement, requiring bipap + human metapneumovirus Also underlying CHF Possible obesity hypoventilation syndrome Bipap/oxygen supplementation as needed, wean as tolerated Duonebs prn Continue to monitor on NC 2L -> currently on RA Obtain sputum cultx (ordered but not collected) Repeat CXR negative URI Viral Infection, Human Metapneumovirus Biofire positive for human metapneumovirus Chest XRAY with no noted pneumonia Procalcitonin negative Sputum cultx Was started on empiric doxycycline and rocephin -> cefdinir + doxy- finished abx course Duonebs Supportive care, guaifenesin, flutter valve, IS Acute on chronic heart failure with preserved ejection fraction (HFpEF) BNP elevated at 327 Chest xray noting cardiomegaly EKG with NSR Echo noting Grade II diastolic failure, EF 55-60%, LVH IV Lasix 40mg daily (held overnight on 05/08), resumed on 05/09 Ulrich for accurate ins and outs, daily weights Weight improving Cardiology consulted for further outpatient recs -transition to po lasix 40mg -cont met succ 50mg BID -> changed to lower dose coreg d/t HTN and mild br adycardia -cont losartan 100mg -> decreased to 50 d/t elev. Cr Underlying obesity hypoventilation syndrome Uncertain diagnosis Outpt pulmonary testing Acute Metabolic Encephalopathy Pt became confused in the ED VBG with noted pH 7.35, CO2 elevated at 61, HCO3 of [address] with no acute abnormality UA obtained, urine cx with no significant growth Blood Cx with NGTD Likely in setting of hypercapnia, ? UTI Pt started on bipap on admission Treated with Rocephin as above, currently on cefdinir and doxycycline Held home sedating agents-alprazolam, pregabalin Pt's mentation currently improved/ back to baseline, meds above resumed Continue to monitor ? UTI Urine cx with no significant growth On rocephin above (for 3 days), transitioned to po cefdinir, abx as above Hypertensive Urgency BP significantly elevated on admission Had nitropaste and BP improved significantly Continue home metoprolol and losartan/ coreg losartan as above Continue to monitor BP Anemia Hgb baseline of 10-11 Anemia workup with iron panel, ferritin, b12 and folate levels Continue to monitor Elevated liver enzymes T bili elevated at 1.2 -> down to normal Pt reported RLQ pain Considered imaging with liver US Currently denies any abd. pain Fever Pt with fever overnight on 05/08 Infectious workup as above No noted diarrhea Has been on rocephin and doxycycline Continue with po cefdinir and doxycycline - finished abx course Continue to monitor fever curve Hyperglycemia Noted elevated glucose levels Current Hgba1c 6.1% Consider ISS based on levels Paroxysmal atrial fibrillation On metoprolol Chronically anticoagulated on Eliquis Current sinus rhythm Continue to monitor Anxiety On citalopram at home, continue Held Xanax with AMS, has since been resumed GERD (gastroesophageal reflux disease) On ppi, continue CODE STATUS: DNR/DNI Diet: HH DVT Prophylaxis: Eliquis Dispo: PT/OT ordered DNR/DNI as per prior admissions and per discussion with patient's emergency contact Sol Cloud Follows with Jc Del Rio PA-C for routine care Admission and Anticipated Discharge Date Admission Date: May 08, 2023 Subjective Pt seen in follow up of CHF , + human metapneumovirus Currently sitting up in bed , in NAD Says she feels better overall + cough - improved +constipation- resolved no chest pain, abd. pain, n/v pt is very weak Review of Systems Review of Systems: All systems reviewed & are unremarkable except as noted in Subjective Physical Exam Physical Exam: General: WD/WN elderly F in NAD HEENT: NC/AT Chest: Nontender to palpation. CV: RRR Resp: + minimal rhonchi bilaterally (much improved), no increased effort of breathing. Abdomen: Soft, nontender, nondistended. Extremities: trace edema in lower extremities b/l. Skin: warm, dry Psych: Appropriate mood and affect Neuro: awake, alert, answers appropriately, speech fluent, no facial asymmetry, appears generally weak Results & Data Results & Data Vital Signs (Past 12 Hours) Vital Signs Temp Pulse Pulse Resp BP Pulse Ox O2 Del Method 05/17/23 07:00 36.6 C 57 L 18 169/69 H 94 Room Air 05/17/23 03:02 36.7 C 60 18 145/77 H 93 Room Air 05/17/23 00:46 64 05/17/23 00:20 Room Air 05/16/23 23:52 37.3 C 64 18 148/75 H 94 Room Air 05/16/23 21:51 Room Air Laboratory Results 05/17/23 Range/Units 05:44 WBC 11.56 H (4.8-10.8) K/ul RBC 4.35 (4.20-5.40) M/uL Hgb 12.1 (12.0-16.0) g/dl Hct 38.3 (37.0-47.0) % MCV 88.0 (80.0-100.0) fL MCH 27.8 (25.0-34.0) pg MCHC 31.6 L (32.0-36.0) g/dL RDW Std Deviation 50.5 H (36.4-46.3) fL RDW Coeff of Lizy 15.8 H (11.5-14.5) % Plt Count 340 (130-400) K/uL MPV 9.4 (9.4-12.4) fL Sodium 136 (136-145) mmol/L Potassium 4.6 (3.5-5.1) mmol/L Chloride 103 (98-107) mmol/L Carbon Dioxide 25 (21-32) mmol/L Anion Gap 8 (3-11) BUN 50 H (6-23) mg/dl Creatinine 1.44 H (0.6-1.2) mg/dl Est Cr Clr Drug Dosing 30.5 ml/min Est GFR ( Amer) 37.5 ml/min Est GFR (Non-Af Amer) 32.3 ml/min BUN/Creatinine Ratio 34.7 H (10-20) Glucose 102 H (70-99(Fasting)) mg/dl Calcium 10.0 (8.6-10.3) mg/dl Phosphorus 4.9 (2.5-4.9) mg/dl Magnesium 1.9 (1.7-2.4) mg/dl Medications Administered Current Inpatient Medications Acetaminophen (Acetaminophen 325 Mg Tab) 650 mg PO QID PRN PRN Reason: pain/fever Stop: 06/09/23 00:37 Last Admin: 05/14/23 20:14 Dose: 650 mg Albuterol (Albut/Ipratrop 3mg/0.5mg Neb 3 Ml Vial) 3 ml NEB QIDR PRN; Protocol PRN Reason: Shortness Of Breath Or Wheezing Stop: 06/07/23 20:00 Alprazolam (Alprazolam 0.5 Mg Tablet) 0.5 mg PO BID PRN PRN Reason: Anxiety Stop: 06/08/23 12:57 Last Admin: 05/11/23 20:57 Dose: 0.5 mg Apixaban (Apixaban 5 Mg Tablet) 5 mg PO BID [facility] Stop: 06/08/23 12:59 Last Admin: 05/17/23 07:53 Dose: 5 mg Aspirin (Aspirin 81 Mg Ectab) 81 mg PO DAILY [facility] Stop: 06/08/23 12:59 Last Admin: 05/17/23 07:54 Dose: 81 mg Calcium/Vitamin D (Calcium 600mg + Vit D 400 Iu Tab) 1 tab PO BID [facility] Stop: 06/08/23 20:59 Last Admin: 05/17/23 07:54 Dose: 1 tab Carvedilol (Carvedilol 3.125 Mg Tab) 3.125 mg PO NOW ONE Stop: 05/17/23 08:13 Cefdinir (Cefdinir 300 Mg Cap) 300 mg PO DAILY [facility]; Protocol Stop: 05/17/23 09:01 Last Admin: 05/17/23 07:54 Dose: 300 mg Citalopram Hydrobromide (Citalopram 20 Mg Tab) 20 mg PO DAILY [facility] Stop: 06/08/23 12:59 Last Admin: 05/17/23 07:54 Dose: 20 mg Ferrous Sulfate (Ferrous Sulfate 325 Mg Tab) 325 mg PO DAILY [facility] Stop: 06/09/23 08:59 Last Admin: 05/17/23 07:55 Dose: 325 mg Furosemide (Furosemide 40 Mg Tab) 40 mg PO QAM [facility] Stop: 06/11/23 08:59 Last Admin: 05/17/23 07:55 Dose: 40 mg Guaifenesin (Guaifenesin 600 Mg Tabcr) 600 mg PO Q12 [facility] Stop: 06/12/23 09:59 Last Admin: 05/17/23 07:55 Dose: 600 mg Doxycycline Hyclate 100 mg/ (Dextrose) 100 mls @ 50 mls/hr IV Q12H [facility] Stop: 05/20/23 09:59 Last Infusion: 05/17/23 00:20 Dose: Infused Losartan Potassium (Losartan Potassium 50 Mg Tab) 50 mg PO DAILY [facility] Stop: 06/16/23 08:59 Metoprolol Succinate (Metoprolol Succ 50mg Ext Rel Tab) 50 mg PO DAILY [facility] Stop: 06/08/23 12:59 Last Admin: 05/17/23 07:56 Dose: Not Given Ondansetron HCl (Ondansetron Inj 2 Mg/Ml 2 Ml Vial) 4 mg IV Q6H PRN PRN Reason: Nausea Stop: 06/07/23 20:00 Pantoprazole Sodium (Pantoprazole 40 Mg Tab) 40 mg PO DAILY [facility] Stop: 06/08/23 12:59 Last Admin: 05/17/23 07:57 Dose: 40 mg Polyethylene Glycol (Polyethylene (Miralax) 17 Gm Pack) 17 gm PO DAILY [facility] Stop: 06/12/23 11:14 Last Admin: 05/17/23 07:52 Dose: Not Given Potassium Chloride (Potassium Chloride Crtab 20 Meq Tabcr) 20 meq PO BID [facility] Stop: 06/11/23 20:59 Last Admin: 05/17/23 07:57 Dose: 20 meq Pregabalin (Pregabalin 50 Mg Cap) 50 mg PO BID [facility] Stop: 06/08/23 12:59 Last Admin: 05/17/23 07:57 Dose: 50 mg Rosuvastatin Calcium (Rosuvastatin Calcium 20 Mg Tab) 20 mg PO HS [facility] Stop: 06/08/23 20:59 Last Admin: 05/16/23 20:22 Dose: 20 mg Senna/Docusate Sodium (Docusate Sodium/Senna 50/8.6mg Tab) 1 tab PO QAM [facility] Stop: 06/08/23 12:59 Last Admin: 05/17/23 07:58 Dose: 1 tab Sennosides (Senna 8.6 Mg Tab) 8.6 mg PO QAM [facility] Stop: 06/12/23 11:14 Last Admin: 05/17/23 07:55 Dose: 8.6 mg Sodium Chloride (Sodium Chloride 0.65% Na Soln 45 Ml ([facility])) 1 sprays NA TID [facility]HA Stop: 06/15/23 08:59 Last Admin: 05/17/23 08:09 Dose: Not Given
[2023-05-17] MEDS: LOSARTAN POTASSIUM 50 MG TAB PO SCH (08:40)
[2023-05-17] MEDS: carvediloL 3.125 MG TAB PO ONE ×2 (08:43→17:27)
[2023-05-18 08:29] LABS: Hematocrit (blood only) 38.1 % (37.0-47.0); Hemoglobin 12.2 g/dl (12.0-16.0); Mean Corpuscular Hemoglobin 27.7 pg (25.0-34.0); Mean Corpuscular Volume 86.4 fL (80.0-100.0); Mean Platelet Volume 9.3 fL (9.4-12.4); Platelet Count 354 K/uL (130-400); RDW Standard Deviation 50.7 fL (36.4-46.3); Red Blood Count 4.41 M/uL (4.20-5.40); White Blood Count 11.06 K/ul (4.8-10.8)
[2023-05-18 08:50] LABS: BUN Creatinine Ratio 35.7 (10-20); Calcium 10.2 mg/dl (8.6-10.3); Creatinine Clr Calc Pharmacy 26.1 ml/min; Est GFR (African American) 31.1 ml/min; Est GFR (Non-African American) 26.8 ml/min; Phosphorus 5.8 mg/dl (2.5-4.9); Potassium 5.1 mmol/L (3.5-5.1)
--- NOTE | 2023-05-18 09:36 | Hospitalist Progress Note ---
Date of Service May 18, 2023 Assessment & Plan (1) Acute respiratory failure with hypoxia and hypercapnia: (2) Acute on chronic heart failure with preserved ejection fraction (HFpEF): (3) URI (upper respiratory infection): (4) Metabolic encephalopathy: (5) Paroxysmal atrial fibrillation: (6) Hypertension: (7) Anxiety: (8) GERD (gastroesophageal reflux disease): Plan Patient is 87 year old female with PMH HTN, HLD, PAF, anticoagulated on Eliquis, anxiety, depression, GERD who presented to ER with c/o cough x several days and SOB. Acute respiratory failure with hypoxia and hypercapnia Pt presenting to the ED with an increased oxygen requirement, requiring bipap + human metapneumovirus Also underlying CHF Possible obesity hypoventilation syndrome Bipap/oxygen supplementation as needed, wean as tolerated Duonebs prn Continue to monitor on NC 2L -> currently on RA Obtain sputum cultx (ordered but not collected) Repeat CXR negative URI Viral Infection, Human Metapneumovirus Biofire positive for human metapneumovirus Chest XRAY with no noted pneumonia Procalcitonin negative Sputum cultx Was started on empiric doxycycline and rocephin -> cefdinir + doxy- finished abx course Duonebs Supportive care, guaifenesin, flutter valve, IS Acute on chronic heart failure with preserved ejection fraction (HFpEF) BNP elevated at 327 Chest xray noting cardiomegaly EKG with NSR Echo noting Grade II diastolic failure, EF 55-60%, LVH IV Lasix 40mg daily (held overnight on 05/08), resumed on 05/09 Ulrich for accurate ins and outs, daily weights Weight improving Cardiology consulted for further outpatient recs -transition to po lasix 40mg -cont met succ 50mg BID -> changed to lower dose coreg d/t HTN and mild br adycardia -cont losartan 100mg -> decreased to 50 d/t elev. Cr 05/17 Cr elev., hypertensive and slightly bradycardic - discussed w/ cardiology - ok to hold furosemide, losartan. Cont. with amlodipine 2.5 and coreg 3.125 bid Underlying obesity hypoventilation syndrome Uncertain diagnosis Outpt pulmonary testing Acute Metabolic Encephalopathy Pt became confused in the ED VBG with noted pH 7.35, CO2 elevated at 61, HCO3 of [address] with no acute abnormality UA obtained, urine cx with no significant growth Blood Cx with NGTD Likely in setting of hypercapnia, ? UTI Pt started on bipap on admission Treated with Rocephin as above, currently on cefdinir and doxycycline Held home sedating agents-alprazolam, pregabalin Pt's mentation currently improved/ back to baseline, meds above resumed Continue to monitor ? UTI Urine cx with no significant growth On rocephin above (for 3 days), transitioned to po cefdinir, abx as above Hypertensive Urgency BP significantly elevated on admission Had nitropaste and BP improved significantly Continue home metoprolol and losartan/ coreg losartan as above Continue to monitor BP Anemia Hgb baseline of 10-11 Anemia workup with iron panel, ferritin, b12 and folate levels Continue to monitor Elevated liver enzymes T bili elevated at 1.2 -> down to normal Pt reported RLQ pain Considered imaging with liver US Currently denies any abd. pain Fever Pt with fever overnight on 05/08 Infectious workup as above No noted diarrhea Has been on rocephin and doxycycline Continue with po cefdinir and doxycycline - finished abx course Continue to monitor fever curve Hyperglycemia Noted elevated glucose levels Current Hgba1c 6.1% Consider ISS based on levels Paroxysmal atrial fibrillation On metoprolol Chronically anticoagulated on Eliquis Current sinus rhythm Continue to monitor Anxiety On citalopram at home, continue Held Xanax with AMS, has since been resumed GERD (gastroesophageal reflux disease) On ppi, continue CODE STATUS: DNR/DNI Diet: HH DVT Prophylaxis: Eliquis Dispo: PT/OT ordered DNR/DNI as per prior admissions and per discussion with patient's emergency contact Sol Cloud Follows with Jc Del Rio PA-C for routine care Admission and Anticipated Discharge Date Admission Date: May 08, 2023 Subjective Pt seen in follow up of CHF , + human metapneumovirus Currently sitting up in bed , in NAD Says she feels better overall + cough - improved +constipation- resolved no chest pain, abd. pain, n/v pt is very weak Continues to be hypertensive , slightly bradycardic, Cr increased. Diuretics and beta tamar put on hold and cardiology contacted. Review of Systems Review of Systems: All systems reviewed & are unremarkable except as noted in Subjective Physical Exam Physical Exam: General: WD/WN elderly F in NAD HEENT: NC/AT Chest: Nontender to palpation. CV: RRR Resp: + minimal rhonchi bilaterally (much improved), no increased effort of b reathing. Abdomen: Soft, nontender, nondistended. Extremities: trace edema in lower extremities b/l. Skin: warm, dry Psych: Appropriate mood and affect Neuro: awake, alert, answers appropriately, speech fluent, no facial asymmetry, appears generally weak Results & Data Results & Data Vital Signs (Past 12 Hours) Vital Signs Temp Pulse Pulse Resp BP Pulse Ox O2 Del Method 05/18/23 09:19 Room Air 05/18/23 07:37 36.5 C 56 L 18 160/75 H 96 Room Air 05/18/23 07:00 56 L 05/18/23 03:16 36.4 C L 55 L 18 135/76 96 Room Air 05/17/23 23:34 36.7 C 61 18 138/69 95 Room Air 05/17/23 21:59 60 Laboratory Results 05/18/23 Range/Units 08:02 WBC 11.06 H (4.8-10.8) K/ul RBC 4.41 (4.20-5.40) M/uL Hgb 12.2 (12.0-16.0) g/dl Hct 38.1 (37.0-47.0) % MCV 86.4 (80.0-100.0) fL MCH 27.7 (25.0-34.0) pg MCHC 32.0 (32.0-36.0) g/dL RDW Std Deviation 50.7 H (36.4-46.3) fL RDW Coeff of Lizy 16.0 H (11.5-14.5) % Plt Count 354 (130-400) K/uL MPV 9.3 L (9.4-12.4) fL Sodium 138 (136-145) mmol/L Potassium 5.1 (3.5-5.1) mmol/L Chloride 104 (98-107) mmol/L Carbon Dioxide 26 (21-32) mmol/L Anion Gap 8 (3-11) BUN 60 H (6-23) mg/dl Creatinine 1.68 H (0.6-1.2) mg/dl Est Cr Clr Drug Dosing 26.1 ml/min Est GFR ( Amer) 31.1 ml/min Est GFR (Non-Af Amer) 26.8 ml/min BUN/Creatinine Ratio 35.7 H (10-20) Glucose 115 H (70-99(Fasting)) mg/dl Calcium 10.2 (8.6-10.3) mg/dl Phosphorus 5.8 H (2.5-4.9) mg/dl Magnesium 2.0 (1.7-2.4) mg/dl Medications Administered Current Inpatient Medications Acetaminophen (Acetaminophen 325 Mg Tab) 650 mg PO QID PRN PRN Reason: pain/fever Stop: 06/09/23 00:37 Last Admin: 05/14/23 20:14 Dose: 650 mg Albuterol (Albut/Ipratrop 3mg/0.5mg Neb 3 Ml Vial) 3 ml NEB QIDR PRN; Protocol PRN Reason: Shortness Of Breath Or Wheezing Stop: 06/07/23 20:00 Alprazolam (Alprazolam 0.5 Mg Tablet) 0.5 mg PO BID PRN PRN Reason: Anxiety Stop: 06/08/23 12:57 Last Admin: 05/11/23 20:57 Dose: 0.5 mg Apixaban (Apixaban 5 Mg Tablet) 5 mg PO BID [facility] Stop: 06/08/23 12:59 Last Admin: 05/18/23 08:28 Dose: 5 mg Aspirin (Aspirin 81 Mg Ectab) 81 mg PO DAILY [facility] Stop: 06/08/23 12:59 Last Admin: 05/18/23 08:29 Dose: 81 mg Calcium/Vitamin D (Calcium 600mg + Vit D 400 Iu Tab) 1 tab PO BID [facility] Stop: 06/08/23 20:59 Last Admin: 05/18/23 08:28 Dose: 1 tab Citalopram Hydrobromide (Citalopram 20 Mg Tab) 20 mg PO DAILY [facility] Stop: 06/08/23 12:59 Last Admin: 05/18/23 08:28 Dose: 20 mg Ferrous Sulfate (Ferrous Sulfate 325 Mg Tab) 325 mg PO DAILY [facility] Stop: 06/09/23 08:59 Last Admin: 05/18/23 08:29 Dose: 325 mg Furosemide (Furosemide 40 Mg Tab) 40 mg PO QAM [facility] Stop: 06/11/23 08:59 Last Admin: 05/18/23 08:29 Dose: 40 mg Guaifenesin (Guaifenesin 600 Mg Tabcr) 600 mg PO Q12 [facility] Stop: 06/12/23 09:59 Last Admin: 05/18/23 08:29 Dose: 600 mg Losartan Potassium (Losartan Potassium 50 Mg Tab) 50 mg PO DAILY [facility] Stop: 06/16/23 08:59 Last Admin: 05/18/23 08:30 Dose: 50 mg Metoprolol Succinate (Metoprolol Succ 50mg Ext Rel Tab) 50 mg PO DAILY [facility] Stop: 06/08/23 12:59 Last Admin: 05/17/23 07:56 Dose: Not Given Ondansetron HCl (Ondansetron Inj 2 Mg/Ml 2 Ml Vial) 4 mg IV Q6H PRN PRN Reason: Nausea Stop: 06/07/23 20:00 Pantoprazole Sodium (Pantoprazole 40 Mg Tab) 40 mg PO DAILY [facility] Stop: 06/08/23 12:59 Last Admin: 05/18/23 08:29 Dose: 40 mg Polyethylene Glycol (Polyethylene (Miralax) 17 Gm Pack) 17 gm PO DAILY [facility] Stop: 06/12/23 11:14 Last Admin: 05/18/23 08:30 Dose: Not Given Potassium Chloride (Potassium Chloride Crtab 20 Meq Tabcr) 20 meq PO BID [facility] Stop: 06/11/23 20:59 Last Admin: 05/18/23 08:28 Dose: 20 meq Pregabalin (Pregabalin 50 Mg Cap) 50 mg PO BID [facility] Stop: 06/08/23 12:59 Last Admin: 05/18/23 08:28 Dose: 50 mg Rosuvastatin Calcium (Rosuvastatin Calcium 20 Mg Tab) 20 mg PO HS [facility] Stop: 06/08/23 20:59 Last Admin: 05/17/23 20:57 Dose: 20 mg Senna/Docusate Sodium (Docusate Sodium/Senna 50/8.6mg Tab) 1 tab PO QAM [facility] Stop: 06/08/23 12:59 Last Admin: 05/18/23 08:30 Dose: Not Given Sennosides (Senna 8.6 Mg Tab) 8.6 mg PO QAM [facility] Stop: 06/12/23 11:14 Last Admin: 05/18/23 08:29 Dose: Not Given Sodium Chloride (Sodium Chloride 0.65% Na Soln 45 Ml ([place])) 1 sprays NA TID [facility] Stop: 06/15/23 08:59 Last Admin: 05/18/23 08:30 Dose: 1 sprays
--- NOTE | 2023-05-18 10:58 | Cardiology Progress Note ---
Date of Service May 18, 2023 Assessment & Plan (1) Acute on chronic heart failure with preserved ejection fraction (HFpEF): (2) Hypertension: (3) Sinus bradycardia: (4) Paroxysmal atrial fibrillation: Plan IMPRESSION: 87 year old female admitted for progressive shortness of breath. She tested positive for Human Metapneumovirus. Supportive measure implemented. Patient improved. During admission antihypertensives adjusted due to HTN/Bradycardia and renal dy sfunction. Initially diuresed with IV Lasix. Lasix currently on hold due to climbing creatine. PLAN: Chronic HFpEF: -Euvolemic on exam. Agree with holding of Lasix. Recommend close monitoring of volume status. -2g sodium restriction. Strict I&O. Daily standing weights. -BMP in the am. Hypertension: -Prior to admission medications included: Amlodipine 10 mg daily, metoprolol succinate 50 mg daily, olmesartan 40 mg daily, and spironolactone 25 mg daily -BP hypertensive-- likely due to de-escalation of regimen while inpatient. 1. Hold losartan. 2. Restart amlodipine 2.5 mg daily 3. Restart Coreg 3.125 mg BID Paroxysmal atrial fibrillation: -Asymptomatic sinus bradycardia noted on telemetry. No evidence of paroxysmal atrial fib. 1. Restart beta tamar as stated above. Continue to monitor on telemetry while inpatient. 2. Continue Eliquis 5 mg BID. Case discussed with Dr. Medina. Further recommendations pending his assessment. I spent a total of 40 minutes on the date of service in preparation, delivery, and documentation of the care provided to the patient excluding any time spent in the performance of separately billed services. YARELIS Gardiner Department of Cardiology, [facility] This chart was completed in part utilizing Speech Voice Recognition Software. Grammatical errors, random word insertions, pronoun errors, and incomplete sentences are an occasional consequence of this system due to software limitations, ambient noise, and hardware issues. Any formal questions or co ncerns about the content, text, or information contained within the body of this dictation should be directly addressed to the provider for clarification. Admission and Anticipated Discharge Date Admission Date: May 08, 2023 Supervising Physician Co-Signing Physician Notes I have reviewed the advance practitioner's documentation, and I agree with, and take responsibility for the plan of care. Patient seen and examined at the bedside per the request of hospitalist regarding blood pressure management. She denies any chest pain or unusual shortness of breath. Aware of intermittently elevated blood pressure readings. Offers no concerns/complaints. Recommend restart low-dose carvedilol and amlodipine. I spent a total of 15 minutes on the date of service in preparation, delivery, and documentation of the care provided to this patient, excluding any time spent in the performance of separately billed services. Subjective 87-year-old female who initially presented to [facility] on 05/08/2023 due to progressive shortness of breath. She tested positive for Human Metapneumovirus on 05/08/2023 and was treated with supportive care as well as antibiotics. +Hypertensive urgency with hypervolemia. Treated with IV Lasix. IV transitioned to oral on 05/12/2023 She also carries a history of paroxysmal atrial fibrillation and is anticoagulated with Eliquis. Rate controlled with metoprolol succinate. Cardiology reconsulted today, 05/18/2023 due to renal dysfunction and hypertension. Scr: 1.21>>1.45>>1.40>>1.51>>1.49>>1.44>>1.68 (today) Metoprolol succinate 50 mg twice daily discontinued in favor of carvedilol 3.125 mg BID then ultimately held due to mild bradycardia Losartan 100 mg daily reduced to 50 mg daily due to elevated serum creatinine. BP are now hypertensive. Tele: reveals SB/SR 50-60s. Upon entrance into the room patient resting comfortably in bed. Denies any acute concerns. No chest pain, shortness of breath, palpitations, dizziness, syncope or near syncope. No orthopnea, PND, or increased lower extremity edema. No fever, chills, cough, hematochezia, melena, or hemoptysis. Review of Systems Review of Systems: All systems reviewed & are unremarkable except as noted in HPI & below Physical Exam Constitutional: no acute distress Neck: normal visual inspection and trachea midline Respiratory: normal respiratory effort; no respiratory distress and no cough Auscultation: + diminished lung sounds; no crackles, no rales and no wheezes Cardiovascular: Rate/Rhythm: regular rate and regular rhythm Heart Sounds: normal S1 and normal S2; no murmur Vessels: no JVD Extremities: no edema Gastrointestinal (Abdomen): normal bowel sounds, soft, nontender, no hepatosplenomegaly Skin: no rashes, warm and dry Neurologic: PERRL, EOMI, accommodation nl, no face palsy, no dysarthria Psychiatric: A+Ox3, euthymic affect Results & Data Vital Signs (Past 12 Hours) Vital Signs Temp Pulse Pulse Resp BP Pulse Ox O2 Del Method 05/18/23 09:19 Room Air 05/18/23 07:37 36.5 C 56 L 18 160/75 H 96 Room Air 05/18/23 07:00 56 L 05/18/23 03:16 36.4 C L 55 L 18 135/76 96 Room Air 05/17/23 23:34 36.7 C 61 18 138/69 95 Room Air Laboratory Results CBC 05/18/23 Range/Units 08:02 WBC 11.06 H (4.8-10.8) K/ul RBC 4.41 (4.20-5.40) M/uL Hgb 12.2 (12.0-16.0) g/dl Hct 38.1 (37.0-47.0) % Plt Count 354 (130-400) K/uL Comprehensive Metabolic Panel 05/18/23 Range/Units 08:02 Sodium 138 (136-145) mmol/L Potassium 5.1 (3.5-5.1) mmol/L Chloride 104 (98-107) mmol/L Carbon Dioxide 26 (21-32) mmol/L BUN 60 H (6-23) mg/dl Creatinine 1.68 H (0.6-1.2) mg/dl Glucose 115 H (70-99(Fasting)) mg/dl Calcium 10.2 (8.6-10.3) mg/dl Intake and Output 05/17/23 05/18/23 05/18/23 22:59 06:59 14:59 Intake Total 100 / 400 200 / 400 Balance 100 / 400 200 / 400 Intake: Oral 100 / 300 200 / 300 Other: # Unmeasured Voids 1 1 Weight 96.5 kg Weight Measurement Method Built in [facility] (2) Hypertension Hypertension type: primary hypertension Qualified Code(s): I10 - Essential (primary) hypertension
[2023-05-18] MEDS: amLODIPine BESYLATE 5 MG TAB PO SCH (13:02)
[2023-05-18] MEDS: carvediloL 3.125 MG TAB PO SCH (17:09)
--- NOTE | 2023-05-19 07:31 | Cardiology Progress Note ---
Date of Service May 19, 2023 Assessment & Plan (1) Acute on chronic heart failure with preserved ejection fraction (HFpEF): (2) Hypertension: (3) Sinus bradycardia: (4) Paroxysmal atrial fibrillation: Plan IMPRESSION: 87 year old female admitted for progressive shortness of breath. She tested positive for Human Metapneumovirus. Supportive measure implemented. Patient improved. During admission antihypertensives adjusted due to HTN/Bradycardia and renal dy sfunction. Initially diuresed with IV Lasix. Lasix currently on hold due to climbing creatine. PLAN: Chronic HFpEF: -Euvolemic on exam, possibly hypovolemtic. Agree with holding of Lasix. Recommend close monitoring of volume status. Will defer renal function to primary team-- patient not currently on any nephrotoxic cardiac medications. -2g sodium restriction. Strict I&O. Daily standing weights. Hypertension: -Prior to admission medications included: Amlodipine 10 mg daily, metoprolol succinate 50 mg daily, olmesartan 40 mg daily, and spironolactone 25 mg daily -BP improvement. 1. Hold losartan. 2. Continue amlodipine 2.5 mg daily 3. Continue Coreg 3.125 mg BID Paroxysmal atrial fibrillation: -Asymptomatic sinus bradycardia noted on telemetry. No evidence of paroxysmal atrial fib. 1. Continue beta tamar as stated above. Continue to monitor on telemetry while inpatient. 2. Continue Eliquis 5 mg BID. Case discussed with Dr. Medina. No further recommendations from a cardiology standpoint. Will sign off. I spent a total of 20 minutes on the date of service in preparation, delivery, and documentation of the care provided to the patient excluding any time spent in the performance of separately billed services. YARELIS Gardiner Department of Cardiology, [facility] This chart was completed in part utilizing Speech Voice Recognition Software. Grammatical errors, random word insertions, pronoun errors, and incomplete sentences are an occasional consequence of this system due to software limitations, ambient noise, and hardware issues. Any formal questions or concerns about the content, text, or information contained within the body of this dictation should be directly addressed to the provider for clarification. Admission and Anticipated Discharge Date Admission Date: May 08, 2023 Supervising Physician Co-Signing Physician Notes I have reviewed the advance practitioner's documentation, and I agree with, and take responsibility for the plan of care. Patient seen and examined at the bedside. Carvedilol and amlodipine restarted yesterday. Mild intermittent blood pressure elevation noted. Patient denies any chest pain or unusual shortness of breath. Offers no concerns/complaints. Recommend continue low-dose carvedilol and amlodipine. No further inpatient cardiac testing or intervention recommended at this time. Please call with any further concerns/questions. I spent a total of 15 minutes on the date of service in preparation, delivery, and documentation of the care provided to this patient, excluding any time spent in the performance of separately billed services. Subjective 87 year old female admitted for progressive shortness of breath. She tested positive for Human Metapneumovirus. Supportive measure implemented. Patient improved. During admission antihypertensives adjusted due to HTN/Bradycardia and renal dysfunction. Initially diuresed with IV Lasix. Lasix currently on hold due to climbing creatine. 05/18/2023: Serum creatinine elevated. Blood pressures hypertensive. Telemetry revealing asymptomatic sinus bradycardia in the mid 50s to 60s. Losartan on hold as well as furosemide. Amlodipine 2.5 mg daily was started. Coreg 3.125 mg twice daily was started. 05/19/2023: BMP pending Blood pressures improving. HR stable on telemetry. Upon entrance into the room patient resting in bed. No acute concerns. Eager for discharge. No chest pain or shortness of breath. No palpitations or lightheadedness. No orthopnea or PND. No lower extremity edema. Admits to not drinking much over the last few days. Review of Systems Review of Systems: All systems reviewed & are unremarkable except as noted in HPI & below Physical Exam Constitutional: no acute distress Neck: normal visual inspection and trachea midline Respiratory: normal respiratory effort; no respiratory distress and no cough Auscultation: + diminished lung sounds; no crackles, no rales and no wheezes Cardiovascular: Rate/Rhythm: regular rate and regular rhythm Heart Sounds: normal S1 and normal S2; no murmur Vessels: no JVD Extremities: no edema Gastrointestinal (Abdomen): normal bowel sounds, soft, nontender, no hepatosplenomegaly Skin: no rashes, warm and dry Neurologic: PERRL, EOMI, accommodation nl, no face palsy, no dysarthria Psychiatric: A+Ox3, euthymic affect Results & Data Vital Signs (Past 12 Hours) Vital Signs Temp Pulse Pulse Resp BP Pulse Ox O2 Del Method 05/19/23 03:28 36.5 C 59 L 18 146/78 H 94 Room Air 05/18/23 23:51 37.1 C 64 18 135/72 95 Room Air 05/18/23 21:59 60 05/18/23 19:43 36.9 C 58 L 18 152/73 H 95 Room Air 05/18/23 19:30 Room Air Laboratory Results Comprehensive Metabolic Panel 05/19/23 Range/Units 06:42 Sodium 137 (136-145) mmol/L Potassium 5.1 (3.5-5.1) mmol/L Chloride 104 (98-107) mmol/L Carbon Dioxide 24 (21-32) mmol/L BUN 69 H (6-23) mg/dl Creatinine 1.90 H (0.6-1.2) mg/dl Glucose 110 H (70-99(Fasting)) mg/dl Calcium 10.4 H (8.6-10.3) mg/dl Intake and Output 05/18/23 05/19/23 05/19/23 22:59 06:59 14:59 Intake Total 320 / 520 200 / 520 Output Total 1000 / 1202 200 / 1202 Balance -680 / -682 0 / -682 Intake: Oral 320 / 520 200 / 520 Output: Urine Amount (Catheter) 1000 / 1200 200 / 1200 External 1000 / 1200 200 / 1200 Other: Weight 95.5 kg Weight Measurement Method Built in [facility] (2) Hypertension Hypertension type: primary hypertension Qualified Code(s): I10 - Essential (primary) hypertension
[2023-05-19 08:11] LABS: BUN Creatinine Ratio 36.3 (10-20); Calcium 10.4 mg/dl (8.6-10.3); Creatinine Clr Calc Pharmacy 22.9 ml/min; Est GFR (African American) 26.8 ml/min; Est GFR (Non-African American) 23.1 ml/min; Phosphorus 5.6 mg/dl (2.5-4.9); Potassium 5.1 mmol/L (3.5-5.1)
--- NOTE | 2023-05-19 10:53 | Nephrology Consultation ---
Date of Consultation May 19, 2023 Assessment & Plan (1) JAYLIN (acute kidney injury): JAYLIN --non oliguric type with slow rise in creat over ten days from 0.9 to 1.9. Cause likely hemodynamic/Milder degree of ATN vs volume depletion. Unlikely to be any types of GN. Check UA. Hold lasix and Losartan. Gentle hydration 500 ml NS (2) Acute respiratory failure with hypoxia and hypercapnia: Now much better. Cause was Viral Infection +/- Diastolic CHF. No CHF now. History of Present Illness Reason for Consultation: JAYLIN Attending Physician: Kenny Pearce MD History of Present Illness 87/F with normal Creat as of few days ago came in with SOb from Human Metapneumovirus and CHF. Initially got Iv lasix and then Held after creat rising. ECHO shows Normal LVEF and Some Diastolic Dysfunction. She was c/o cough and SOB prior to Admission. Patient lives at [facility] in [place], [place]. History obtained from inpatient chart review and ER staff as currently patient with mental status changes and unable to provide Accurate History. However She appears comfortable now and on RA. Creat up to 1.9 now up from 0.99 ten days ago. has been slowly going up every day. Po intake ?? urine 1200 ml yesterday. ROS--hard to obtain sec to cognitive status. Physical Exam Physical Exam: General: +somnolent, +arouses to light touch and voice and when asked questions answers "no" to everything. Currently on bipap in no distress, Obese elderly female Head: normocephalic, atraumatic Eyes: PERRL, EOM's intact, conjunctiva non-injected, anicteric ENT: normal inspection external ears, nose, mucous membranes appear moist Neck: supple, trachea midline Lungs: currently on bipap and appears comfortable with O2 sat 95% and Respirations 22, Difficult to fully auscultate secondary to bipap sounds but appears to have rhonchi throughout CV: RRR, No edema Abd: normal BS, soft, no apparent tenderness to palpation Ext: no cyanosis, no calf tenderness Neuro: Somnolent, arouses with light touch Skin: warm, dry Allergies Allergy/AdvReac Type Severity Reaction Status Date / Time aspirin AdvReac Unknown GI ISSUES Verified 05/08/23 17:01 Home Medications Medication Instructions Recorded Confirmed Type acetaminophen 500 mg tablet 1,000 mg (2 x 500 mg) PO Q8H PRN 08/25/22 05/08/23 Rx (Tylenol Extra Strength) fever or pain #90 tabs alprazolam 0.5 mg tablet 0.5 mg PO BID PRN Anxiety #10 tabs 08/25/22 05/08/23 Rx apixaban 5 mg tablet (Eliquis) 5 mg PO BID #60 tabs 08/25/22 05/08/23 Rx coenzyme Q10 100 mg capsule 100 mg PO DAILY #30 caps 08/25/22 05/08/23 Rx (CoQ-10) furosemide 40 mg tablet 40 mg PO Q2D #30 tabs 08/25/22 05/08/23 Rx metoprolol succinate 50 mg 50 mg PO DAILY #30 tabs 08/25/22 05/08/23 Rx tablet,extended release 24 hr omeprazole 20 mg capsule,delayed 20 mg PO DAILY #30 caps 08/25/22 05/08/23 Rx release sennosides 8.6 mg-docusate sodium 1 tab PO QAM #30 tabs 08/25/22 05/08/23 Rx 50 mg tablet (Senokot-S) aspirin 81 mg tablet,delayed 81 mg PO DAILY 05/08/23 05/08/23 History release calcium carbonate 600 mg-vitamin 1 tab PO BID 05/08/23 05/08/23 History D3 10 mcg (400 unit) tablet (Calcium 600 + D(3)) citalopram 20 mg tablet 20 mg PO DAILY 05/08/23 05/08/23 History clonidine HCl 0.1 mg tablet 0.1 mg PO DAILY PRN SBP>170 or 05/08/23 05/08/23 History DBP>100 dextromethorphan HBr 30 mg/5 mL 60 mg PO Q12 PRN Cough 05/08/23 05/08/23 History oral liquid ferrous sulfate 325 mg (65 mg 325 mg PO DAILY 05/08/23 05/08/23 History iron) tablet guaifenesin 600 mg tablet, 600 mg PO Q12H PRN Congestion 05/08/23 05/08/23 History extended release 12 hr (Mucinex) ibuprofen 200 mg tablet 200 - 400 mg PO Q6H PRN Fever Or 05/08/23 05/08/23 History Pain losartan 100 mg tablet 100 mg PO DAILY 05/08/23 05/08/23 History nystatin 100,000 unit/gram topical 1 applic topical TID PRN 05/08/23 05/08/23 History powder (Nystop) rash/irritation polyethylene glycol 3350 17 gram 17 g PO QAM PRN Constipation 05/08/23 05/08/23 History oral powder packet (Miralax) pregabalin 50 mg capsule 50 mg PO BID 05/08/23 05/08/23 History rosuvastatin 20 mg tablet 20 mg PO HS 05/08/23 05/08/23 History Patient History Medical History Hypokalemia Paroxysmal atrial fibrillation CHF (congestive heart failure) TIA (transient ischemic attack) Occlusion of left vertebral artery Hypertension GERD (gastroesophageal reflux disease) Hypertension Surgical History History of appendectomy History of cholecystectomy History of cataract surgery History of hysterectomy History of total knee replacement x2 Family History Other Cancer Social History Smoking Status: Never smoker Second Hand Exposure: No; Do You Dip or Chew Tobacco: No; Hx Alcohol Use: No Hx Substance Use: No Preferred Language: Portuguese Communication Ability: Effective Beef Specialist Required: No Beliefs That Will Affect Care: None marital status: / Current Living Situation: Long-Term Current Living Situation Comment: Lives alone w/ family friend that performs chores/runs errands Other Information That Helps Us Care for You: No Feels Safe at Home: Yes Safety Concerns: Feels Safe At This Time Assistive Devices: Wheelchair Results & Data Vital Signs (Past 12 Hours) Vital Signs Temp Pulse Pulse Resp BP Pulse Ox O2 Del Method 05/19/23 07:36 Room Air 05/19/23 07:27 36.5 C 60 18 151/63 H 97 Room Air 05/19/23 05:57 55 L 05/19/23 03:28 36.5 C 59 L 18 146/78 H 94 Room Air 05/18/23 23:51 37.1 C 64 18 135/72 95 Room Air Laboratory Results Reviewed Diagnostic Findings CXr and ECHO reviewed
[2023-05-19] MEDS: SODIUM CHLORIDE 0.9% 500 ML IV SCH (11:21)
--- NOTE | 2023-05-19 13:51 | Hospitalist Progress Note ---
Date of Service May 19, 2023 Assessment & Plan (1) Acute respiratory failure with hypoxia and hypercapnia: (2) Acute on chronic heart failure with preserved ejection fraction (HFpEF): (3) URI (upper respiratory infection): (4) Metabolic encephalopathy: (5) Paroxysmal atrial fibrillation: (6) Hypertension: (7) Anxiety: (8) GERD (gastroesophageal reflux disease): Plan Patient is 87 year old female with PMH HTN, HLD, PAF, anticoagulated on Eliquis, anxiety, depression, GERD who presented to ER with c/o cough x several days and SOB. Acute respiratory failure with hypoxia and hypercapnia Pt presenting to the ED with an increased oxygen requirement, requiring bipap + human metapneumovirus Also underlying CHF Possible obesity hypoventilation syndrome Bipap/oxygen supplementation as needed, wean as tolerated Duonebs prn Continue to monitor on NC 2L -> currently on RA Obtain sputum cultx (ordered but not collected) Repeat CXR negative URI Viral Infection, Human Metapneumovirus Biofire positive for human metapneumovirus Chest XRAY with no noted pneumonia Procalcitonin negative Sputum cultx Was started on empiric doxycycline and rocephin -> cefdinir + doxy- finished abx course Duonebs Supportive care, guaifenesin, flutter valve, IS Acute on chronic heart failure with preserved ejection fraction (HFpEF) BNP elevated at 327 Chest xray noting cardiomegaly EKG with NSR Echo noting Grade II diastolic failure, EF 55-60%, LVH IV Lasix 40mg daily (held overnight on 05/08), resumed on 05/09 Ulrich for accurate ins and outs, daily weights Weight improving Cardiology consulted for further outpatient recs -transition to po lasix 40mg -cont met succ 50mg BID -> changed to lower dose coreg d/t HTN and mild br adycardia -cont losartan 100mg -> decreased to 50 d/t elev. Cr 05/17 Cr elev., hypertensive and slightly bradycardic - discussed w/ cardiology - ok to hold furosemide, losartan. Cont. with amlodipine 2.5 and coreg 3.125 bid 05/18 Cr 1.9 - discussed [facility] cardiology and nephrology - cont. to hold diuretics, give 500 cc IVF, obtain UA Underlying obesity hypoventilation syndrome Uncertain diagnosis Outpt pulmonary testing Acute Metabolic Encephalopathy Pt became confused in the ED VBG with noted pH 7.35, CO2 elevated at 61, HCO3 of [address] with no acute abnormality UA obtained, urine cx with no significant growth Blood Cx with NGTD Likely in setting of hypercapnia, ? UTI Pt started on bipap on admission Treated with Rocephin as above, currently on cefdinir and doxycycline Held home sedating agents-alprazolam, pregabalin Pt's mentation currently improved/ back to baseline, meds above resumed Continue to monitor ? UTI Urine cx with no significant growth On rocephin above (for 3 days), transitioned to po cefdinir, abx as above repeat UA negat. Hypertensive Urgency BP significantly elevated on admission Had nitropaste and BP improved significantly Continue home metoprolol and losartan/ coreg losartan as above Continue to monitor BP Anemia Hgb baseline of - Anemia workup with iron panel, ferritin, b12 and folate levels Continue to monitor Elevated liver enzymes T bili elevated at 1.2 -> down to normal Pt reported RLQ pain Considered imaging with liver US Currently denies any abd. pain Fever Pt with fever overnight on 05/08 Infectious workup as above No noted diarrhea Has been on rocephin and doxycycline Continue with po cefdinir and doxycycline - finished abx course Pt has been afebrile Hyperglycemia Noted elevated glucose levels Current Hgba1c 6.1% Consider ISS based on levels Paroxysmal atrial fibrillation On metoprolol Chronically anticoagulated on Eliquis Current sinus rhythm Continue to monitor Anxiety On citalopram at home, continue Held Xanax with AMS, has since been resumed GERD (gastroesophageal reflux disease) On ppi, continue CODE STATUS: DNR/DNI Diet: HH DVT Prophylaxis: Eliquis Dispo: PT/OT ordered DNR/DNI as per prior admissions and per discussion with patient's emergency contact [place] Follows with Jc Del Rio PA-C for routine care Admission and Anticipated Discharge Date Admission Date: May 08, 2023 Subjective Pt seen in follow up of CHF , + human metapneumovirus Currently sitting up in bed , in NAD Says she feels better overall + cough - improved +constipation- resolved no chest pain, abd. pain, n/v pt is very weak Continues to be hypertensive , slightly bradycardic, Cr increased. Diuretics on hold. Discussed w/ cardiology - ok to contact nephrology as no cardiac meds at this time causing this. Nephrology consulted - obtained UA and gave 500cc of IVF. cont. to hold diuretics. Review of Systems Review of Systems: All systems reviewed & are unremarkable except as noted in Subjective Physical Exam Physical Exam: General: WD/WN elderly F in NAD HEENT: NC/AT Chest: Nontender to palpation. CV: RRR Resp: + minimal rhonchi bilaterally (much improved), no increased effort of breathing. Abdomen: Soft, nontender, nondistended. Extremities: trace edema in lower extremities b/l. Skin: warm, dry Psych: Appropriate mood and affect Neuro: awake, alert, answers appropriately, speech fluent, no facial asymmetry, appears generally weak Results & Data Results & Data Vital Signs (Past 12 Hours) Vital Signs Temp Pulse Pulse Resp BP BP Pulse Ox 05/19/23 11:13 37.7 C H 75 18 146/77 H 95 05/19/23 07:36 05/19/23 07:27 36.5 C 60 18 151/63 H 97 05/19/23 05:57 55 L 05/19/23 03:28 36.5 C 59 L 18 146/78 H 94 O2 Del Method 05/19/23 11:13 Room Air 05/19/23 07:36 Room Air 05/19/23 07:27 Room Air 05/19/23 05:57 05/19/23 03:28 Room Air Laboratory Results 05/19/23 Range/Units 06:42 Sodium 137 (136-145) mmol/L Potassium 5.1 (3.5-5.1) mmol/L Chloride 104 (98-107) mmol/L Carbon Dioxide 24 (21-32) mmol/L Anion Gap 9 (3-11) BUN 69 H (6-23) mg/dl Creatinine 1.90 H (0.6-1.2) mg/dl Est Cr Clr Drug Dosing 22.9 ml/min Est GFR ( Amer) 26.8 ml/min Est GFR (Non-Af Amer) 23.1 ml/min BUN/Creatinine Ratio 36.3 H (10-20) Glucose 110 H (70-99(Fasting)) mg/dl Calcium 10.4 H (8.6-10.3) mg/dl Phosphorus 5.6 H (2.5-4.9) mg/dl Magnesium 2.0 (1.7-2.4) mg/dl Medications Administered Current Inpatient Medications Acetaminophen (Acetaminophen 325 Mg Tab) 650 mg PO QID PRN PRN Reason: pain/fever Stop: 06/09/23 00:37 Last Admin: 05/14/23 20:14 Dose: 650 mg Albuterol (Albut/Ipratrop 3mg/0.5mg Neb 3 Ml Vial) 3 ml NEB QIDR PRN; Protocol PRN Reason: Shortness Of Breath Or Wheezing Stop: 06/07/23 20:00 Alprazolam (Alprazolam 0.5 Mg Tablet) 0.5 mg PO BID PRN PRN Reason: Anxiety Stop: 06/08/23 12:57 Last Admin: 05/11/23 20:57 Dose: 0.5 mg Amlodipine Besylate (Amlodipine Besylate 5 Mg Tab) 2.5 mg PO QAM [facility] Stop: 06/17/23 12:14 Last Admin: 05/19/23 08:44 Dose: 2.5 mg Apixaban (Apixaban 5 Mg Tablet) 5 mg PO BID [facility] Stop: 06/08/23 12:59 Last Admin: 05/19/23 08:43 Dose: 5 mg Aspirin (Aspirin 81 Mg Ectab) 81 mg PO DAILY [facility] Stop: 06/08/23 12:59 Last Admin: 05/19/23 08:44 Dose: 81 mg Calcium/Vitamin D (Calcium 600mg + Vit D 400 Iu Tab) 1 tab PO BID [facility] Stop: 06/08/23 20:59 Last Admin: 05/19/23 08:43 Dose: 1 tab Carvedilol (Carvedilol 3.125 Mg Tab) 3.125 mg PO BIDM [facility] Stop: 06/17/23 16:59 Last Admin: 05/19/23 08:43 Dose: 3.125 mg Citalopram Hydrobromide (Citalopram 20 Mg Tab) 20 mg PO DAILY [facility] Stop: 06/08/23 12:59 Last Admin: 05/19/23 08:43 Dose: 20 mg Ferrous Sulfate (Ferrous Sulfate 325 Mg Tab) 325 mg PO DAILY [facility] Stop: 06/09/23 08:59 Last Admin: 05/19/23 08:44 Dose: 325 mg Furosemide (Furosemide 40 Mg Tab) 40 mg PO QAM [facility] Stop: 06/11/23 08:59 Last Admin: 05/18/23 08:29 Dose: 40 mg Guaifenesin (Guaifenesin 600 Mg Tabcr) 600 mg PO Q12 [facility] Stop: 06/12/23 09:59 Last Admin: 05/19/23 08:43 Dose: 600 mg Sodium Chloride (Nss) 500 mls @ 80 mls/hr IV .[id number] [facility] Stop: 06/18/23 11:14 Last Admin: 05/19/23 11:21 Dose: 80 mls/hr Losartan Potassium (Losartan Potassium 50 Mg Tab) 50 mg PO DAILY [facility] Stop: 06/16/23 08:59 Last Admin: 05/18/23 08:30 Dose: 50 mg Ondansetron HCl (Ondansetron Inj 2 Mg/Ml 2 Ml Vial) 4 mg IV Q6H PRN PRN Reason: Nausea Stop: 06/07/23 20:00 Pantoprazole Sodium (Pantoprazole 40 Mg Tab) 40 mg PO DAILY [facility] Stop: 06/08/23 12:59 Last Admin: 05/19/23 08:44 Dose: 40 mg Polyethylene Glycol (Polyethylene (Miralax) 17 Gm Pack) 17 gm PO DAILY [facility] Stop: 06/12/23 11:14 Last Admin: 05/19/23 08:43 Dose: 17 gm Pregabalin (Pregabalin 50 Mg Cap) 50 mg PO BID [facility] Stop: 06/08/23 12:59 Last Admin: 05/19/23 08:50 Dose: 50 mg Rosuvastatin Calcium (Rosuvastatin Calcium 20 Mg Tab) 20 mg PO HS [facility] Stop: 06/08/23 20:59 Last Admin: 05/18/23 20:11 Dose: 20 mg Senna/Docusate Sodium (Docusate Sodium/Senna 50/8.6mg Tab) 1 tab PO QAM [facility] Stop: 06/08/23 12:59 Last Admin: 05/19/23 08:50 Dose: 1 tab Sennosides (Senna 8.6 Mg Tab) 8.6 mg PO QAM [facility] Stop: 06/12/23 11:14 Last Admin: 05/19/23 08:44 Dose: 8.6 mg Sodium Chloride (Sodium Chloride 0.65% Na Soln 45 Ml ([place])) 1 sprays NA TID [facility] Stop: 06/15/23 08:59 Last Admin: 05/19/23 08:51 Dose: Not Given (6) Hypertension Hypertension type: primary hypertension Qualified Code(s): I10 - Essential (primary) hypertension
[2023-05-19 15:11] LABS: Appearance Urine Clear (Clear); Bilirubin Urine Negative (Negative); Blood Urine Negative (Negative); Color Urine Yellow; Glucose Urine UA Negative (Negative); Ketones Urine Negative (Negative); Leukocyte Esterase Urine Negative (Negative); Nitrite Urine Negative (Negative); Protein Urine Negative (Negative); Urobilinogen Urine Negative (Negative)
[2023-05-19] MEDS: SODIUM CHLORIDE 0.9% 1,000 ML IV SCH (23:06)
[2023-05-20 06:59] LABS: BUN Creatinine Ratio 40.1 (10-20); Calcium 9.8 mg/dl (8.6-10.3); Creatinine Clr Calc Pharmacy 29.7 ml/min; Est GFR (African American) 36.6 ml/min; Est GFR (Non-African American) 31.5 ml/min; Magnesium 1.9 mg/dl (1.7-2.4); Phosphorus 4.1 mg/dl (2.5-4.9); Potassium 4.4 mmol/L (3.5-5.1)
--- NOTE | 2023-05-20 09:46 | Nephrology Progress Note ---
Date of Service May 20, 2023 Assessment & Plan Admission and Anticipated Discharge Date Admission Date: May 08, 2023 Subjective Assessment & Plan (1) JAYLIN (acute kidney injury): JAYLIN --non oliguric type with slow rise in creat over ten days from 0.9 to 1.9. Cause likely hemodynamic/Milder degree of ATN vs volume depletion. Unlikely to be any types of GN. Creat better today. Stop Iv fluid. Can restart lasix and Losartan from tomorrow one at a time. (2) Acute respiratory failure with hypoxia and hypercapnia: Now much better. Cause was Viral Infection +/- Diastolic CHF. No CHF now. S--No new issues. Feels fine. on RA Physical Exam Physical Exam: General: +somnolent, +arouses to light touch and voice and when asked questions answers "no" to everything. Currently on bipap in no distress, Obese elderly female Head: normocephalic, atraumatic Eyes: PERRL, EOM's intact, conjunctiva non-injected, anicteric ENT: normal inspection external ears, nose, mucous membranes appear moist Neck: supple, trachea midline Lungs: currently on bipap and appears comfortable with O2 sat 95% and Respirations 22, Difficult to fully auscultate secondary to bipap sounds but appears to have rhonchi throughout CV: RRR, No edema Abd: normal BS, soft, no apparent tenderness to palpation Ext: no cyanosis, no calf tenderness Neuro: Somnolent, arouses with light touch Skin: warm, dry Results & Data Vital Signs (Past 12 Hours) Vital Signs Temp Pulse Pulse Pulse Resp BP BP 05/20/23 07:55 36.6 C 62 16 146/74 H 05/20/23 07:20 05/20/23 05:51 57 L 05/20/23 03:48 37 C 64 16 142/69 H 05/19/23 23:20 37.1 C 62 18 147/68 H 05/19/23 21:53 57 L Pulse Ox O2 Del Method 05/20/23 07:55 96 Room Air 05/20/23 07:20 Room Air 05/20/23 05:51 05/20/23 03:48 95 Room Air 05/19/23 23:20 95 Room Air 05/19/23 21:53
--- NOTE | 2023-05-20 11:20 | Hospitalist Progress Note ---
Date of Service May 20, 2023 Assessment & Plan (1) Acute respiratory failure with hypoxia and hypercapnia: (2) Acute on chronic heart failure with preserved ejection fraction (HFpEF): (3) URI (upper respiratory infection): (4) Metabolic encephalopathy: (5) Paroxysmal atrial fibrillation: (6) Hypertension: (7) Anxiety: (8) GERD (gastroesophageal reflux disease): Plan Patient is 87 year old female with PMH HTN, HLD, PAF, anticoagulated on Eliquis, anxiety, depression, GERD who presented to ER with c/o cough x several days and SOB. Acute respiratory failure with hypoxia and hypercapnia Pt presenting to the ED with an increased oxygen requirement, requiring bipap + human metapneumovirus Also underlying CHF Possible obesity hypoventilation syndrome Bipap/oxygen supplementation as needed, wean as tolerated Duonebs prn Continue to monitor on NC 2L -> currently on RA Obtain sputum cultx (ordered but not collected) Repeat CXR negative URI Viral Infection, Human Metapneumovirus Biofire positive for human metapneumovirus Chest XRAY with no noted pneumonia Procalcitonin negative Sputum cultx Was started on empiric doxycycline and rocephin -> cefdinir + doxy- finished abx course Duonebs Supportive care, guaifenesin, flutter valve, IS Acute on chronic heart failure with preserved ejection fraction (HFpEF) BNP elevated at 327 Chest xray noting cardiomegaly EKG with NSR Echo noting Grade II diastolic failure, EF 55-60%, LVH IV Lasix 40mg daily (held overnight on 05/08), resumed on 05/09 Ulrich for accurate ins and outs, daily weights Weight improving Cardiology consulted for further outpatient recs -transition to po lasix 40mg -cont met succ 50mg BID -> changed to lower dose coreg d/t HTN and mild br adycardia -cont losartan 100mg -> decreased to 50 d/t elev. Cr 05/17 Cr elev., hypertensive and slightly bradycardic - discussed w/ cardiology - ok to hold furosemide, losartan. Cont. with amlodipine 2.5 and coreg 3.125 bid 05/18 Cr 1.9 - discussed with cardiology and nephrology - cont. to hold diuretics, give 500 cc IVF, obtain UA 05/19 Cr improved, UA - negat. may possibly resume losartan/ lasix tmrw Underlying obesity hypoventilation syndrome Uncertain diagnosis Outpt pulmonary testing Acute Metabolic Encephalopathy Pt became confused in the ED VBG with noted pH 7.35, CO2 elevated at 61, HCO3 of [address] with no acute abnormality UA obtained, urine cx with no significant growth Blood Cx with NGTD Likely in setting of hypercapnia, ? UTI Pt started on bipap on admission Treated with Rocephin as above, currently on cefdinir and doxycycline Held home sedating agents-alprazolam, pregabalin Pt's mentation currently improved/ back to baseline, meds above resumed Continue to monitor ? UTI Urine cx with no significant growth On rocephin above (for 3 days), transitioned to po cefdinir, abx as above repeat UA negat. Hypertensive Urgency BP significantly elevated on admission Had nitropaste and BP improved significantly Continue home metoprolol and losartan/ coreg losartan as above Continue to monitor BP Anemia Hgb baseline of 10-11 Anemia workup with iron panel, ferritin, b12 and folate levels Continue to monitor Elevated liver enzymes T bili elevated at 1.2 -> down to normal Pt reported RLQ pain Considered imaging with liver US Currently denies any abd. pain Fever Pt with fever overnight on 05/08 Infectious workup as above No noted diarrhea Has been on rocephin and doxycycline Continue with po cefdinir and doxycycline - finished abx course Pt has been afebrile Hyperglycemia Noted elevated glucose levels Current Hgba1c 6.1% Consider ISS based on levels Paroxysmal atrial fibrillation On metoprolol Chronically anticoagulated on Eliquis Current sinus rhythm Continue to monitor Anxiety On citalopram at home, continue Held Xanax with AMS, has since been resumed GERD (gastroesophageal reflux disease) On ppi, continue CODE STATUS: DNR/DNI Diet: HH DVT Prophylaxis: Eliquis Dispo: PT/OT ordered DNR/DNI as per prior admissions and per discussion with patient's emergency contact [place] [facility] Follows with Jc Del Rio PA-C for routine care Admission and Anticipated Discharge Date Admission Date: May 08, 2023 Subjective Pt seen in follow up of CHF , + human metapneumovirus Currently sitting up in bed , in NAD Says she feels better overall + cough - improved +constipation- resolved no chest pain, abd. pain, n/v pt is very weak Cr now improved Review of Systems Review of Systems: All systems reviewed & are unremarkable except as noted in Subjective Physical Exam Physical Exam: General: WD/WN elderly F in NAD HEENT: NC/AT Chest: Nontender to palpation. CV: RRR Resp: + minimal rhonchi bilaterally (much improved), no increased effort of breathing. Abdomen: Soft, nontender, nondistended. Extremities: trace edema in lower extremities b/l. Skin: warm, dry Psych: Appropriate mood and affect Neuro: awake, alert, answers appropriately, speech fluent, no facial asymmetry, appears generally weak Results & Data Results & Data Vital Signs (Past 12 Hours) Vital Signs Temp Pulse Pulse Pulse Resp BP BP 05/20/23 07:55 36.6 C 62 16 146/74 H 05/20/23 07:20 05/20/23 05:51 57 L 05/20/23 03:48 37 C 64 16 142/69 H 05/19/23 23:20 37.1 C 62 18 147/68 H Pulse Ox O2 Del Method 05/20/23 07:55 96 Room Air 05/20/23 07:20 Room Air 05/20/23 05:51 05/20/23 03:48 95 Room Air 05/19/23 23:20 95 Room Air Laboratory Results 05/20/23 05/19/23 Range/Units 05:31 Unknown Sodium 136 (136-145) mmol/L Potassium 4.4 (3.5-5.1) mmol/L Chloride 106 (98-107) mmol/L Carbon Dioxide 23 (21-32) mmol/L Anion Gap 7 (3-11) BUN 59 H (6-23) mg/dl Creatinine 1.47 H D (0.6-1.2) mg/dl Est Cr Clr Drug Dosing 29.7 ml/min Est GFR ( Amer) 36.6 ml/min Est GFR (Non-Af Amer) 31.5 ml/min BUN/Creatinine Ratio 40.1 H (10-20) Glucose 98 (70-99(Fasting)) mg/dl Calcium 9.8 (8.6-10.3) mg/dl Phosphorus 4.1 D (2.5-4.9) mg/dl Magnesium 1.9 (1.7-2.4) mg/dl Urine Color Yellow Urine Appearance Clear (Clear) Urine pH 5.0 (4.5-7.5) Ur Specific [place] 1.020 (1.000-1.030) Urine Protein Negative (Negative) Urine Glucose (UA) Negative (Negative) Urine Ketones Negative (Negative) Urine Blood Negative (Negative) Urine Nitrite Negative (Negative) Urine Bilirubin Negative (Negative) Urine Urobilinogen Negative (Negative) Ur Leukocyte Esterase Negative (Negative) Medications Administered Current Inpatient Medications Acetaminophen (Acetaminophen 325 Mg Tab) 650 mg PO QID PRN PRN Reason: pain/fever Stop: 06/09/23 00:37 Last Admin: 05/20/23 08:41 Dose: 650 mg Albuterol (Albut/Ipratrop 3mg/0.5mg Neb 3 Ml Vial) 3 ml NEB QIDR PRN; Protocol PRN Reason: Shortness Of Breath Or Wheezing Stop: 06/07/23 20:00 Alprazolam (Alprazolam 0.5 Mg Tablet) 0.5 mg PO BID PRN PRN Reason: Anxiety Stop: 06/08/23 12:57 Last Admin: 05/11/23 20:57 Dose: 0.5 mg Amlodipine Besylate (Amlodipine Besylate 5 Mg Tab) 2.5 mg PO QAM [facility] Stop: 06/17/23 12:14 Last Admin: 05/20/23 08:36 Dose: 2.5 mg Apixaban (Apixaban 5 Mg Tablet) 5 mg PO BID [facility] Stop: 06/08/23 12:59 Last Admin: 05/20/23 08:36 Dose: 5 mg Aspirin (Aspirin 81 Mg Ectab) 81 mg PO DAILY [facility] Stop: 06/08/23 12:59 Last Admin: 05/20/23 08:36 Dose: 81 mg Calcium/Vitamin D (Calcium 600mg + Vit D 400 Iu Tab) 1 tab PO BID [facility] Stop: 06/08/23 20:59 Last Admin: 05/20/23 08:36 Dose: 1 tab Carvedilol (Carvedilol 3.125 Mg Tab) 3.125 mg PO BIDM [facility] Stop: 06/17/23 16:59 Last Admin: 05/20/23 08:36 Dose: 3.125 mg Citalopram Hydrobromide (Citalopram 20 Mg Tab) 20 mg PO DAILY [facility] Stop: 06/08/23 12:59 Last Admin: 05/20/23 08:36 Dose: 20 mg Ferrous Sulfate (Ferrous Sulfate 325 Mg Tab) 325 mg PO DAILY [facility] Stop: 06/09/23 08:59 Last Admin: 05/20/23 08:36 Dose: 325 mg Furosemide (Furosemide 40 Mg Tab) 40 mg PO QAM [facility] Stop: 06/11/23 08:59 Last Admin: 05/18/23 08:29 Dose: 40 mg Guaifenesin (Guaifenesin 600 Mg Tabcr) 600 mg PO Q12 [facility] Stop: 06/12/23 09:59 Last Admin: 05/20/23 08:36 Dose: 600 mg Losartan Potassium (Losartan Potassium 50 Mg Tab) 50 mg PO DAILY [facility] Stop: 06/16/23 08:59 Last Admin: 05/18/23 08:30 Dose: 50 mg Ondansetron HCl (Ondansetron Inj 2 Mg/Ml 2 Ml Vial) 4 mg IV Q6H PRN PRN Reason: Nausea Stop: 06/07/23 20:00 Pantoprazole Sodium (Pantoprazole 40 Mg Tab) 40 mg PO DAILY [facility] Stop: 06/08/23 12:59 Last Admin: 05/20/23 08:36 Dose: 40 mg Polyethylene Glycol (Polyethylene (Miralax) 17 Gm Pack) 17 gm PO DAILY [facility] Stop: 06/12/23 11:14 Last Admin: 05/20/23 08:36 Dose: 17 gm Pregabalin (Pregabalin 50 Mg Cap) 50 mg PO BID [facility] Stop: 06/08/23 12:59 Last Admin: 05/20/23 08:41 Dose: 50 mg Rosuvastatin Calcium (Rosuvastatin Calcium 20 Mg Tab) 20 mg PO HS [facility] Stop: 06/08/23 20:59 Last Admin: 05/19/23 21:22 Dose: 20 mg Senna/Docusate Sodium (Docusate Sodium/Senna 50/8.6mg Tab) 1 tab PO QAM [facility] Stop: 06/08/23 12:59 Last Admin: 05/20/23 08:41 Dose: 1 tab Sennosides (Senna 8.6 Mg Tab) 8.6 mg PO QAM [facility] Stop: 06/12/23 11:14 Last Admin: 05/20/23 08:36 Dose: 8.6 mg Sodium Chloride (Sodium Chloride 0.65% Na Soln 45 Ml ([place]ade)) 1 sprays NA TID [facility] Stop: 06/15/23 08:59 Last Admin: 05/20/23 08:41 Dose: Not Given (6) Hypertension Hypertension type: primary hypertension Qualified Code(s): I10 - Essential (primary) hypertension
[2023-05-21 05:35] LABS: BUN Creatinine Ratio 35.4 (10-20); Calcium 9.7 mg/dl (8.6-10.3); Creatinine Clr Calc Pharmacy 33.6 ml/min; Est GFR (African American) 42.4 ml/min; Est GFR (Non-African American) 36.6 ml/min; Potassium 4.3 mmol/L (3.5-5.1)
--- NOTE | 2023-05-21 10:52 | Hospitalist Progress Note ---
Date of Service May 21, 2023 Assessment & Plan (1) Acute respiratory failure with hypoxia and hypercapnia: (2) Acute on chronic heart failure with preserved ejection fraction (HFpEF): (3) URI (upper respiratory infection): (4) Metabolic encephalopathy: (5) Paroxysmal atrial fibrillation: (6) Hypertension: (7) Anxiety: (8) GERD (gastroesophageal reflux disease): Plan per previous hospitalist notes with addendum: Patient is 87 year old female with PMH HTN, HLD, PAF, anticoagulated on Eliquis, anxiety, depression, GERD who presented to ER with c/o cough x several days and SOB. Acute respiratory failure with hypoxia and hypercapnia Pt presenting to the ED with an increased oxygen requirement, requiring bipap + human metapneumovirus Also underlying CHF Possible obesity hypoventilation syndrome Bipap/oxygen supplementation as needed, wean as tolerated Duonebs prn Continue to monitor on NC 2L -> currently on RA Repeat CXR negative URI Viral Infection, Human Metapneumovirus Biofire positive for human metapneumovirus Chest XRAY with no noted pneumonia Procalcitonin negative Was started on empiric doxycycline and rocephin -> cefdinir + doxy- finished abx course Duonebs Supportive care, guaifenesin, flutter valve, IS 05/20 Respiratory status stable Currently on room air Acute on chronic heart failure with preserved ejection fraction (HFpEF) BNP elevated at 327 Chest xray noting cardiomegaly EKG with NSR Echo noting Grade II diastolic failure, EF 55-60%, LVH IV Lasix 40mg daily (held overnight on 05/08), resumed on 05/09 Ulrich for accurate ins and outs, daily weights Weight improving Cardiology consulted for further outpatient recs -transition to po lasix 40mg -cont met succ 50mg BID -> changed to lower dose coreg d/t HTN and mild bradycardia -cont losartan 100mg -> decreased to 50 d/t elev. Cr 05/17 Cr elev., hypertensive and slightly bradycardic - discussed w/ cardiology - ok to hold furosemide, losartan. Cont. with amlodipine 2.5 and coreg 3.125 bid 05/18 Cr 1.9 - discussed with cardiology and nephrology - cont. to hold diuretics, give 500 cc IVF, obtain UA 05/19 Cr improved, UA - negat. may possibly resume losartan/ lasix tmrw 05/20 Resume usual Lasix 40 mg every other day Repeat BMP in 2 to 3 days, monitor regularly while on Lasix Underlying obesity hypoventilation syndrome Uncertain diagnosis Outpt pulmonary testing Acute Metabolic Encephalopathy Pt became confused in the ED VBG with noted pH 7.35, CO2 elevated at 61, HCO3 of [address] with no acute abnormality UA obtained, urine cx with no significant growth Blood Cx with NGTD Likely in setting of hypercapnia, ? UTI Pt started on bipap on admission Treated with Rocephin as above, currently on cefdinir and doxycycline Held home sedating agents-alprazolam, pregabalin Pt's mentation currently improved/ back to baseline, meds above resumed 05/20 Back to baseline mental status ? UTI Urine cx with no significant growth On rocephin above (for 3 days), transitioned to po cefdinir, abx as above repeat UA negat. Hypertensive Urgency BP significantly elevated on admission Had nitropaste and BP improved significantly Losartan held in light of acute kidney injury Monitor BMP If blood pressure uncontrolled and creatinine is okay, resume losartan at 50 mg p.o. daily in 1 week Anemia Hgb baseline of 10-11 Anemia workup with iron panel, ferritin, b12 and folate levels Iron level 20, ferrous sulfate twice daily Elevated liver enzymes T bili elevated at 1.2 -> down to normal Pt reported RLQ pain Resolved Paroxysmal atrial fibrillation Transition to carvedilol Chronically anticoagulated on Eliquis Current sinus rhythm Continue to monitor Anxiety On citalopram at home, continue Held Xanax with AMS, has since been resumed GERD (gastroesophageal reflux disease) On ppi, continue CODE STATUS: DNR/DNI Diet: HH DVT Prophylaxis: Eliquis Dispo: Transition to [facility] Admission and Anticipated Discharge Date Admission Date: May 08, 2023 Subjective Follow-up for acute bronchitis, acute on chronic CHF exacerbation, acute kidney injury, etc. Seen resting in bed, sitting up at the edge of the bed, comfortable, pleasant, alert and bright States she feels better overall Had some mild lightheadedness upon sitting up but resolved no chest pain, dyspnea, palpitations No shortness of breath, cough Ambulating to the bathroom with a walker, no issues No problems with voiding States she is ready and would like to be discharged today Review of Systems Review of Systems: all noted and negative except for above Physical Exam Physical Exam: General- oriented x 3, not in distress, speaks in sentences with no effort or accessory muscle use Eyes- anicteric Neck- no JVD Lungs- clear breath sounds bilaterally, no rales/wheezes Heart- normal rate, regular rhythm; no murmurs Abdomen- normal bowel sounds, nondistended, soft, nontender Extremities- no pretibial edema, no calf tenderness Neuro- alert, oriented x 3; no gross focal neurologic deficits Skin- warm & dry Results & Data Results & Data Vital Signs (Past 12 Hours) Vital Signs Temp Pulse Pulse Pulse Resp BP Pulse Ox 05/21/23 08:00 57 L 05/21/23 07:53 36.7 C 49 L 17 161/74 H 96 05/21/23 07:26 05/21/23 05:23 51 L 05/21/23 03:39 36.5 C 87 20 150/55 H 96 05/20/23 23:27 59 L 05/20/23 23:03 37.5 C 59 L 18 154/70 H 95 O2 Del Method 05/21/23 08:00 05/21/23 07:53 Room Air 05/21/23 07:26 Room Air 05/21/23 05:23 05/21/23 03:39 Room Air 05/20/23 23:27 05/20/23 23:03 Room Air all noted and reviewed including below (6) Hypertension Hypertension type: primary hypertension Qualified Code(s): I10 - Essential (primary) hypertension
--- NOTE | 2023-05-21 11:23 | Discharge Summary ---
Discharge Summary Date of Service May 21, 2023 Notes For Next Care Provider Medication Changes From Visit Please refer to assessment and plan below Admission HPI Per Admitting Provider Patient is 87 year old female with PMH HTN, HLD, PAF, anticoagulated on Eliquis, anxiety, depression, GERD presented to ER with c/o cough and SOB. Patient lives at [facility] in [place], [place]. History obtained from inpatient chart review and ER staff as currently patient with mental status changes and unable to provide history. ER physician reports that patient was awake alert and oriented upon ER arrival and had reported cough for several days and shortness of breath starting this morning without any noted fever or chills. Patient had noted intermittent chest heaviness occasionally and had reported BLE edema on chronic Lasix every 2 days without any noted acute worsening lower extremity edema. During ER course patient given lasix 40mg IV and nitropaste as hypertensive. During ER course patient became confused and somnolent, had noted tachypnea. VBG obtained patient started on bipap. CT head without acute intracranial findings. Spoke with patient's friend Sol Cloud who is her emergency contact. Sol is friend of patient as she states patient does not have any family. She was updated on patient's status. Sol is currently in [place] but would like update s via phone call. Sol confirms patient is DNI/DNR. Admission Exam Per Admitting Provider General: +somnolent, +arouses to light touch and voice and when asked questions answers "no" to everything. Currently on bipap in no distress, Obese elderly female Head: normocephalic, atraumatic Eyes: PERRL, EOM's intact, conjunctiva non-injected, anicteric ENT: normal inspection external ears, nose, mucous membranes appear moist Neck: supple, trachea midline Lungs: currently on bipap and appears comfortable with O2 sat 95% and Respirations 22, Difficult to fully auscultate secondary to bipap sounds but appears to have rhonchi throughout CV: RRR, 1+ pretibial edema Abd: normal BS, soft, no apparent tenderness to palpation Ext: no cyanosis, no calf tenderness Neuro: Somnolent, arouses with light touch Skin: warm, dry Principal Dx & Hospital Course #1 = Principal Diagnosis (1) Acute respiratory failure with hypoxia and hypercapnia: (2) Acute on chronic heart failure with preserved ejection fraction (HFpEF): (3) URI (upper respiratory infection): (4) Metabolic encephalopathy: (5) Paroxysmal atrial fibrillation: (6) Hypertension: (7) Anxiety: (8) GERD (gastroesophageal reflux disease): Plan per previous hospitalist notes with addendum: Patient is 87 year old female with PMH HTN, HLD, PAF, anticoagulated on Eliquis, anxiety, depression, GERD who presented to ER with c/o cough x several days and SOB. Acute respiratory failure with hypoxia and hypercapnia Pt presenting to the ED with an increased oxygen requirement, requiring bipap + human metapneumovirus Also underlying CHF Possible obesity hypoventilation syndrome Bipap/oxygen supplementation as needed, wean as tolerated Duonebs prn Continue to monitor on NC 2L -> currently on RA Repeat CXR negative URI Viral Infection, Human Metapneumovirus Biofire positive for human metapneumovirus Chest XRAY with no noted pneumonia Procalcitonin negative Was started on empiric doxycycline and rocephin -> cefdinir + doxy- finished abx course Duonebs Supportive care, guaifenesin, flutter valve, IS 05/20 Respiratory status stable Currently on room air Acute on chronic heart failure with preserved ejection fraction (HFpEF) BNP elevated at 327 Chest xray noting cardiomegaly EKG with NSR Echo noting Grade II diastolic failure, EF 55-60%, LVH IV Lasix 40mg daily (held overnight on 05/08), resumed on 05/09 Ulrich for accurate ins and outs, daily weights Weight improving Cardiology consulted for further outpatient recs -transition to po lasix 40mg -cont met succ 50mg BID -> changed to lower dose coreg d/t HTN and mild bradycardia -cont losartan 100mg -> decreased to 50 d/t elev. Cr 05/17 Cr elev., hypertensive and slightly bradycardic - discussed w/ cardiology - ok to hold furosemide, losartan. Cont. with amlodipine 2.5 and coreg 3.125 bid 05/18 Cr 1.9 - discussed with cardiology and nephrology - cont. to hold diuretics, give 500 cc IVF, obtain UA 05/19 Cr improved, UA - negat. may possibly resume losartan/ lasix tmrw 05/20 Resume usual Lasix 40 mg every other day Repeat BMP in 2 to 3 days, monitor regularly while on Lasix Underlying obesity hypoventilation syndrome Uncertain diagnosis Outpt pulmonary testing Acute Metabolic Encephalopathy Pt became confused in the ED VBG with noted pH 7.35, CO2 elevated at 61, HCO3 of [address] with no acute abnormality UA obtained, urine cx with no significant growth Blood Cx with NGTD Likely in setting of hypercapnia, ? UTI Pt started on bipap on admission Treated with Rocephin as above, currently on cefdinir and doxycycline Held home sedating agents-alprazolam, pregabalin Pt's mentation currently improved/ back to baseline, meds above resumed 05/20 Back to baseline mental status ? UTI Urine cx with no significant growth On rocephin above (for 3 days), transitioned to po cefdinir, abx as above repeat UA negat. Hypertensive Urgency BP significantly elevated on admission Had nitropaste and BP improved significantly Losartan held in light of acute kidney injury Monitor BMP If blood pressure uncontrolled and creatinine is okay, resume losartan at 50 mg p.o. daily in 1 week Anemia Hgb baseline of 10-11 Anemia workup with iron panel, ferritin, b12 and folate levels Iron level 20, ferrous sulfate twice daily Elevated liver enzymes T bili elevated at 1.2 -> down to normal Pt reported RLQ pain Resolved Paroxysmal atrial fibrillation Transition to carvedilol Chronically anticoagulated on Eliquis Current sinus rhythm Continue to monitor Anxiety On citalopram at home, continue Held Xanax with AMS, has since been resumed GERD (gastroesophageal reflux disease) On ppi, continue CODE STATUS: DNR/DNI Diet: HH DVT Prophylaxis: Eliquis Dispo: Transition to [facility] Discharge Exam General- oriented x 3, not in distress, speaks in sentences with no effort or accessory muscle use Eyes- anicteric Neck- no JVD Lungs- clear breath sounds bilaterally, no rales/wheezes Heart- normal rate, regular rhythm; no murmurs Abdomen- normal bowel sounds, nondistended, soft, nontender Extremities- no pretibial edema, no calf tenderness Neuro- alert, oriented x 3; no gross focal neurologic deficits Skin- warm & dry Updated Medication List Medication Instructions Recorded Confirmed Type acetaminophen 500 mg tablet 1,000 mg (2 x 500 mg) PO Q8H PRN 08/25/22 05/08/23 Rx (Tylenol Extra Strength) fever or pain #90 tabs alprazolam 0.5 mg tablet 0.5 mg PO BID PRN Anxiety #10 tabs 08/25/22 05/08/23 Rx apixaban 5 mg tablet (Eliquis) 5 mg PO BID #60 tabs 08/25/22 05/08/23 Rx coenzyme Q10 100 mg capsule 100 mg PO DAILY #30 caps 08/25/22 05/08/23 Rx (CoQ-10) furosemide 40 mg tablet 40 mg PO Q2D #30 tabs 08/25/22 05/08/23 Rx metoprolol succinate 50 mg 50 mg PO DAILY #30 tabs 08/25/22 05/08/23 Rx tablet,extended release 24 hr omeprazole 20 mg capsule,delayed 20 mg PO DAILY #30 caps 08/25/22 05/08/23 Rx release sennosides 8.6 mg-docusate sodium 1 tab PO QAM #30 tabs 08/25/22 05/08/23 Rx 50 mg tablet (Senokot-S) aspirin 81 mg tablet,delayed 81 mg PO DAILY 05/08/23 05/08/23 History release calcium carbonate 600 mg-vitamin 1 tab PO BID 05/08/23 05/08/23 History D3 10 mcg (400 unit) tablet (Calcium 600 + D(3)) citalopram 20 mg tablet 20 mg PO DAILY 05/08/23 05/08/23 History clonidine HCl 0.1 mg tablet 0.1 mg PO DAILY PRN SBP>170 or 05/08/23 05/08/23 History DBP>100 dextromethorphan HBr 30 mg/5 mL 60 mg PO Q12 PRN Cough 05/08/23 05/08/23 History oral liquid ferrous sulfate 325 mg (65 mg 325 mg PO DAILY 05/08/23 05/08/23 History iron) tablet guaifenesin 600 mg tablet, 600 mg PO Q12H PRN Congestion 05/08/23 05/08/23 History extended release 12 hr (Mucinex) ibuprofen 200 mg tablet 200 - 400 mg PO Q6H PRN Fever Or 05/08/23 05/08/23 History Pain losartan 100 mg tablet 100 mg PO DAILY 05/08/23 05/08/23 History nystatin 100,000 unit/gram topical 1 applic topical TID PRN 05/08/23 05/08/23 History powder (Nystop) rash/irritation polyethylene glycol 3350 17 gram 17 g PO QAM PRN Constipation 05/08/23 05/08/23 History oral powder packet (Miralax) pregabalin 50 mg capsule 50 mg PO BID 05/08/23 05/08/23 History rosuvastatin 20 mg tablet 20 mg PO HS 05/08/23 05/08/23 History amlodipine 5 mg tablet (Norvasc) 2.5 mg (1/2 x 5 mg) PO QAM 30 days 05/21/23 Rx #15 tabs carvedilol 3.125 mg tablet 3.125 mg PO BIDM 30 days #60 tabs 05/21/23 Rx Hospital Stay Data Consultations 05/08/23 17:05 ED Decision to Admit Stat 05/11/23 09:19 Consult Cardiology Routine 05/19/23 10:14 Consult Nephrology Routine Diagnostic Imagining Performed Laboratory Results WBC 11.06 K/ul (4.8-10.8) H 05/18/23 08:02 RBC 4.41 M/uL (4.20-5.40) 05/18/23 08:02 Hgb 12.2 g/dl (12.0-16.0) 05/18/23 08:02 Hct 38.1 % (37.0-47.0) 05/18/23 08:02 MCV 86.4 fL (80.0-100.0) 05/18/23 08:02 MCH 27.7 pg (25.0-34.0) 05/18/23 08:02 MCHC 32.0 g/dL (32.0-36.0) 05/18/23 08:02 RDW Std Deviation 50.7 fL (36.4-46.3) H 05/18/23 08:02 RDW Coeff of Lizy 16.0 % (11.5-14.5) H 05/18/23 08:02 Plt Count 354 K/uL (130-400) 05/18/23 08:02 MPV 9.3 fL (9.4-12.4) L 05/18/23 08:02 Immature Gran % (Auto) 0.6 % 05/10/23 00:47 Neut % (Auto) 69.1 % 05/10/23 00:47 Lymph % (Auto) 17.9 % 05/10/23 00:47 [place] % (Auto) 12.0 % 05/10/23 00:47 Eos % (Auto) 0.1 % 05/10/23 00:47 Baso % (Auto) 0.3 % 05/10/23 00:47 Neut # (Auto) 6.00 K/uL (1.40-6.50) 05/10/23 00:47 Lymph # (Auto) 1.55 K/uL (1.20-3.40) 05/10/23 00:47 [place] # (Auto) 1.04 K/uL (0.11-0.59) H 05/10/23 00:47 Eos # (Auto) 0.01 K/uL (0.00-0.50) 05/10/23 00:47 Baso # (Auto) 0.03 K/uL (0.00-0.20) 05/10/23 00:47 Immature Gran # (Auto) 0.05 K/uL (0.01-0.20) 05/10/23 00:47 PT 12.5 Seconds (9.0-12.0) H 05/11/23 14:13 INR 1.2 (0.9-1.1) H 05/11/23 14:13 VBG pH 7.43 (7.36-7.41) H 05/08/23 20:17 VBG pCO2 48 mmHg (38-50) 05/08/23 20:17 VBG pO2 48 mmHg 05/08/23 20:17 VBG HCO3 32 mmol/L 05/08/23 20:17 VBG O2 Saturation 83.6 % 05/08/23 20:17 VBG Base Excess 6.5 mEq/L 05/08/23 20:17 Sodium 137 mmol/L (136-145) 05/21/23 04:23 Potassium 4.3 mmol/L (3.5-5.1) 05/21/23 04:23 Chloride 105 mmol/L (98-107) 05/21/23 04:23 Carbon Dioxide 25 mmol/L (21-32) 05/21/23 04:23 Anion Gap 7 (3-11) 05/21/23 04:23 BUN 46 mg/dl (6-23) H 05/21/23 04:23 Creatinine 1.30 mg/dl (0.6-1.2) H 05/21/23 04:23 Est Cr Clr Drug Dosing 33.6 ml/min 05/21/23 04:23 Est GFR ( Amer) 42.4 ml/min 05/21/23 04:23 Est GFR (Non-Af Amer) 36.6 ml/min 05/21/23 04:23 BUN/Creatinine Ratio 35.4 (10-20) H 05/21/23 04:23 Glucose 98 mg/dl (70-99(Fasting)) 05/21/23 04:23 Estimat Average Glucose 128 mg/dl 05/11/23 05:55 Hemoglobin A1c 6.1 % (4.5-5.6) H 05/11/23 05:55 Calcium 9.7 mg/dl (8.6-10.3) 05/21/23 04:23 Phosphorus 4.1 mg/dl (2.5-4.9) D 05/20/23 05:31 Magnesium 1.9 mg/dl (1.7-2.4) 05/20/23 05:31 Iron 109 mcg/dl (35-150) 05/12/23 05:45 TIBC 191 mcg/dl (250-450) L 05/11/23 05:55 Unsaturated IBC 171 mcg/dl (155-355) 05/11/23 05:55 Transferrin % Sat 10 % (15-50) L 05/11/23 05:55 Ferritin 208.4 ng/ml (8-388) 05/11/23 05:55 Total Bilirubin 0.8 mg/dl (0.2-1.0) 05/13/23 02:50 AST 15 U/L (13-39) 05/13/23 02:50 ALT 8 U/L (7-52) 05/13/23 02:50 Alkaline Phosphatase 48 U/L (34-104) 05/13/23 02:50 Troponin I High Sens 10.8 pg/ml (0-14) 05/08/23 12:17 B-Natriuretic Peptide 327 pg/ml (0-100) H 05/08/23 12:17 Total Protein 6.6 gm/dl (6.0-8.3) 05/13/23 02:50 Albumin 3.7 gm/dl (3.4-5.0) 05/13/23 02:50 Globulin 2.9 gm/dl (2.5-4.0) 05/13/23 02:50 Albumin/Globulin Ratio 1.3 (0.9-2) 05/13/23 02:50 Lipase 8 U/L (11-82) L 05/08/23 12:17 Vitamin B12 235 pg/ml (180-914) 05/11/23 05:55 Folate 15.47 ng/ml (>5.38) 05/11/23 05:55 Procalcitonin 0.20 ng/ml (0-0.5) 05/08/23 19:33 TSH 2.722 uIu/ml (0.300-4.500) 05/08/23 12:17 Urine Color Yellow 05/19/23 Unknown Urine Appearance Clear (Clear) 05/19/23 Unknown Urine pH 5.0 (4.5-7.5) 05/19/23 Unknown Ur Specific [place] 1.020 (1.000-1.030) 05/19/23 Unknown Urine Protein Negative (Negative) 05/19/23 Unknown Urine Glucose (UA) Negative (Negative) 05/19/23 Unknown Urine Ketones Negative (Negative) 05/19/23 Unknown Urine Blood Negative (Negative) 05/19/23 Unknown Urine Nitrite Negative (Negative) 05/19/23 Unknown Urine Bilirubin Negative (Negative) 05/19/23 Unknown Urine Urobilinogen Negative (Negative) 05/19/23 Unknown Ur Leukocyte Esterase Negative (Negative) 05/19/23 Unknown Urine WBC (Auto) Cancelled 05/08/23 Unknown Urine RBC (Auto) Cancelled 05/08/23 Unknown U Hyaline Cast (Auto) Cancelled 05/08/23 Unknown U Epithel Cells (Auto) Cancelled 05/08/23 Unknown Urine Bacteria (Auto) Cancelled 05/08/23 Unknown Ur Renal Epithelial Cell Cancelled 05/08/23 Unknown Urine Crystals Cancelled 05/08/23 Unknown Calcium Oxalate Crystal Cancelled 05/08/23 Unknown Uric Acid Crystals Cancelled 05/08/23 Unknown Triple Phos Crystals Cancelled 05/08/23 Unknown Other Crystals Cancelled 05/08/23 Unknown Amorphous Sediment Cancelled 05/08/23 Unknown Granular Casts Cancelled 05/08/23 Unknown Waxy Casts Cancelled 05/08/23 Unknown RBC Casts Cancelled 05/08/23 Unknown WBC Casts Cancelled 05/08/23 Unknown Other Casts Cancelled 05/08/23 Unknown Urine Mucus Cancelled 05/08/23 Unknown Urine Other Cancelled 05/08/23 Unknown Urine Trichomonas Cancelled 05/08/23 Unknown Urine Yeast Cancelled 05/08/23 Unknown Urine Sperm Cancelled 05/08/23 Unknown Ur Oval Fat Bodies Cancelled 05/08/23 Unknown Nasal Screen MRSA (PCR) Negative (Negative) 05/08/23 Unknown Adenovirus (PCR) Not Detected (NotDetected) 05/08/23 12:39 B. pertussis DNA (PCR) Not Detected (NotDetected) 05/08/23 12:39 B.parapertussis DNA PCR Not Detected (NotDetected) 05/08/23 12:39 C. pneumoniae DNA (PCR) Not Detected (NotDetected) 05/08/23 12:39 Coronavirus OC43 (PCR) Not Detected (NotDetected) 05/08/23 12:39 Coronavirus HKU1 (PCR) Not Detected (NotDetected) 05/08/23 12:39 Coronavirus 229E (PCR) Not Detected (NotDetected) 05/08/23 12:39 SARS-CoV-2 (PCR) Not Detected (NotDetected) 05/08/23 12:39 Coronavirus NL63 (PCR) Not Detected (NotDetected) 05/08/23 12:39 Human Metapneumovir PCR DETECTED (NotDetected) A 05/08/23 12:39 Influenza Type A (PCR) Not Detected (NotDetected) 05/08/23 12:39 Influenza Type B (PCR) Not Detected (NotDetected) 05/08/23 12:39 M. pneumoniae (PCR) Not Detected (NotDetected) 05/08/23 12:39 Parainfluenza 1 (PCR) Not Detected (NotDetected) 05/08/23 12:39 Parainfluenza 2 (PCR) Not Detected (NotDetected) 05/08/23 12:39 Parainfluenza 3 (PCR) Not Detected (NotDetected) 05/08/23 12:39 Parainfluenza 4 (PCR) Not Detected (NotDetected) 05/08/23 12:39 RSV (PCR) Not Detected (NotDetected) 05/08/23 12:39 Entero/Rhino (PCR) Not Detected (NotDetected) 05/08/23 12:[address] 05/08/23 16:14 CT head/brain wo con CLINICAL HISTORY: ams Technique: Contiguous axial CT images of the head were acquired from the base of the skull to the vertex without intravenous contrast administration. Images were viewed in brain, subdural and bone windows. Automated dose lowering techniques and/or adjustment according to patient size were utilized for this exam. Comparison: None available at the time of this dictation. Findings: Areas of decreased attenuation are present in the periventricular and subcortical white matter bilaterally consistent with small vessel ischemic disease. Generalized cerebral atrophy with commensurate enlargement of the ventricles, sulci, and cisterns is also present. There is no acute intracranial hemorrhage or evidence of acute territorial infarction. No shift of the midline structures, mass effect, or extra-axial abnormalities are shown. Atherosclerotic calcifications are present in the intracranial segments of the internal carotid arteries. Imaged portions of the paranasal sinuses and mastoid air cells are clear. The orbits appear normal. There are no acute fractures of the calvaria or scalp swelling. Impression: No acute intracranial hemorrhage, no evidence of acute territorial infarction or other acute intracranial disease process. ACT 112: Negative or not required by law. Electronically signed by: Ricki Leonard M.D. 05/08/2023 5:13 PM Chest X-Ray 05/16/23 08:48 XR chest 1V portable CLINICAL HISTORY: follow up COMPARISON STUDY: Chest radiograph May 08, 2023. FINDINGS: Lung volumes are normal. Lungs are clear. There is no pneumothorax or pleural effusion. Stable cardiomegaly. Mediastinal contours are normal. There is no evidence for pulmonary edema. IMPRESSION: No acute cardiopulmonary findings. ACT 112: Negative or not required by law. Electronically signed by: Dre Duckworth M.D. 05/16/2023 9:35 AM 05/08/23 16:14 CT head/brain wo con Stat Pending Results Patient Have Any Pending Studies at Discharge: No Discharge Instructions Given to Patient (Per Discharging Provider) Please refer to accompanying hospital discharge summary for full details. Repeat basic metabolic profile in 2 to 3 days, and monitor closely. If needed, resume losartan 50 mg daily if renal function remains stable. Monitor CBC closely. Total Time Total Time Spent Total Time Spent (In Minutes): >30 minutes
== END 2023-05-21 18:43 | DRG 291 ==
LOC: ED 11:52 → 4W 18:08 → SUATTDRO 18:08 → 4W 19:25 → 2W 05-12 16:11

== ENCOUNTER 2023-06-29 12:41 | Inpatient (IN) ==
--- NOTE | 2023-06-29 14:02 | Emergency Department Note ---
Impression & Plan Left leg weakness ADMIT ED Provider Note HPI: History obtained from patient The patient is a 87-year-old female with history of acute respiratory failure with hypercapnia, heart failure with preserved ejection fraction, paroxysmal atrial fibrillation on anticoagulation, hypertension, who presents emergency department with a chief complaint of "dragging my left leg". Patient states that this morning when she woke up she seemed to have some difficulty walking and she was concerned because she seemed to be dragging her toes of her left leg. Patient denies any injuries, patient states she first noticed this symptom at 6:30 AM when she woke up and attempted to get out of bed. Patient states that one of the caretakers at her independent living facility came to help her at some point in the afternoon and secondary to her inability to walk recommended she be evaluated in the ER. Patient denies any fall, denies any traumatic injuries. On my assessment here in the ER the patient appears to be in no acute distress, she does not have any focal deficits on my initial evaluation. ROS: - Per HPI Differential Diagnosis: Acute ischemic stroke, peripheral neuropathy, ambulatory dysfunction secondary to musculoskeletal pathology, fall/fracture, amongst other potential pathologies. *Outpatient medications and allergy history reviewed. PE: General: Alert HEENT: Normocephalic, trachea midline Eyes: Extraocular eye movement is intact, no scleral erythema Pulmonary: Clear to auscultation bilaterally, no wheezing Cardio: Regular rate and rhythm GI: Abdomen is soft to palpation : No suprapubic tenderness MSK: No evidence of trauma or malformation of the extremities, no edema Skin: No evidence of rash Neuro: Alert, no focal deficits, no drift of the upper extremities or lower extremities with testing against gravity, no ataxia on [id number] testing bilaterally Psychiatric: Cooperative INDEPENDENT INTERPRETATIONS: physician office assistant: (As interpreted by myself): - An order was placed for continuous cardiac monitoring - Patient was noted to be in sinus rhythm with a rate of 83 EKG: (As interpreted by myself): Rate: 51 Rhythm: Sinus rhythm Intervals: Within normal limits ST changes: No ST elevation Time: 1303 NIH STROKE SCALE: 1A: Level of consciousness Alert; keenly responsive 0 1B: Ask month and age Both questions right 0 1C: 'Blink eyes' & 'squeeze hands' Performs both tasks 0 2: Horizontal extraocular movements Normal 0 3: Visual washburn No visual loss 0 4: Facial palsy Normal symmetry 0 5A: Left arm motor drift No drift for 10 seconds 0 5B: Right arm motor drift No drift for 10 seconds 0 6A: Left leg motor drift No drift for 5 seconds 0 6B: Right leg motor drift No drift for 5 seconds 0 7: Limb Ataxia No ataxia 0 8: Sensation Normal; no sensory loss 0 9: Language/aphasia Normal; no aphasia 0 10: Dysarthria Normal 0 11: Extinction/inattention No abnormality 0 TOTAL NIH SCORE = 0 Interventions provided in ED: -IV fluid bolus Medical Decision Making: IV was established and lab work obtained, patient was placed on rack worker. Lab work shows no leukocytosis, hemoglobin is stable at 10.7, platelet count is normal, CMP does not show any critical findings, troponin is negative. Given the patient's unexplained left lower extremity weakness and ambulatory dysfunction, CT angiography of the head and neck were obtained, there are areas noted with high-grade stenosis in the distal left vertebral artery as well as short segment occlusion in the right posterior vertebral artery with reconstitution distally. This appears similar to previous imaging per the interpreting radiologist. On my reassessment the patient is resting comfortably in bed, she was not able to ambulate with the bedside RN on reevaluation as she normally gets around with a walker. Patient is unable to put weight on her left lower extremity. She denies any pain in her hips and she does maintain flexion at the hips bilaterally on my exam. I do have concern with her unexplained weakness and difficulty to walk that she may have suffered an acute stroke. In addition she is ambulatory dysfunction and is not able to be accommodated at her assisted living facility and may require PT. I discussed the patient's presentation with the [facility] hospitalist service and the patient was placed for admission in stable condition to the service of Dr. Mcadams. Consultants/Discussions held with other healthcare providers: -HospitalistDr. Mcadams Disposition discussion held by myself with: -Patient Diagnosis: 1. Left lower extremity weakness, acute 2. Ambulatory dysfunction, acute 3. Stenosis of left-sided vertebral artery on CT angiography of the head 4. Short segment occlusion of right posterior vertebral artery on CT angiography of the head Disposition: Admission Elvin Coyle DO Emergency Medicine Past Med/Surg History Medical History Hypokalemia Paroxysmal atrial fibrillation CHF (congestive heart failure) TIA (transient ischemic attack) Occlusion of left vertebral artery Hypertension GERD (gastroesophageal reflux disease) Hypertension Surgical History History of appendectomy History of cholecystectomy History of cataract surgery History of hysterectomy History of total knee replacement x2 Family History Other Cancer Social History Smoking Status: Never smoker Second Hand Exposure: No; Do You Dip or Chew Tobacco: No; Hx Alcohol Use: No Hx Substance Use: No Preferred Language: Kenyan Communication Ability: Effective [employer] Required: No Beliefs That Will Affect Care: None marital status: / Current Living Situation: Halfway Current Living Situation Comment: Lives alone w/ family friend that performs chores/runs errands Feels Safe at Home: Yes Assistive Devices: Wheelchair Allergies Allergies Allergy/AdvReac Type Severity Reaction Status Date / Time aspirin AdvReac Unknown GI ISSUES Verified 05/08/23 17:01 Home Meds Home Medications Medication Instructions Recorded Confirmed aspirin 81 mg tablet,delayed 81 mg PO DAILY 05/08/23 05/08/23 release calcium carbonate 600 mg-vitamin 1 tab PO BID 05/08/23 05/08/23 D3 10 mcg (400 unit) tablet (Calcium 600 + D(3)) citalopram 20 mg tablet 20 mg PO DAILY 05/08/23 05/08/23 clonidine HCl 0.1 mg tablet 0.1 mg PO DAILY PRN SBP>170 or 05/08/23 05/08/23 DBP>100 dextromethorphan HBr 30 mg/5 mL 60 mg PO Q12 PRN Cough 05/08/23 05/08/23 oral liquid guaifenesin 600 mg tablet, 600 mg PO Q12H PRN Congestion 05/08/23 05/08/23 extended release 12 hr (Mucinex) nystatin 100,000 unit/gram topical 1 applic topical TID PRN 05/08/23 05/08/23 powder (Nystop) rash/irritation polyethylene glycol 3350 17 gram 17 g PO QAM PRN Constipation 05/08/23 05/08/23 oral powder packet (Miralax) pregabalin 50 mg capsule 50 mg PO BID 05/08/23 05/08/23 rosuvastatin 20 mg tablet 20 mg PO HS 05/08/23 05/08/23 Previous Rx's Medication Instructions Recorded acetaminophen 500 mg tablet 1,000 mg (2 x 500 mg) PO Q8H PRN 08/25/22 (Tylenol Extra Strength) fever or pain #90 tabs alprazolam 0.5 mg tablet 0.5 mg PO BID PRN Anxiety #10 tabs 08/25/22 apixaban 5 mg tablet (Eliquis) 5 mg PO BID #60 tabs 08/25/22 coenzyme Q10 100 mg capsule 100 mg PO DAILY #30 caps 08/25/22 (CoQ-10) furosemide 40 mg tablet 40 mg PO Q2D #30 tabs 08/25/22 metoprolol succinate 50 mg 50 mg PO DAILY #30 tabs 08/25/22 tablet,extended release 24 hr omeprazole 20 mg capsule,delayed 20 mg PO DAILY #30 caps 08/25/22 release sennosides 8.6 mg-docusate sodium 1 tab PO QAM #30 tabs 08/25/22 50 mg tablet (Senokot-S) ferrous sulfate 325 mg (65 mg 325 mg PO BID 30 days #60 tabs 05/21/23 iron) tablet Results & Data (ED) Vital Signs Vital Signs - 24 hr 06/29/23 12:21 06/29/23 12:52 06/29/23 12:59 Temperature 36.8 C Temperature Source Oral Pulse Rate 62 258 H 66 Pulse Rate [Apical] Pulse Rate from SpO2 Sensor Pulse Rhythm Regular Pulse Strength Normal Respiratory Rate 22 21 Respiratory Effort / Characteristics Non-Labored Spontaneous Respiratory Depth Normal Respiratory Pattern Regular Blood Pressure 177/92 H Blood Pressure [Right Arm] Blood Pressure Mean 120 Blood Pressure Mean [Right Arm] Blood Pressure Position Sitting Pulse Oximetry 97 Oxygen Delivery Method Room Air Sepsis Recent Fever Within 48 Hours No Sepsis New/Unexplained Change in Mental Status No Sepsis Action Taken by Nursing No Action Required 06/29/23 13:00 06/29/23 13:02 06/29/23 13:02 Temperature Temperature Source Pulse Rate 58 L 251 H Pulse Rate [Apical] Pulse Rate from SpO2 Sensor 53 L 54 L Pulse Rhythm Pulse Strength Respiratory Rate 22 23 Respiratory Effort / Characteristics Respiratory Depth Respiratory Pattern Blood Pressure 156/58 H Blood Pressure [Right Arm] Blood Pressure Mean 73 Blood Pressure Mean [Right Arm] Blood Pressure Position Pulse Oximetry 96 96 Oxygen Delivery Method Sepsis Recent Fever Within 48 Hours Sepsis New/Unexplained Change in Mental Status Sepsis Action Taken by Nursing 06/29/23 13:30 06/29/23 13:30 06/29/23 14:00 Temperature Temperature Source Pulse Rate 49 L Pulse Rate [Apical] Pulse Rate from SpO2 Sensor 49 L Pulse Rhythm Pulse Strength Respiratory Rate 17 Respiratory Effort / Characteristics Respiratory Depth Respiratory Pattern Blood Pressure 137/63 144/64 H Blood Pressure [Right Arm] Blood Pressure Mean 91 118 Blood Pressure Mean [Right Arm] Blood Pressure Position Pulse Oximetry 95 Oxygen Delivery Method Sepsis Recent Fever Within 48 Hours Sepsis New/Unexplained Change in Mental Status Sepsis Action Taken by Nursing 06/29/23 14:00 06/29/23 14:30 06/29/23 14:30 Temperature Temperature Source Pulse Rate 51 L 50 L Pulse Rate [Apical] Pulse Rate from SpO2 Sensor 51 L Pulse Rhythm Pulse Strength Respiratory Rate 14 14 Respiratory Effort / Characteristics Respiratory Depth Respiratory Pattern Blood Pressure 110/68 Blood Pressure [Right Arm] Blood Pressure Mean 74 Blood Pressure Mean [Right Arm] Blood Pressure Position Pulse Oximetry 95 Oxygen Delivery Method Sepsis Recent Fever Within 48 Hours Sepsis New/Unexplained Change in Mental Status Sepsis Action Taken by Nursing 06/29/23 15:00 06/29/23 15:17 06/29/23 15:17 Temperature Temperature Source Pulse Rate 52 L 56 L Pulse Rate [Apical] Pulse Rate from SpO2 Sensor 53 L 56 L Pulse Rhythm Pulse Strength Respiratory Rate 17 17 Respiratory Effort / Characteristics Respiratory Depth Respiratory Pattern Blood Pressure 167/72 H Blood Pressure [Right Arm] Blood Pressure Mean 109 Blood Pressure Mean [Right Arm] Blood Pressure Position Pulse Oximetry 95 96 Oxygen Delivery Method Sepsis Recent Fever Within 48 Hours Sepsis New/Unexplained Change in Mental Status Sepsis Action Taken by Nursing 06/29/23 16:33 06/29/23 17:09 Temperature Temperature Source Pulse Rate 82 Pulse Rate [Apical] 113 H Pulse Rate from SpO2 Sensor Pulse Rhythm Pulse Strength Respiratory Rate 20 Respiratory Effort / Characteristics Non-Labored Respiratory Depth Normal Respiratory Pattern Blood Pressure Blood Pressure [Right Arm] 163/72 H Blood Pressure Mean Blood Pressure Mean [Right Arm] 102 Blood Pressure Position Pulse Oximetry 96 Oxygen Delivery Method Room Air Sepsis Recent Fever Within 48 Hours Sepsis New/Unexplained Change in Mental Status Sepsis Action Taken by Nursing Laboratory Data 06/29/23 14:39 06/29/23 14:39 Lab Results 06/29/23 06/29/23 Range/Units 14:39 14:42 WBC 8.44 (4.8-10.8) K/ul RBC 3.76 L (4.20-5.40) M/uL Hgb 10.7 L (12.0-16.0) g/dl Hct 35.0 L (37.0-47.0) % MCV 93.1 (80.0-100.0) fL MCH 28.5 (25.0-34.0) pg MCHC 30.6 L (32.0-36.0) g/dL RDW Std Deviation 54.6 H (36.4-46.3) fL RDW Coeff of Lizy 15.9 H (11.5-14.5) % Plt Count 267 (130-400) K/uL MPV 9.5 (9.4-12.4) fL Immature Gran % (Auto) 0.4 % Neut % (Auto) 57.7 % Lymph % (Auto) 28.9 % [place] % (Auto) 10.0 % Eos % (Auto) 2.5 % Baso % (Auto) 0.5 % Neut # (Auto) 4.88 (1.40-6.50) K/uL Lymph # (Auto) 2.44 (1.20-3.40) K/uL [place] # (Auto) 0.84 H (0.11-0.59) K/uL Eos # (Auto) 0.21 (0.00-0.50) K/uL Baso # (Auto) 0.04 (0.00-0.20) K/uL Immature Gran # (Auto) 0.03 (0.01-0.20) K/uL PT 11.8 (9.0-12.0) Seconds INR 1.1 (0.9-1.1) APTT 33 H (21-31) Seconds PTT Ratio 1.2 Sodium 137 (136-145) mmol/L Potassium 4.2 (3.5-5.1) mmol/L Chloride 101 (98-107) mmol/L Carbon Dioxide 31 (21-32) mmol/L Anion Gap 5 (3-11) BUN 20 (6-23) mg/dl Creatinine 1.18 (0.6-1.2) mg/dl Est Cr Clr Drug Dosing 38.3 ml/min Est GFR ( Amer) 47.7 ml/min Est GFR (Non-Af Amer) 41.1 ml/min BUN/Creatinine Ratio 16.9 (10-20) Glucose 94 (70-99(Fasting)) mg/dl POC Glucose 96 (70-99) mg/dl Calcium 9.1 (8.6-10.3) mg/dl Magnesium 1.9 (1.7-2.4) mg/dl Total Bilirubin 0.9 (0.2-1.0) mg/dl AST 12 L (13-39) U/L ALT 6 L (7-52) U/L Alkaline Phosphatase 53 (34-104) U/L Troponin I High Sens 5.7 (0-14) pg/ml Total Protein 6.4 (6.0-8.3) gm/dl Albumin 3.7 (3.4-5.0) gm/dl Globulin 2.7 (2.5-4.0) gm/dl Albumin/Globulin Ratio 1.4 (0.9-2) Administered Medications Discontinued Medications Sodium Chloride (Nss) 500 mls @ 999 mls/hr IV .Q31M ONE Stop: 06/29/23 14:31 Last Infusion: 06/29/23 15:59 Dose: Infused Documented By: Admin: 06/29/23 15:18 Dose: 999 mls/hr Documented By: VICKY Ioversol (Optiray 320 125ml) 118 ml IV ONCE ONE Stop: 06/29/23 15:56 Last Admin: 06/29/23 15:58 Dose: 118 ml Documented By: LEIGH Imaging Data Radiologist's Impression: Head CT 06/29/23 14:00 CT angio head w con, CT head/brain wo con CLINICAL HISTORY: 87 years-old Female with neuro deficit, acute stroke suspected. Acute stroke like symptoms COMPARISON STUDY: Head CT 05/08/2023, CTA head and neck 08/30/2018 TECHNIQUE: Unenhanced axial CT scan of the brain is performed. Subsequently, following the IV administration of 118 cc of Optiray, CT angiogram of the brain was performed from the skull base to the vertex. Images are reviewed in the axial, sagittal, and coronal planes. 3-D MIPS images are created and assessed. IV contrast was administered without complication. All measurements were obtained according to NASCET criteria. A dose lowering technique was utilized adhering to the principles of ALARA. CT DOSE: 522.26 mGy.cm (accession [id number]), 625.8 mGy.cm (accession [id number]) FINDINGS: CT BRAIN: There is no acute intracranial hemorrhage, midline shift, hydrocephalus, intracranial mass, territorial ischemia or abnormal extra-axial collections. No abnormal intra-axial or extra-axial enhancement. Involutional changes with chronic microvascular ischemic disease. Paranasal sinuses are clear. There is a large right and trace left mastoid effusions. Postoperative changes of the paranasal sinuses. Small posterior right parietal scalp contusion. Prior bilateral lens repair. No calvarial fracture. CT ANGIOGRAM OF THE BRAIN: The imaged bilateral internal carotid arteries are patent. The bilateral anterior and middle cerebral arteries are also patent. Dominant right vertebral artery redemonstrated. The left vertebral artery is developmentally diminutive and demonstrates multifocal stenoses within the V3 and V4 segments which are moderate to high-grade and unchanged from the 2019 study. Patent basilar artery. origin of the left posterior cerebral artery with high-grade stenosis in the left posterior communicating artery, unchanged. Occlusion of the right posterior cerebral artery within a 4 mm segment with distal reconstitution is new from the prior study. The distal portions of the right posterior cerebral artery are suboptimally visualized. There is no aneurysm, high-grade stenosis, or proximal branch occlusion identified. Dural sinuses appear patent. IMPRESSION: 1. No acute intracranial abnormality identified. 2. Patent anterior and middle cerebral arteries. 3. 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 4. Short segment occlusion with reconstitution of flow within the right posterior cerebral artery is age-indeterminate, new from the 2019 comparison. ACT 112: Negative or not required by law. The above report was generated using voice recognition software. It may contain grammatical, syntax or spelling errors. Electronically signed by: Saqib Shore M.D. 06/29/2023 4:24 PM Head CTA 06/29/23 14:00 CT angio head w con, CT head/brain wo con CLINICAL HISTORY: 87 years-old Female with neuro deficit, acute stroke suspected. Acute stroke like symptoms COMPARISON STUDY: Head CT 05/08/2023, CTA head and neck 08/30/2018 TECHNIQUE: Unenhanced axial CT scan of the brain is performed. Subsequently, following the IV administration of 118 cc of Optiray, CT angiogram of the brain was performed from the skull base to the vertex. Images are reviewed in the axial, sagittal, and coronal planes. 3-D MIPS images are created and assessed. IV contrast was administered without complication. All measurements were obtained according to NASCET criteria. A dose lowering technique was utilized adhering to the principles of ALARA. CT DOSE: 522.26 mGy.cm (accession [id number]), 625.8 mGy.cm (accession [id number]) FINDINGS: CT BRAIN: There is no acute intracranial hemorrhage, midline shift, hydrocephalus, intracranial mass, territorial ischemia or abnormal extra-axial collections. No abnormal intra-axial or extra-axial enhancement. Involutional changes with chronic microvascular ischemic disease. Paranasal sinuses are clear. There is a large right and trace left mastoid effusions. Postoperative changes of the paranasal sinuses. Small posterior right parietal scalp contusion. Prior bilateral lens repair. No calvarial fracture. CT ANGIOGRAM OF THE BRAIN: The imaged bilateral internal carotid arteries are patent. The bilateral anterior and middle cerebral arteries are also patent. Dominant right vertebral artery redemonstrated. The left vertebral artery is developmentally diminutive and demonstrates multifocal stenoses within the V3 and V4 segments which are moderate to high-grade and unchanged from the 2019 study. Patent basilar artery. origin of the left posterior cerebral artery with high-grade stenosis in the left posterior communicating artery, unchanged. Occlusion of the right posterior cerebral artery within a 4 mm segment with distal reconstitution is new from the prior study. The distal portions of the right posterior cerebral artery are suboptimally visualized. There is no aneurysm, high-grade stenosis, or proximal branch occlusion identified. Dural sinuses appear patent. IMPRESSION: 1. No acute intracranial abnormality identified. 2. Patent anterior and middle cerebral arteries. 3. 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 4. Short segment occlusion with reconstitution of flow within the right posterior cerebral artery is age-indeterminate, new from the 2019 comparison. ACT 112: Negative or not required by law. The above report was generated using voice recognition software. It may contain grammatical, syntax or spelling errors. Electronically signed by: Saqib Shore M.D. 06/29/2023 4:24 PM Neck CTA 06/29/23 14:00 CT ANGIOGRAM OF THE NECK CLINICAL HISTORY: Neurological deficit. Stroke like symptoms. COMPARISON STUDY: CT angiogram of the neck dated 08/30/2018. TECHNIQUE: Following the IV administration of 118 of Optiray 320, CT angiogram of the neck was performed from the aortic arch to the skull base. Images are reviewed in the axial, sagittal, and coronal planes. 3-D MIPS images are created and assessed. IV contrast was administered without complication. All measurements were calculated based on NASCET criteria. A dose lowering technique was utilized adhering to the principles of ALARA. FINDINGS: Thoracic aorta: There is atherosclerotic calcification of the thoracic aorta. Visualized portions of the thoracic aorta are normal in caliber. The aortic arch demonstrates standard 3-vessel anatomy. Right carotid arterial system: The right common carotid artery is widely patent, as are the right internal and external carotid arteries. Left carotid arterial system: The left common carotid artery is widely patent, as are the left internal and external carotid arteries. Calcified plaque is noted in the carotid bulb. Vertebral arteries: The right vertebral artery is dominant and widely patent. No flow shown within the proximal and mid portions of the hypoplastic left vertebral artery. This is unchanged from previous, with reconstitution of flow below the skull base at the level of C2. Subclavian arteries: Widely patent bilaterally. Intracranial vasculature: The visualized intracranial vessels at the skull base are patent Jugular veins: Patent bilaterally. Brain parenchyma: The visualized brain parenchyma the skull base is within normal limits. Lung apices: Partially visualized upper lobe lung parenchyma appears clear. Soft tissues: The visualized pharyngeal soft tissues are normal in appearance noting angiographic phase technique. The oropharyngeal airway appears widely patent. Thyroid goiter is unchanged. The salivary glands are normal in appearance. No cervical lymphadenopathy is seen. Skeletal structures: The skeletal structures are osteopenic. The visualized calvarium at the skull base appears intact. The imaged cervical spine is maintained noting multilevel spondylosis. Sinuses and mastoids: There is trace mucosal thickening within the maxillary antra. There is a right mastoid effusion. The left mastoid air cells are well pneumatized. IMPRESSION: 1. Normal assessment of the carotid arterial system bilaterally and the dominant right vertebral artery. 2. No flow is shown within the proximal and mid portions of the hypoplastic left vertebral artery. Flow is reconstituted below the skull base and this is unchanged from previous. ACT 112: Negative or not required by law. Electronically signed by: Pablito Greenberg M.D. 06/29/2023 4:17 PM Foot X-Ray 06/29/23 16:32 XR foot LT min 3V routine HISTORY: 87 years-old Female foot drop/weakness acute left foot pain with weakness COMPARISON: None TECHNIQUE: 3 views of the left foot FINDINGS: Prominent hallux valgus. Demineralized appearance of the bones with mild to moderate osteoarthritis. First metatarsal bunion. Large plantar calcaneal enthesophyte. No acute fracture, dislocation or osseous erosion is identified. IMPRESSION: 1. No acute fracture. 2. Hallux valgus with first metatarsal bunion. 3. [id number] osteoarthritis. ACT 112: Negative or not required by law. The above report was generated using voice recognition software. It may contain grammatical, syntax or spelling errors. Electronically signed by: Saqib Shore M.D. 06/29/2023 4:54 PM Discharge Plan Visit Data Chief Complaint: Leg Injury/Pain Stated Complaint: L LEG NUMBNESS ED Provider: Elvin Coyle Discharge Problem: Left leg weakness Forms Stand Alone Forms: [facility] Prescriptions Prescriptions: No Action acetaminophen [Tylenol Extra Strength] 500 mg Tablet 1,000 mg PO Q8H PRN (Reason: fever or pain) Qty: 90 0RF sennosides-docusate sodium [Senokot-S] 8.6-50 mg Tablet 1 tab PO QAM Qty: 30 0RF furosemide 40 mg tablet 40 mg PO Q2D Qty: 30 0RF metoprolol succinate 50 mg tablet extended release 24 hr 50 mg PO DAILY Qty: 30 0RF Rx Instructions: hold for SBP<100 or HR<60 alprazolam 0.5 mg tablet 0.5 mg PO BID PRN (Reason: Anxiety) Qty: 10 0RF omeprazole 20 mg Capsule,Delayed Release(Dr/Ec) 20 mg PO DAILY Qty: 30 0RF coenzyme Q10 [CoQ-10] 100 mg Capsule 100 mg PO DAILY Qty: 30 0RF Eliquis 5 mg Tablet 5 mg PO BID Qty: 60 0RF aspirin 81 mg Tablet,Delayed Release (Dr/Ec) 81 mg PO DAILY rosuvastatin 20 mg tablet 20 mg PO HS citalopram 20 mg tablet 20 mg PO DAILY pregabalin 50 mg capsule 50 mg PO BID calcium carbonate-vitamin D3 [Calcium 600 + D(3)] 600 mg-10 mcg (400 unit) Tablet 1 tab PO BID polyethylene glycol 3350 [Miralax] 17 gram powder in packet 17 g PO QAM PRN (Reason: Constipation) clonidine HCl 0.1 mg tablet 0.1 mg PO DAILY PRN (Reason: SBP>170 or DBP>100) nystatin [Nystop] 100,000 unit/gram powder 1 applic TOPICAL TID PRN (Reason: rash/irritation) guaifenesin [Mucinex] 600 mg Tablet Extended Release 12hr 600 mg PO Q12H PRN (Reason: Congestion) dextromethorphan HBr 30 mg/5 mL Liquid 60 mg PO Q12 PRN (Reason: Cough) ferrous sulfate 325 mg (65 mg iron) Tablet 325 mg PO BID 30 Days Qty: 60 0RF Referrals Referrals: Jc Del Rio, MICHAEL [Primary Care Provider] -
[2023-06-29 14:54] LABS: Basophils # (auto) 0.04 K/uL (0.00-0.20); Basophils % (auto) 0.5 %; Eosinophils # (auto) 0.21 K/uL (0.00-0.50); Eosinophils % (auto) 2.5 %; Hemoglobin 10.7 g/dl (12.0-16.0); Immature Granulocytes # (auto) 0.03 K/uL (0.01-0.20); Immature Granulocytes % (auto) 0.4 %; Lymphocytes # (auto) 2.44 K/uL (1.20-3.40); Lymphocytes % (auto) 28.9 %; Mean Corpuscular Hemoglobin 28.5 pg (25.0-34.0); Mean Corpuscular Hgb Conc 30.6 g/dL (32.0-36.0); Mean Corpuscular Volume 93.1 fL (80.0-100.0); Mean Platelet Volume 9.5 fL (9.4-12.4); Monocytes # (auto) 0.84 K/uL (0.11-0.59); Neutrophils # (auto) 4.88 K/uL (1.40-6.50); Neutrophils % (auto) 57.7 %; Platelet Count 267 K/uL (130-400); RDW Coefficient of Variation 15.9 % (11.5-14.5); RDW Standard Deviation 54.6 fL (36.4-46.3); Red Blood Count 3.76 M/uL (4.20-5.40); White Blood Count 8.44 K/ul (4.8-10.8)
[2023-06-29 15:12] LABS: Albumin Globulin Ratio 1.4 (0.9-2); Albumin Level 3.7 gm/dl (3.4-5.0); BUN Creatinine Ratio 16.9 (10-20); Bilirubin,Total 0.9 mg/dl (0.2-1.0); Calcium 9.1 mg/dl (8.6-10.3); Creatinine Clr Calc Pharmacy 38.3 ml/min; Est GFR (African American) 47.7 ml/min; Est GFR (Non-African American) 41.1 ml/min; Globulin 2.7 gm/dl (2.5-4.0); Magnesium 1.9 mg/dl (1.7-2.4); Potassium 4.2 mmol/L (3.5-5.1); Total Protein 6.4 gm/dl (6.0-8.3)
[2023-06-29 15:18] LABS: Troponin I High Sensitivity 5.7 pg/ml (0-14)
[2023-06-29] MEDS: SODIUM CHLORIDE 0.9% 500 ML IV ONE (15:18)
[2023-06-29 15:24] LABS: INR 1.1 (0.9-1.1); Partial Thromboplastin Ratio 1.2; Partial Thromboplastin Time 33 Seconds (21-31); Prothrombin Time 11.8 Seconds (9.0-12.0)
[2023-06-29] MEDS: OPTIRAY 320 125ml IV ONE (15:58)
--- NOTE | 2023-06-29 16:19 | CT Scan Report ---
CT ANGIOGRAM OF THE NECK CLINICAL HISTORY: Neurological deficit. Stroke like symptoms. COMPARISON STUDY: CT angiogram of the neck dated 08/30/2018. TECHNIQUE: Following the IV administration of 118 of Optiray 320, CT angiogram of the neck was perfor med from the aortic arch to the skull base. Images are reviewed in the axial, sagittal, and coronal p lanes. 3-D MIPS images are created and assessed. IV contrast was administered without complication. A ll measurements were calculated based on NASCET criteria. A dose lowering technique was utilized adh ering to the principles of ALARA. FINDINGS: Thoracic aorta: There is atherosclerotic calcification of the thoracic aorta. Visualized portions of the thoracic aorta are normal in caliber. The aortic arch demonstrates standard 3-vessel anatomy. Right carotid arterial system: The right common carotid artery is widely patent, as are the right int ernal and external carotid arteries. Left carotid arterial system: The left common carotid artery is widely patent, as are the left phd internship al and external carotid arteries. Calcified plaque is noted in the carotid bulb. Vertebral arteries: The right vertebral artery is dominant and widely patent. No flow shown within th e proximal and mid portions of the hypoplastic left vertebral artery. This is unchanged from previous , with reconstitution of flow below the skull base at the level of C2. Subclavian arteries: Widely patent bilaterally. Intracranial vasculature: The visualized intracranial vessels at the skull base are patent Jugular veins: Patent bilaterally. Brain parenchyma: The visualized brain parenchyma the skull base is within normal limits. Lung apices: Partially visualized upper lobe lung parenchyma appears clear. Soft tissues: The visualized pharyngeal soft tissues are normal in appearance noting angiographic pha se technique. The oropharyngeal airway appears widely patent. Thyroid goiter is unchanged. The saliva ry glands are normal in appearance. No cervical lymphadenopathy is seen. Skeletal structures: The skeletal structures are osteopenic. The visualized calvarium at the skull ba se appears intact. The imaged cervical spine is maintained noting multilevel spondylosis. Sinuses and mastoids: There is trace mucosal thickening within the maxillary antra. There is a right mastoid effusion. The left mastoid air cells are well pneumatized. IMPRESSION: 1. Normal assessment of the carotid arterial system bilaterally and the dominant right vertebral dequan ry. 2. No flow is shown within the proximal and mid portions of the hypoplastic left vertebral artery. Fl ow is reconstituted below the skull base and this is unchanged from previous. ACT 112: Negative or not required by law. Electronically signed by: Pablito Greenberg M.D. 06/29/2023 4:17 PM
--- NOTE | 2023-06-29 16:26 | CT Scan Report ---
CT angio head w con, CT head/brain wo con CLINICAL HISTORY: 87 years-old Female with neuro deficit, acute stroke suspected. Acute stroke lik e symptoms COMPARISON STUDY: Head CT 05/08/2023, CTA head and neck 08/30/2018 TECHNIQUE: Unenhanced axial CT scan o f the brain is performed. Subsequently, following the IV administration of 118 cc of Optiray, CT jeri ogram of the brain was performed from the skull base to the vertex. Images are reviewed in the axial, sagittal, and coronal planes. 3-D MIPS images are created and assessed. IV contrast was administered without complication. All measurements were obtained according to NASCET criteria. A dose lowering t echnique was utilized adhering to the principles of ALARA. CT DOSE: 522.26 mGy.cm (accession [id number]), 625.8 mGy.cm (accession [id number]) FINDINGS: CT BRAIN: There is no acute intracranial hemorrhage, midline shift, hydrocephalus, intracranial mass, territori al ischemia or abnormal extra-axial collections. No abnormal intra-axial or extra-axial enhancement. Involutional changes with chronic microvascular ischemic disease. Paranasal sinuses are clear. There is a large right and trace left mastoid effusions. Postoperative changes of the paranasal sinuses. Sm all posterior right parietal scalp contusion. Prior bilateral lens repair. No calvarial fracture. CT ANGIOGRAM OF THE BRAIN: The imaged bilateral internal carotid arteries are patent. The bilateral anterior and middle cerebral arteries are also patent. Dominant right vertebral artery redemonstrated. The left vertebral artery is developmentally diminutive and demonstrates multifocal stenoses within the V3 and V4 segments whic h are moderate to high-grade and unchanged from the 2019 study. Patent basilar artery. origin o f the left posterior cerebral artery with high-grade stenosis in the left posterior communicating art arsenio, unchanged. Occlusion of the right posterior cerebral artery within a 4 mm segment with distal re constitution is new from the prior study. The distal portions of the right posterior cerebral artery are suboptimally visualized. There is no aneurysm, high-grade stenosis, or proximal branch occlusion identified. Dural sinuses appear patent. IMPRESSION: 1. No acute intracranial abnormality identified. 2. Patent anterior and middle cerebral arteries. 3. 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 4. Short segment occlusion with reconstitution of flow within the right posterior cerebral artery is age-indeterminate, new from the 2019 comparison. ACT 112: Negative or not required by law. The above report was generated using voice recognition software. It may contain grammatical, syntax o r spelling errors. Electronically signed by: Saqib Shore M.D. 06/29/2023 4:24 PM
--- NOTE | 2023-06-29 16:56 | XRay Report ---
XR foot LT min 3V routine HISTORY: 87 years-old Female foot drop/weakness acute left foot pain with weakness COMPARISON: None TECHNIQUE: 3 views of the left foot FINDINGS: Prominent hallux valgus. Demineralized appearance of the bones with mild to moderate osteoarthritis. First metatarsal bunion. Large plantar calcaneal enthesophyte. No acute fracture, dislocation or osse ous erosion is identified. IMPRESSION: 1. No acute fracture. 2. Hallux valgus with first metatarsal bunion. 3. Owfj-cb-tonwaccg osteoarthritis. ACT 112: Negative or not required by law. The above report was generated using voice recognition software. It may contain grammatical, syntax o r spelling errors. Electronically signed by: Saqib Shore M.D. 06/29/2023 4:54 PM
--- NOTE | 2023-06-29 18:08 | History & Physical Report ---
Date of Service June 29, 2023 Assessment & Plan (1) Left leg weakness: (2) Acute on chronic heart failure with preserved ejection fraction (HFpEF): (3) Paroxysmal atrial fibrillation: (4) Hypertension: (5) TIA (transient ischemic attack): Plan: Left Foot Drop R/O CVA - Admit to PCU for observation - ER requests admission for stroke -order set completed, no indication for thrombolytic - unlikely cva due to only inability to dorsiflex. Pt is on asa, eliquis and statin therapy so this is unlikely. - PT/OT consults placed- pt is from assisted living [facility] in [place] - pt previously was in PT/OT s/p most recent hospital stay - CT head reviewed and is negative - MRI brain wo contrast ordered - Pt is already on aspirin, pending MRI will consider DAPT with addition of plavix - Will allow permissive hypertension with SBP 140-170 - Consider Neurology consult after MRI results Chronic heart failure with preserved ejection fraction (HFpEF) -Echo Grade II diastolic failure, EF 55-60%, LVH - Recent admission last month for acute exacerbation - cont met succ 50mg BID -> changed to daily dose and coreg d/t HTN and mild bradycardia - cont losartan 100mg daily - Lasix 40 mg every other day - monitor daily weight Underlying obesity hypoventilation syndrome -Uncertain diagnosis -Outpt pulmonary testing Anemia -Hgb baseline of - -Anemia workup with iron panel, ferritin, b12 and folate levels -Iron level 20, ferrous sulfate twice daily Elevated liver enzymes -T bili elevated at 1.2 -> down to normal -Pt reported RLQ pain -Resolved Paroxysmal atrial fibrillation -Cont betablockade for rate control, Chronically anticoagulated on Eliquis -Current sinus rhythm -Continue to monitor Anxiety -On citalopram at home, continue -Held Xanax with AMS, has since been resumed GERD (gastroesophageal reflux disease) -On ppi, continue DVT ppx: teds, scds, eliquis Access: PIV x 1 FEN/GI: HH/DM diet, passed bedside swallow eval CODE: FULL Dispo: From home, likely to remain in the hospital x 1-2 days A total of 78 minutes were spent with greater than 50% of that time face to face with the patient, personally reviewing all current laboratories, imaging studies, past medication reconciliation, outpatient chart review, and discussion with specialists to collaborate care for the patient with attending. Please see attending documentation for corrections and/or additions. History of Present Illness Chief Complaint: Foot Pain, foot drop Primary Care Provider: Jc Del Rio This is an 87 yo F with PMHx HTN, HLD, PAF, anticoagulated on Eliquis, left eye visual change chronic, anemia, hx of hypertensive urgency, anxiety, depression, GERD presented to ER foot pain, recently admitted for acute respiratory failure with hypoxia and hypercapnia found to hav human metapeumovirus in May 2023. Pt was treated with empiric doxy and rocephin then downgraded to cefdinir and doxy PO. Pt was at assisted living facility today, using walker, and reports not being able to lift her left foot up and dorsiflexion. She is able to do plantar flexion with good strength. Pt has no other areas of focal deficits. Pt feels well overall. Pt states the last time she fell was about 3 weeks ago when she was home for the first day, and was instructed to walk with walker to the dining room at that time, her first longer walk. Fell backwards and hit her head, and still has a large bump on the back of her head still. Pt denies any sick contact, no fever, chills, sweats. She reports taking all her morning medications today. As she is still having difficulty with dosiflexion, she has been admitted for stroke workup and PT/OT evals. Allergies Allergy/AdvReac Type Severity Reaction Status Date / Time aspirin AdvReac Unknown GI ISSUES Verified 06/29/23 17:53 Home Medications Medication Instructions Recorded Confirmed Type acetaminophen 500 mg tablet 1,000 mg (2 x 500 mg) PO Q8H PRN 08/25/22 06/29/23 Rx (Tylenol Extra Strength) fever or pain #90 tabs alprazolam 0.5 mg tablet 0.5 mg PO BID PRN Anxiety #10 tabs 08/25/22 06/29/23 Rx apixaban 5 mg tablet (Eliquis) 5 mg PO BID #60 tabs 08/25/22 06/29/23 Rx coenzyme Q10 100 mg capsule 100 mg PO DAILY #30 caps 08/25/22 06/29/23 Rx (CoQ-10) metoprolol succinate 50 mg 50 mg PO DAILY #30 tabs 08/25/22 06/29/23 Rx tablet,extended release 24 hr omeprazole 20 mg capsule,delayed 20 mg PO DAILY #30 caps 08/25/22 06/29/23 Rx release sennosides 8.6 mg-docusate sodium 1 tab PO QAM #30 tabs 08/25/22 06/29/23 Rx 50 mg tablet (Senokot-S) aspirin 81 mg tablet,delayed 81 mg PO DAILY 05/08/23 06/29/23 History release citalopram 20 mg tablet 20 mg PO DAILY 05/08/23 06/29/23 History clonidine HCl 0.1 mg tablet 0.1 mg PO DAILY PRN SBP>170 or 05/08/23 06/29/23 History DBP>100 nystatin 100,000 unit/gram topical 1 applic topical TID PRN 05/08/23 06/29/23 History powder (Nystop) rash/irritation polyethylene glycol 3350 17 gram 17 g PO QAM Constipation 05/08/23 06/29/23 History oral powder packet (Miralax) pregabalin 50 mg capsule 50 mg PO BID 05/08/23 06/29/23 History rosuvastatin 20 mg tablet 20 mg PO HS 05/08/23 06/29/23 History cholecalciferol (vitamin D3) 25 25 mcg PO DAILY 06/29/23 06/29/23 History mcg (1,000 unit) tablet (Vitamin D3) dorzolamide 2 % eye drops 1 drp OPB BID 06/29/23 06/29/23 History losartan 100 mg tablet 100 mg PO DAILY 06/29/23 06/29/23 History meclizine 12.5 mg tablet 12.5 mg PO Q8 PRN .dizzyness 06/29/23 06/29/23 History Past Med/Surg History Medical History Hypokalemia Paroxysmal atrial fibrillation CHF (congestive heart failure) TIA (transient ischemic attack) Occlusion of left vertebral artery Hypertension GERD (gastroesophageal reflux disease) Hypertension Surgical History History of appendectomy History of cholecystectomy History of cataract surgery History of hysterectomy History of total knee replacement x2 Family History Other Cancer Social History Smoking Status: Never smoker Second Hand Exposure: No; Do You Dip or Chew Tobacco: No; Hx Alcohol Use: No Hx Substance Use: No Preferred Language: Macedonian Communication Ability: Effective Raker Buffing Wheel Required: No Beliefs That Will Affect Care: None marital status: / Current Living Situation: Intermediate Current Living Situation Comment: Lives alone w/ family friend that performs chores/runs errands Feels Safe at Home: Yes Assistive Devices: Wheelchair Review of Systems Review of Systems: Constitutional: No fever, sweats or chills Eyes: No diplopia, no worsening or blurred vision ENT: normal hearing, no trouble swallowing Respiratory: No cough, sputum, dyspnea at rest or on exertion Cardiovascular: No chest pain, tightness or palpitations Abdomen: No pain, nausea, vomiting, diarrhea or constipation Musculoskeletal: No joint pain, calf pain, swelling Neurologic: + fine tremor of jaw, + left eye closes at times (chronically does not see out of this eye), + inability to lift toes as per HPI, No weakness, numbness/tingling, or balance problems, + uses walker at baseline Psychiatric: No anxiety or depression Skin: No rash or itch Physical Exam Physical Exam: General: awake, alert, no apparent distress, + fine tremor throughout upper ext and jaw, white female Head: Normocephalic, atraumatic ENT: PERRL, EOMI, no pharyngeal exudate, mucous membranes moist Chest: Clear to auscultation, on room air, O2 sats 95%, no adventitious breath sounds Cardiac: Regular rate and rhythm, no murmur, no JVD, normal peripheral pulses, good capillary refill Abdominal: NABS x 4 quadrants, soft, nondistended, nontender to palpation, no rebound or guarding Extremities: Normal inspection, no peripheral edema or erythema, calfs nontender to palpation Psych: Normal mood and affect Neuro: AAO x 3, + inability to perform dorsiflexion with the left foot, has good strength with plantarflexion. Right foot able to performa all movements/strength intact bilaterally and rated 5/5, no motor deficits, speech is clear, no peripheral sensory deficits. + tremor throughout. Results & Data Results & Data Vital Signs (Past 12 Hours) Vital Signs Temp Pulse Pulse Resp BP BP Pulse Ox 06/29/23 17:30 177/75 H 06/29/23 17:30 60 17 96 06/29/23 17:09 82 06/29/23 16:33 113 H 20 163/72 H 96 06/29/23 16:30 62 19 96 06/29/23 16:30 163/72 H 06/29/23 16:01 80 13 06/29/23 15:30 177/77 H 06/29/23 15:30 65 21 97 06/29/23 15:17 56 L 17 96 06/29/23 15:17 167/72 H 06/29/23 15:00 52 L 17 95 06/29/23 14:30 50 L 14 95 06/29/23 14:30 110/68 06/29/23 14:00 51 L 14 06/29/23 14:00 144/64 H 06/29/23 13:30 49 L 17 95 06/29/23 13:30 137/63 06/29/23 13:02 156/58 H 06/29/23 13:02 251 H 23 96 06/29/23 13:00 58 L 22 96 06/29/23 12:59 66 06/29/23 12:52 258 H 21 06/29/23 12:21 36.8 C 62 22 177/92 H 97 O2 Del Method 06/29/23 17:30 06/29/23 17:30 06/29/23 17:09 06/29/23 16:33 Room Air 06/29/23 16:30 06/29/23 16:30 06/29/23 16:01 06/29/23 15:30 06/29/23 15:30 06/29/23 15:17 06/29/23 15:17 06/29/23 15:00 06/29/23 14:30 06/29/23 14:30 06/29/23 14:00 06/29/23 14:00 06/29/23 13:30 06/29/23 13:30 06/29/23 13:02 06/29/23 13:02 06/29/23 13:00 06/29/23 12:59 06/29/23 12:52 06/29/23 12:21 Room Air Laboratory Results 06/29/23 06/29/23 14:42 14:39 WBC 8.44 RBC 3.76 L Hgb 10.7 L Hct 35.0 L MCV 93.1 MCH 28.5 MCHC 30.6 L RDW Std Deviation 54.6 H RDW Coeff of Lizy 15.9 H Plt Count 267 MPV 9.5 Immature Gran % (Auto) 0.4 Neut % (Auto) 57.7 Lymph % (Auto) 28.9 Grant % (Auto) 10.0 Eos % (Auto) 2.5 Baso % (Auto) 0.5 Neut # (Auto) 4.88 Lymph # (Auto) 2.44 Grant # (Auto) 0.84 H Eos # (Auto) 0.21 Baso # (Auto) 0.04 Immature Gran # (Auto) 0.03 PT 11.8 INR 1.1 APTT 33 H PTT Ratio 1.2 Sodium 137 Potassium 4.2 Chloride 101 Carbon Dioxide 31 Anion Gap 5 BUN 20 Creatinine 1.18 Est Cr Clr Drug Dosing 38.3 Est GFR ( Amer) 47.7 Est GFR (Non-Af Amer) 41.1 BUN/Creatinine Ratio 16.9 Glucose 94 POC Glucose 96 Calcium 9.1 Magnesium 1.9 Total Bilirubin 0.9 AST 12 L ALT 6 L Alkaline Phosphatase 53 Troponin I High Sens 5.7 Total Protein 6.4 Albumin 3.7 Globulin 2.7 Albumin/Globulin Ratio 1.[address] 06/29/23 14:00 CT angio head w con, CT head/brain wo con CLINICAL HISTORY: 87 years-old Female with neuro deficit, acute stroke suspected. Acute stroke like symptoms COMPARISON STUDY: Head CT 05/08/2023, CTA head and neck 08/30/2018 TECHNIQUE: Unenhanced axial CT scan of the brain is performed. Subsequently, following the IV administration of 118 cc of Optiray, CT angiogram of the brain was performed from the skull base to the vertex. Images are reviewed in the axial, sagittal, and coronal planes. 3-D MIPS images are created and assessed. IV contrast was administered without complication. All measurements were obtained according to NASCET criteria. A dose lowering technique was utilized adhering to the principles of ALARA. CT DOSE: 522.26 mGy.cm (accession [id number]), 625.8 mGy.cm (accession [id number]) FINDINGS: CT BRAIN: There is no acute intracranial hemorrhage, midline shift, hydrocephalus, intracranial mass, territorial ischemia or abnormal extra-axial collections. No abnormal intra-axial or extra-axial enhancement. Involutional changes with chronic microvascular ischemic disease. Paranasal sinuses are clear. There is a large right and trace left mastoid effusions. Postoperative changes of the paranasal sinuses. Small posterior right parietal scalp contusion. Prior bilateral lens repair. No calvarial fracture. CT ANGIOGRAM OF THE BRAIN: The imaged bilateral internal carotid arteries are patent. The bilateral anterior and middle cerebral arteries are also patent. Dominant right vertebral artery redemonstrated. The left vertebral artery is developmentally diminutive and demonstrates multifocal stenoses within the V3 and V4 segments which are moderate to high-grade and unchanged from the 2019 study. Patent basilar artery. origin of the left posterior cerebral artery with high-grade stenosis in the left posterior communicating artery, unchanged. Occlusion of the right posterior cerebral artery within a 4 mm segment with distal reconstitution is new from the prior study. The distal portions of the right posterior cerebral artery are suboptimally visualized. There is no aneurysm, high-grade stenosis, or proximal branch occlusion identified. Dural sinuses appear patent. IMPRESSION: 1. No acute intracranial abnormality identified. 2. Patent anterior and middle cerebral arteries. 3. 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 4. Short segment occlusion with reconstitution of flow within the right posterior cerebral artery is age-indeterminate, new from the 2019 comparison. ACT 112: Negative or not required by law. The above report was generated using voice recognition software. It may contain grammatical, syntax or spelling errors. Electronically signed by: Saqib Shore M.D. 06/29/2023 4:24 PM Head CTA 06/29/23 14:00 CT angio head w con, CT head/brain wo con CLINICAL HISTORY: 87 years-old Female with neuro deficit, acute stroke suspected. Acute stroke like symptoms COMPARISON STUDY: Head CT 05/08/2023, CTA head and neck 08/30/2018 TECHNIQUE: Unenhanced axial CT scan of the brain is performed. Subsequently, following the IV administration of 118 cc of Optiray, CT angiogram of the brain was performed from the skull base to the vertex. Images are reviewed in the axial, sagittal, and coronal planes. 3-D MIPS images are created and assessed. IV contrast was administered without complication. All measurements were obtained according to NASCET criteria. A dose lowering technique was utilized adhering to the principles of ALARA. CT DOSE: 522.26 mGy.cm (accession [id number]), 625.8 mGy.cm (accession [id number]) FINDINGS: CT BRAIN: There is no acute intracranial hemorrhage, midline shift, hydrocephalus, intracranial mass, territorial ischemia or abnormal extra-axial collections. No abnormal intra-axial or extra-axial enhancement. Involutional changes with chronic microvascular ischemic disease. Paranasal sinuses are clear. There is a large right and trace left mastoid effusions. Postoperative changes of the paranasal sinuses. Small posterior right parietal scalp contusion. Prior bilateral lens repair. No calvarial fracture. CT ANGIOGRAM OF THE BRAIN: The imaged bilateral internal carotid arteries are patent. The bilateral anterior and middle cerebral arteries are also patent. Dominant right vertebral artery redemonstrated. The left vertebral artery is developmentally diminutive and demonstrates multifocal stenoses within the V3 and V4 segments which are moderate to high-grade and unchanged from the 2019 study. Patent basilar artery. origin of the left posterior cerebral artery with high-grade stenosis in the left posterior communicating artery, unchanged. Occlusion of the right posterior cerebral artery within a 4 mm segment with distal reconstitution is new from the prior study. The distal portions of the right posterior cerebral artery are suboptimally visualized. There is no aneurysm, high-grade stenosis, or proximal branch occlusion identified. Dural sinuses appear patent. IMPRESSION: 1. No acute intracranial abnormality identified. 2. Patent anterior and middle cerebral arteries. 3. 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 4. Short segment occlusion with reconstitution of flow within the right posterior cerebral artery is age-indeterminate, new from the 2019 comparison. ACT 112: Negative or not required by law. The above report was generated using voice recognition software. It may contain grammatical, syntax or spelling errors. Electronically signed by: Saqib Shore M.D. 06/29/2023 4:24 PM Neck CTA 06/29/23 14:00 CT ANGIOGRAM OF THE NECK CLINICAL HISTORY: Neurological deficit. Stroke like symptoms. COMPARISON STUDY: CT angiogram of the neck dated 08/30/2018. TECHNIQUE: Following the IV administration of 118 of Optiray 320, CT angiogram of the neck was performed from the aortic arch to the skull base. Images are reviewed in the axial, sagittal, and coronal planes. 3-D MIPS images are created and assessed. IV contrast was administered without complication. All measurements were calculated based on NASCET criteria. A dose lowering technique was utilized adhering to the principles of ALARA. FINDINGS: Thoracic aorta: There is atherosclerotic calcification of the thoracic aorta. Visualized portions of the thoracic aorta are normal in caliber. The aortic arch demonstrates standard 3-vessel anatomy. Right carotid arterial system: The right common carotid artery is widely patent, as are the right internal and external carotid arteries. Left carotid arterial system: The left common carotid artery is widely patent, as are the left internal and external carotid arteries. Calcified plaque is noted in the carotid bulb. Vertebral arteries: The right vertebral artery is dominant and widely patent. No flow shown within the proximal and mid portions of the hypoplastic left vertebral artery. This is unchanged from previous, with reconstitution of flow below the skull base at the level of C2. Subclavian arteries: Widely patent bilaterally. Intracranial vasculature: The visualized intracranial vessels at the skull base are patent Jugular veins: Patent bilaterally. Brain parenchyma: The visualized brain parenchyma the skull base is within normal limits. Lung apices: Partially visualized upper lobe lung parenchyma appears clear. Soft tissues: The visualized pharyngeal soft tissues are normal in appearance noting angiographic phase technique. The oropharyngeal airway appears widely patent. Thyroid goiter is unchanged. The salivary glands are normal in appearance. No cervical lymphadenopathy is seen. Skeletal structures: The skeletal structures are osteopenic. The visualized calvarium at the skull base appears intact. The imaged cervical spine is maintained noting multilevel spondylosis. Sinuses and mastoids: There is trace mucosal thickening within the maxillary antra. There is a right mastoid effusion. The left mastoid air cells are well pneumatized. IMPRESSION: 1. Normal assessment of the carotid arterial system bilaterally and the dominant right vertebral artery. 2. No flow is shown within the proximal and mid portions of the hypoplastic left vertebral artery. Flow is reconstituted below the skull base and this is unchanged from previous. ACT 112: Negative or not required by law. Electronically signed by: Pablito Greenberg M.D. 06/29/2023 4:17 PM Foot X-Ray 06/29/23 16:32 XR foot LT min 3V routine HISTORY: 87 years-old Female foot drop/weakness acute left foot pain with weakness COMPARISON: None TECHNIQUE: 3 views of the left foot FINDINGS: Prominent hallux valgus. Demineralized appearance of the bones with mild to moderate osteoarthritis. First metatarsal bunion. Large plantar calcaneal enthesophyte. No acute fracture, dislocation or osseous erosion is identified. IMPRESSION: 1. No acute fracture. 2. Hallux valgus with first metatarsal bunion. 3. Jlec-km-[id number] osteoarthritis. ACT 112: Negative or not required by law. The above report was generated using voice recognition software. It may contain grammatical, syntax or spelling errors. Electronically signed by: Saqib Shore M.D. 06/29/2023 4:54 PM ECG Additional Comments: 29-JUN-2023 13:03:58 [facility]-EDSTAT ROUTINE RETRIEVAL Sinus bradycardia Low voltage QRS Borderline ECG When compared with ECG of 08-MAY-2023 12:05, No significant change was found 25mm/s10mm/[id number] 243CID: [id number] by: REFERRED SELF Unconfirmed Vent. rate 51 BPM OH interval 188 ms QRS duration 90 ms QT/QTc 428/394 ms Code Status & VTE Plan Code Status Full code Supervising Physician Co-Signing Physician Notes I have seen and discussed the case with the collaborating advanced practitioner. I agree with the above H&P. I have reviewed and confirmed the patients medical history, the findings on physical examination, and the patients diagnosis and treatment plan with Chikis RODRIGUEZ and agree with the information documented. Ms. Patricia is an 87 year old woman with PMH HTN, HLD, PAF, anticoagulated on Eliquis, anxiety, depression, GERD who was recently admitted for human metapneumovirus in 05/2023. She was discharged to rehab and then back to her assisted living 3 weeks ago. She sustained a fall with head strike at that time and admitted briefly to [place]. She otherwise reports doing well otherwise, but notes left foot drop this morning. She never has experienced this before. she has baseline tremor of her lower jaw. 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 She feels well and is worried to go to rehab once more. GENERAL APPEARANCE: AxOx3, pleasant elderly woman no acute distress. 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 No stiffness or restricted ROM. HEART: Normal rate and regular rhythm, normal S1/S1, no m/r/g LUNGS: CTAB, moving air well. No crackles or wheezes are heard. ABDOMEN: Soft, nontender, nondistended with good bowel sounds heard EXTREMITIES: Without cyanosis, clubbing or edema. NEUROLOGICAL: Grossly nonfocal. Alert and oriented, moving all 4 extremities. CN II-XII strength intact in all extremities, 5/5 in proximal and distal muscle groups however, inability to dorsiflex left foot, plantar flexion intact Skin: Warm and dry without any rash. 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 All of the aforementioned completed outside of collaborating with the assigned advanced practitioner for a full treatment plan. I have reviewed the advanced practitioner's documentation, and I agree with, and take responsibility for the plan of care (4) Hypertension Hypertension type: primary hypertension Qualified Code(s): I10 - Essential (primary) hypertension
[2023-06-29] MEDS ORDERED: NYSTATIN POWDER 15GM BTL EXT PRN (18:50)
[2023-06-29] MEDS ORDERED: cloNIDine HCL 0.1 MG TAB PO PRN (18:50)
[2023-06-29] MEDS ORDERED: MECLIZINE 12.5 MG TAB PO PRN (18:50)
[2023-06-29] MEDS ORDERED: ACETAMINOPHEN 500 MG TAB PO PRN (18:50)
[2023-06-29] MEDS ORDERED: PHARMACIST DISCHARGE MED REC CONSULT PRN (20:25)
[2023-06-29] MEDS ORDERED: MAGNESIUM HYDROXIDE SUSP 30 ML UDC PO PRN (20:25)
[2023-06-29] MEDS ORDERED: POLYETHYLENE (MIRALAX) 17 GM PACK PO PRN (20:25)
[2023-06-29] MEDS ORDERED: ACETAMINOPHEN 325 MG TAB PO PRN (20:25)
--- OUTSIDE RECORDS SUMMARY | 2023-06-29 21:07 | External Medical Summary | Continuity Of Care Document ---
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 Essential (primary) hypertension 05/21/2023 Active E78.5 Hyperlipidemia, unspecified 05/21/2023 Active I48.0 Paroxysmal atrial fibrillation 05/21/2023 Active E78.5 Hyperlipidemia, unspecified 05/21/2023 Active F32.A Depression, unspecified 05/21/2023 A ctive K21.9 Gastro-esophageal re flux disease without esophagitis 05/21/2023 Active R06.02 Shortness of breath 05/21/2023 Activ e VITAL SIGNS Date Time Diastolic blood pressure Systolic blood pressure Body height Body weight Temperature SpO2 Blood Sugar Pulse Respirations 90651 322 20121 2 61.00 mm[Hg] - Sitting 167.00 mm[Hg] - Sitting 208.80 NI 98.00 Tympanic 97.00 % 62.00/ min 18.00/min 322 35858 9 61.00 mm[Hg] - Sitting 167.00 mm[Hg] - Sitting 98.00 Tympanic 62.00/ min 18.00/min 322 09570 4 61.00 mm[Hg] - Sitting 167.00 mm[Hg] - Sitting 98.00 Tympanic 62.00/ min 18.00/min Immunizations Vaccine Date Status COVID-19 04/28/2020 Completed COVID-19 05/19/2020 Completed COVID-19 02/07/2021 Completed Influenza 01/15/2022 Completed Influenza 01/19/2023 Completed (PPSV23)Pneumococcal 11/01/1999 Completed (PPSV23)Pneumococcal 07/31/2008 Completed (PPSV23)Pneumococcal 07/21/2014 Completed
--- OUTSIDE RECORDS SUMMARY | 2023-06-29 21:07 | External Medical Summary | Continuity Of Care Document ---
Author Name Unknown Address [address] [address] Organization [facility] () Care Team Providers Care Mineral Resources Inspector Name Role Phone DO Pathak Amy Primary Care Provider [phone] Allergies Allergy Reaction Start Date End Date Status ASPIRIN Active VITAL SIGNS Date Time Diastolic blood pressure Systolic blood pressure Body height Body weight Temperature SpO2 Blood Sugar Pulse Respirations 322 56550 2 61.00 mm[Hg] - Sitting 167.00 mm[Hg] - Sitting 208.80 NI 98.00 Tympanic 97.00 % 62.00/ min 18.00/min 85615 322 12785 9 61.00 mm[Hg] - Sitting 167.00 mm[Hg] - Sitting 98.00 Tympanic 62.00/ min 18.00/min Immunizations Vaccine Date Status COVID-19 04/28/2020 Completed COVID-19 05/19/2020 Completed COVID-19 02/07/2021 Completed Influenza 01/15/2022 Completed Influenza 01/19/2023 Completed (PPSV23)Pneumococcal 11/01/1999 Completed (PPSV23)Pneumococcal 07/31/2008 Completed (PPSV23)Pneumococcal 07/21/2014 Completed
--- OUTSIDE RECORDS SUMMARY | 2023-06-29 21:07 | External Medical Summary | Continuity Of Care Document ---
Author Name Unknown Address [address] [address] Organization [facility] () Care Team Providers Care Lens Cutter Name Role Phone DO Pathak Amy Primary Care Provider [phone] Allergies Allergy Reaction Start Date End Date [...] R06.02 Shortness of breath 05/21/2023 Activ e L89.316 Pressure-induced emeterio p tissue damage of right buttock 05/21/2023 Active L89.326 Pressure-induced emeterio p tissue damage of left buttock 05/21/2023 Active J06.9 Acute upper respiratory infection, unspecified 05/21/2023 Active VITAL SIGNS Date Time Diastolic blood pressure Systolic blood pressure Body height Body weight Temperature SpO2 Blood Sugar Pulse Respirations 322 48239 2 61.00 mm[Hg] - Sitting 167.00 mm[Hg] - Sitting 208.80 NI 98.00 Tympanic 97.00 % 62.00/ min 18.00/min 95535 322 50290 9 61.00 mm[Hg] - Sitting 167.00 mm[Hg] - Sitting 98.00 Tympanic 62.00/ min 18.00/min 49090 322 95546 4 61.00 mm[Hg] - Sitting 167.00 mm[Hg] - Sitting 98.00 Tympanic 62.00/ min 18.00/min 50114 322 71489 2 79.00 mm[Hg] - Sitting 159.00 mm[Hg] - Sitting 97.40 Forehead Scan 97.00 % 75.00/ min 18.00/min 12123 322 30618 6 79.00 mm[Hg] - Sitting 159.00 mm[Hg] - Sitting 97.40 Tympanic 75.00/ min 18.00/min 17817 323 56762 0 67.00 mm[Hg] - Sitting 125.00 mm[Hg] - Sitting 98.30 Tympanic 74.00/ min 18.00/min 91270 323 80311 3 74.00 mm[Hg] - Lying Down 150.00 mm[Hg] - Lying Down 97.00 Tympanic 74.00/ min 18.00/min 27380 323 21302 9 67.00 mm[Hg] - Sitting 125.00 mm[Hg] - Sitting 98.30 Tympanic 95.00 % 74.00/ min 18.00/min 98163 323 74375 2 42.00 mm[Hg] - Lying Down 160.00 mm[Hg] - Lying Down 97.50 Tympanic 117.00 /min 18.00/min 55346 324 02671 4 58.00 mm[Hg] - Lying Down 154.00 mm[Hg] - Lying Down 97.80 Tympanic 93.00/ min 18.00/min 53863 324 87499 0 73.00 mm[Hg] - Sitting 159.00 mm[Hg] - Sitting 97.50 Tympanic 110.00 /min 17.00/min 44074 325 44668 5 67.00 mm[Hg] - Sitting 121.00 mm[Hg] - Sitting 97.50 Forehead Scan 98.00 % 68.00/ min 18.00/min 326 67447 8 74.00 mm[Hg] - Sitting 162.00 mm[Hg] - Sitting 98.20 Tympanic 95.00 % 66.00/ min 16.00/min Immunizations Vaccine Date Status COVID-19 04/28/2020 Completed COVID-19 05/19/2020 Completed COVID-19 02/07/2021 Completed Influenza 01/15/2022 Completed Influenza 01/19/2023 Completed (PPSV23)Pneumococcal 11/01/1999 Completed (PPSV23)Pneumococcal 07/31/2008 Completed (PPSV23)Pneumococcal 07/21/2014 Completed
--- OUTSIDE RECORDS SUMMARY | 2023-06-29 21:07 | External Medical Summary | Continuity Of Care Document ---
Author Name Unknown Address [address] [address] Organization [facility] () Care Team Providers Care Electronics Recycler Name Role Phone DO Pathak Amy Primary Care Provider [phone] Allergies Allergy Reaction Start Date End Date [...] tissue damage of left buttock 05/21/2023 Active VITAL SIGNS Date Time Diastolic blood pressure Systolic blood pressure Body height Body weight Temperature SpO2 Blood Sugar Pulse Respirations 322 58772 2 61.00 mm[Hg] - Sitting 167.00 mm[Hg] - Sitting 208.80 NI 98.00 Tympanic 97.00 % 62.00/ min 18.00/min 322 16551 9 61.00 mm[Hg] - Sitting 167.00 mm[Hg] - Sitting 98.00 Tympanic 62.00/ min 18.00/min 322 88351 4 61.00 mm[Hg] - Sitting 167.00 mm[Hg] - Sitting 98.00 Tympanic 62.00/ min 18.00/min Immunizations Vaccine Date Status COVID-19 04/28/2020 Completed COVID-19 05/19/2020 Completed COVID-19 02/07/2021 Completed Influenza 01/15/2022 Completed Influenza 01/19/2023 Completed (PPSV23)Pneumococcal 11/01/1999 Completed (PPSV23)Pneumococcal 07/31/2008 Completed (PPSV23)Pneumococcal 07/21/2014 Completed
--- NOTE | 2023-06-29 21:17 | Magnetic Resonance Report ---
Exam(s): MRI HEAD Without Contrast EXAM: MR Head Without Intravenous Contrast CLINICAL HISTORY: Reason for exam: r/o stroke LLE weakness. TECHNIQUE: Magnetic resonance images of the head/brain without intravenous contrast in multiple planes. COMPARISON: CT head, CTA head 06/29/23; MRI brain 08/31/18 FINDINGS: Brain: Generalized loss of parenchymal volume. Periventricular flair signal hyperintensity consistent with mild chronic small vessel ischemic disease. No diffusion restriction to suggest acute cerebral ischemia. No acute intracranial hemorrhage or abnormal extra-axial fluid collection. No mass-effect or midline shift. Ventricles: Unremarkable. No ventriculomegaly. Bones/joints: Unremarkable. No acute fracture. Sinuses: Trace mucosal thickening in the ethmoids and maxillary sinuses. No acute sinusitis. Mastoid air cells: Right mastoid effusion. Left mastoid air cells are clear. Orbits: Bilateral lens replacements. IMPRESSION: No acute findings. No evidence of acute ischemia or acute hemorrhage. Electronically signed by: Deejay Zuniga M.D. 06/29/23 21:16 PM
[2023-06-29] MEDS ORDERED: HEPARIN SOD 5,000 UNIT/0.5 ML VIAL SQ SCH (22:00)
[2023-06-29] MEDS: DORZOLAMIDE HCL 2% OPH SOLN 10 ML BTL OPB SCH (22:53)
[2023-06-29] MEDS: ROSUVASTATIN CALCIUM 20 MG TAB PO SCH (22:53)
[2023-06-29] MEDS: APIXABAN 5 MG TABLET PO SCH (22:53)
[2023-06-29] MEDS: PREGABALIN 50 MG CAP PO SCH (23:05)
[2023-06-30 08:20] LABS: Basophils # (auto) 0.03 K/uL (0.00-0.20); Basophils % (auto) 0.4 %; Eosinophils # (auto) 0.21 K/uL (0.00-0.50); Eosinophils % (auto) 2.9 %; Hematocrit (blood only) 36.1 % (37.0-47.0); Hemoglobin 11.2 g/dl (12.0-16.0); Immature Granulocytes # (auto) 0.03 K/uL (0.01-0.20); Immature Granulocytes % (auto) 0.4 %; Lymphocytes # (auto) 2.33 K/uL (1.20-3.40); Lymphocytes % (auto) 32.5 %; Mean Corpuscular Hemoglobin 28.6 pg (25.0-34.0); Mean Corpuscular Volume 92.3 fL (80.0-100.0); Mean Platelet Volume 9.6 fL (9.4-12.4); Monocytes # (auto) 0.56 K/uL (0.11-0.59); Monocytes % (auto) 7.8 %; Neutrophils # (auto) 4.02 K/uL (1.40-6.50); Platelet Count 260 K/uL (130-400); RDW Coefficient of Variation 16.2 % (11.5-14.5); RDW Standard Deviation 54.9 fL (36.4-46.3); Red Blood Count 3.91 M/uL (4.20-5.40); White Blood Count 7.18 K/ul (4.8-10.8)
[2023-06-30 08:35] LABS: BUN Creatinine Ratio 17.8 (10-20); Calcium 8.8 mg/dl (8.6-10.3); Chol HDL Ratio 3.3 (0-5); Creatinine Clr Calc Pharmacy 44.5 ml/min; Est GFR (African American) 57.6 ml/min; Est GFR (Non-African American) 49.7 ml/min; Potassium 4.4 mmol/L (3.5-5.1)
[2023-06-30 08:38] LABS: Estimated Average Glucose 114 mg/dl; Hemoglobin A1C 5.6 % (4.5-5.6)
[2023-06-30] MEDS: ASPIRIN 81 MG ECTAB PO SCH (08:47)
[2023-06-30] MEDS: DOCUSATE SODIUM/SENNA 50/8.6MG TAB PO SCH (08:47)
[2023-06-30] MEDS: METOPROLOL SUCC 50MG EXT REL TAB PO SCH (08:47)
[2023-06-30] MEDS: CITALOPRAM 20 MG TAB PO SCH (08:48)
[2023-06-30] MEDS: PANTOprazole 40 MG TAB PO SCH (08:48)
[2023-06-30] MEDS: LOSARTAN POTASSIUM 50 MG TAB PO SCH (08:48)
[2023-06-30] MEDS: CHOLECALCIFEROL 25 MCG (1000 UNITS) TAB PO SCH (08:48)
[2023-06-30] MEDS: POLYETHYLENE (MIRALAX) 17 GM PACK PO SCH (08:49)
[2023-06-30] MEDS ORDERED: NON-FORMULARY MEDICATION (Coenzyme Q10 [Coq-10] 100 mg Capsule) PO SCH (09:00)
[2023-06-30] MEDS ORDERED: ROSUVASTATIN CALCIUM 20 MG TAB PO SCH (09:00)
--- NOTE | 2023-06-30 11:42 | Neurology Consultation ---
Date of Consultation June 30, 2023 Assessment & Plan (1) Foot drop, left: No apparent signs of trauma at left lateral malleolus or left lateral knee joint. It is difficult to assess for anterior displacement of fibular head possibly resulting in peroneal nerve injury via telemedicine. Recommend urgent orthopedic consultation. Recommend PT/OT evaluation No evidence of stroke, continue current medications, therapies Telehealth Consultation Telehealth Information Telehealth Information: I performed this visit using a real-time telehealth connection between my location and the patients location ([facility]). After connecting through interactive tele-video, patient was identified by name and date of and/or wristband check.Patient (or authorized healthcare contracts representative) was informed that this was a telemedicine visit and it was being conducted confidentially over secure lines. My office door was closed and no one else was present in the room with me.Patient (or authorized healthcare contracts representative) provided consent to proceed with the visit, expressed an understanding of privacy and security of the telemedicine visit, and gave permission to have a hospital contracts representative in the room in order to assist with the visit and to conduct portions of the visit, as needed. I informed the patient (or authorized healthcare contracts representative) that I reviewed their record a nd presented the opportunity for them to ask any questions regarding the visit today. The patient agreed to participate. History of Present Illness Reason for Consultation: Stroke like symptoms Requesting Physician: Dr. Ibarra Attending Physician: Ernie Ibarra MD History of Present Illness 87yo female presents with inability to dorsiflex left foot/ankle. She has significant stroke risk factors including morbid obesity, AFIB, HF, HTN hyperlipidemia and has undergone stroke imaging including CT brain without contrast, personally reviewed today, revealing no overt evidence of hemorrhage. CT angiographic studies of head and neck, also personally reviewed today, reveal no overt evidence of large vessel occlusion or significant/flow limiting stenosis. MRI brain has been performed and also fortunately reveals no evidence of acute restricted diffusion/acute ischemic stroke. I have performed televideo consultation. She is alert & oriented; able to answer all questions appropriately, name objects on televideo monitor, repeat phrases and perform complex/embedded commands without deficit. Neurological exam is non lateralizing/nonfocal in terms of motor strength and coordination. NIHSS=0. Examination performed in presence and with help of RN at bedside. Patient reports going to bed [place] night approx midnight and awakening with left foot symptoms yesterday. Denies trauma. No apparent signs of trauma at left lateral malleolus or left lateral knee joint. It is difficult to assess for anterior displacement of fibular head possibly resulting in peroneal nerve injury via telemedicine. Recommend urgent orthopedic consultation. No reported cephalgia or cervicalgia Denies chest pain/palpitations or shortness of breath No reported changes in vision hearing dizziness syncope seizure like activity or paresthesia Denies recent fevers chills nausea vomiting changes in bowels or bladder Denies recent medication changes, recent illness or sick contacts, no reported recent travel Allergies Allergy/AdvReac Type Severity Reaction Status Date / Time aspirin AdvReac Unknown GI ISSUES Verified 06/29/23 17:53 Home Medications Medication Instructions Recorded Confirmed Type acetaminophen 500 mg tablet 1,000 mg (2 x 500 mg) PO Q8H PRN 08/25/22 06/29/23 Rx (Tylenol Extra Strength) fever or pain #90 tabs alprazolam 0.5 mg tablet 0.5 mg PO BID PRN Anxiety #10 tabs 08/25/22 06/29/23 Rx apixaban 5 mg tablet (Eliquis) 5 mg PO BID #60 tabs 08/25/22 06/29/23 Rx coenzyme Q10 100 mg capsule 100 mg PO DAILY #30 caps 08/25/22 06/29/23 Rx (CoQ-10) metoprolol succinate 50 mg 50 mg PO DAILY #30 tabs 08/25/22 06/29/23 Rx tablet,extended release 24 hr omeprazole 20 mg capsule,delayed 20 mg PO DAILY #30 caps 08/25/22 06/29/23 Rx release sennosides 8.6 mg-docusate sodium 1 tab PO QAM #30 tabs 08/25/22 06/29/23 Rx 50 mg tablet (Senokot-S) aspirin 81 mg tablet,delayed 81 mg PO DAILY 05/08/23 06/29/23 History release citalopram 20 mg tablet 20 mg PO DAILY 05/08/23 06/29/23 History clonidine HCl 0.1 mg tablet 0.1 mg PO DAILY PRN SBP>170 or 05/08/23 06/29/23 History DBP>100 nystatin 100,000 unit/gram topical 1 applic topical TID PRN 05/08/23 06/29/23 History powder (Nystop) rash/irritation polyethylene glycol 3350 17 gram 17 g PO QAM Constipation 05/08/23 06/29/23 History oral powder packet (Miralax) pregabalin 50 mg capsule 50 mg PO BID 05/08/23 06/29/23 History rosuvastatin 20 mg tablet 20 mg PO HS 05/08/23 06/29/23 History cholecalciferol (vitamin D3) 25 25 mcg PO DAILY 06/29/23 06/29/23 History mcg (1,000 unit) tablet (Vitamin D3) dorzolamide 2 % eye drops 1 drp OPB BID 06/29/23 06/29/23 History losartan 100 mg tablet 100 mg PO DAILY 06/29/23 06/29/23 History meclizine 12.5 mg tablet 12.5 mg PO Q8 PRN .dizzyness 06/29/23 06/29/23 History Patient History Medical History Hypokalemia Paroxysmal atrial fibrillation CHF (congestive heart failure) TIA (transient ischemic attack) Occlusion of left vertebral artery Hypertension GERD (gastroesophageal reflux disease) Hypertension Surgical History History of appendectomy History of cholecystectomy History of cataract surgery History of hysterectomy History of total knee replacement x2 Family History Other Cancer Social History Smoking Status: Never smoker Second Hand Exposure: No; Do You Dip or Chew Tobacco: No; Hx Alcohol Use: No Hx Substance Use: No Preferred Language: Malaysian Communication Ability: Effective Beauty Specialist Required: No Beliefs That Will Affect Care: None marital status: / Current Living Situation: Personal Care Facility Current Living Situation Comment: [facility] Feels Safe at Home: Yes Safety Concerns: Feels Safe At This Time Assistive Devices: Walker Physical Exam Neurological Examination: Mental Status: Awake and alert. Oriented to person, place, and time. Fluency naming repetition and comprehension appear grossly intact. Affect remains appropriate. CN testing: I: Denies changes in ability to smell II:Reports no changes in visual acuity III/IV/: No evidence of gaze preference, hippus, nystagmus or roving eye movements V: Facial sensation reportedly grossly intact to light touch bilaterally VII: Facial movements appear without evidence of asymmetry VIII: Hearing appears grossly intact to loud voice bilaterally IX/X: Palate appears to elevate symmetrically XI: Shoulder shrug appears symmetric/ grossly intact bilaterally XII: Tongue protrudes midline without evidence of biting Motor exam: Left foot drop/unable to dorsiflex Sensory: Sensation is reportedly grossly intact throughout Coordination: Deferred Reflexes: Deferred Gait: Deferred Results & Data Vital Signs (Past 12 Hours) Vital Signs Temp Pulse Pulse Resp BP Pulse Ox O2 Del Method 06/30/23 07:54 36.7 C 63 16 169/77 H 93 Room Air 06/30/23 07:41 49 L 06/30/23 01:57 36.3 C L 54 L 16 175/67 H 94 Room Air Laboratory Results Abnormal lab results 06/29/23 06/30/23 Range/Units 14:39 08:01 RBC 3.76 L 3.91 L (4.20-5.40) M/uL Hgb 10.7 L 11.2 L (12.0-16.0) g/dl Hct 35.0 L 36.1 L (37.0-47.0) % MCHC 30.6 L 31.0 L (32.0-36.0) g/dL RDW Std Deviation 54.6 H 54.9 H (36.4-46.3) fL RDW Coeff of Lizy 15.9 H 16.2 H (11.5-14.5) % Cowley # (Auto) 0.84 H (0.11-0.59) K/uL APTT 33 H (21-31) Seconds AST 12 L (13-39) U/L ALT 6 L (7-52) U/L Triglycerides 237 H (0-150) mg/dl VLDL Cholesterol, Calc 47 H (0-30) mg/dl Diagnostic Findings Head CT 06/29/23 14:00 CT angio head w con, CT head/brain wo con CLINICAL HISTORY: 87 years-old Female with neuro deficit, acute stroke suspected. Acute stroke like symptoms COMPARISON STUDY: Head CT 05/08/2023, CTA head and neck 08/30/2018 TECHNIQUE: Unenhanced axial CT scan of the brain is performed. Subsequently, following the IV administration of 118 cc of Optiray, CT angiogram of the brain was performed from the skull base to the vertex. Images are reviewed in the axial, sagittal, and coronal planes. 3-D MIPS images are created and assessed. IV contrast was administered without complication. All measurements were obtained according to NASCET criteria. A dose lowering technique was utilized adhering to the principles of ALARA. CT DOSE: 522.26 mGy.cm (accession [id number]), 625.8 mGy.cm (accession [id number]) FINDINGS: CT BRAIN: There is no acute intracranial hemorrhage, midline shift, hydrocephalus, intracranial mass, territorial ischemia or abnormal extra-axial collections. No abnormal intra-axial or extra-axial enhancement. Involutional changes with chronic microvascular ischemic disease. Paranasal sinuses are clear. There is a large right and trace left mastoid effusions. Postoperative changes of the paranasal sinuses. Small posterior right parietal scalp contusion. Prior bilateral lens repair. No calvarial fracture. CT ANGIOGRAM OF THE BRAIN: The imaged bilateral internal carotid arteries are patent. The bilateral a nterior and middle cerebral arteries are also patent. Dominant right vertebral artery redemonstrated. The left vertebral artery is developmentally diminutive and demonstrates multifocal stenoses within the V3 and V4 segments which are moderate to high-grade and unchanged from the 2019 study. Patent basilar artery. origin of the left posterior cerebral artery with high-grade stenosis in the left posterior communicating artery, unchanged. Occlusion of the right posterior cerebral artery within a 4 mm segment with distal reconstitution is new from the prior study. The distal portions of the right posterior cerebral artery are suboptimally visualized. There is no aneurysm, high-grade stenosis, or proximal branch occlusion identified. Dural sinuses appear patent. IMPRESSION: 1. No acute intracranial abnormality identified. 2. Patent anterior and middle cerebral arteries. 3. 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 4. Short segment occlusion with reconstitution of flow within the right posterior cerebral artery is age-indeterminate, new from the 2019 comparison. ACT 112: Negative or not required by law. The above report was generated using voice recognition software. It may contain grammatical, syntax or spelling errors. Electronically signed by: Saqib Shore M.D. 06/29/2023 4:24 PM Head CTA 06/29/23 14:00 CT angio head w con, CT head/brain wo con CLINICAL HISTORY: 87 years-old Female with neuro deficit, acute stroke suspected. Acute stroke like symptoms COMPARISON STUDY: Head CT 05/08/2023, CTA head and neck 08/30/2018 TECHNIQUE: Unenhanced axial CT scan of the brain is performed. Subsequently, following the IV administration of 118 cc of Optiray, CT angiogram of the brain was performed from the skull base to the vertex. Images are reviewed in the axial, sagittal, and coronal planes. 3-D MIPS images are created and assessed. IV contrast was administered without complication. All measurements were obtained according to NASCET criteria. A dose lowering technique was utilized adhering to the principles of ALARA. CT DOSE: 522.26 mGy.cm (accession [id number]), 625.8 mGy.cm (accession [id number]) FINDINGS: CT BRAIN: There is no acute intracranial hemorrhage, midline shift, hydrocephalus, intracranial mass, territorial ischemia or abnormal extra-axial collections. No abnormal intra-axial or extra-axial enhancement. Involutional changes with chronic microvascular ischemic disease. Paranasal sinuses are clear. There is a large right and trace left mastoid effusions. Postoperative changes of the paranasal sinuses. Small posterior right parietal scalp contusion. Prior bilateral lens repair. No calvarial fracture. CT ANGIOGRAM OF THE BRAIN: The imaged bilateral internal carotid arteries are patent. The bilateral anterior and middle cerebral arteries are also patent. Dominant right vertebral artery redemonstrated. The left vertebral artery is developmentally diminutive and demonstrates multifocal stenoses within the V3 and V4 segments which are moderate to high-grade and unchanged from the 2019 study. Patent basilar artery. origin of the left posterior cerebral artery with high-grade stenosis in the left posterior communicating artery, unchanged. Occlusion of the right posterior cerebral artery within a 4 mm segment with distal reconstitution is new from the prior study. The distal portions of the right posterior cerebral artery are suboptimally visualized. There is no aneurysm, high-grade stenosis, or proximal branch occlusion identified. Dural sinuses appear patent. IMPRESSION: 1. No acute intracranial abnormality identified. 2. Patent anterior and middle cerebral arteries. 3. 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 4. Short segment occlusion with reconstitution of flow within the right posterior cerebral artery is age-indeterminate, new from the 2019 comparison. ACT 112: Negative or not required by law. The above report was generated using voice recognition software. It may contain grammatical, syntax or spelling errors. Electronically signed by: Saqib Shore M.D. 06/29/2023 4:24 PM Neck CTA 06/29/23 14:00 CT ANGIOGRAM OF THE NECK CLINICAL HISTORY: Neurological deficit. Stroke like symptoms. COMPARISON STUDY: CT angiogram of the neck dated 08/30/2018. TECHNIQUE: Following the IV administration of 118 of Optiray 320, CT angiogram of the neck was performed from the aortic arch to the skull base. Images are reviewed in the axial, sagittal, and coronal planes. 3-D MIPS images are created and assessed. IV contrast was administered without complication. All measurements were calculated based on NASCET criteria. A dose lowering technique was utilized adhering to the principles of ALARA. FINDINGS: Thoracic aorta: There is atherosclerotic calcification of the thoracic aorta. Visualized portions of the thoracic aorta are normal in caliber. The aortic arch demonstrates standard 3-vessel anatomy. Right carotid arterial system: The right common carotid artery is widely patent, as are the right internal and external carotid arteries. Left carotid arterial system: The left common carotid artery is widely patent, as are the left internal and external carotid arteries. Calcified plaque is noted in the carotid bulb. Vertebral arteries: The right vertebral artery is dominant and widely patent. No flow shown within the proximal and mid portions of the hypoplastic left vertebral artery. This is unchanged from previous, with reconstitution of flow below the skull base at the level of C2. Subclavian arteries: Widely patent bilaterally. Intracranial vasculature: The visualized intracranial vessels at the skull base are patent Jugular veins: Patent bilaterally. Brain parenchyma: The visualized brain parenchyma the skull base is within normal limits. Lung apices: Partially visualized upper lobe lung parenchyma appears clear. Soft tissues: The visualized pharyngeal soft tissues are normal in appearance noting angiographic phase technique. The oropharyngeal airway appears widely patent. Thyroid goiter is unchanged. The salivary glands are normal in appearance. No cervical lymphadenopathy is seen. Skeletal structures: The skeletal structures are osteopenic. The visualized calvarium at the skull base appears intact. The imaged cervical spine is maintained noting multilevel spondylosis. Sinuses and mastoids: There is trace mucosal thickening within the maxillary antra. There is a right mastoid effusion. The left mastoid air cells are well pneumatized. IMPRESSION: 1. Normal assessment of the carotid arterial system bilaterally and the dominant right vertebral artery. 2. No flow is shown within the proximal and mid portions of the hypoplastic left vertebral artery. Flow is reconstituted below the skull base and this is unchanged from previous. ACT 112: Negative or not required by law. Electronically signed by: Pablito Greenberg M.D. 06/29/2023 4:17 PM Foot X-Ray 06/29/23 16:32 XR foot LT min 3V routine HISTORY: 87 years-old Female foot drop/weakness acute left foot pain with weakness COMPARISON: None TECHNIQUE: 3 views of the left foot FINDINGS: Prominent hallux valgus. Demineralized appearance of the bones with mild to moderate osteoarthritis. First metatarsal bunion. Large plantar calcaneal enthesophyte. No acute fracture, dislocation or osseous erosion is identified. IMPRESSION: 1. No acute fracture. 2. Hallux valgus with first metatarsal bunion. 3. [id number] osteoarthritis. ACT 112: Negative or not required by law. The above report was generated using voice recognition software. It may contain grammatical, syntax or spelling errors. Electronically signed by: Saqib Shore M.D. 06/29/2023 4:54 PM Brain MRI 06/29/23 18:08 Exam(s): MRI HEAD Without Contrast EXAM: MR Head Without Intravenous Contrast CLINICAL HISTORY: Reason for exam: r/o stroke LLE weakness. TECHNIQUE: Magnetic resonance images of the head/brain without intravenous contrast in multiple planes. COMPARISON: CT head, CTA head 06/29/23; MRI brain 08/31/18 FINDINGS: Brain: Generalized loss of parenchymal volume. Periventricular flair signal hyperintensity consistent with mild chronic small vessel ischemic disease. No diffusion restriction to suggest acute cerebral ischemia. No acute intracranial hemorrhage or abnormal extra-axial fluid collection. No mass-effect or midline shift. Ventricles: Unremarkable. No ventriculomegaly. Bones/joints: Unremarkable. No acute fracture. Sinuses: Trace mucosal thickening in the ethmoids and maxillary sinuses. No acute sinusitis. Mastoid air cells: Right mastoid effusion. Left mastoid air cells are clear. Orbits: Bilateral lens replacements. IMPRESSION: No acute findings. No evidence of acute ischemia or acute hemorrhage. Electronically signed by: Deejay Zuniga M.D. 06/29/23 21:16 PM Medications Administered Abnormal lab results 06/29/23 06/30/23 Range/Units 14:39 08:01 RBC 3.76 L 3.91 L (4.20-5.40) M/uL Hgb 10.7 L 11.2 L (12.0-16.0) g/dl Hct 35.0 L 36.1 L (37.0-47.0) % MCHC 30.6 L 31.0 L (32.0-36.0) g/dL RDW Std Deviation 54.6 H 54.9 H (36.4-46.3) fL RDW Coeff of Lizy 15.9 H 16.2 H (11.5-14.5) % Cowley # (Auto) 0.84 H (0.11-0.59) K/uL APTT 33 H (21-31) Seconds AST 12 L (13-39) U/L ALT 6 L (7-52) U/L Triglycerides 237 H (0-150) mg/dl VLDL Cholesterol, Calc 47 H (0-30) mg/dl
--- NOTE | 2023-06-30 14:37 | Hospitalist Progress Note ---
Date of Service June 30, 2023 Assessment & Plan (1) Left leg weakness: (2) Acute on chronic heart failure with preserved ejection fraction (HFpEF): (3) Paroxysmal atrial fibrillation: (4) Hypertension: (5) TIA (transient ischemic attack): Plan: Left Foot Drop Suspected peroneal nerve injury Less likely CVA --MRI Brain: No acute findings. No evidence of acute ischemia or acute hemorrhage. --Head CTA:No acute intracranial abnormality identified. Patent anterior and middle cerebral arteries. 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 Short segment occlusion with reconstitution of flow within the right posterior cerebral artery is age-indeterminate, new from the 2019 comparison. --Neck CTA:Normal assessment of the carotid arterial system bilaterally and the dominant right vertebral artery. No flow is shown within the proximal and mid portions of the hypoplastic left vertebral artery. Flow is reconstituted below the skull base and this is unchanged from previous. --Left Foot X ray:No acute fracture. Hallux valgus with first metatarsal bunion. [id number] osteoarthritis. -- Lipid panel: Elevated triglycerides, otherwise within normal limit --Continue aspirin, Crestor. Also on Eliquis Appreciate neurology input PT OT, speech eval Orthopedics consulted Fall precautions Chronic heart failure with preserved ejection fraction (HFpEF) -Echo Grade II diastolic failure, EF 55-60%, LVH - Recent admission last month for acute exacerbation - continue metoprolol 50mg BID -> changed to daily dose and coreg discontinued due to Hypotension and bradycardia - continue losartan 100mg daily - Also on Lasix 40 mg every other day - monitor daily weight Underlying obesity hypoventilation syndrome -Uncertain diagnosis -May benefit from following with pulmonology as outpatient Anemia Hb at baseline Monitor Paroxysmal atrial fibrillation Currently in sinus Continue home medications On Eliquis for anticoagulation Anxiety Continue citalopram Xanax as needed GERD (gastroesophageal reflux disease) Continue PPI DVT Px: Eliquis CODE STATUS: FULL CODE Admission and Anticipated Discharge Date Admission Date: June 29, 2023 Subjective Patient is seen and examined at bedside States having left foot drop Also reports some numbness of left foot Denies any chest pain, dyspnea, nausea, vomiting, abdominal pain, change in vision, dysphagia No other complaints Review of Systems Review of Systems: All systems reviewed & are unremarkable except as noted in Subjective Physical Exam Physical Exam: Physical Exam: Vitals signs as noted above General Appearance:Obese, no apparent distress Head: normocephalic, Atraumatic Eyes: normal inspection, EOMI, Left eye chronic blurry vision Neck: supple, Trachea midline Respiratory/Chest: Normal breath sounds, CTA, No accessory muscle use Cardiovascular: S1, S2, No murmur Abdomen/GI:Soft, Non tender, Bowel sounds present Extremities/Musculoskeletal:normal inspection, 1+ pedal edema Neurologic/Psych:AAOX3, + Left foot can not dorsiflex otherwise grossly no focal deficits Skin: normal color, warm Results & Data Results & Data Vital Signs (Past 12 Hours) Vital Signs Temp Pulse Pulse Resp BP Pulse Ox O2 Del Method 06/30/23 12:02 37.0 C 52 L 16 130/71 96 Room Air 06/30/23 07:54 36.7 C 63 16 169/77 H 93 Room Air 06/30/23 07:41 49 L Laboratory Results Short CBC 06/29/23 06/30/23 Range/Units 14:39 08:01 WBC 8.44 7.18 (4.8-10.8) K/ul Hgb 10.7 L 11.2 L (12.0-16.0) g/dl Hct 35.0 L 36.1 L (37.0-47.0) % Plt Count 267 260 (130-400) K/uL BMP 06/29/23 06/30/23 14:39 08:01 Sodium 137 139 Potassium 4.2 4.4 Chloride 101 104 Carbon Dioxide 31 30 BUN 20 18 Creatinine 1.18 1.01 Glucose 94 97 Calcium 9.1 8.8 Liver Function 06/29/23 Range/Units 14:39 Total Bilirubin 0.9 (0.2-1.0) mg/dl AST 12 L (13-39) U/L ALT 6 L (7-52) U/L Alkaline Phosphatase 53 (34-104) U/L Albumin 3.7 (3.4-5.0) gm/dl (4) Hypertension Hypertension type: primary hypertension Qualified Code(s): I10 - Essential (primary) hypertension
--- NOTE | 2023-06-30 14:44 | Electrocardiogram Report ---
Test Reason : Blood Pressure : / mmHG Vent. Rate : 051 BPM Atrial Rate : 051 BPM P-R Int : 188 ms QRS Dur : 090 ms QT Int : 428 ms P-R-T Axes : 045 008 043 degrees QTc Int : 394 ms Poor data quality, interpretation may be adversely affected Sinus bradycardia Low voltage QRS Borderline ECG When compared with ECG of 08-MAY-2023 12:05, No significant change was found Confirmed by Petey Salazar ([id number]) on 06/30/2023 2:44:16 PM Referred By: REFERRED SELF Confirmed By:Petey Salazar
[2023-07-01 06:47] LABS: Basophils # (auto) 0.02 K/uL (0.00-0.20); Basophils % (auto) 0.2 %; Eosinophils # (auto) 0.14 K/uL (0.00-0.50); Eosinophils % (auto) 1.7 %; Hematocrit (blood only) 32.6 % (37.0-47.0); Hemoglobin 10.5 g/dl (12.0-16.0); Immature Granulocytes # (auto) 0.03 K/uL (0.01-0.20); Immature Granulocytes % (auto) 0.4 %; Lymphocytes # (auto) 2.64 K/uL (1.20-3.40); Lymphocytes % (auto) 32.5 %; Mean Corpuscular Hemoglobin 29.1 pg (25.0-34.0); Mean Corpuscular Hgb Conc 32.2 g/dL (32.0-36.0); Mean Corpuscular Volume 90.3 fL (80.0-100.0); Monocytes % (auto) 8.6 %; Neutrophils % (auto) 56.6 %; Platelet Count 244 K/uL (130-400); RDW Coefficient of Variation 16.1 % (11.5-14.5); RDW Standard Deviation 53.7 fL (36.4-46.3); Red Blood Count 3.61 M/uL (4.20-5.40); White Blood Count 8.13 K/ul (4.8-10.8)
[2023-07-01 07:03] LABS: BUN Creatinine Ratio 19.8 (10-20); Calcium 8.4 mg/dl (8.6-10.3); Creatinine Clr Calc Pharmacy 40.3 ml/min; Est GFR (African American) 51.3 ml/min; Est GFR (Non-African American) 44.3 ml/min; Potassium 4.2 mmol/L (3.5-5.1)
[2023-07-01] MEDS: ALPRAZolam 0.5 MG TABLET PO PRN (09:24)
--- NOTE | 2023-07-01 14:06 | XRay Report ---
LEFT KNEE 4 VIEWS CLINICAL HISTORY: Left foot drop. FINDINGS: AP, crosstable lateral, tunnel, and sunrise views of the left knee are obtained. No prior s tudies are available for comparison at the time of dictation. The skeletal structures are osteopenic. No fracture is seen. There is moderate tricompartmental degenerative joint space narrowing, greatest in the medial and patellofemoral compartments. There are large marginal osteophytes, patellar enthes ophytes, and degenerative beaking of the tibial spine. No osteochondral defect is suggested on the tu nnel image. A small joint effusion is noted. Mild soft tissue swelling is seen around the knee. IMPRESSION: 1. Small joint effusion with no acute bony abnormality identified. 2. Osteopenia and degenerative change as above. Electronically signed by: Pablito Greenberg M.D. 07/01/2023 2:05 PM
--- NOTE | 2023-07-01 14:06 | XRay Report ---
XR lumbar spine 2-3V HISTORY: 87 years-old Female acute left foot drop acute low back pain COMPARISON: MR lumbar spine 11/22/2020 TECHNIQUE: 3 views of the lumbar spine FINDINGS: Moderate rectal fecal retention with mild gaseous distention of the colon. Atherosclerosis of the aor ta. Demineralized appearance of the bones. Moderate to severe multilevel intervertebral disc space na rrowing with advanced facet arthrosis and spondylotic spurring. Disc space narrowing is again most pr onounced at L2-L3. There is unchanged grade 1 anterolisthesis L4 on L5, likely secondary to the chron ic facet disease. No acute fracture or subluxation identified. IMPRESSION: 1. No acute fracture or subluxation identified. 2. Demineralized appearance of the bones with moderate to advanced degenerative changes. ACT 112: Negative or not required by law. The above report was generated using voice recognition software. It may contain grammatical, syntax o r spelling errors. Electronically signed by: Saqib Shore M.D. 07/01/2023 2:05 PM
--- NOTE | 2023-07-01 15:49 | Orthopedic Consultation ---
Date of Consultation July 01, 2023 Assessment & Plan (1) Foot drop, left: Acute left foot drop. Etiology of foot drop has yet to be determined at this point. Possibilities include pressure neuropraxia but no good history for this. More likely etiology would be lumbar spine pathology as she has advanced degenerative lumbar disc disease and spondylolisthesis and spinal stenosis. A soft tissue lesion could be pressing peroneal nerve as differential diagnosis but less likely. Would get better information with EMG of the location and cause however with acute onset may take 3 weeks for good EMG test to show positive results. Would recommend an MRI lumbar spine and compared just to her old MRI of her lumbar spine to see if there is a new compressive lesion that would correlate with the left-sided foot drop. Will order ankle-foot orthosis to assist with gait. Will have Dr. Alvarez assess lumbar MRI once completed. History of Present Illness Reason for Consultation: Left foot drop Attending Physician: Ernie Ibarra MD History of Present Illness 87-year-old female who noted acute left foot weakness. Patient said she has some baseline neuropathy type symptoms in her feet. She had a history of a stroke that was on her left side with left-sided weakness and was worked up here at the hospital for that and not felt to be the cause of her foot drop. Allergies Allergy/AdvReac Type Severity Reaction Status Date / Time aspirin AdvReac Unknown GI ISSUES Verified 06/29/23 17:53 Home Medications Medication Instructions Recorded Confirmed Type acetaminophen 500 mg tablet 1,000 mg (2 x 500 mg) PO Q8H PRN 08/25/22 06/29/23 Rx (Tylenol Extra Strength) fever or pain #90 tabs alprazolam 0.5 mg tablet 0.5 mg PO BID PRN Anxiety #10 tabs 08/25/22 06/29/23 Rx apixaban 5 mg tablet (Eliquis) 5 mg PO BID #60 tabs 08/25/22 06/29/23 Rx coenzyme Q10 100 mg capsule 100 mg PO DAILY #30 caps 08/25/22 06/29/23 Rx (CoQ-10) metoprolol succinate 50 mg 50 mg PO DAILY #30 tabs 08/25/22 06/29/23 Rx tablet,extended release 24 hr omeprazole 20 mg capsule,delayed 20 mg PO DAILY #30 caps 08/25/22 06/29/23 Rx release sennosides 8.6 mg-docusate sodium 1 tab PO QAM #30 tabs 08/25/22 06/29/23 Rx 50 mg tablet (Senokot-S) aspirin 81 mg tablet,delayed 81 mg PO DAILY 05/08/23 06/29/23 History release citalopram 20 mg tablet 20 mg PO DAILY 05/08/23 06/29/23 History clonidine HCl 0.1 mg tablet 0.1 mg PO DAILY PRN SBP>170 or 05/08/23 06/29/23 History DBP>100 nystatin 100,000 unit/gram topical 1 applic topical TID PRN 05/08/23 06/29/23 History powder (Nystop) rash/irritation polyethylene glycol 3350 17 gram 17 g PO QAM Constipation 05/08/23 06/29/23 History oral powder packet (Miralax) pregabalin 50 mg capsule 50 mg PO BID 05/08/23 06/29/23 History rosuvastatin 20 mg tablet 20 mg PO HS 05/08/23 06/29/23 History cholecalciferol (vitamin D3) 25 25 mcg PO DAILY 06/29/23 06/29/23 History mcg (1,000 unit) tablet (Vitamin D3) dorzolamide 2 % eye drops 1 drp OPB BID 06/29/23 06/29/23 History losartan 100 mg tablet 100 mg PO DAILY 06/29/23 06/29/23 History meclizine 12.5 mg tablet 12.5 mg PO Q8 PRN .dizzyness 06/29/23 06/29/23 History furosemide 40 mg tablet 40 mg PO Q2D 06/30/23 06/30/23 History Patient History Medical History Hypokalemia Paroxysmal atrial fibrillation CHF (congestive heart failure) TIA (transient ischemic attack) Occlusion of left vertebral artery Hypertension GERD (gastroesophageal reflux disease) Hypertension Surgical History History of appendectomy History of cholecystectomy History of cataract surgery History of hysterectomy History of total knee replacement x2 Family History Other Cancer Social History Smoking Status: Never smoker Second Hand Exposure: No; Do You Dip or Chew Tobacco: No; Hx Alcohol Use: No Hx Substance Use: No Preferred Language: Arabic Communication Ability: Effective Utilization Specialist Required: No Beliefs That Will Affect Care: None marital status: / Current Living Situation: Personal Care Facility Current Living Situation Comment: [facility] Feels Safe at Home: Yes Safety Concerns: Feels Safe At This Time Assistive Devices: Glasses, Walker and Wheelchair Review of Systems Review of Systems: Patient's status post right knee replacement and ORIF of right ankle. She has known osteoarthritis of her left knee. She has known back arthritis and disc disease. She does admit to having back pain. She says she has to sleep sitting up in a chair and if she sleeps on any sides her right side and never on her l eft side. Physical Exam Physical Exam: Patient has a foot drop with inability to dorsiflex left foot or great toe but some of the great toe function is limited by his severe bunion deformity. She has a strong dorsalis pedis pulse. Sensation is compromised generalized sense of numbness throughout the foot. No numbness of the steven or knee or thigh. Her plantarflexion strength is normal and knee extension and flexion strength quadriceps extension and hamstring strength all normal and AB adductor hip strength normal. Straight leg raise test give her back pain but not radiating pain down leg. She is nontender over the fibula and negative Tinel's over the peroneal nerve. No deformity over the fibular head area. Results & Data Vital Signs (Past 12 Hours) Vital Signs Temp Pulse Pulse Resp BP Pulse Ox O2 Del Method 07/01/23 14:45 36.7 C 90 16 138/74 96 Room Air 07/01/23 11:49 36.7 C 81 16 153/63 H 96 Room Air 07/01/23 07:59 36.9 C 52 L 16 147/72 H 95 Room Air 07/01/23 07:44 53 L 07/01/23 03:45 36.7 C 59 L 18 159/74 H 93 Room Air Diagnostic Findings X-rays lumbar spine demonstrates multilevel degenerative disc disease with L4-5 spondylolisthesis and advanced degenerative disc disease L5-S1 and other multilevel more advanced degenerative disc disease throughout the lumbar and thoracic spine. The knee x-ray demonstrates osteoarthritis of the knee with grade 3-4 OA medial compartment varus knee and normal tib-fib joint proximally and no fractures or abnormalities of the proximal fibula area. Old MRI reviewed demonstrates spinal stenosis and degenerative disc disease.
--- NOTE | 2023-07-01 17:21 | Hospitalist Progress Note ---
Date of Service July 01, 2023 Assessment & Plan (1) Left leg weakness: (2) Acute on chronic heart failure with preserved ejection fraction (HFpEF): (3) Paroxysmal atrial fibrillation: (4) Hypertension: (5) TIA (transient ischemic attack): Plan: Left Foot Drop Suspected peroneal nerve injury Less likely CVA --MRI Brain: No acute findings. No evidence of acute ischemia or acute hemorrhage. --Head CTA:No acute intracranial abnormality identified. Patent anterior and middle cerebral arteries. 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 Short segment occlusion with reconstitution of flow within the right posterior cerebral artery is age-indeterminate, new from the 2019 comparison. --Neck CTA:Normal assessment of the carotid arterial system bilaterally and the dominant right vertebral artery. No flow is shown within the proximal and mid portions of the hypoplastic left vertebral artery. Flow is reconstituted below the skull base and this is unchanged from previous. --Left Foot X ray:No acute fracture. Hallux valgus with first metatarsal bunion. [id number] osteoarthritis. -- Left knee x-ray:Small joint effusion with no acute bony abnormality identified. Osteopenia and degenerative change as above. -- Lumbar x-ray:No acute fracture or subluxation identified.Demineralized appearance of the bones with moderate to advanced degenerative changes. -- MRI lumbar spine pending -- Lipid panel: Elevated triglycerides, otherwise within normal limit --Continue aspirin, Crestor. Also on Eliquis Appreciate neurology input PT OT, speech eval Fall precautions Appreciate orthopedics input Further management based on MRI spine Orthotics consulted for ankle-foot orthosis to assist with gait May need EMG as outpatient May need orthopedic spine evaluation based on MRI Chronic heart failure with preserved ejection fraction (HFpEF) -Echo Grade II diastolic failure, EF 55-60%, LVH - Recent admission last month for acute exacerbation - continue metoprolol 50mg BID -> changed to daily dose and coreg discontinued due to Hypotension and bradycardia - continue losartan 100mg daily - Also on Lasix 40 mg every other day - monitor daily weight Underlying obesity hypoventilation syndrome -Uncertain diagnosis -May benefit from following with pulmonology as outpatient Anemia Hb at baseline Monitor Paroxysmal atrial fibrillation Currently in sinus Continue home medications On Eliquis for anticoagulation Anxiety Continue citalopram Xanax as needed GERD (gastroesophageal reflux disease) Continue PPI DVT Px: Eliquis CODE STATUS: FULL CODE Admission and Anticipated Discharge Date Admission Date: June 29, 2023 Subjective Patient is seen and examined at bedside Left foot drop slightly better per patient No new complaints Also reports some numbness of left foot Denies any chest pain, dyspnea, nausea, vomiting, abdominal pain, change in vision, dysphagia Discussed with orthopedics today Review of Systems Review of Systems: All systems reviewed & are unremarkable except as noted in Subjective Physical Exam Physical Exam: Physical Exam: Vitals signs as noted above General Appearance:Obese, no apparent distress Head: normocephalic, Atraumatic Eyes: normal inspection, EOMI, Left eye chronic blurry vision Neck: supple, Trachea midline Respiratory/Chest: Normal breath sounds, CTA, No accessory muscle use Cardiovascular: S1, S2, No murmur Abdomen/GI:Soft, Non tender, Bowel sounds present Extremities/Musculoskeletal:normal inspection, 1+ pedal edema Neurologic/Psych:AAOX3, + Left foot can not dorsiflex otherwise grossly no focal deficits Skin: normal color, warm Results & Data Results & Data Vital Signs (Past 12 Hours) Vital Signs Temp Pulse Pulse Resp BP Pulse Ox O2 Del Method 07/01/23 16:00 51 L 07/01/23 14:45 36.7 C 90 16 138/74 96 Room Air 07/01/23 11:49 36.7 C 81 16 153/63 H 96 Room Air 07/01/23 07:59 36.9 C 52 L 16 147/72 H 95 Room Air 07/01/23 07:44 53 L Laboratory Results Short CBC 07/01/23 Range/Units 06:17 WBC 8.13 (4.8-10.8) K/ul Hgb 10.5 L (12.0-16.0) g/dl Hct 32.6 L (37.0-47.0) % Plt Count 244 (130-400) K/uL BMP 07/01/23 06:17 Sodium 138 Potassium 4.2 Chloride 104 Carbon Dioxide 28 BUN 22 Creatinine 1.11 Glucose 98 Calcium 8.4 L (4) Hypertension Hypertension type: primary hypertension Qualified Code(s): I10 - Essential (primary) hypertension
[2023-07-01] MEDS: GADOBUTROL 65ML VIAL IV ONE (19:03)
--- NOTE | 2023-07-01 21:10 | Magnetic Resonance Report ---
Exam(s): MRI L SPINE W/WO Contrast IV Amt: 10ml gadavist EXAM: MR Lumbar Spine Without and With Intravenous Contrast CLINICAL HISTORY: Reason for exam: LBP with left foot drop. TECHNIQUE: Magnetic resonance images of the lumbar spine without and with intravenous contrast in multiple planes. CONTRAST: Patient received 10ml gadavist of IV contrast COMPARISON: MRI lumbar spine 11/21/2020 FINDINGS: No acute fracture. Grade 1 anterolisthesis at L4-5. The conus terminates at T12-L1. Paraspinous soft tissues are unremarkable. Multilevel disc desiccation and height loss. Degenerative changes as follows: L1-L2: Diffuse disc bulge. Facet arthropathy most pronounced on the left. Mild left lateral recess stenosis. No foraminal stenosis. L2-L3: Diffuse disc bulge with facet arthropathy. Moderate canal stenosis. Mild bilateral foraminal stenosis. L3-L4: Trace diffuse disc bulge with facet arthropathy. Mild canal stenosis. Mild bilateral foraminal stenosis. L4-L5: Anterolisthesis with disc uncovering and severe facet arthropathy at this level. Severe spinal canal stenosis. Moderate bilateral foraminal stenosis. L5-S1: Trace right paracentral retrusion and mild facet arthrosis. No spinal canal stenosis. Mild bilateral foraminal stenosis. IMPRESSION: Degenerative spondylosis as described. Severe canal stenosis at L4-5. Electronically signed by: Alex Diaz MD 07/01/23 21:10 PM
[2023-07-02 07:41] LABS: Basophils # (auto) 0.03 K/uL (0.00-0.20); Basophils % (auto) 0.4 %; Eosinophils # (auto) 0.19 K/uL (0.00-0.50); Eosinophils % (auto) 2.7 %; Hematocrit (blood only) 32.8 % (37.0-47.0); Hemoglobin 10.4 g/dl (12.0-16.0); Immature Granulocytes # (auto) 0.03 K/uL (0.01-0.20); Immature Granulocytes % (auto) 0.4 %; Lymphocytes # (auto) 2.22 K/uL (1.20-3.40); Mean Corpuscular Hemoglobin 29.2 pg (25.0-34.0); Mean Corpuscular Hgb Conc 31.7 g/dL (32.0-36.0); Mean Corpuscular Volume 92.1 fL (80.0-100.0); Mean Platelet Volume 10.1 fL (9.4-12.4); Monocytes # (auto) 0.69 K/uL (0.11-0.59); Monocytes % (auto) 9.7 %; Neutrophils # (auto) 3.99 K/uL (1.40-6.50); Neutrophils % (auto) 55.8 %; Platelet Count 244 K/uL (130-400); RDW Coefficient of Variation 16.2 % (11.5-14.5); RDW Standard Deviation 54.8 fL (36.4-46.3); Red Blood Count 3.56 M/uL (4.20-5.40); White Blood Count 7.15 K/ul (4.8-10.8)
[2023-07-02 07:50] LABS: BUN Creatinine Ratio 19.2 (10-20); Calcium 8.6 mg/dl (8.6-10.3); Creatinine Clr Calc Pharmacy 35.6 ml/min; Est GFR (African American) 44.5 ml/min; Est GFR (Non-African American) 38.4 ml/min; Potassium 4.1 mmol/L (3.5-5.1)
--- NOTE | 2023-07-02 09:30 | Communication Note ---
Date of Service: July 02, 2023 EMR reviewed MRI findings consistent with significant canal stenosis lower lumbar region with bilateral neuroforaminal stenosis Agree with Orthopedic consultation
--- NOTE | 2023-07-02 12:34 | Orthopedic Consultation ---
Date of Consultation July 02, 2023 Assessment & Plan (1) Spinal stenosis, lumbar region with neurogenic claudication: MRI of the lumbar spine available for review demonstrates multilevel spondylosis with anterior listhesis L4 on L5. There is severe spinal stenosis at this region. Undoubtedly this is contributing to some neural compression and irritation into the left lower extremity contributing to her foot drop and tingling. We discussed the diagnosis and possible treatment options. At this point she is not having any radicular type pain and AFO is being ordered to help assist in her ambulation we both agree continue observation is warranted. Clearly if she progresses to the point that she is unable to ambulate secondary to pain and progressive weakness we may have to consider further intervention. Patient stands and agrees. History of Present Illness Reason for Consultation: Weakness to the left foot Attending Physician: Ernie Ibarra MD History of Present Illness This is a very pleasant 87-year-old female who presents with sudden onset of weakness into her left foot. It is precisely the left dorsiflexion component that is lacking. She describes some tingling in the left lower extremity from the knee down. Denies any radicular pain. Denies any right lower extremity dysfunction. Denies any precipitating trauma fall or event. Allergies Allergy/AdvReac Type Severity Reaction Status Date / Time aspirin AdvReac Unknown GI ISSUES Verified 06/29/23 17:53 Home Medications Medication Instructions Recorded Confirmed Type acetaminophen 500 mg tablet 1,000 mg (2 x 500 mg) PO Q8H PRN 08/25/22 06/29/23 Rx (Tylenol Extra Strength) fever or pain #90 tabs alprazolam 0.5 mg tablet 0.5 mg PO BID PRN Anxiety #10 tabs 08/25/22 06/29/23 Rx apixaban 5 mg tablet (Eliquis) 5 mg PO BID #60 tabs 08/25/22 06/29/23 Rx coenzyme Q10 100 mg capsule 100 mg PO DAILY #30 caps 08/25/22 06/29/23 Rx (CoQ-10) metoprolol succinate 50 mg 50 mg PO DAILY #30 tabs 08/25/22 06/29/23 Rx tablet,extended release 24 hr omeprazole 20 mg capsule,delayed 20 mg PO DAILY #30 caps 08/25/22 06/29/23 Rx release sennosides 8.6 mg-docusate sodium 1 tab PO QAM #30 tabs 08/25/22 06/29/23 Rx 50 mg tablet (Senokot-S) aspirin 81 mg tablet,delayed 81 mg PO DAILY 05/08/23 06/29/23 History release citalopram 20 mg tablet 20 mg PO DAILY 05/08/23 06/29/23 History clonidine HCl 0.1 mg tablet 0.1 mg PO DAILY PRN SBP>170 or 05/08/23 06/29/23 History DBP>100 nystatin 100,000 unit/gram topical 1 applic topical TID PRN 05/08/23 06/29/23 History powder (Nystop) rash/irritation polyethylene glycol 3350 17 gram 17 g PO QAM Constipation 05/08/23 06/29/23 History oral powder packet (Miralax) pregabalin 50 mg capsule 50 mg PO BID 05/08/23 06/29/23 History rosuvastatin 20 mg tablet 20 mg PO HS 05/08/23 06/29/23 History cholecalciferol (vitamin D3) 25 25 mcg PO DAILY 06/29/23 06/29/23 History mcg (1,000 unit) tablet (Vitamin D3) dorzolamide 2 % eye drops 1 drp OPB BID 06/29/23 06/29/23 History losartan 100 mg tablet 100 mg PO DAILY 06/29/23 06/29/23 History meclizine 12.5 mg tablet 12.5 mg PO Q8 PRN .dizzyness 06/29/23 06/29/23 History furosemide 40 mg tablet 40 mg PO Q2D 06/30/23 06/30/23 History Patient History Medical History Hypokalemia Paroxysmal atrial fibrillation CHF (congestive heart failure) TIA (transient ischemic attack) Occlusion of left vertebral artery Hypertension GERD (gastroesophageal reflux disease) Hypertension Surgical History History of appendectomy History of cholecystectomy History of cataract surgery History of hysterectomy History of total knee replacement x2 Family History Other Cancer Social History Smoking Status: Never smoker Second Hand Exposure: No; Do You Dip or Chew Tobacco: No; Hx Alcohol Use: No Hx Substance Use: No Preferred Language: Polish Communication Ability: Effective 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 She has a clear dense foot drop on the left compared to 5 5 strength on the right. Quadriceps are symmetric and intact. Results & Data Vital Signs (Past 12 Hours) Vital Signs Temp Pulse Pulse Pulse Resp BP Pulse Ox 07/02/23 11:55 64 63 20 186/86 H 94 07/02/23 09:24 36.9 C 62 18 190/73 H 95 07/02/23 08:00 07/02/23 07:00 53 L 07/02/23 03:35 36.5 C 55 L 18 160/68 H 92 O2 Del Method 07/02/23 11:55 Room Air 07/02/23 09:24 Room Air 07/02/23 08:00 Room Air 07/02/23 07:00 07/02/23 03:35 Room Air
--- NOTE | 2023-07-02 15:02 | Hospitalist Progress Note ---
Date of Service July 02, 2023 Assessment & Plan (1) Left leg weakness: (2) Acute on chronic heart failure with preserved ejection fraction (HFpEF): (3) Paroxysmal atrial fibrillation: (4) Hypertension: (5) TIA (transient ischemic attack): Plan: Left Foot Drop Secondary to severe spinal canal stenosis at L4-L5 Suspected peroneal nerve injury CVA ruled out --MRI Brain: No acute findings. No evidence of acute ischemia or acute hemorrhage. --Head CTA:No acute intracranial abnormality identified. Patent anterior and middle cerebral arteries. 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 Short segment occlusion with reconstitution of flow within the right posterior cerebral artery is age-indeterminate, new from the 2019 comparison. --Neck CTA:Normal assessment of the carotid arterial system bilaterally and the dominant right vertebral artery. No flow is shown within the proximal and mid portions of the hypoplastic left vertebral artery. Flow is reconstituted below the skull base and this is unchanged from previous. --Left Foot X ray:No acute fracture. Hallux valgus with first metatarsal bunion. [id number] osteoarthritis. -- Left knee x-ray:Small joint effusion with no acute bony abnormality i dentified. Osteopenia and degenerative change as above. -- Lumbar x-ray:No acute fracture or subluxation identified.Demineralized appearance of the bones with moderate to advanced degenerative changes. -- MRI lumbar spine:Degenerative spondylosis as described. Severe canal stenosis at L4-5. -- Lipid panel: Elevated triglycerides, otherwise within normal limit --Continue aspirin, Crestor. Also on Eliquis Appreciate neurology input PT OT, speech eval Fall precautions Appreciate orthopedics input: Given no radicular pain, AFO to assist with ambulation. If clinically deteriorates, inability to ambulate, then may need surgical intervention. Orthotics consulted for ankle-foot orthosis to assist with gait May need EMG as outpatient Plan to discharge home today after brace is arranged Recommend follow-up with surgeon on discharge Chronic heart failure with preserved ejection fraction (HFpEF) -Echo Grade II diastolic failure, EF 55-60%, LVH - Recent admission last month for acute exacerbation - continue metoprolol 50mg BID -> changed to daily dose and coreg discontinued due to Hypotension and bradycardia - continue losartan 100mg daily - Also on Lasix 40 mg every other day - monitor daily weight Underlying obesity hypoventilation syndrome -Uncertain diagnosis -May benefit from following with pulmonology as outpatient Anemia Hb at baseline Monitor Paroxysmal atrial fibrillation Currently in sinus Continue home medications On Eliquis for anticoagulation Anxiety Continue citalopram Xanax as needed GERD (gastroesophageal reflux disease) Continue PPI DVT Px: Eliquis CODE STATUS: FULL CODE Disposition Home with home health Admission and Anticipated Discharge Date Admission Date: June 29, 2023 Subjective Patient is seen and examined at bedside Clinically no significant change from yesterday No new complaints Still has left foot drop Denies any chest pain, dyspnea, nausea, vomiting, abdominal pain, change in vision, dysphagia Review of Systems Review of Systems: All systems reviewed & are unremarkable except as noted in Subjective Physical Exam Physical Exam: Physical Exam: Vitals signs as noted above General Appearance:Obese, no apparent distress Head: normocephalic, Atraumatic Eyes: normal inspection, EOMI, Left eye chronic blurry vision Neck: supple, Trachea midline Respiratory/Chest: Normal breath sounds, CTA, No accessory muscle use Cardiovascular: S1, S2, No murmur Abdomen/GI:Soft, Non tender, Bowel sounds present Extremities/Musculoskeletal:normal inspection, 1+ pedal edema Neurologic/Psych:AAOX3, + Left foot can not dorsiflex otherwise grossly no focal deficits Skin: normal color, warm Results & Data Results & Data Vital Signs (Past 12 Hours) Vital Signs Temp Pulse Pulse Pulse Resp BP Pulse Ox 07/02/23 12:05 36.5 C 59 L 18 161/70 H 94 07/02/23 11:55 64 63 20 186/86 H 94 07/02/23 09:24 36.9 C 62 18 190/73 H 95 07/02/23 08:00 07/02/23 07:00 53 L 07/02/23 03:35 36.5 C 55 L 18 160/68 H 92 O2 Del Method 07/02/23 12:05 Room Air 07/02/23 11:55 Room Air 07/02/23 09:24 Room Air 07/02/23 08:00 Room Air 07/02/23 07:00 07/02/23 03:35 Room Air Laboratory Results Short CBC 07/02/23 Range/Units 06:45 WBC 7.15 (4.8-10.8) K/ul Hgb 10.4 L (12.0-16.0) g/dl Hct 32.8 L (37.0-47.0) % Plt Count 244 (130-400) K/uL BMP 07/02/23 06:45 Sodium 138 Potassium 4.1 Chloride 105 Carbon Dioxide 28 BUN 24 H Creatinine 1.25 H Glucose 97 Calcium 8.6 (4) Hypertension Hypertension type: primary hypertension Qualified Code(s): I10 - Essential (primary) hypertension
--- NOTE | 2023-07-02 15:15 | Discharge Summary ---
Date of Service July 02, 2023 Admission HPI Per Admitting Provider This is an 87 yo F with PMHx HTN, HLD, PAF, anticoagulated on Eliquis, left eye visual change chronic, anemia, hx of hypertensive urgency, anxiety, depression, GERD presented to ER foot pain, recently admitted for acute respiratory failure with hypoxia and hypercapnia found to hav human metapeumovirus in May 2023. Pt was treated with empiric doxy and rocephin then downgraded to cefdinir and doxy PO. Pt was at assisted living facility today, using walker, and reports not being able to lift her left foot up and dorsiflexion. She is able to do plantar flexion with good strength. Pt has no other areas of focal deficits. Pt feels well overall. Pt states the last time she fell was about 3 weeks ago when she was home for the first day, and was instructed to walk with walker to the dining room at that time, her first longer walk. Fell backwards and hit her head, and still has a large bump on the back of her head still. Pt denies any sick contact, no fever, chills, sweats. She reports taking all her morning medications today. As she is still having difficulty with dosiflexion, she has been admitted for stroke workup and PT/OT evals. Admission Exam Per Admitting Provider General: awake, alert, no apparent distress, + fine tremor throughout upper ext and jaw, white female Head: Normocephalic, atraumatic ENT: PERRL, EOMI, no pharyngeal exudate, mucous membranes moist Chest: Clear to auscultation, on room air, O2 sats 95%, no adventitious breath sounds Cardiac: Regular rate and rhythm, no murmur, no JVD, normal peripheral pulses, good capillary refill Abdominal: NABS x 4 quadrants, soft, nondistended, nontender to palpation, no rebound or guarding Extremities: Normal inspection, no peripheral edema or erythema, calfs nontender to palpation Psych: Normal mood and affect Neuro: AAO x 3, + inability to perform dorsiflexion with the left foot, has good strength with plantarflexion. Right foot able to performa all movements/strength intact bilaterally and rated 5/5, no motor deficits, speech is clear, no peripheral sensory deficits. + tremor throughout. Principal Diagnosis Spinal stenosis, lumbar region with neurogenic claudication Left Foot Drop Discharge Data Allergies Allergy/AdvReac Type Severity Reaction Status Date / Time aspirin AdvReac Unknown GI ISSUES Verified 06/29/23 17:53 Consultations 06/29/23 17:40 ED Decision to Admit Stat 06/30/23 07:41 Consult Neurology Routine 06/30/23 07:58 Consult Orthopedic Surgery Routine 07/02/23 07:27 Consult Orthopedic Surgery Routine Procedures Performed Laboratory Results WBC 7.15 K/ul (4.8-10.8) 07/02/23 06:45 RBC 3.56 M/uL (4.20-5.40) L 07/02/23 06:45 Hgb 10.4 g/dl (12.0-16.0) L 07/02/23 06:45 Hct 32.8 % (37.0-47.0) L 07/02/23 06:45 MCV 92.1 fL (80.0-100.0) 07/02/23 06:45 MCH 29.2 pg (25.0-34.0) 07/02/23 06:45 MCHC 31.7 g/dL (32.0-36.0) L 07/02/23 06:45 RDW Std Deviation 54.8 fL (36.4-46.3) H 07/02/23 06:45 RDW Coeff of Lizy 16.2 % (11.5-14.5) H 07/02/23 06:45 Plt Count 244 K/uL (130-400) 07/02/23 06:45 MPV 10.1 fL (9.4-12.4) 07/02/23 06:45 Immature Gran % (Auto) 0.4 % 07/02/23 06:45 Neut % (Auto) 55.8 % 07/02/23 06:45 Lymph % (Auto) 31.0 % 07/02/23 06:45 [place] % (Auto) 9.7 % 07/02/23 06:45 Eos % (Auto) 2.7 % 07/02/23 06:45 Baso % (Auto) 0.4 % 07/02/23 06:45 Neut # (Auto) 3.99 K/uL (1.40-6.50) 07/02/23 06:45 Lymph # (Auto) 2.22 K/uL (1.20-3.40) 07/02/23 06:45 [place] # (Auto) 0.69 K/uL (0.11-0.59) H 07/02/23 06:45 Eos # (Auto) 0.19 K/uL (0.00-0.50) 07/02/23 06:45 Baso # (Auto) 0.03 K/uL (0.00-0.20) 07/02/23 06:45 Immature Gran # (Auto) 0.03 K/uL (0.01-0.20) 07/02/23 06:45 PT 11.8 Seconds (9.0-12.0) 06/29/23 14:39 INR 1.1 (0.9-1.1) 06/29/23 14:39 APTT 33 Seconds (21-31) H 06/29/23 14:39 PTT Ratio 1.2 06/29/23 14:39 Sodium 138 mmol/L (136-145) 07/02/23 06:45 Potassium 4.1 mmol/L (3.5-5.1) 07/02/23 06:45 Chloride 105 mmol/L (98-107) 07/02/23 06:45 Carbon Dioxide 28 mmol/L (21-32) 07/02/23 06:45 Anion Gap 5 (3-11) 07/02/23 06:45 BUN 24 mg/dl (6-23) H 07/02/23 06:45 Creatinine 1.25 mg/dl (0.6-1.2) H 07/02/23 06:45 Est Cr Clr Drug Dosing 35.6 ml/min 07/02/23 06:45 Est GFR ( Amer) 44.5 ml/min 07/02/23 06:45 Est GFR (Non-Af Amer) 38.4 ml/min 07/02/23 06:45 BUN/Creatinine Ratio 19.2 (10-20) 07/02/23 06:45 Glucose 97 mg/dl (70-99(Fasting)) 07/02/23 06:45 POC Glucose 96 mg/dl (70-99) 06/29/23 14:42 Estimat Average Glucose 114 mg/dl 06/30/23 08:01 Hemoglobin A1c 5.6 % (4.5-5.6) 06/30/23 08:01 Calcium 8.6 mg/dl (8.6-10.3) 07/02/23 06:45 Magnesium 1.9 mg/dl (1.7-2.4) 06/29/23 14:39 Total Bilirubin 0.9 mg/dl (0.2-1.0) 06/29/23 14:39 AST 12 U/L (13-39) L 06/29/23 14:39 ALT 6 U/L (7-52) L 06/29/23 14:39 Alkaline Phosphatase 53 U/L (34-104) 06/29/23 14:39 Troponin I High Sens 5.7 pg/ml (0-14) 06/29/23 14:39 Total Protein 6.4 gm/dl (6.0-8.3) 06/29/23 14:39 Albumin 3.7 gm/dl (3.4-5.0) 06/29/23 14:39 Globulin 2.7 gm/dl (2.5-4.0) 06/29/23 14:39 Albumin/Globulin Ratio 1.4 (0.9-2) 06/29/23 14:39 Triglycerides 237 mg/dl (0-150) H 06/30/23 08:01 Cholesterol 139 mg/dl (0-200) 06/30/23 08:01 LDL Cholesterol, Calc 50 mg/dl 06/30/23 08:01 VLDL Cholesterol, Calc 47 mg/dl (0-30) H 06/30/23 08:01 HDL Cholesterol 42 mg/dl 06/30/23 08:01 Cholesterol/HDL Ratio 3.3 (0-5) 06/30/23 08:01 Nasal Screen MRSA (PCR) Negative (Negative) 06/29/[address] 06/29/23 14:00 CT angio head w con, CT head/brain wo con CLINICAL HISTORY: 87 years-old Female with neuro deficit, acute stroke suspected. Acute stroke like symptoms COMPARISON STUDY: Head CT 05/08/2023, CTA head and neck 08/30/2018 TECHNIQUE: Unenhanced axial CT scan of the brain is performed. Subsequently, following the IV administration of 118 cc of Optiray, CT angiogram of the brain was performed from the skull base to the vertex. Images are reviewed in the axial, sagittal, and coronal planes. 3-D MIPS images are created and assessed. IV contrast was administered without complication. All measurements were obtained according to NASCET criteria. A dose lowering technique was utilized adhering to the principles of ALARA. CT DOSE: 522.26 mGy.cm (accession [id number]), 625.8 mGy.cm (accession [id number]) FINDINGS: CT BRAIN: There is no acute intracranial hemorrhage, midline shift, hydrocephalus, intracranial mass, territorial ischemia or abnormal extra-axial collections. No abnormal intra-axial or extra-axial enhancement. Involutional changes with chronic microvascular ischemic disease. Paranasal sinuses are clear. There is a large right and trace left mastoid effusions. Postoperative changes of the paranasal sinuses. Small posterior right parietal scalp contusion. Prior bilateral lens repair. No calvarial fracture. CT ANGIOGRAM OF THE BRAIN: The imaged bilateral internal carotid arteries are patent. The bilateral anterior and middle cerebral arteries are also patent. Dominant right vertebral artery redemonstrated. The left vertebral artery is developmentally diminutive and demonstrates multifocal stenoses within the V3 and V4 segments which are moderate to high-grade and unchanged from the 2019 study. Patent basilar artery. origin of the left posterior cerebral artery with high-grade stenosis in the left posterior communicating artery, unchanged. Occlusion of the right posterior cerebral artery within a 4 mm segment with distal reconstitution is new from the prior study. The distal portions of the right posterior cerebral artery are suboptimally visualized. There is no aneurysm, high-grade stenosis, or proximal branch occlusion identified. Dural sinuses appear patent. IMPRESSION: 1. No acute intracranial abnormality identified. 2. Patent anterior and middle cerebral arteries. 3. 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 4. Short segment occlusion with reconstitution of flow within the right posterior cerebral artery is age-indeterminate, new from the 2019 comparison. ACT 112: Negative or not required by law. The above report was generated using voice recognition software. It may contain grammatical, syntax or spelling errors. Electronically signed by: Saqib Shore M.D. 06/29/2023 4:24 PM Head CTA 06/29/23 14:00 CT angio head w con, CT head/brain wo con CLINICAL HISTORY: 87 years-old Female with neuro deficit, acute stroke suspected. Acute stroke like symptoms COMPARISON STUDY: Head CT 05/08/2023, CTA head and neck 08/30/2018 TECHNIQUE: Unenhanced axial CT scan of the brain is performed. Subsequently, following the IV administration of 118 cc of Optiray, CT angiogram of the brain was performed from the skull base to the vertex. Images are reviewed in the axial, sagittal, and coronal planes. 3-D MIPS images are created and assessed. IV contrast was administered without complication. All measurements were obtained according to NASCET criteria. A dose lowering technique was utilized adhering to the p rinciples of DIONNA. CT DOSE: 522.26 mGy.cm (accession [id number]), 625.8 mGy.cm (accession [id number]) FINDINGS: CT BRAIN: There is no acute intracranial hemorrhage, midline shift, hydrocephalus, intracranial mass, territorial ischemia or abnormal extra-axial collections. No abnormal intra-axial or extra-axial enhancement. Involutional changes with chronic microvascular ischemic disease. Paranasal sinuses are clear. There is a large right and trace left mastoid effusions. Postoperative changes of the paranasal sinuses. Small posterior right parietal scalp contusion. Prior bilateral lens repair. No calvarial fracture. CT ANGIOGRAM OF THE BRAIN: The imaged bilateral internal carotid arteries are patent. The bilateral anterior and middle cerebral arteries are also patent. Dominant right vertebral artery redemonstrated. The left vertebral artery is developmentally diminutive and demonstrates multifocal stenoses within the V3 and V4 segments which are moderate to high-grade and unchanged from the 2019 study. Patent basilar artery. origin of the left posterior cerebral artery with high-grade stenosis in the left posterior communicating artery, unchanged. Occlusion of the right posterior cerebral artery within a 4 mm segment with distal reconstitution is new from the prior study. The distal portions of the right posterior cerebral artery are suboptimally visualized. There is no aneurysm, high-grade stenosis, or proximal branch occlusion identified. Dural sinuses appear patent. IMPRESSION: 1. No acute intracranial abnormality identified. 2. Patent anterior and middle cerebral arteries. 3. 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 4. Short segment occlusion with reconstitution of flow within the right posterior cerebral artery is age-indeterminate, new from the 2019 comparison. ACT 112: Negative or not required by law. The above report was generated using voice recognition software. It may contain grammatical, syntax or spelling errors. Electronically signed by: Saqib Shore M.D. 06/29/2023 4:24 PM Neck CTA 06/29/23 14:00 CT ANGIOGRAM OF THE NECK CLINICAL HISTORY: Neurological deficit. Stroke like symptoms. COMPARISON STUDY: CT angiogram of the neck dated 08/30/2018. TECHNIQUE: Following the IV administration of 118 of Optiray 320, CT angiogram of the neck was performed from the aortic arch to the skull base. Images are reviewed in the axial, sagittal, and coronal planes. 3-D MIPS images are created and assessed. IV contrast was administered without complication. All measurements were calculated based on NASCET criteria. A dose lowering technique was utilized adhering to the principles of ALARA. FINDINGS: Thoracic aorta: There is atherosclerotic calcification of the thoracic aorta. Visualized portions of the thoracic aorta are normal in caliber. The aortic arch demonstrates standard 3-vessel anatomy. Right carotid arterial system: The right common carotid artery is widely patent, as are the right internal and external carotid arteries. Left carotid arterial system: The left common carotid artery is widely patent, as are the left internal and external carotid arteries. Calcified plaque is noted in the carotid bulb. Vertebral arteries: The right vertebral artery is dominant and widely patent. No flow shown within the proximal and mid portions of the hypoplastic left vertebral artery. This is unchanged from previous, with reconstitution of flow below the skull base at the level of C2. Subclavian arteries: Widely patent bilaterally. Intracranial vasculature: The visualized intracranial vessels at the skull base are patent Jugular veins: Patent bilaterally. Brain parenchyma: The visualized brain parenchyma the skull base is within normal limits. Lung apices: Partially visualized upper lobe lung parenchyma appears clear. Soft tissues: The visualized pharyngeal soft tissues are normal in appearance noting angiographic phase technique. The oropharyngeal airway appears widely patent. Thyroid goiter is unchanged. The salivary glands are normal in appearance. No cervical lymphadenopathy is seen. Skeletal structures: The skeletal structures are osteopenic. The visualized calvarium at the skull base appears intact. The imaged cervical spine is maintained noting multilevel spondylosis. Sinuses and mastoids: There is trace mucosal thickening within the maxillary antra. There is a right mastoid effusion. The left mastoid air cells are well pneumatized. IMPRESSION: 1. Normal assessment of the carotid arterial system bilaterally and the dominant right vertebral artery. 2. No flow is shown within the proximal and mid portions of the hypoplastic left vertebral artery. Flow is reconstituted below the skull base and this is unchanged from previous. ACT 112: Negative or not required by law. Electronically signed by: Pablito Greenberg M.D. 06/29/2023 4:17 PM Foot X-Ray 06/29/23 16:32 XR foot LT min 3V routine HISTORY: 87 years-old Female foot drop/weakness acute left foot pain with weakness COMPARISON: None TECHNIQUE: 3 views of the left foot FINDINGS: Prominent hallux valgus. Demineralized appearance of the bones with mild to moderate osteoarthritis. First metatarsal bunion. Large plantar calcaneal enthesophyte. No acute fracture, dislocation or osseous erosion is identified. IMPRESSION: 1. No acute fracture. 2. Hallux valgus with first metatarsal bunion. 3. Mbvv-wv-oykxhgid osteoarthritis. ACT 112: Negative or not required by law. The above report was generated using voice recognition software. It may contain grammatical, syntax or spelling errors. Electronically signed by: Saqib Shore M.D. 06/29/2023 4:54 PM Brain MRI 06/29/23 18:08 Exam(s): MRI HEAD Without Contrast EXAM: MR Head Without Intravenous Contrast CLINICAL HISTORY: Reason for exam: r/o stroke LLE weakness. TECHNIQUE: Magnetic resonance images of the head/brain without intravenous contrast in multiple planes. COMPARISON: CT head, CTA head 06/29/23; MRI brain 08/31/18 FINDINGS: Brain: Generalized loss of parenchymal volume. Periventricular flair signal hyperintensity consistent with mild chronic small vessel ischemic disease. No diffusion restriction to suggest acute cerebral ischemia. No acute intracranial hemorrhage or abnormal extra-axial fluid collection. No mass-effect or midline shift. Ventricles: Unremarkable. No ventriculomegaly. Bones/joints: Unremarkable. No acute fracture. Sinuses: Trace mucosal thickening in the ethmoids and maxillary sinuses. No acute sinusitis. Mastoid air cells: Right mastoid effusion. Left mastoid air cells are clear. Orbits: Bilateral lens replacements. IMPRESSION: No acute findings. No evidence of acute ischemia or acute hemorrhage. Electronically signed by: Deejay Zuniga M.D. 06/29/23 21:16 PM Knee X-Ray 07/01/23 12:13 LEFT KNEE 4 VIEWS CLINICAL HISTORY: Left foot drop. FINDINGS: AP, crosstable lateral, tunnel, and sunrise views of the left knee are obtained. No prior studies are available for comparison at the time of dictation. The skeletal structures are osteopenic. No fracture is seen. There is moderate tricompartmental degenerative joint space narrowing, greatest in the medial and patellofemoral compartments. There are large marginal osteophytes, patellar enthesophytes, and degenerative beaking of the tibial spine. No osteo chondral defect is suggested on the tunnel image. A small joint effusion is noted. Mild soft tissue swelling is seen around the knee. IMPRESSION: 1. Small joint effusion with no acute bony abnormality identified. 2. Osteopenia and degenerative change as above. Electronically signed by: Pablito Greenberg M.D. 07/01/2023 2:05 PM Lumbar Spine X-Ray 07/01/23 12:13 XR lumbar spine 2-3V HISTORY: 87 years-old Female acute left foot drop acute low back pain COMPARISON: MR lumbar spine 11/22/2020 TECHNIQUE: 3 views of the lumbar spine FINDINGS: Moderate rectal fecal retention with mild gaseous distention of the colon. Atherosclerosis of the aorta. Demineralized appearance of the bones. Moderate to severe multilevel intervertebral disc space narrowing with advanced facet arthrosis and spondylotic spurring. Disc space narrowing is again most pronounced at L2-L3. There is unchanged grade 1 anterolisthesis L4 on L5, likely secondary to the chronic facet disease. No acute fracture or subluxation identified. IMPRESSION: 1. No acute fracture or subluxation identified. 2. Demineralized appearance of the bones with moderate to advanced degenerative changes. ACT 112: Negative or not required by law. The above report was generated using voice recognition software. It may contain grammatical, syntax or spelling errors. Electronically signed by: Saqib Shore M.D. 07/01/2023 2:05 PM Lumbar Spine MRI 07/01/23 15:29 Exam(s): MRI L SPINE W/WO Contrast IV Amt: 10ml gadavist EXAM: MR Lumbar Spine Without and With Intravenous Contrast CLINICAL HISTORY: Reason for exam: LBP with left foot drop. TECHNIQUE: Magnetic resonance images of the lumbar spine without and with intravenous contrast in multiple planes. CONTRAST: Patient received 10ml gadavist of IV contrast COMPARISON: MRI lumbar spine 11/21/2020 FINDINGS: No acute fracture. Grade 1 anterolisthesis at L4-5. The conus terminates at T12-L1. Paraspinous soft tissues are unremarkable. Multilevel disc desiccation and height loss. Degenerative changes as follows: L1-L2: Diffuse disc bulge. Facet arthropathy most pronounced on the left. Mild left lateral recess stenosis. No foraminal stenosis. L2-L3: Diffuse disc bulge with facet arthropathy. Moderate canal stenosis. Mild bilateral foraminal stenosis. L3-L4: Trace diffuse disc bulge with facet arthropathy. Mild canal stenosis. Mild bilateral foraminal stenosis. L4-L5: Anterolisthesis with disc uncovering and severe facet arthropathy at this level. Severe spinal canal stenosis. Moderate bilateral foraminal stenosis. L5-S1: Trace right paracentral retrusion and mild facet arthrosis. No spinal canal stenosis. Mild bilateral foraminal stenosis. IMPRESSION: Degenerative spondylosis as described. Severe canal stenosis at L4-5. Electronically signed by: Alex Diaz MD 07/01/23 21:10 PM Ordered Studies 06/29/23 14:00 CT angio head w con Stat CT angio neck with con Stat CT head/brain wo con Stat 06/29/23 18:08 MRI Brain [MR brain wo con] Routine 07/01/23 15:29 MR lumbar spine wo/w con Routine Hospital Course (1) Left leg weakness: (2) Acute on chronic heart failure with preserved ejection fraction (HFpEF): (3) Paroxysmal atrial fibrillation: (4) Hypertension: (5) TIA (transient ischemic attack): Left Foot Drop Secondary to severe spinal canal stenosis at L4-L5 Suspected peroneal nerve injury CVA ruled out --MRI Brain: No acute findings. No evidence of acute ischemia or acute hemorrhage. --Head CTA:No acute intracranial abnormality identified. Patent anterior and middle cerebral arteries. 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 Short segment occlusion with reconstitution of flow within the right posterior cerebral artery is age-indeterminate, new from the 2019 comparison. --Neck CTA:Normal assessment of the carotid arterial system bilaterally and the dominant right vertebral artery. No flow is shown within the proximal and mid portions of the hypoplastic left vertebral artery. Flow is reconstituted below the skull base and this is unchanged from previous. --Left Foot X ray:No acute fracture. Hallux valgus with first metatarsal bunion. Iorv-ia-ntsmaazy osteoarthritis. -- Left knee x-ray:Small joint effusion with no acute bony abnormality identified. Osteopenia and degenerative change as above. -- Lumbar x-ray:No acute fracture or subluxation identified.Demineralized appearance of the bones with moderate to advanced degenerative changes. -- MRI lumbar spine:Degenerative spondylosis as described. Severe canal stenosis at L4-5. -- Lipid panel: Elevated triglycerides, otherwise within normal limit --Continue aspirin, Crestor. Also on Eliquis Appreciate neurology input PT OT, speech eval Fall precautions Appreciate orthopedics input: Given no radicular pain, AFO to assist with ambulation. If clinically deteriorates, inability to ambulate, then may need surgical intervention. Orthotics consulted for ankle-foot orthosis to assist with gait May need EMG as outpatient Plan to discharge home today after brace is arranged Recommend follow-up with surgeon on discharge Chronic heart failure with preserved ejection fraction (HFpEF) -Echo Grade II diastolic failure, EF 55-60%, LVH - Recent admission last month for acute exacerbation - continue metoprolol 50mg BID -> changed to daily dose and coreg discontinued due to Hypotension and bradycardia - continue losartan 100mg daily - Also on Lasix 40 mg every other day - monitor daily weight Underlying obesity hypoventilation syndrome -Uncertain diagnosis -May benefit from following with pulmonology as outpatient Anemia Hb at baseline Monitor Paroxysmal atrial fibrillation Currently in sinus Continue home medications On Eliquis for anticoagulation Anxiety Continue citalopram Xanax as needed GERD (gastroesophageal reflux disease) Continue PPI DVT Px: Eliquis CODE STATUS: FULL CODE Disposition Home with home health Total Time Total Time Spent Total Time Spent (In Minutes): 55 minutes Discharge Plan Discharge Items Patient Disposition: Home - Home Health Services Reason For Visit: R/O STR Discharge Diagnosis: Spinal stenosis, lumbar region with neurogenic claudication Left Foot Drop Activity: Per Instructions section Exercise/Sports: Gradually increase as tolerated Non-emergency contact: Primary Care Provider and Surgeon Call non-emergency contact if: you have any medication questions, your symptoms worsen, your pain is concerning for you and you have a fever Follow-up/Referrals: Jc Del Rio PA-C [Primary Care Provider] - Diet: Heart Healthy Addtl Attending Provider Instructions: Follow-up with your primary care physician Jc Del Rio PA-C in 1 week Follow-up with your orthopedic surgeon Dr. Alvarez in 3 to 4 weeks as recommended. -- Use ankle-foot orthosis with ambulation as recommended by your orthopedic surgeon. Seek immediate medical attention if your symptoms reoccur or worsen Please take all medications as instructed on discharge list below. Please call if you have any questions or problems. You can reach a [facility] hospitalist on duty at [facility] 24 hours a day by calling [phone] Pending Studies at Discharge: No Stand-Alone Forms: My [facility], Smoking Cessation Medications and DC Order Prescriptions: Continued acetaminophen [Tylenol Extra Strength] 500 mg Tablet 1,000 mg PO Q8H PRN (Reason: fever or pain) Qty: 90 0RF sennosides-docusate sodium [Senokot-S] 8.6-50 mg Tablet 1 tab PO QAM Qty: 30 0RF metoprolol succinate 50 mg tablet extended release 24 hr 50 mg PO DAILY Qty: 30 0RF Rx Instructions: hold for SBP<100 or HR<60 alprazolam 0.5 mg tablet 0.5 mg PO BID PRN (Reason: Anxiety) Qty: 10 0RF omeprazole 20 mg Capsule,Delayed Release(Dr/Ec) 20 mg PO DAILY Qty: 30 0RF coenzyme Q10 [CoQ-10] 100 mg Capsule 100 mg PO DAILY Qty: 30 0RF Eliquis 5 mg Tablet 5 mg PO BID Qty: 60 0RF meclizine 12.5 mg tablet 12.5 mg PO Q8 PRN (Reason: .dizzyness) losartan 100 mg tablet 100 mg PO DAILY dorzolamide 2 % drops 1 drp OPB BID cholecalciferol (vitamin D3) [Vitamin D3] 25 mcg (1,000 unit) Tablet 25 mcg PO DAILY furosemide 40 mg tablet 40 mg PO Q2D aspirin 81 mg Tablet,Delayed Release (Dr/Ec) 81 mg PO DAILY rosuvastatin 20 mg tablet 20 mg PO HS citalopram 20 mg tablet 20 mg PO DAILY pregabalin 50 mg capsule 50 mg PO BID polyethylene glycol 3350 [Miralax] 17 gram powder in packet 17 g PO QAM clonidine HCl 0.1 mg tablet 0.1 mg PO DAILY PRN (Reason: SBP>170 or DBP>100) nystatin [Nystop] 100,000 unit/gram powder 1 applic TOPICAL TID PRN (Reason: rash/irritation) Discharge Orders: Discharge Order (Routine); Ordered 07/02/23 Ordered By: Ernie Ibarra Admission Data Admit Date/Time: 06/29/23 18:17 Attending Provider: Ernie Ibarra Admit Provider: Marybeth Mcadams Primary Care Provider: Jc Del Rio Other Providers: Marybeth Mcadams; Kristine Pritchett; Edward Cobb; Kristine Rea; Tanner Albert; Bj Last; Donato Trotter; Jude Oh; Amira Mcpherson; Nasir Greene; Florin Daniels; Oz Naidu; Mauro Rodriguez; Kimber Devi; Zonia Baker; Jude Manuel; Jimmy Alvarez; Vinod Johnson; Nura Sifuentes; Dayana Paez; Gabriele Scott; Subha Hernández; Kei Cervantes; Abdelramhan Ponce; Elvin Todd; Chung Nunn; Abdelrahman Goel; Raf Lopez; Hector Sampson; Diomedes Abreu; Gonzalo Shaw; Subha Singh; Mohan Guzman; Andrei Mcdonough; Mauro Wood; Ольга Elder; Edward Lopez; Christophe Pozo; Nancy Trivedi; Saqib Hines; Anne Badillo; [facility],Formerly [facility]
[2023-07-03 11:11] VITALS: RESP 18; TEMP 99
--- NOTE | 2023-07-03 12:20 | Electrocardiogram Report ---
Test Reason : Blood Pressure : / mmHG Vent. Rate : 064 BPM Atrial Rate : 064 BPM P-R Int : 202 ms QRS Dur : 086 ms QT Int : 416 ms P-R-T Axes : 061 018 009 degrees QTc Int : 429 ms Normal sinus rhythm Normal ECG When compared with ECG of 29-JUN-2023 13:03, No significant change Confirmed by Petey Salazar ([id number]) on 07/03/2023 12:19:56 PM Referred By: REFERRED SELF Confirmed By:Petey Salazar
[2023-07-03 15:12] VITALS: BP 154/77; O2SAT 96
--- NOTE | 2023-07-03 15:19 | Hospitalist Progress Note ---
Date of Service July 03, 2023 Assessment & Plan (1) Left leg weakness: (2) Acute on chronic heart failure with preserved ejection fraction (HFpEF): (3) Paroxysmal atrial fibrillation: (4) Hypertension: (5) TIA (transient ischemic attack): Plan: Left Foot Drop Secondary to severe spinal canal stenosis at L4-L5 Suspected peroneal nerve injury CVA ruled out --MRI Brain: No acute findings. No evidence of acute ischemia or acute hemorrhage. --Head CTA:No acute intracranial abnormality identified. Patent anterior and middle cerebral arteries. 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 Short segment occlusion with reconstitution of flow within the right posterior cerebral artery is age-indeterminate, new from the 2019 comparison. --Neck CTA:Normal assessment of the carotid arterial system bilaterally and the dominant right vertebral artery. No flow is shown within the proximal and mid portions of the hypoplastic left vertebral artery. Flow is reconstituted below the skull base and this is unchanged from previous. --Left Foot X ray:No acute fracture. Hallux valgus with first metatarsal bunion. Pudo-ic-alzzevny osteoarthritis. -- Left knee x-ray:Small joint effusion with no acute bony abnormality i dentified. Osteopenia and degenerative change as above. -- Lumbar x-ray:No acute fracture or subluxation identified.Demineralized appearance of the bones with moderate to advanced degenerative changes. -- MRI lumbar spine:Degenerative spondylosis as described. Severe canal stenosis at L4-5. -- Lipid panel: Elevated triglycerides, otherwise within normal limit --Continue aspirin, Crestor. Also on Eliquis Appreciate neurology input PT OT, speech eval Fall precautions Appreciate orthopedics input: Given no radicular pain, AFO to assist with ambulation. If clinically deteriorates, inability to ambulate, then may need surgical intervention. Orthotics consulted for ankle-foot orthosis to assist with gait May need EMG as outpatient Recommend follow-up with surgeon on discharge Plan to discharge to rehab facility today Chronic heart failure with preserved ejection fraction (HFpEF) -Echo Grade II diastolic failure, EF 55-60%, LVH - Recent admission last month for acute exacerbation - continue metoprolol 50mg BID -> changed to daily dose and coreg discontinued due to Hypotension and bradycardia - continue losartan 100mg daily - Also on Lasix 40 mg every other day - monitor daily weight Underlying obesity hypoventilation syndrome -Uncertain diagnosis -May benefit from following with pulmonology as outpatient Anemia Hb at baseline Monitor Paroxysmal atrial fibrillation Currently in sinus Continue home medications On Eliquis for anticoagulation Anxiety Continue citalopram Xanax as needed GERD (gastroesophageal reflux disease) Continue PPI DVT Px: Eliquis CODE STATUS: FULL CODE Disposition SNF Admission and Anticipated Discharge Date Admission Date: June 29, 2023 Subjective Patient is seen and examined at bedside States feeling well today No new complaints Had left foot orthotic brace placed Clinically no significant change from yesterday Persistent left foot drop Denies any chest pain, dyspnea, nausea, vomiting, abdominal pain, change in vision, dysphagia Plan to discharge to rehab facility today Review of Systems Review of Systems: All systems reviewed & are unremarkable except as noted in Subjective Physical Exam Physical Exam: Physical Exam: Vitals signs as noted above General Appearance:Obese, no apparent distress Head: normocephalic, Atraumatic Eyes: normal inspection, EOMI, Left eye chronic blurry vision Neck: supple, Trachea midline Respiratory/Chest: Normal breath sounds, CTA, No accessory muscle use Cardiovascular: S1, S2, No murmur Abdomen/GI:Soft, Non tender, Bowel sounds present Extremities/Musculoskeletal:normal inspection, 1+ pedal edema Neurologic/Psych:AAOX3, + Left foot can not dorsiflex otherwise grossly no focal deficits Skin: normal color, warm Results & Data Results & Data Vital Signs (Past 12 Hours) Vital Signs Temp Pulse Pulse Resp BP Pulse Ox O2 Del Method 07/03/23 15:12 37.2 C 54 L 18 154/77 H 96 Room Air 07/03/23 11:11 37.2 C 68 18 155/62 H 95 Room Air 07/03/23 07:57 Room Air 07/03/23 07:50 36.5 C 65 20 173/73 H 96 Room Air 07/03/23 07:30 63 07/03/23 03:57 36.4 C L 66 18 139/55 L 94 Room Air (4) Hypertension Hypertension type: primary hypertension Qualified Code(s): I10 - Essential (primary) hypertension
--- NOTE | 2023-07-03 16:06 | Discharge Summary ---
Date of Service July 03, 2023 Admission HPI Per Admitting Provider This is an 87 yo F with PMHx HTN, HLD, PAF, anticoagulated on Eliquis, left eye visual change chronic, anemia, hx of hypertensive urgency, anxiety, depression, GERD presented to ER foot pain, recently admitted for acute respiratory failure with hypoxia and hypercapnia found to hav human metapeumovirus in May 2023. Pt was treated with empiric doxy and rocephin then downgraded to cefdinir and doxy PO. Pt was at assisted living facility today, using walker, and reports not being able to lift her left foot up and dorsiflexion. She is able to do plantar flexion with good strength. Pt has no other areas of focal deficits. Pt feels well overall. Pt states the last time she fell was about 3 weeks ago when she was home for the first day, and was instructed to walk with walker to the dining room at that time, her first longer walk. Fell backwards and hit her head, and still has a large bump on the back of her head still. Pt denies any sick contact, no fever, chills, sweats. She reports taking all her morning medications today. As she is still having difficulty with dosiflexion, she has been admitted for stroke workup and PT/OT evals. Admission Exam Per Admitting Provider General: awake, alert, no apparent distress, + fine tremor throughout upper ext and jaw, white female Head: Normocephalic, atraumatic ENT: PERRL, EOMI, no pharyngeal exudate, mucous membranes moist Chest: Clear to auscultation, on room air, O2 sats 95%, no adventitious breath sounds Cardiac: Regular rate and rhythm, no murmur, no JVD, normal peripheral pulses, good capillary refill Abdominal: NABS x 4 quadrants, soft, nondistended, nontender to palpation, no rebound or guarding Extremities: Normal inspection, no peripheral edema or erythema, calfs nontender to palpation Psych: Normal mood and affect Neuro: AAO x 3, + inability to perform dorsiflexion with the left foot, has good strength with plantarflexion. Right foot able to performa all movements/strength intact bilaterally and rated 5/5, no motor deficits, speech is clear, no peripheral sensory deficits. + tremor throughout. Principal Diagnosis Spinal stenosis, lumbar region with neurogenic claudication Left Foot Drop Discharge Data Allergies Allergy/AdvReac Type Severity Reaction Status Date / Time aspirin AdvReac Unknown GI ISSUES Verified 06/29/23 17:53 Consultations 06/29/23 17:40 ED Decision to Admit Stat 06/30/23 07:41 Consult Neurology Routine 06/30/23 07:58 Consult Orthopedic Surgery Routine 07/02/23 07:27 Consult Orthopedic Surgery Routine Procedures Performed Laboratory Results WBC 7.15 K/ul (4.8-10.8) 07/02/23 06:45 RBC 3.56 M/uL (4.20-5.40) L 07/02/23 06:45 Hgb 10.4 g/dl (12.0-16.0) L 07/02/23 06:45 Hct 32.8 % (37.0-47.0) L 07/02/23 06:45 MCV 92.1 fL (80.0-100.0) 07/02/23 06:45 MCH 29.2 pg (25.0-34.0) 07/02/23 06:45 MCHC 31.7 g/dL (32.0-36.0) L 07/02/23 06:45 RDW Std Deviation 54.8 fL (36.4-46.3) H 07/02/23 06:45 RDW Coeff of Lizy 16.2 % (11.5-14.5) H 07/02/23 06:45 Plt Count 244 K/uL (130-400) 07/02/23 06:45 MPV 10.1 fL (9.4-12.4) 07/02/23 06:45 Immature Gran % (Auto) 0.4 % 07/02/23 06:45 Neut % (Auto) 55.8 % 07/02/23 06:45 Lymph % (Auto) 31.0 % 07/02/23 06:45 [place] % (Auto) 9.7 % 07/02/23 06:45 Eos % (Auto) 2.7 % 07/02/23 06:45 Baso % (Auto) 0.4 % 07/02/23 06:45 Neut # (Auto) 3.99 K/uL (1.40-6.50) 07/02/23 06:45 Lymph # (Auto) 2.22 K/uL (1.20-3.40) 07/02/23 06:45 [place] # (Auto) 0.69 K/uL (0.11-0.59) H 07/02/23 06:45 Eos # (Auto) 0.19 K/uL (0.00-0.50) 07/02/23 06:45 Baso # (Auto) 0.03 K/uL (0.00-0.20) 07/02/23 06:45 Immature Gran # (Auto) 0.03 K/uL (0.01-0.20) 07/02/23 06:45 PT 11.8 Seconds (9.0-12.0) 06/29/23 14:39 INR 1.1 (0.9-1.1) 06/29/23 14:39 APTT 33 Seconds (21-31) H 06/29/23 14:39 PTT Ratio 1.2 06/29/23 14:39 Sodium 138 mmol/L (136-145) 07/02/23 06:45 Potassium 4.1 mmol/L (3.5-5.1) 07/02/23 06:45 Chloride 105 mmol/L (98-107) 07/02/23 06:45 Carbon Dioxide 28 mmol/L (21-32) 07/02/23 06:45 Anion Gap 5 (3-11) 07/02/23 06:45 BUN 24 mg/dl (6-23) H 07/02/23 06:45 Creatinine 1.25 mg/dl (0.6-1.2) H 07/02/23 06:45 Est Cr Clr Drug Dosing 35.6 ml/min 07/02/23 06:45 Est GFR ( Amer) 44.5 ml/min 07/02/23 06:45 Est GFR (Non-Af Amer) 38.4 ml/min 07/02/23 06:45 BUN/Creatinine Ratio 19.2 (10-20) 07/02/23 06:45 Glucose 97 mg/dl (70-99(Fasting)) 07/02/23 06:45 POC Glucose 96 mg/dl (70-99) 06/29/23 14:42 Estimat Average Glucose 114 mg/dl 06/30/23 08:01 Hemoglobin A1c 5.6 % (4.5-5.6) 06/30/23 08:01 Calcium 8.6 mg/dl (8.6-10.3) 07/02/23 06:45 Magnesium 1.9 mg/dl (1.7-2.4) 06/29/23 14:39 Total Bilirubin 0.9 mg/dl (0.2-1.0) 06/29/23 14:39 AST 12 U/L (13-39) L 06/29/23 14:39 ALT 6 U/L (7-52) L 06/29/23 14:39 Alkaline Phosphatase 53 U/L (34-104) 06/29/23 14:39 Troponin I High Sens 5.7 pg/ml (0-14) 06/29/23 14:39 Total Protein 6.4 gm/dl (6.0-8.3) 06/29/23 14:39 Albumin 3.7 gm/dl (3.4-5.0) 06/29/23 14:39 Globulin 2.7 gm/dl (2.5-4.0) 06/29/23 14:39 Albumin/Globulin Ratio 1.4 (0.9-2) 06/29/23 14:39 Triglycerides 237 mg/dl (0-150) H 06/30/23 08:01 Cholesterol 139 mg/dl (0-200) 06/30/23 08:01 LDL Cholesterol, Calc 50 mg/dl 06/30/23 08:01 VLDL Cholesterol, Calc 47 mg/dl (0-30) H 06/30/23 08:01 HDL Cholesterol 42 mg/dl 06/30/23 08:01 Cholesterol/HDL Ratio 3.3 (0-5) 06/30/23 08:01 Nasal Screen MRSA (PCR) Negative (Negative) 06/29/[address] 06/29/23 14:00 CT angio head w con, CT head/brain wo con CLINICAL HISTORY: 87 years-old Female with neuro deficit, acute stroke suspected. Acute stroke like symptoms COMPARISON STUDY: Head CT 05/08/2023, CTA head and neck 08/30/2018 TECHNIQUE: Unenhanced axial CT scan of the brain is performed. Subsequently, following the IV administration of 118 cc of Optiray, CT angiogram of the brain was performed from the skull base to the vertex. Images are reviewed in the axial, sagittal, and coronal planes. 3-D MIPS images are created and assessed. IV contrast was administered without complication. All measurements were obtained according to NASCET criteria. A dose lowering technique was utilized adhering to the principles of ALARA. CT DOSE: 522.26 mGy.cm (accession [id number]), 625.8 mGy.cm (accession [id number]) FINDINGS: CT BRAIN: There is no acute intracranial hemorrhage, midline shift, hydrocephalus, intracranial mass, territorial ischemia or abnormal extra-axial collections. No abnormal intra-axial or extra-axial enhancement. Involutional changes with chronic microvascular ischemic disease. Paranasal sinuses are clear. There is a large right and trace left mastoid effusions. Postoperative changes of the paranasal sinuses. Small posterior right parietal scalp contusion. Prior bilateral lens repair. No calvarial fracture. CT ANGIOGRAM OF THE BRAIN: The imaged bilateral internal carotid arteries are patent. The bilateral anterior and middle cerebral arteries are also patent. Dominant right vertebral artery redemonstrated. The left vertebral artery is developmentally diminutive and demonstrates multifocal stenoses within the V3 and V4 segments which are moderate to high-grade and unchanged from the 2019 study. Patent basilar artery. origin of the left posterior cerebral artery with high-grade stenosis in the left posterior communicating artery, unchanged. Occlusion of the right posterior cerebral artery within a 4 mm segment with distal reconstitution is new from the prior study. The distal portions of the right posterior cerebral artery are suboptimally visualized. There is no aneurysm, high-grade stenosis, or proximal branch occlusion identified. Dural sinuses appear patent. IMPRESSION: 1. No acute intracranial abnormality identified. 2. Patent anterior and middle cerebral arteries. 3. 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 4. Short segment occlusion with reconstitution of flow within the right posterior cerebral artery is age-indeterminate, new from the 2019 comparison. ACT 112: Negative or not required by law. The above report was generated using voice recognition software. It may contain grammatical, syntax or spelling errors. Electronically signed by: Saqib Shore M.D. 06/29/2023 4:24 PM Head CTA 06/29/23 14:00 CT angio head w con, CT head/brain wo con CLINICAL HISTORY: 87 years-old Female with neuro deficit, acute stroke suspected. Acute stroke like symptoms COMPARISON STUDY: Head CT 05/08/2023, CTA head and neck 08/30/2018 TECHNIQUE: Unenhanced axial CT scan of the brain is performed. Subsequently, following the IV administration of 118 cc of Optiray, CT angiogram of the brain was performed from the skull base to the vertex. Images are reviewed in the axial, sagittal, and coronal planes. 3-D MIPS images are created and assessed. IV contrast was administered without complication. All measurements were obtained according to NASCET criteria. A dose lowering technique was utilized adhering to the principles of ALARA. CT DOSE: 522.26 mGy.cm (accession [id number]), 625.8 mGy.cm (accession [id number]) FINDINGS: CT BRAIN: There is no acute intracranial hemorrhage, midline shift, hydrocephalus, intracranial mass, territorial ischemia or abnormal extra-axial collections. No abnormal intra-axial or extra-axial enhancement. Involutional changes with chronic microvascular ischemic disease. Paranasal sinuses are clear. There is a large right and trace left mastoid effusions. Postoperative changes of the paranasal sinuses. Small posterior right parietal scalp contusion. Prior bilater al lens repair. No calvarial fracture. CT ANGIOGRAM OF THE BRAIN: The imaged bilateral internal carotid arteries are patent. The bilateral anterior and middle cerebral arteries are also patent. Dominant right vertebral artery redemonstrated. The left vertebral artery is developmentally diminutive and demonstrates multifocal stenoses within the V3 and V4 segments which are moderate to high-grade and unchanged from the 2019 study. Patent basilar artery. origin of the left posterior cerebral artery with high-grade stenosis in the left posterior communicating artery, unchanged. Occlusion of the right posterior cerebral artery within a 4 mm segment with distal reconstitution is new from the prior study. The distal portions of the right posterior cerebral artery are suboptimally visualized. There is no aneurysm, high-grade stenosis, or proximal branch occlusion identified. Dural sinuses appear patent. IMPRESSION: 1. No acute intracranial abnormality identified. 2. Patent anterior and middle cerebral arteries. 3. 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 4. Short segment occlusion with reconstitution of flow within the right poste rior cerebral artery is age-indeterminate, new from the 2019 comparison. ACT 112: Negative or not required by law. The above report was generated using voice recognition software. It may contain grammatical, syntax or spelling errors. Electronically signed by: Saqib Shore M.D. 06/29/2023 4:24 PM Neck CTA 06/29/23 14:00 CT ANGIOGRAM OF THE NECK CLINICAL HISTORY: Neurological deficit. Stroke like symptoms. COMPARISON STUDY: CT angiogram of the neck dated 08/30/2018. TECHNIQUE: Following the IV administration of 118 of Optiray 320, CT angiogram of the neck was performed from the aortic arch to the skull base. Images are reviewed in the axial, sagittal, and coronal planes. 3-D MIPS images are created and assessed. IV contrast was administered without complication. All measurements were calculated based on NASCET criteria. A dose lowering technique was utilized adhering to the principles of ALARA. FINDINGS: Thoracic aorta: There is atherosclerotic calcification of the thoracic aorta. Visualized portions of the thoracic aorta are normal in caliber. The aortic arch demonstrates standard 3-vessel anatomy. Right carotid arterial system: The right common carotid artery is widely patent, as are the right internal and external carotid arteries. Left carotid arterial system: The left common carotid artery is widely patent, as are the left internal and external carotid arteries. Calcified plaque is noted in the carotid bulb. Vertebral arteries: The right vertebral artery is dominant and widely patent. No flow shown within the proximal and mid portions of the hypoplastic left vertebral artery. This is unchanged from previous, with reconstitution of flow below the skull base at the level of C2. Subclavian arteries: Widely patent bilaterally. Intracranial vasculature: The visualized intracranial vessels at the skull base are patent Jugular veins: Patent bilaterally. Brain parenchyma: The visualized brain parenchyma the skull base is within normal limits. Lung apices: Partially visualized upper lobe lung parenchyma appears clear. Soft tissues: The visualized pharyngeal soft tissues are normal in appearance noting angiographic phase technique. The oropharyngeal airway appears widely patent. Thyroid goiter is unchanged. The salivary glands are normal in appearance. No cervical lymphadenopathy is seen. Skeletal structures: The skeletal structures are osteopenic. The visualized calvarium at the skull base appears intact. The imaged cervical spine is maintained noting multilevel spondylosis. Sinuses and mastoids: There is trace mucosal thickening within the maxillary antra. There is a right mastoid effusion. The left mastoid air cells are well pneumatized. IMPRESSION: 1. Normal assessment of the carotid arterial system bilaterally and the dominant right vertebral artery. 2. No flow is shown within the proximal and mid portions of the hypoplastic left vertebral artery. Flow is reconstituted below the skull base and this is unchanged from previous. ACT 112: Negative or not required by law. Electronically signed by: Pablito Greenberg M.D. 06/29/2023 4:17 PM Foot X-Ray 06/29/23 16:32 XR foot LT min 3V routine HISTORY: 87 years-old Female foot drop/weakness acute left foot pain with weakness COMPARISON: None TECHNIQUE: 3 views of the left foot FINDINGS: Prominent hallux valgus. Demineralized appearance of the bones with mild to moderate osteoarthritis. First metatarsal bunion. Large plantar calcaneal enthesophyte. No acute fracture, dislocation or osseous erosion is identified. IMPRESSION: 1. No acute fracture. 2. Hallux valgus with first metatarsal bunion. 3. [id number] osteoarthritis. ACT 112: Negative or not required by law. The above report was generated using voice recognition software. It may contain grammatical, syntax or spelling errors. Electronically signed by: Saqib Shore M.D. 06/29/2023 4:54 PM Brain MRI 06/29/23 18:08 Exam(s): MRI HEAD Without Contrast EXAM: MR Head Without Intravenous Contrast CLINICAL HISTORY: Reason for exam: r/o stroke LLE weakness. TECHNIQUE: Magnetic resonance images of the head/brain without intravenous contrast in multiple planes. COMPARISON: CT head, CTA head 06/29/23; MRI brain 08/31/18 FINDINGS: Brain: Generalized loss of parenchymal volume. Periventricular flair signal hyperintensity consistent with mild chronic small vessel ischemic disease. No diffusion restriction to suggest acute cerebral ischemia. No acute intracranial hemorrhage or abnormal extra-axial fluid collection. No mass-effect or midline shift. Ventricles: Unremarkable. No ventriculomegaly. Bones/joints: Unremarkable. No acute fracture. Sinuses: Trace mucosal thickening in the ethmoids and maxillary sinuses. No acute sinusitis. Mastoid air cells: Right mastoid effusion. Left mastoid air cells are clear. Orbits: Bilateral lens replacements. IMPRESSION: No acute findings. No evidence of acute ischemia or acute hemorrhage. Electronically signed by: Deejay Zuniga M.D. 06/29/23 21:16 PM Knee X-Ray 07/01/23 12:13 LEFT KNEE 4 VIEWS CLINICAL HISTORY: Left foot drop. FINDINGS: AP, crosstable lateral, tunnel, and sunrise views of the left knee are obtained. No prior studies are available for comparison at the time of dictation. The skeletal structures are osteopenic. No fracture is seen. There is moderate tricompartmental degenerative joint space narrowing, greatest in the medial and patellofemoral compartments. There are large marginal osteophytes, patellar enthesophytes, and degenerative beaking of the tibial spine. No osteochondral defect is suggested on the tunnel image. A small joint effusion is noted. Mild soft tissue swelling is seen around the knee. IMPRESSION: 1. Small joint effusion with no acute bony abnormality identified. 2. Osteopenia and degenerative change as above. Electronically signed by: Pablito Greenberg M.D. 07/01/2023 2:05 PM Lumbar Spine X-Ray 07/01/23 12:13 XR lumbar spine 2-3V HISTORY: 87 years-old Female acute left foot drop acute low back pain COMPARISON: MR lumbar spine 11/22/2020 TECHNIQUE: 3 views of the lumbar spine FINDINGS: Moderate rectal fecal retention with mild gaseous distention of the colon. Atherosclerosis of the aorta. Demineralized appearance of the bones. Moderate to severe multilevel intervertebral disc space narrowing with advanced facet arthrosis and spondylotic spurring. Disc space narrowing is again most pronounced at L2-L3. There is unchanged grade 1 anterolisthesis L4 on L5, likely secondary to the chronic facet disease. No acute fracture or subluxation identified. IMPRESSION: 1. No acute fracture or subluxation identified. 2. Demineralized appearance of the bones with moderate to advanced degenerative changes. ACT 112: Negative or not required by law. The above report was generated using voice recognition software. It may contain grammatical, syntax or spelling errors. Electronically signed by: Saqib Shore M.D. 07/01/2023 2:05 PM Lumbar Spine MRI 07/01/23 15:29 Exam(s): MRI L SPINE W/WO Contrast IV Amt: 10ml gadavist EXAM: MR Lumbar Spine Without and With Intravenous Contrast CLINICAL HISTORY: Reason for exam: LBP with left foot drop. TECHNIQUE: Magnetic resonance images of the lumbar spine without and with intravenous contrast in multiple planes. CONTRAST: Patient received 10ml gadavist of IV contrast COMPARISON: MRI lumbar spine 11/21/2020 FINDINGS: No acute fracture. Grade 1 anterolisthesis at L4-5. The conus terminates at T12-L1. Paraspinous soft tissues are unremarkable. Multilevel disc desiccation and height loss. Degenerative changes as follows: L1-L2: Diffuse disc bulge. Facet arthropathy most pronounced on the left. Mild left lateral recess stenosis. No foraminal stenosis. L2-L3: Diffuse disc bulge with facet arthropathy. Moderate canal stenosis. Mild bilateral foraminal stenosis. L3-L4: Trace diffuse disc bulge with facet arthropathy. Mild canal stenosis. Mild bilateral foraminal stenosis. L4-L5: Anterolisthesis with disc uncovering and severe facet arthropathy at this level. Severe spinal canal stenosis. Moderate bilateral foraminal stenosis. L5-S1: Trace right paracentral retrusion and mild facet arthrosis. No spinal canal stenosis. Mild bilateral foraminal stenosis. IMPRESSION: Degenerative spondylosis as described. Severe canal stenosis at L4-5. Electronically signed by: Alex Diaz MD 07/01/23 21:10 PM Ordered Studies 06/29/23 14:00 CT angio head w con Stat CT angio neck with con Stat CT head/brain wo con Stat 06/29/23 18:08 MRI Brain [MR brain wo con] Routine 07/01/23 15:29 MR lumbar spine wo/w con Routine Hospital Course (1) Left leg weakness: (2) Acute on chronic heart failure with preserved ejection fraction (HFpEF): (3) Paroxysmal atrial fibrillation: (4) Hypertension: (5) TIA (transient ischemic attack): Left Foot Drop Secondary to severe spinal canal stenosis at L4-L5 Suspected peroneal nerve injury CVA ruled out --MRI Brain: No acute findings. No evidence of acute ischemia or acute hemorrhage. --Head CTA:No acute intracranial abnormality identified. Patent anterior and middle cerebral arteries. 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 Short segment occlusion with reconstitution of flow within the right posterior cerebral artery is age-indeterminate, new from the 2019 comparison. --Neck CTA:Normal assessment of the carotid arterial system bilaterally and the dominant right vertebral artery. No flow is shown within the proximal and mid portions of the hypoplastic left vertebral artery. Flow is reconstituted below the skull base and this is unchanged from previous. --Left Foot X ray:No acute fracture. Hallux valgus with first metatarsal bunion. Njdh-[id number] osteoarthritis. -- Left knee x-ray:Small joint effusion with no acute bony abnormality identified. Osteopenia and degenerative change as above. -- Lumbar x-ray:No acute fracture or subluxation identified.Demineralized appearance of the bones with moderate to advanced degenerative changes. -- MRI lumbar spine:Degenerative spondylosis as described. Severe canal stenosis at L4-5. -- Lipid panel: Elevated triglycerides, otherwise within normal limit --Continue aspirin, Crestor. Also on Eliquis Appreciate neurology input PT OT, speech eval Fall precautions Appreciate orthopedics input: Given no radicular pain, AFO to assist with ambulation. If clinically deteriorates, inability to ambulate, then may need surgical intervention. Orthotics consulted for ankle-foot orthosis to assist with gait May need EMG as outpatient Recommend follow-up with surgeon on discharge Plan to discharge to rehab facility today Chronic heart failure with preserved ejection fraction (HFpEF) -Echo Grade II diastolic failure, EF 55-60%, LVH - Recent admission last month for acute exacerbation - continue metoprolol 50mg BID -> changed to daily dose and coreg discontinued due to Hypotension and bradycardia - continue losartan 100mg daily - Also on Lasix 40 mg every other day - monitor daily weight Underlying obesity hypoventilation syndrome -Uncertain diagnosis -May benefit from following with pulmonology as outpatient Anemia Hb at baseline Monitor Paroxysmal atrial fibrillation Currently in sinus Continue home medications On Eliquis for anticoagulation Anxiety Continue citalopram Xanax as needed GERD (gastroesophageal reflux disease) Continue PPI DVT Px: Eliquis CODE STATUS: FULL CODE Disposition SNF Total Time Total Time Spent Total Time Spent (In Minutes): 54 minutes Discharge Plan Discharge Items Patient Disposition: Transfer [facility] Reason For Visit: R/O STR Discharge Diagnosis: Spinal stenosis, lumbar region with neurogenic claudication Left Foot Drop Activity: Per Instructions section Exercise/Sports: Gradually increase as tolerated Non-emergency contact: Primary Care Provider and Surgeon Call non-emergency contact if: you have any medication questions, your symptoms worsen, your pain is concerning for you and you have a fever Follow-up/Referrals: Jc Del Rio PA-C [Primary Care Provider] - Diet: Heart Healthy Addtl Attending Provider Instructions: Follow-up with your primary care physician Jc Del Rio PA-C in 1 week Follow-up with your orthopedic surgeon Dr. Alvarez in 3 to 4 weeks as recommended. Get EMG done as outpatient -- Use ankle-foot orthosis with ambulation as recommended by your orthopedic surgeon. Seek immediate medical attention if your symptoms reoccur or worsen Please take all medications as instructed on discharge list below. Please call if you have any questions or problems. You can reach a [facility] hospitalist on duty at [facility] 24 hours a day by calling [phone] Pending Studies at Discharge: No Stand-Alone Forms: My [facility], Smoking Cessation Skilled Items Patient informed of condition?: Yes DNR: No Discharge Level of Care: Skilled Communicable Disease: No Discharge Prognosis: Stable Lines: None Urinary Catheter: No Medications and DC Order Prescriptions: Continued acetaminophen [Tylenol Extra Strength] 500 mg Tablet 1,000 mg PO Q8H PRN (Reason: fever or pain) Qty: 90 0RF sennosides-docusate sodium [Senokot-S] 8.6-50 mg Tablet 1 tab PO QAM Qty: 30 0RF metoprolol succinate 50 mg tablet extended release 24 hr 50 mg PO DAILY Qty: 30 0RF Rx Instructions: hold for SBP<100 or HR<60 alprazolam 0.5 mg tablet 0.5 mg PO BID PRN (Reason: Anxiety) Qty: 10 0RF omeprazole 20 mg Capsule,Delayed Release(Dr/Ec) 20 mg PO DAILY Qty: 30 0RF coenzyme Q10 [CoQ-10] 100 mg Capsule 100 mg PO DAILY Qty: 30 0RF Eliquis 5 mg Tablet 5 mg PO BID Qty: 60 0RF meclizine 12.5 mg tablet 12.5 mg PO Q8 PRN (Reason: .dizzyness) losartan 100 mg tablet 100 mg PO DAILY dorzolamide 2 % drops 1 drp OPB BID cholecalciferol (vitamin D3) [Vitamin D3] 25 mcg (1,000 unit) Tablet 25 mcg PO DAILY furosemide 40 mg tablet 40 mg PO Q2D aspirin 81 mg Tablet,Delayed Release (Dr/Ec) 81 mg PO DAILY rosuvastatin 20 mg tablet 20 mg PO HS citalopram 20 mg tablet 20 mg PO DAILY pregabalin 50 mg capsule 50 mg PO BID polyethylene glycol 3350 [Miralax] 17 gram powder in packet 17 g PO QAM clonidine HCl 0.1 mg tablet 0.1 mg PO DAILY PRN (Reason: SBP>170 or DBP>100) nystatin [Nystop] 100,000 unit/gram powder 1 applic TOPICAL TID PRN (Reason: rash/irritation) Discharge Orders: Discharge Order (Routine); Ordered 07/03/23 Ordered By: Ernie Ibarra Admission Data Admit Date/Time: 06/29/23 18:17 Attending Provider: Ernie Ibarra Admit Provider: Marybeth Mcadams Primary Care Provider: Jc Del Rio Other Providers: Marybeth Mcadams; Kristine Pritchett; Edward Cobb; Kristine Rea; Tanner Albert; Bj Last; Donato Trotter; Jude Oh; Amira Mcpherson; Nasir Greene; Florin Daniels; Oz Naidu; Mauro Rodriguez; Kimber Devi; Zonia Baker; Jude Manuel; Jimmy Alvarez; Vinod Johnson; Nura Sifuentes; Dayana Paez; Gabriele Scott; Subha Hernández; Kei Cervantes; Abdelrahman Ponce; Elvin Todd; Chung Nunn; Abdelrahman Goel; Raf Lopez; Hector Sampson; Diomedes Abreu; Gonzalo Shaw; Subha Singh; Mohan Guzman; Andrei Mcdonough; Mauro Wood; Ольга Elder; Edward Lopez; Christophe Pozo; Nancy Trivedi; Saqib Hines; Anne Badillo; [facility] Other Interventions: Discharge Summary Assessment (RN) Last Done: 07/03/23 15:35
[2023-07-03 16:39] VITALS: PULSE 54
== END 2023-07-03 16:22 | DRG 74 ==
LOC: ED 12:41 → SUATTDRO 18:17 → EDINP 18:17 → 2N 20:26
DX: M48.061 Spinal stenosis, lumbar region without neurogenic claudication; Z79.01 Long term (current) use of anticoagulants; S84.12XA Injury of peroneal nerve at lower leg level, left leg, initial encounter; K21.9 Gastro-esophageal reflux disease without esophagitis; Z79.899 Other long term (current) drug therapy; Z88.6 Allergy status to analgesic agent; Z79.82 Long term (current) use of aspirin; I50.32 Chronic diastolic (congestive) heart failure; F41.9 Anxiety disorder, unspecified; E66.2 Morbid (severe) obesity with alveolar hypoventilation; F32.A Depression, unspecified; Z68.38 Body mass index [BMI] 38.0-38.9, adult; Z79.4 Long term (current) use of insulin; D64.9 Anemia, unspecified; I48.0 Paroxysmal atrial fibrillation